=== PATIENT | male | born 1960 | race African-American/Black ===

== ENCOUNTER 2016-08-07 20:56 | Emergency (ER) | payer OTHER ==
[2016-08-07 21:11] VITALS: BMI 32.3
--- NOTE | 2016-08-07 21:13 | PDOC ---
History of Present Illness - General History Source: Patient Exam Limitations: No Limitations - History of Present Illness Initial Comments: 08/07/16 21:22 The patient is a 56 year old male, with a significant past medical history of DM , hypertension, kidney transplant on anti-rejection medication, who presents to the emergency department with complaints of nausea, diarrhea, and constant hiccups for the past few days. The patient also reports that his right hand has been swollen for the past three days. Patient was on dialysis [id number] with the fistula in the left arm He denies chest pain, shortness of breath, headache and dizziness. He denies fever, chills, vomit and constipation. PAST MEDICAL HISTORY: no significant history PAST SURGICAL HISTORY: Kidney transplant in 2009 at 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 Former smoker (quit 10 years ago) MEDICATIONS: reviewed PCP: Dr. Gorge Tomas General: +hiccups No fevers or chills, no weakness, no weight loss HEENT: No change in vision. No sore throat. No ear pain CardioVascular: No chest pain or shortness of breath Respiratory:No cough, or wheezing. Gastrointestinal: +nausea, +diarrhea no vomiting or constipation, No rectal bleeding Genitourinary: No dysuria, hematuria, or frequency Musculoskeletal: +right hand swelling No joint or muscle pain Neurologic: No headache, vertigo, dizziness or loss of consciousness Psychiatric: no depression Skin: No rashes or easy bruising Endocrine: no increased thirst or abnormal weight change Allergic: no skin or latex allergy All other systems reviewed and normal General: Well nourished well developed individual, no acute distress HEENT: Throat: Normal, tonsils normal, no erythema or exudate Neck: Supple, no meningeal signs, no lymphadenopathy Eyes:Pupils equal reactive and round, extraocular motion intact Chest: Nontender to palpation Cardiac: S1S2 normal, regular rate and rhythm, no murmurs rubs or gallops Respiratory: Lungs clear to auscultation bilateral Abdomen: Soft, nondistended, normal bowel sounds, nontender to palpation diffusely Extremities: +Mild edema of the right hand Warm, dry, no cyanosis or clubbing Skin: No rashes Neuro: Alert and oriented x3, nonfocal exam, grossly intact, normal gait Psych: Normal mood and affect <Anglea Nazario Last Filed: 08/07/16 21:22> - General History Source: Patient Exam Limitations: No Limitations - History of Present Illness Initial Comments: 08/08/16 01:04 A portion of this note was documented by scribe services under my direction. I have reviewed the details of the note, within reason, and agree with the documentation. The case summary and management plan written by me. Assessment and plan: This is a 48-year-old male who comes in feeling poorly. Patient has multiple complaints of not feeling well, some nausea, intermittent vomiting, intermittent diarrhea, lack of energy, swelling in his right hand. Patient has history significant for renal failure status post renal transplant 7 years ago, type 2 diabetes, hypertension. Patient had a complete workup including lab work which showed a mildly elevated white count but no left shift patient also is afebrile here in the emergency room and doesn't complain of any fevers just some chills from time to time Patient had some mild hyponatremia, hyperglycemia and renal insufficiency all of which appear to be chronic Patient has a primary care doctor that he can follow-up with on Tuesday Patient's family was given copies of all of his blood work. Patient had a markedly elevated d-dimer and complaining of the swelling in the hand so he cannot Dopplers of his bilateral upper and lower extremities all of which were negative Patient feels better after some IV fluid hydration and was discharged home with his . Patient was also complaining of hiccups he was given Reglan here and his hiccups improved so was discharged home with a prescription for Reglan also <Cole Bob I - Last Filed: 08/08/16 01:11> - General Chief Complaint: Diarrhea Stated Complaint: NAUSEA & DIARRHEA & HICCOUGHS Time Seen by Provider: 08/07/16 21:03 Past History <Angela Nazario - Last Filed: 08/07/16 21:22> - Past Medical History Anemia: No Asthma: No COPD: No Diabetes: Yes Dialysis: No (former dialysis, now post kidney transplant) Disorders: Yes HTN: Yes - Surgical History Orthopedic Surgery: Yes (Lt 4th digit partial amputation) - Immunization History Immunization Up to Date: Yes - Psycho/Social/Smoking Cessation Hx Anxiety: No Suicidal Ideation: No Smoking History: Former smoker Have you smoked in the past 12 months: No Number of Cigarettes Smoked Daily: 0 If you are a former smoker, when did you quit?: 10 YRS Hx Alcohol Use: No Drug/Substance Use Hx: No Substance Use Type: None Hx Substance Use Treatment: No <Cole Bob I - Last Filed: 08/08/16 01:11> - Past Medical History Allergies/Adverse Reactions: Allergies Allergy/AdvReac Type Severity Reaction Status Date / Time No Known Allergies Allergy Verified 05/14/15 16:27 Home Medications: Ambulatory Orders Amlodipine Besylate [Norvasc -] 10 mg PO DAILY 10/03/14 Aspirin [ASA -] 81 mg PO DAILY 10/03/14 Insulin (Levemir) [Levemir Vial] 30 unit SQ AM 10/03/14 Losartan Potassium [Cozaar] 50 mg PO BID 10/03/14 Magnesium Oxide 400 mg PO BID 10/03/14 Metoprolol Tartrate [Lopressor] 100 mg PO BID 10/03/14 Multivitamins [Multivit ([facility] Formulary)] 1 tab PO DAILY 10/03/14 Pyridoxine HCl [Vitamin B-6] 25 mg PO DAILY 10/03/14 Tacrolimus Anhydrous [Prograf (Non-Formulary)] 3.5 mg PO BID 10/03/14 Cinacalcet HCl [Sensipar] 60 mg PO DAILY 11/29/14 Insulin Lispro [Humalog] 100 unit SQ QID PRN 11/29/14 Mycophenolate Sodium [Myfortic] 360 mg PO HS 11/29/14 Mycophenolate Sodium [Myfortic] 720 mg PO DAILY 11/29/14 Sodium Bicarbonate - 1,300 mg PO BID #0 tablet 12/04/14 Metoclopramide HCl [Reglan] 10 mg PO TID #21 tablet 08/08/16 *Physical Exam - Vital Signs Last Vital Signs Temp Pulse Resp BP Pulse Ox 98.8 F 95 H 16 166/75 100 08/07/16 21:02 08/07/16 21:02 08/07/16 21:02 08/07/16 21:02 08/07/16 21:02 <Angela Nazario - Last Filed: 08/07/16 21:22> ED Treatment Course - LABORATORY CBC & Chemistry Diagram: 08/07/16 21:35 08/07/16 21:35 <Cole Bob I - Last Filed: 08/08/16 01:11> *DC/Admit/Observation/Transfer - Attestations Scribe Attestion: 08/07/16 21:23 Documentation prepared by MARIE Taveras, acting as medical equipment technician for Cole Bob MD. <Angela Nazario - Last Filed: 08/07/16 21:22> - Discharge Dispostion Admit: No <Cole Bob I - Last Filed: 08/08/16 01:11> Diagnosis at time of Disposition: Hyponatremia, Renal insufficiency Leukocytosis Qualifiers: Leukocytosis type: other Qualified Code(s): D72.828 - Other elevated white blood cell count Type 2 diabetes mellitus with hyperglycemia Qualifiers: Diabetes mellitus long-term insulin use: with long-term use Qualified Code(s): E11.65 - Type 2 diabetes mellitus with hyperglycemia; Z79.4 - long-term (current ) use of insulin - Discharge Dispostion Disposition: HOME Condition at time of disposition: Fair - Referrals Referrals: Gorge Guadarrama MD [Primary Care Provider] - - Patient Instructions Additional Instructions: Purchase some [id number] Imodium and take as needed and directed on the bottle for the diarrhea. For the hiccups that the prescription filled for Reglan and take as directed until the hiccups are resolved. Call your primary care doctor on Tuesday and get an appointment to follow-up with him on Tuesday or Tuesday. Return to the emergency department immediately with ANY new, persistent or worsening symptoms. Continue any medications as previously prescribed by your physician. You should follow up with your primary doctor as soon as possible regarding today's emergency department visit. . Please make sure your doctor reviews the results of your emergency evaluation. Thank you for coming to the Emergency Department today for your care. It was a pleasure to see you today. Please note that your evaluation is INCOMPLETE until you follow-up with your doctor.
[2016-08-07] MEDS ORDERED: chlorproMAZINE HCL 25 MG TABLET PO STA (21:14)
[2016-08-07] MEDS ORDERED: SODIUM CHLORIDE 1,000 ML IV ONE (21:24)
[2016-08-07] MEDS ORDERED: METOCLOPRAMIDE HCL 10 MG TABLET (FP) PO ONE (21:36)
[2016-08-07 22:03] LABS: PLATELET COUNT 246 K/MM3 (134-434); RDW 17.8 % (11.9-15.9)
[2016-08-07 22:06] LABS: BASOPHIL 2.4 % (0-2.0); MCH 25.8 pg (25.7-33.7); MCHC 32.5 g/dl (32.0-35.9); MEAN CELL VOLUME 79.4 fl (80-96); MEAN PLT VOLUME 11.8 fl (7.5-11.1); NEUTROPHILS 80.2 % (42.8-82.8); WHITE BLOOD COUNT 12.2 K/mm3 (4.0-10.0)
[2016-08-07 22:18] LABS: ALBUMIN 2.9 g/dl (3.5-5.0); BILIRUBIN,TOTAL 0.8 mg/dl (0.2-1.0); CALCIUM 8.6 mg/dl (8.4-10.2); TOT PROT 7.3 g/dl (6.4-8.3)
[2016-08-07 22:52] LABS: TROPONIN I (DFP) 0.03 ng/ml (0.03-0.50)
[2016-08-07 23:01] LABS: PH,URINE 5.5 (4.5-8); URINE APPEARANCE Clear; URINE BILIRUBIN 1+ (NEGATIVE); URINE GLUCOSE (UA) Negative (NEGATIVE); URINE KETONE 1+ (NEGATIVE); URINE LEUK ESTERASE Negative (NEGATIVE); URINE NITRITE Negative (NEGATIVE); URINE UROBILINOGEN 0.2 E.U/dl (0.2-1.0)
[2016-08-07 23:02] LABS: URINE BLOOD 1+ (NEGATIVE); URINE COLOR YELLOW; URINE PROTEIN 2+ (NEGATIVE)
[2016-08-07 23:23] LABS: URINE WBC NONE SEEN (3-5)
[2016-08-08] MEDS ORDERED: ACETAMINOPHEN 500 MG TABLET (FP) PO ONE ×2 (00:52→00:56)
[2016-08-08] MEDS ORDERED: ACETAMINOPHEN 325 MG TABLET (FP) ONE (00:53)
[2016-08-08 00:56] VITALS: BP 140/79; PULSE 98; TEMP 99.3
[2016-08-08] MEDS ORDERED: METOCLOPRAMIDE HCL 10 MG TABLET (FP) PO ONE (01:06)
--- NOTE | 2016-08-09 16:44 | EKG ---
Test Reason : Blood Pressure : / mmHG Vent. Rate : 093 BPM Atrial Rate : 093 BPM P-R Int : 152 ms QRS Dur : 072 ms QT Int : 360 ms P-R-T Axes : 037 060 -07 degrees QTc Int : 447 ms NORMAL SINUS RHYTHM POSSIBLE LEFT ATRIAL ENLARGEMENT ABNORMAL QRS-T ANGLE, CONSIDER PRIMARY T WAVE ABNORMALITY WHEN COMPARED WITH ECG OF 01-MAY-2007 17:30, NO SIGNIFICANT CHANGE WAS FOUND Confirmed by MD CASSIE, STEPHENIE ([id number]) on 08/09/2016 4:44:15 PM Referred By: MINE Confirmed By:STEPHENIE MATTHEWS MD
== END 2016-08-08 01:15 | disposition home or self-care (01) ==
LOC: FER 20:56
DX: E11.65 Type 2 diabetes mellitus with hyperglycemia (principal); D72.828 Other elevated white blood cell count; N28.9 Disorder of kidney and ureter, unspecified; E87.1 Hypo-osmolality and hyponatremia; Z94.0 Kidney transplant status; I10 Essential (primary) hypertension; Z87.891 Personal history of nicotine dependence
CPT/HCPCS: 36415; 80053; 81003; 81015; 82550; 84484; 85025; 85379; 93005; 93971; 93971-TC; 99284-25

== ENCOUNTER 2017-04-02 21:29 | Inpatient (IN) | payer OTHER ==
--- NOTE | 2017-04-02 22:01 | PDOC ---
Attending Attestation - Resident Resident Name: KrishanSang vitale - HPI HPI: 04/07/17 07:49 Pt presents to the ED complaining of R flank pain and generalized malaise. Reports that he slid out of his chair today and was unable to get up. Denies nausea, vomiting, fever. - Physicial Exam PE: 04/07/17 07:50 Agree with resident exam. Patient is tachycardic but HR is regular. No other remarkable findings on exam. - Medical Decision Making 04/07/17 07:51 Pt presents to the ED with sinus tachycardia and generalized malaise. Tachycardia is improving after IV hydration. Labs show elevated WBC count and lactate, which may be secondary to sepsis. Will continue IV hydration, treat with broad spectrum antibiotics, admit to medicine.
[2017-04-02] MEDS ORDERED: SODIUM CHLORIDE 0.9% 1000 ML INFUS.BAG IV ONE (22:41)
[2017-04-02 23:17] LABS: BASOPHIL 0.2 % (0-2.0); MCH 26.2 pg (25.7-33.7); MCHC 31.9 g/dl (32.0-35.9); MEAN CELL VOLUME 82.4 fl (80-96); MEAN PLT VOLUME 10.9 fl (7.5-11.1); NEUTROPHILS 81.5 % (42.8-82.8); PLATELET COUNT 180 K/MM3 (134-434); RDW 17.1 % (11.9-15.9); WHITE BLOOD COUNT 14.4 K/mm3 (4.0-10.0)
--- NOTE | 2017-04-02 23:17 | PDOC ---
History of Present Illness - General Chief Complaint: Irregular Heart Beat Stated Complaint: RAPID AFIB Time Seen by Provider: 04/02/17 21:59 History Source: Patient Exam Limitations: No Limitations - History of Present Illness Initial Comments: 04/02/17 22:47 The patient is a 56M with a PMH of DM, HTN, s/p renal transplant on immunosuppressive medication, who presents to the ED with complaints of kidney pain. The patient is a poor historian. The patient states that he has not been feeling well for 3 days. He states that today he was sitting in his chair and urinated on himself twice because he was too weak to go to the bathroom. He also began to slouch in his chair and fell on the ground (no LOC, CP, lightheadedness, SOB, nausea, vomiting) secondary to weakness. The patient has no other complaints besides weakness. Past History - Past Medical History Allergies/Adverse Reactions: Allergies Allergy/AdvReac Type Severity Reaction Status Date / Time No Known Allergies Allergy Verified 04/02/17 21:59 Home Medications: Ambulatory Orders Aspirin [ASA -] 81 mg PO DAILY 10/03/14 Insulin (Levemir) [Levemir Vial] 30 unit SQ AM 10/03/14 Metoprolol Tartrate [Lopressor] 100 mg PO BID 10/03/14 Multivitamins [Multivit ([facility] Formulary)] 1 tab PO DAILY 10/03/14 Pyridoxine HCl [Vitamin B-6] 25 mg PO DAILY 10/03/14 Tacrolimus Anhydrous [Prograf] 1 mg PO BID 10/03/14 Cinacalcet HCl [Sensipar] 60 mg PO DAILY 11/29/14 Insulin Lispro [Humalog] 100 unit SQ QID PRN 11/29/14 Mycophenolate Sodium [Myfortic] 360 mg PO TID 11/29/14 Furosemide [Lasix] 40 mg PO DAILY 04/03/17 Metformin HCl [Metformin HCl ER] 500 mg PO BID 04/03/17 Potassium Chloride [Klor-Con] 20 meq PO DAILY 04/03/17 Prednisone 5 mg PO DAILY 04/03/17 Sodium Bicarbonate - 650 mg PO BID 04/03/17 Tamsulosin HCl [Flomax] 0.4 mg PO HS 04/03/17 Anemia: No Asthma: No COPD: No Diabetes: Yes Dialysis: No (former dialysis, now post kidney transplant) Disorders: Yes HTN: Yes - Surgical History Orthopedic Surgery: Yes (Lt 4th digit partial amputation) - Immunization History Immunization Up to Date: Yes - Suicide/Smoking/Psychosocial Hx Smoking History: Former smoker Have you smoked in the past 12 months: No Number of Cigarettes Smoked Daily: 0 If you are a former smoker, when did you quit?: 10 YRS Information on smoking cessation initiated: No Hx Alcohol Use: No Drug/Substance Use Hx: No Substance Use Type: None Hx Substance Use Treatment: No Review of Systems - Review of Systems Able to Perform ROS?: Yes Comments:: 04/02/17 23:38 GENERAL/CONSTITUTIONAL: No fever or chills. No weakness. HEAD, EYES, EARS, NOSE AND THROAT: No change in vision. No ear pain or discharge. No sore throat. GASTROINTESTINAL: No nausea, vomiting, diarrhea, constipation, or abdominal pain. GENITOURINARY: No dysuria, frequency, hematuria, or change in urination. CARDIOVASCULAR: No chest pain, palpitations, or lightheadedness. RESPIRATORY: No cough, wheezing, shortness of breath, or hemoptysis. MUSCULOSKELETAL: No joint or muscle swelling or pain. No neck or back pain. SKIN: No rash or lesions. NEUROLOGIC: No headache, numbness, tingling, weakness, loss of consciousness, or change in strength/sensation. ENDOCRINE: No increased thirst. No abnormal weight change. HEMATOLOGIC/LYMPHATIC: No anemia, easy bleeding, or history of blood clots. ALLERGIC/IMMUNOLOGIC: No hives or skin allergy. Is the patient limited Occitan proficient: No *Physical Exam - Vital Signs Last Vital Signs Temp Pulse Resp BP Pulse Ox 98.1 F 147 H 24 171/95 96 04/02/17 21:55 04/02/17 21:55 04/02/17 21:55 04/02/17 21:55 04/02/17 21:55 - Physical Exam Comments: 04/02/17 23:38 GENERAL: Well developed, well nourished. Awake and alert. No acute distress. HEENT: Normocephalic, atraumatic. Hearing grossly normal. NECK: Supple. Full ROM. No JVD. Carotid pulses 2+ and symmetric, without bruits. No thyromegaly. No lymphadenopathy. CARDIOVASCULAR: Regular rate and rhythm. No murmurs, rubs, or gallops. Distal pulses are 2+ and symmetric. PULMONARY: No evidence of respiratory distress. Lungs clear to auscultation bilaterally. No wheezing, rales or rhonchi. ABDOMINAL: Soft. Non-tender. Non-distended. No rebound or guarding. No organomegaly. Normoactive bowel sounds. MUSCULOSKELETAL: Normal range of motion at all joints. No bony deformities or tenderness. EXTREMITIES: No cyanosis. No clubbing. No edema. No calf tenderness. SKIN: Warm and dry. Normal capillary refill. No rashes. No jaundice. NEUROLOGICAL: Alert, awake, appropriate. Normal speech. Gait is normal without ataxia. PSYCHIATRIC: Cooperative. Good eye contact. Appropriate mood and affect. ED Treatment Course - LABORATORY CBC & Chemistry Diagram: 04/02/17 22:45 04/02/17 22:45 Medical Decision Making - Medical Decision Making 04/02/17 23:41 The patient is a 56M with a hx of DM, HTN, and s/p renal transplant who presents to the ED with complaints of weakness. His vitals are significant for a HR in the 140's and tachypnea. EKG shows sinus tachycardia. I have ordered labs and imaging and will reassess when labs return. 04/02/17 23:46 WBC count of 14.4. Lactate of 2.6. PCP paged. 04/03/17 04:16 Patient is admitted to the hospitalist. Remains mildly tachycardic. *DC/Admit/Observation/Transfer - Discharge Dispostion Condition at time of disposition: Guarded
[2017-04-02 23:22] LABS: INR 1.29 (0.82-1.09); PROTHROMBIN TIME (PATIENT) 14.6 SEC (9.98-11.88)
[2017-04-02 23:28] LABS: ALBUMIN 2.9 g/dl (3.4-5.0); ANION GAP 13 (8-16); BILIRUBIN,TOTAL 0.8 mg/dL (0.2-1.0); CALCIUM 10.4 mg/dL (8.5-10.1); CO2 22 mmol/L (21-32); CREATININE 2.4 mg/dL (0.7-1.3); GLUCOSE,RANDOM 267 mg/dL (74-106); SGOT/AST 8 U/L (15-37); SGPT/ALT 9 U/L (12-78)
[2017-04-02 23:31] LABS: ALK PHOS 89 U/L (45-117); CPK 77 IU/L (39-308); TOT PROT 7.3 g/dl (6.4-8.2); TROPONIN I < 0.02 ng/ml (0.00-0.05)
[2017-04-02] MEDS ORDERED: VANCOMYCIN 1,000 MG in DEXTROSE 5%-WATER - 250 ML IVPB ONE (23:39)
[2017-04-02] MEDS ORDERED: PIPERACILLIN/TAZOB 3.375 GM/50 ML PRE-DOCKED IV ONE (23:39)
[2017-04-03] MEDS ORDERED: ACETAMINOPHEN 325 MG TABLET (FP) PO PRN (00:13)
[2017-04-03] MEDS ORDERED: ONDANSETRON 4 MG/2 ML VIAL IVPB PRN (00:14)
[2017-04-03] MEDS ORDERED: VANCOMYCIN 1 GRAM (PRE-DOCKED) 250 ML IVPB ONE (00:36)
[2017-04-03] MEDS ORDERED: PIPERACILLIN/TAZOB 3.375 GM 50 ML IVPB ONE ×2 (00:36→06:23)
[2017-04-03] MEDS ORDERED: SODIUM CHLORIDE 1,000 ML IV STA (00:51)
--- NOTE | 2017-04-03 00:54 | HP ---
Admitting History and Physical - Admission Chief Complaint: feeling ill/weak History of Present Illness: 56 yo male with pmhx IDDM, renal failure (s/p renal transplant at 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 patient reports not feeling like himself for a few days. he reports decreased appetite and self care. he states that he has not been taking his medications over the past 2 days. he reports intermittent 7 /10 right flank pain x 2 days that radiates to his right groin. he describes it as an ache, no aggravating or alleviating factors. he reports having non-bloody diarrhea x 2 days. he also reports having generalized joint aches. he denies sob , cp, heart palps, syncope, dysuria, cough, sore throat, nausea, vomiting. denies recent travel or abx use. rest of ros neg except for above pmh/psh- IDDM, renal failure (s/p renal transplant at 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, s/p amputation social- denies rec drug toxic habits famhx- nc pcp/nephro- gucci brown ([facility]) pex gen- in nad, alert, shaking hent- at/nc, maninder, neck supple trachea midline, no pharyngeal erythema, no lymphadenopathy resp- no cough, lungs ctab, no ronchi, no accessory, muscle use cards- s1s2 heard, no jvd, no leg edema, rrr gi- nt/ng, +bs, no rebound gu- no cvat neuro- alert, cn 2-12 grossly intact, no facial droop, no seizures psych- cooperative, no agitation skin- dry and flaking, no erythema prob list lactic acidosis weakness renal transplant htn hlp iddm ckd leukocytosis tachycardia sirs right flank pain diarrhea anemia imaging reviewed ekg- tachycardic, non- ischemic cxr- appears clear on my view ctap- pending a/p- 56 yo male with pmhx IDDM, renal failure (s/p renal transplant at 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 1. meets sirs ? unclear source of infection cxr appears clear by my eye f/u cultures, urine legionella, flu swab, mrsa screen cont IVF cont vanc, zosyn given on immunosuppressive therapy (steroids, prograf, mycophenolate) id consult 2. R flank pain ? stones, hydro, pyleonephritis f/u ctap 3. iddm ssi hold metformin 4. hyperkalemia (5.5) possibly r/t kcl supplement hold kcl recheck bmp ivf 5. lactic acidosis likely 2/2 sepsis v metformin use trend labs ivf 6. ckd monitor bmp f/u phos 7. s/p renal transplant 8. htn cont home meds 9. diarrhea ?gastroenteritis v colitis check stool studies f/u ctap 10. anemia of ckd h/h appears to be at baseline monitor cbc dvt prophy oob, scd, hep sq fen diabetic/renal diet when able ivf 100cc/hr dispo- requires > 2mn stay for sepsis w/u History Source: Patient Limitations to Obtaining History: No Limitations - Past Medical History Cardiovascular: Yes: CHF, HTN Renal/: Yes: Renal Failure Endocrine: Yes: Diabetes Mellitus - Past Surgical History Past Surgical History: Yes: Kidney Transplant - Smoking History Smoking history: Former smoker Have you smoked in the past 12 months: No Aproximately how many cigarettes per day: 0 If you are a former smoker, when did you quit?: 10 YRS - Alcohol/Substance Use Hx Alcohol Use: No History of Substance Use: reports: None - Social History ADL: Independent Home Medications - Allergies Allergies/Adverse Reactions: Allergies Allergy/AdvReac Type Severity Reaction Status Date / Time No Known Allergies Allergy Verified 04/02/17 21:59 - Home Medications Home Medications: Ambulatory Orders Aspirin [ASA -] 81 mg PO DAILY 10/03/14 Insulin (Levemir) [Levemir Vial] 15 unit SQ AM 10/03/14 Metoprolol Tartrate [Lopressor] 100 mg PO BID 10/03/14 Multivitamins [Multivit ([facility] Formulary)] 1 tab PO DAILY 10/03/14 Pyridoxine HCl [Vitamin B-6] 25 mg PO DAILY 10/03/14 Tacrolimus Anhydrous [Prograf] 1 mg PO BID 10/03/14 Cinacalcet HCl [Sensipar] 60 mg PO DAILY 11/29/14 Insulin Lispro [Humalog] 100 unit SQ QID PRN 11/29/14 Mycophenolate Sodium [Myfortic] 360 mg PO TID 11/29/14 Furosemide [Lasix] 40 mg PO DAILY 04/03/17 Metformin HCl [Metformin HCl ER] 500 mg PO BID 04/03/17 Potassium Chloride [Klor-Con] 20 meq PO DAILY 04/03/17 Prednisone 5 mg PO DAILY 04/03/17 Sodium Bicarbonate - 650 mg PO BID 04/03/17 Tamsulosin HCl [Flomax] 0.4 mg PO HS 04/03/17 Physical Examination Vital Signs: Vital Signs Temperature 98.1 F 04/02/17 21:55 Pulse Rate 147 H 04/02/17 21:55 Respiratory Rate 24 04/02/17 21:55 Blood Pressure 171/95 04/02/17 21:55 O2 Sat by Pulse Oximetry (%) 96 04/02/17 21:55 Labs: CBC, BMP 04/02/17 22:45 04/02/17 22:45 Visit type - Emergency Visit Emergency Visit: Yes ED Registration Date: 04/03/17 Care time: The patient presented to the Emergency Department on the above date and was hospitalized for further evaluation of their emergent condition. - New Patient This patient is new to me today: No - Critical Care Critical Care patient: No
[2017-04-03] MEDS ORDERED: SODIUM CHLORIDE 1,000 ML IV SCH ×2 (01:30→10:57)
[2017-04-03] MEDS ORDERED: PIPERACIL/TAZOB 3.375 GM 3.375 GM/50 ML PREMIX IVPB ONE (06:00)
[2017-04-03 06:59] LABS: BASOPHIL 0.4 % (0-2.0); EOSINOPHIL 0.2 % (0-4.5); MCH 25.7 pg (25.7-33.7); MCHC 31.2 g/dl (32.0-35.9); MEAN CELL VOLUME 82.4 fl (80-96); MEAN PLT VOLUME 10.7 fl (7.5-11.1); NEUTROPHILS 77.1 % (42.8-82.8); PLATELET COUNT 161 K/MM3 (134-434); RDW 17.5 % (11.9-15.9); WHITE BLOOD COUNT 11.3 K/mm3 (4.0-10.0)
[2017-04-03] MEDS ORDERED: INSULIN DETEMIR 100 UNITS/ML MDV SQ SCH (07:00)
[2017-04-03 07:21] LABS: ALBUMIN 2.6 g/dl (3.4-5.0); ALK PHOS 77 U/L (45-117); ANION GAP 12 (8-16); BILIRUBIN,TOTAL 0.9 mg/dL (0.2-1.0); CO2 21 mmol/L (21-32); CREATININE 2.2 mg/dL (0.7-1.3); GLUCOSE,RANDOM 242 mg/dL (74-106); PHOSPHOROUS 3.1 mg/dL (2.5-4.9); SGPT/ALT 10 U/L (12-78); TOT PROT 6.9 g/dl (6.4-8.2)
[2017-04-03 07:22] LABS: MAGNESIUM 1.9 mg/dL (1.8-2.4); SGOT/AST 18 U/L (15-37)
[2017-04-03] MEDS: HEPARIN NA (PORCINE) 5,000 UNITS/ML 1ML VIAL SQ SCH ×3 (08:00→21:58)
[2017-04-03] MEDS: MYCOPHENOLATE SODIUM 360 MG TABLET.DR PO SCH ×2 (08:00→14:25)
[2017-04-03 08:26] LABS: CPK 145 IU/L (39-308)
[2017-04-03 08:27] LABS: TROPONIN I 0.02 ng/ml (0.00-0.05)
--- NOTE | 2017-04-03 08:50 | PN ---
Progress Note, Physician Chief Complaint: ID Full note dicatated This 56 year old male Diabetic renal transplant 7 yrs ago presents 3 day histor of weakness at home and pains in his "joints". Mostly knees and wrists No swelling or history of rash travel or outdoor exposure. Elevated WBC here NO HIV risks. Generally stays at home and does is errand via taxi otherwise felt well until 3 days ago. Note hiccouphs - Current Medication List Current Medications: Active Medications Acetaminophen (Tylenol -) 650 mg PO Q4H PRN PRN Reason: FEVER OR PAIN Aspirin (Asa -) 81 mg PO DAILY [facility] Cinacalcet (Sensipar -) 60 mg PO DAILY [facility] Furosemide (Lasix -) 40 mg PO DAILY [facility] Heparin Sodium (Porcine) (Heparin -) 5,000 unit SQ TID [facility]Y Sodium Chloride (Normal Saline -) 1,000 mls @ 100 mls/hr IV ASDIR THIERRY Insulin Aspart (Novolog Vial Sliding Scale -) 1 vial SQ TIDAC THIERRY PRN Reason: Protocol Insulin Detemir (Levemir Vial) 15 units SQ AM [facility] Metoprolol Tartrate (Lopressor -) 100 mg PO BID [facility] Multivitamins/Minerals/Vitamin C (Tab-A-Vit -) 1 tab PO DAILY [facility] Mycophenolate Sodium (Mycophenolic Acid) 360 mg PO TID [facility] Ondansetron HCl (Zofran Injection) 8 mg IVPB Q6H PRN PRN Reason: NAUSEA Prednisone (Deltasone -) 5 mg PO DAILY [facility] Pyridoxine HCl (Vitamin B6 -) 25 mg PO DAILY [facility] Sodium Bicarbonate (Sodium Bicarbonate -) 650 mg PO BID [facility] Tacrolimus (Prograf) 1 mg PO BID [facility] Tamsulosin HCl (Flomax -) 0.4 mg PO HS [facility] - Objective Vital Signs: Vital Signs Temperature 98.9 F 04/03/17 01:42 EDT Pulse Rate 147 H 04/02/17 21:55 Respiratory Rate 24 04/02/17 21:55 Blood Pressure 171/95 04/02/17 21:55 O2 Sat by Pulse Oximetry (%) 97 04/02/17 23:45 Constitutional: Yes: Well Nourished, Mild Distress HENT: Yes: WNL, Atraumatic Neck: Yes: WNL, Supple Cardiovascular: Yes: Tachycardia, S1, S2. No: Murmur Respiratory: Yes: WNL, Regular, CTA Bilaterally Gastrointestinal: Yes: WNL, Normal Bowel Sounds, Soft. No: Tenderness, Tenderness, Rebound Extremities: Yes: Other (NO joint swelling). No: Cold, Cool, Cyanosis Labs: CBC, BMP 04/03/17 06:50 04/03/17 06:50 INR, PTT INR 1.29 (0.82-1.09) H 04/02/17 22:45 Problem List - Problems (1) Diabetes mellitus, insulin dependent (IDDM), uncontrolled Code(s): E10.65 - TYPE 1 DIABETES MELLITUS WITH HYPERGLYCEMIA (2) Renal transplant recipient Code(s): Z94.0 - KIDNEY TRANSPLANT STATUS (3) Leukocytosis Code(s): D72.829 - ELEVATED WHITE BLOOD CELL COUNT, UNSPECIFIED Qualifiers: Leukocytosis type: other Qualified Code(s): D72.828 - Other elevated white blood cell count; D72.828 - Other elevated white blood cell count Assessment/Plan Microbiology Laboratory Tests 04/02/17 04/02/17 04/03/17 22:45 22:45 06:50 WBC 14.4 H D Hgb 11.0 L Plt Count 180 D Neutrophils % 81.5 D Lymphocytes % 8.0 D Monocytes % 10.3 H BUN 60 H Creatinine 2.2 H Creat Clearance w eGFR 30.90 Total Bilirubin 0.8 D ALT 9 L D Assessment Renal transplant patient generally not feeling well with joint pains leukocytosis No joint swellling Has some tenderness of left 3rd finger midle phalanx but no pus fluctuance really source of all this unclear Has hiccouphs but abd benign Plan Advise Blood and urine c/s Ceftriaxone 1 gram daily and vancomycin PRANEETH Santamaria MD
[2017-04-03] MEDS: INSULIN SLIDING SCALE (NOVOLOG) 1 VIAL SQ SCH ×3 (09:01→17:01)
[2017-04-03 09:05] LABS: URINE APPEARANCE CLEAR; URINE BILIRUBIN NEGATIVE (NEGATIVE); URINE BLOOD 1+ (NEGATIVE); URINE COLOR YELLOW; URINE GLUCOSE (UA) NEGATIVE (NEGATIVE); URINE KETONE NEGATIVE (NEGATIVE); URINE NITRITE NEGATIVE (NEGATIVE); URINE UROBILINOGEN NEGATIVE mg/dL (0.2-1.0)
[2017-04-03 09:07] LABS: URINE PROTEIN 2+ (NEGATIVE)
[2017-04-03 09:09] LABS: URINE RBC 5; URINE WBC 1
[2017-04-03] MEDS ORDERED: INSULIN DETEMIR 100 UNITS/ML MDV SQ ONE (09:16)
[2017-04-03] MEDS: ASPIRIN 81 MG CHEWABLE TABLETS PO SCH (09:47)
[2017-04-03] MEDS: predniSONE 5 MG TABLET (UD) PO SCH (09:48)
[2017-04-03] MEDS: CEFTRIAXONE 1 G/50 ML PREMIX 50 ML IVPB SCH (09:48)
[2017-04-03] MEDS: CINACALCET HCL 30 MG TAB (FP) PO SCH (09:49)
[2017-04-03] MEDS: METOPROLOL TARTRATE 50 MG TABLET (FP) PO SCH ×2 (09:49→21:56)
[2017-04-03] MEDS: PYRIDOXINE HCL (B-6) 50 MG TABLET (FP) PO SCH (09:51)
[2017-04-03] MEDS: SODIUM BICARBONATE 650 MG TABLET PO SCH ×2 (09:51→21:56)
[2017-04-03] MEDS: MULTIVITAMINS (DAILY MVI) TABLET (FP) PO SCH (09:51)
[2017-04-03] MEDS: TACROLIMUS ANHYDROUS 1 MG CAPSULE PO SCH ×2 (09:52→23:07)
--- NOTE | 2017-04-03 09:56 | CONS ---
DATE OF CONSULTATION: 04/03/2017 The patient is a 56-year-old diabetic male, status post renal transplant 7 years ago at [facility] who presents to the hospital complaining of generalized weakness and inability to get up from his chair while watching television. He has been followed at the medical center and takes immunosuppressive medication for his transplant, including tacrolimus and mycophenolate. He was in his usual state of health, meaning that, typically, he lives and stays at home and gets around to do his errands by a taxi. He does not work and has no history of any travel. Three days ago, he noticed simply that he was feeling weak and unable to get up from his chair. He denied any urinary complaints. He came to the hospital, where here, to me, he complains of pain in his joints, primarily his wrists and knees. He has no preceding history of musculoskeletal complaints or arthritis and has no history of a rash, outdoor exposure to wooded areas, headaches, or stiff neck. He also has hiccups, but denies any abdominal pain. He was given a dose of vancomycin and Zosyn and I am asked to see him for further evaluation. PAST MEDICAL HISTORY: Renal transplant, hypertension, diabetes. MEDICATIONS: Aspirin, insulin, metoprolol, pyridoxine, tacrolimus, Sensipar, mycophenolate, Lasix, metformin, tamsulosin. ALLERGIES: None known. SOCIAL HISTORY: He lives at home. Former smoker, former substance abuse. States he has no reason to be HIV-positive. FAMILY HISTORY: Reviewed and noncontributory. REVIEW OF SYSTEMS: Respiratory: No cough, shortness of breath, sputum production. Cardiac: No chest pain, palpitations, syncope, murmur. Gastrointestinal: No abdominal pain, nausea, vomiting, diarrhea. Genitourinary: No dysuria, hematuria, urinary frequency. PHYSICAL EXAMINATION: General: He was an alert male who appeared in mild distress secondary to generalized discomfort. Vital Signs: His temperature was 98.1, pulse 147, blood pressure 170/95, respiratory rate 24, O2 saturation 96%. Neck: Supple without adenopathy. Lungs: Clear to percussion and auscultation. Heart: S1, S2, regular rhythm without audible murmur. Abdomen: Soft, positive bowel sounds, nontender. No guarding or rebound. No organomegaly. Extremities: Amputation of a finger on the left foot, diffuse swelling of the middle phalanx, which was mildly tender, but no drainage, wound, or fluctuance noted. LABORATORIES: White count of 14.4, hemoglobin 11, platelets of 180. BUN 70, creatinine 2.4, glucose 267, lactic acid 2.6. Liver enzymes within normal limits. Chest x-ray with no acute infiltrate. ASSESSMENT: A 56-year-old male, poor historian presents with generalized weakness and joint pains in the absence of any obvious joint swelling. He has no localizing findings on physical examination that I could find to suggest a source of infection, although his left finger was mildly swollen and mildly tender. His abdomen appears benign and, at this time, we do not have a urinalysis back. Agree, given his transplant status, that it would be reasonable to cover him for, right now, occult bacteremia with a dose of vancomycin, which he already received, as well as a dose of ceftriaxone pending blood and urine cultures. An abdominal CT has been performed and the results currently are not yet read. CRP, LUKE, and rheumatoid factor are also ordered. Will follow up in a.ade. HARSHIL RAMÍREZ M.D. [id number]
[2017-04-03] MEDS ORDERED: FUROSEMIDE 40 MG TABLET (FP) PO SCH (10:00)
[2017-04-03 10:46] LABS: C-REACTIVE PROTEIN 32.3 MG/DL (0.00-0.3)
--- NOTE | 2017-04-03 10:51 | PN ---
Progress Note (short form) - Note Progress Note: Subjective: no fever or chills, pain in joint shoulders , hips, hands. diarrhea at home. reports black stool x 1 . no hematochezia . no cough or SOB . dry throat . Objective: Vital Signs: Last Vital Signs Temp Pulse Resp BP Pulse Ox 98.4 F 116 H 16 156/100 96 04/03/17 09:00 04/03/17 09:00 04/03/17 09:00 04/03/17 09:00 04/03/17 09:00 Laboratory Results - last 24 hr 04/02/17 04/02/17 04/02/17 08:55 22:45 22:45 WBC 14.4 H D RBC 4.20 Hgb 11.0 L Hct 34.6 L MCV 82.4 MCH 26.2 MCHC 31.9 L RDW 17.1 H D Plt Count 180 D MPV 10.9 D Neutrophils % 81.5 D Lymphocytes % 8.0 D Monocytes % 10.3 H Eosinophils % 0.0 D Basophils % 0.2 PT with INR 14.60 H INR 1.29 H Sodium Potassium Chloride Carbon Dioxide Anion Gap BUN Creatinine Creat Clearance w eGFR Random Glucose Lactic Acid Calcium Phosphorus Magnesium Total Bilirubin AST ALT Alkaline Phosphatase Creatine Kinase Troponin I C-Reactive Protein Total Protein Albumin Urine Color Yellow Urine Appearance Clear Urine pH 5.0 Ur Specific [place] 1.016 Urine Protein 2+ H Urine Glucose (UA) Negative Urine Ketones Negative Urine Blood 1+ H Urine Nitrite Negative Urine Bilirubin Negative Urine Urobilinogen Negative Urine RBC 5 Urine WBC 1 Rheumatoid Factor Blood Type Antibody Screen 04/02/17 04/02/17 04/02/17 22:45 22:45 22:45 WBC RBC Hgb Hct MCV MCH MCHC RDW Plt Count MPV Neutrophils % Lymphocytes % Monocytes % Eosinophils % Basophils % PT with INR INR Sodium 141 Potassium 5.5 H D Chloride 106 Carbon Dioxide 22 Anion Gap 13 BUN 70 H D Creatinine 2.4 H Creat Clearance w eGFR 27.94 Random Glucose 267 H D Lactic Acid 2.6 H* Calcium 10.4 H Phosphorus Magnesium Total Bilirubin 0.8 D AST 8 L D ALT 9 L D Alkaline Phosphatase 89 Creatine Kinase 77 Troponin I < 0.02 C-Reactive Protein Total Protein 7.3 Albumin 2.9 L Urine Color Urine Appearance Urine pH Ur Specific [place] Urine Protein Urine Glucose (UA) Urine Ketones Urine Blood Urine Nitrite Urine Bilirubin Urine Urobilinogen Urine RBC Urine WBC Rheumatoid Factor Blood Type O POSITIVE Antibody Screen Negative 04/03/17 04/03/17 04/03/17 06:50 06:50 06:50 WBC 11.3 H RBC 4.16 Hgb 10.7 L Hct 34.3 L MCV 82.4 MCH 25.7 MCHC 31.2 L RDW 17.5 H Plt Count 161 MPV 10.7 Neutrophils % 77.1 Lymphocytes % 12.1 D Monocytes % 10.2 Eosinophils % 0.2 D Basophils % 0.4 PT with INR INR Sodium 139 Potassium 5.4 H Chloride 106 Carbon Dioxide 21 Anion Gap 12 BUN 60 H Creatinine 2.2 H Creat Clearance w eGFR 30.90 Random Glucose 242 H Lactic Acid 1.9 Calcium 10.0 Phosphorus 3.1 Magnesium 1.9 Total Bilirubin 0.9 AST 18 D ALT 10 L Alkaline Phosphatase 77 Creatine Kinase 145 Troponin I 0.02 C-Reactive Protein Total Protein 6.9 Albumin 2.6 L Urine Color Urine Appearance Urine pH Ur Specific [place] Urine Protein Urine Glucose (UA) Urine Ketones Urine Blood Urine Nitrite Urine Bilirubin Urine Urobilinogen Urine RBC Urine WBC Rheumatoid Factor Blood Type Antibody Screen 04/03/17 04/03/17 09:45 09:45 WBC RBC Hgb Hct MCV MCH MCHC RDW Plt Count MPV Neutrophils % Lymphocytes % Monocytes % Eosinophils % Basophils % PT with INR INR Sodium Potassium Chloride Carbon Dioxide Anion Gap BUN Creatinine Creat Clearance w eGFR Random Glucose Lactic Acid Calcium Phosphorus Magnesium Total Bilirubin AST ALT Alkaline Phosphatase Creatine Kinase Troponin I C-Reactive Protein Cancelled Total Protein Albumin Urine Color Urine Appearance Urine pH Ur Specific [place] Urine Protein Urine Glucose (UA) Urine Ketones Urine Blood Urine Nitrite Urine Bilirubin Urine Urobilinogen Urine RBC Urine WBC Rheumatoid Factor Cancelled Blood Type Antibody Screen Physical Exam: NAD, AAOx3 HEENT: slightly dry MM. EOMI, no LAP in neck. non congested throat . 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 TTP over hands joints and R shoulder. Limited range of motion over R shoulder. no erythema or swelling over shoulder. Abd: soft, TTP in LUQ and LLQ. no rebound tenderness or guarding. Neuro: AAOx3, No facial droop, nl facial sensation . EOMI, tongue and uvula at midline. strength 5/5 in upper and lower extremities proximally and distally except for inability to assess shoulders due to pain. he declined rectal exam Imaging: CT scan of abd image reviewed. pending final read Cxray clear Assessment/Plan: 56 y/o gentleman with h/o renal failure s/p renal transplant x 7 years ago, DM , HTN, and HLP who presented not feeling well and was found to have sepsis 1- severe sepsis : source is not known yet , but it could be due to urinary source. Unfortunately, Abx were given before blood or urine cx were sent . although joints are tender , but no erythema . R shoulder exam is very restricted though No evidence of PNA - follow CT scan results , - follow UA , Urine cx and blod cx - if UA and CT abd fail to reveal any source, will obtain MRI of the R shoulder - appreciate ID input, cont Abx for now - check stool cx and c diff due to diarrhea - gentle hydration 2- complaints of black stool. unfortunately declined rectal exam - send OB - stool studies - place on PPI po 3- h/o renal trenasplant : - cont his current meds - might want to hold cellcet in the setting of sepsis - will ask Dr. Luna to evaluate - Cr at base line - hold lasix . - repeat BMP this afternoon for hyperkalemia . 4- irregular heart rate. no h/o A fib. will obtain EKG. initial EKG with sinus tachy 5- DVT pX SCDs until GI bleed is r/o . Visit type - Emergency Visit Emergency Visit: Yes ED Registration Date: 04/03/17 Care time: The patient presented to the Emergency Department on the above date and was hospitalized for further evaluation of their emergent condition. - New Patient This patient is new to me today: Yes Date on this admission: 04/03/17 - Critical Care Critical Care patient: No
[2017-04-03] MEDS: PANTOPRAZOLE 40 MG TABLET (FP) PO SCH (13:31)
[2017-04-03 15:09] VITALS: BMI 31.7
[2017-04-03 17:57] LABS: ANION GAP 15 (8-16); CALCIUM 9.4 mg/dL (8.5-10.1); CO2 20 mmol/L (21-32); CREATININE 1.8 mg/dL (0.7-1.3); GLUCOSE,RANDOM 174 mg/dL (74-106)
[2017-04-03 19:59] LABS: URINE LEUK ESTERASE Negative (NEGATIVE)
[2017-04-03] MEDS: TAMSULOSIN HCL 0.4 MG CAP.ER.24H (FP) PO SCH (21:56)
[2017-04-04] MEDS: HEPARIN NA (PORCINE) 5,000 UNITS/ML 1ML VIAL SQ SCH ×3 (06:24→21:26)
[2017-04-04] MEDS: INSULIN SLIDING SCALE (NOVOLOG) 1 VIAL SQ SCH ×3 (06:25→17:16)
[2017-04-04] MEDS: INSULIN DETEMIR 100 UNITS/ML MDV SQ SCH (06:29)
[2017-04-04 07:39] LABS: BASOPHIL 0.3 % (0-2.0); MCHC 31.9 g/dl (32.0-35.9); MEAN CELL VOLUME 81.3 fl (80-96); MEAN PLT VOLUME 10.9 fl (7.5-11.1); NEUTROPHILS 70.2 % (42.8-82.8); PLATELET COUNT 191 K/MM3 (134-434); RDW 16.8 % (11.9-15.9); WHITE BLOOD COUNT 8.5 K/mm3 (4.0-10.0)
[2017-04-04 08:06] LABS: ANION GAP 11 (8-16); CALCIUM 9.3 mg/dL (8.5-10.1); CO2 23 mmol/L (21-32); CREATININE 1.6 mg/dL (0.7-1.3); GLUCOSE,RANDOM 103 mg/dL (74-106)
[2017-04-04] MEDS: CEFTRIAXONE 1 G/50 ML PREMIX 50 ML IVPB SCH (09:54)
[2017-04-04] MEDS: predniSONE 5 MG TABLET (UD) PO SCH (09:55)
[2017-04-04] MEDS: SODIUM BICARBONATE 650 MG TABLET PO SCH ×2 (09:55→21:24)
[2017-04-04] MEDS: CINACALCET HCL 30 MG TAB (FP) PO SCH (09:55)
[2017-04-04] MEDS: ASPIRIN 81 MG CHEWABLE TABLETS PO SCH (09:56)
[2017-04-04] MEDS: TACROLIMUS ANHYDROUS 1 MG CAPSULE PO SCH (09:56)
[2017-04-04] MEDS: PYRIDOXINE HCL (B-6) 50 MG TABLET (FP) PO SCH (09:56)
[2017-04-04] MEDS: PANTOPRAZOLE 40 MG TABLET (FP) PO SCH (09:56)
[2017-04-04] MEDS: METOPROLOL TARTRATE 50 MG TABLET (FP) PO SCH ×2 (09:59→21:24)
[2017-04-04] MEDS: MULTIVITAMINS (DAILY MVI) TABLET (FP) PO SCH (09:59)
--- NOTE | 2017-04-04 12:18 | PN ---
Teaching Attending Note Name of Resident: Xiomara Sanford ATTENDING PHYSICIAN STATEMENT I saw and evaluated the patient. I reviewed the resident's note and discussed the case with the resident. I agree with the resident's findings and plan as documented. SUBJECTIVE: No fever or chills, has no abd pain, cont to have pain in hips, R shoulder and R knee OBJECTIVE: NAD, AAOx3 HEENT: slightly dry MM. EOMI, no LAP in neck. non congested throat . 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 TTP over hands joints and R shoulder. Limited range of motion over R shoulder. no erythema or swelling over shoulder. Abd: soft,No TTP . no rebound tenderness or guarding. Neuro: AAOx3, No facial droop, nl facial sensation . EOMI, tongue and uvula at midline. strength 5/5 in upper and lower extremities proximally and distally except for inability to assess shoulders due to pain. Imaging: CT abd reviewed. Assessment/Plan: 56 y/o gentleman with h/o renal failure s/p renal transplant x 7 years ago, DM , HTN, and HLP who presented not feeling well and was found to have sepsis 1- Severe sepsis : source is not known yet. No infiltrate on Cxray. No colitis or abscesses on CT abd/pelvis. UA does not suggest infection. R shoulder has Limited range of motion , but most of his joints are involved. has no sexual activity in 5 yrs,no H/o STDs, last HD was [address] abd/pelvis with bulged disk in T spine - check MRI of T spine. can't giev angelique due to renal function. r/o discitis although no point tenderness - if MRI of back is Neg , will perform MRI or R shoulder - check HIV. pt consented - check Gonorrhea due to joint pain - stool c diff and cx not collected yet. - cont gentle hydration - cont to hold cellcept pending renal c/s - unfortunately , all cx were sent after abx were given. - cont current Abx 2- ? melena : stool OB pending. declined rectal exam - cont PPI 3- h/o renal trenasplant : - Cont prednisone and tacro. hold cellcept in setting of sepsis. - Renal consult pending - Cont to hold lasix and cont gentle hydration. - Cr is at base line. - will assess fro need of IVF tomorrow 4- Irregular heart rate. EKG and tele show sinus arrhythmias , with pACs monitor 5- HTN: cont BB 6- DM : cont levemir and SSI . but hold metformin 7- DVT pX SCDs until GI bleed is r/o .
--- NOTE | 2017-04-04 13:30 | CONSULT ---
Consultation: REQUESTING PROVIDER: Dr. Spence CONSULT REQUEST: We have been asked to medically evaluate this patient for Nephrology (w/Dr. Luna). 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 He also complained of RLQ abdominal pain before admission (at the site of his transplanted kidney) and c/ o diarrhea for the last 2-3 days. Pt stated he takes his medications as prescribed. He no longer has the abdominal pain. He denies fevers, CP, SOB, dysuria. Is able to make urine. PMH: CKD s/p renal transplant, DM type 2, HTN, personality d/o, gout Past surgical hx: Renal transplant in October 2010. 4th digit partial amputation. FH: n-c Social hx: denies drug use REVIEW OF SYSTEMS: CONSTITUTIONAL: +generalized weakness Absent: fever CARDIOVASCULAR: Absent: chest pain, syncope, palpitations, irregular heart rate, lightheadedness , peripheral edema RESPIRATORY: +hiccups Absent: shortness of breath, orthopnea, wheezing GASTROINTESTINAL: +RLQ abd pain, diarrhea Absent: nausea, vomiting GENITOURINARY: Absent: dysuria, hematuria PHYSICAL EXAMINATION Vital Signs - 24 hr 04/03/17 04/03/17 04/03/17 14:30 21:00 21:44 Temperature 98.8 F Pulse Rate 94 H 104 H Respiratory 18 18 Rate Blood Pressure 149/78 160/84 O2 Sat by Pulse 97 99 Oximetry (%) 04/04/17 04/04/17 04/04/17 02:00 06:00 10:00 Temperature 99.2 F 98.3 F 98 F Pulse Rate 93 H 84 80 Respiratory 18 20 18 Rate Blood Pressure 153/98 161/88 165/84 O2 Sat by Pulse Oximetry (%) GENERAL: Awake, alert, and oriented, in no acute distress. LUNGS: Breath sounds equal, clear to auscultation bilaterally. HEART: Regular rate and rhythm, normal S1 and S2 ABDOMEN: Soft, nontender, not distended UPPER EXTREMITIES: 4th digit on L with phalanx amputation. LOWER EXTREMITIES: warm, No peripheral edema. NEUROLOGICAL:Normal speech. Gait not observed. PSYCHIATRIC: Cooperative. SKIN: Warm, dry Laboratory Results - last 24 hr 04/03/17 04/03/17 04/03/17 12:36 16:47 17:20 WBC RBC Hgb Hct MCV MCH MCHC RDW Plt Count MPV Neutrophils % Lymphocytes % Monocytes % Eosinophils % Basophils % Sodium 140 Potassium 4.7 Chloride 105 Carbon Dioxide 20 L Anion Gap 15 BUN 55 H Creatinine 1.8 H POC Glucometer 130.86418 171 Random Glucose 174 H D Calcium 9.4 04/04/17 04/04/17 04/04/17 05:18 05:18 05:44 WBC 8.5 RBC 3.90 L Hgb 10.1 L Hct 31.7 L MCV 81.3 MCH 26.0 MCHC 31.9 L RDW 16.8 H Plt Count 191 MPV 10.9 Neutrophils % 70.2 Lymphocytes % 19.1 D Monocytes % 9.4 Eosinophils % 1.0 D Basophils % 0.3 Sodium 143 Potassium 4.4 Chloride 109 H Carbon Dioxide 23 Anion Gap 11 BUN 47 H Creatinine 1.6 H POC Glucometer 115 Random Glucose 103 D Calcium 9.3 04/04/17 11:19 WBC RBC Hgb Hct MCV MCH MCHC RDW Plt Count MPV Neutrophils % Lymphocytes % Monocytes % Eosinophils % Basophils % Sodium Potassium Chloride Carbon Dioxide Anion Gap BUN Creatinine POC Glucometer 193 Random Glucose Calcium Imaging CT abd: reviewed CXR: reviewed Active Medications Generic Name Dose Route Start Last Admin Trade Name Freq PRN Reason Stop Dose Admin Acetaminophen 650 mg 04/03/17 00:13 Tylenol - PO Q4H PRN FEVER OR PAIN Aspirin 81 mg 04/03/17 10:00 04/04/17 09:56 Asa - PO 81 mg DAILY THIERRY Administration Cinacalcet 60 mg 04/03/17 10:00 04/04/17 09:55 Sensipar - PO 60 mg DAILY THIERRY Administration Heparin Sodium (Porcine) 5,000 unit 04/03/17 06:00 04/04/17 06:24 Heparin - SQ 5,000 unit TID THIERRY Administration CEFTRIAXONE 1 G/50 ML PREMIX 50 mls @ 100 mls/hr 04/03/17 10:00 04/04/17 09:54 Ceftriaxone 1 Gm-D5w Bag IVPB 100 mls/hr DAILY THIERRY Administration Sodium Chloride 1,000 mls @ 50 mls/hr 04/03/17 10:57 04/03/17 13:25 Normal Saline - IV 50 mls/hr ASDIR THIERRY Administration Insulin Aspart 1 vial 04/03/17 07:00 04/04/17 11:33 Novolog Vial Sliding Scale - SQ Not Given TIDAC [facility] Protocol Insulin Detemir 15 units 04/04/17 07:00 04/04/17 06:29 Levemir Vial SQ 15 units AM THIERRY Administration Metoprolol Tartrate 100 mg 04/03/17 10:00 04/04/17 09:59 Lopressor - PO 100 mg BID THIERRY Administration Multivitamins/Minerals/Vitamin C 1 tab 04/03/17 10:00 04/04/17 09:59 Tab-A-Vit - PO 1 tab DAILY THIERRY Administration Ondansetron HCl 8 mg 04/03/17 00:14 Zofran Injection IVPB Q6H PRN NAUSEA Pantoprazole Sodium 40 mg 04/03/17 11:15 04/04/17 09:56 Protonix - PO 40 mg DAILY THIERRY Administration Prednisone 5 mg 04/03/17 10:00 04/04/17 09:55 Deltasone - PO 5 mg DAILY THIERRY Administration Pyridoxine HCl 25 mg 04/03/17 10:00 04/04/17 09:56 Vitamin B6 - PO 25 mg DAILY THIERRY Administration Sodium Bicarbonate 650 mg 04/03/17 10:00 04/04/17 09:55 Sodium Bicarbonate - PO 650 mg BID THIERRY Administration Tacrolimus 1 mg 04/03/17 10:00 04/04/17 09:56 Prograf PO 1 mg BID THIERRY Administration Tamsulosin HCl 0.4 mg 04/03/17 22:00 04/03/17 21:56 Flomax - PO 0.4 mg HS THIERRY Administration ASSESSMENT/PLAN: 56 y/o M w/sig PMH of ESRD s/p renal transplant at [facility] ( 7 years ago), DM type 2, HTN, HLD, 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 Found to have SIRS+, elevated lactic acid, and admitted for sepsis w/unknown source. -Sepsis secondary to unknown source -improving, f/u cultures, stool cultures, GC probe -Id on board -abx as per ID -CT abd, CXR, UA w/ no source of infection identified. -c/w gentle hydration w/IVF (NS @ 50 ml/hr) -LORI in patient with renal transplant -likely secondary to hypoperfusion from sepsis (BUN:Cr ratio >20:1) -Baseline Cr from 03/08/17 from [facility] is 0.86 -Cr improving here from 1.8 to 1.6 -c/w IVF - NS @ 50ml/hr -Pt is on TACROLIMUS 5 mg PO bid, prednisone 5 mg po qd, Mycophenolate mofetil 720 mg PO in the morning and 360 mg at night. -would continue tacrolimus 5 mg po bid and prednisone 5 mg po qd -would hold mycophenolate mofetil as described above. -Monitor Cr, f/u Urine electrolytes, urine Cr, calculate FENa; monitor electrolytes -Anemia -Pt has hx of esophageal ulcers as seen on EGD on 07/29/16. No bleeding was seen on EGD. -Monitor Hgb -H/H on 03/08/17 from [facility] are 10.7/34.8 (MCV 83.7). -f/u FOBT Dispo: We will continue to follow the patient. Thank you for this consultative opportunity. Visit type - Emergency Visit Emergency Visit: Yes ED Registration Date: 04/03/17 Care time: The patient presented to the Emergency Department on the above date and was hospitalized for further evaluation of their emergent condition. - New Patient This patient is new to me today: Yes Date on this admission: 04/04/17 - Critical Care Critical Care patient: No
[2017-04-04 14:16] LABS: HIV 1 & 2 AB NEGATIVE; HIV 1 AGp24 NEGATIVE
[2017-04-04] MEDS: SODIUM CHLORIDE 0.45% 1,000 ML IV SCH (14:38)
--- NOTE | 2017-04-04 14:41 | PN ---
Teaching Attending Note Name of Resident: Elliott Abebe (Nephrology) ATTENDING PHYSICIAN STATEMENT I saw and evaluated the patient. I reviewed the resident's note and discussed the case with the resident. I agree with the resident's findings and plan as documented. SUBJECTIVE: This is a 56 year old gentleman with PMhx of ESRD s/p renal transplant at [facility] (7 years ago), DM type 2, HTN, HLD, OM of 4th digit s /p amputation presented to the ER w/ complaint of generalized weakness with BUN/ Cr of 70/2.4 on admission PMhx: as above Allergies: NKDA Family Hx: NC ROS: no fever, [place], chest pain, SOB, N/V, no dysuria, LE edema. + pain over kidney site, diarrhea. Home Medications Medication Instructions Recorded Aspirin [ASA -] 81 mg PO DAILY 10/03/14 Insulin (Levemir) [Levemir Vial] 15 unit SQ AM 10/03/14 Metoprolol Tartrate [Lopressor] 100 mg PO BID 10/03/14 Multivitamins [Multivit ([facility] 1 tab PO DAILY 10/03/14 Formulary)] Pyridoxine HCl [Vitamin B-6] 25 mg PO DAILY 10/03/14 Tacrolimus Anhydrous [Prograf] 1 mg PO BID 10/03/14 Cinacalcet HCl [Sensipar] 60 mg PO DAILY 11/29/14 Insulin Lispro [Humalog] 100 unit SQ QID PRN 11/29/14 Mycophenolate Sodium [Myfortic] 360 mg PO TID 11/29/14 Furosemide [Lasix] 40 mg PO DAILY 04/03/17 Metformin HCl [Metformin HCl ER] 500 mg PO BID 04/03/17 Potassium Chloride [Klor-Con] 20 meq PO DAILY 04/03/17 Prednisone 5 mg PO DAILY 04/03/17 Sodium Bicarbonate - 650 mg PO BID 04/03/17 Tamsulosin HCl [Flomax] 0.4 mg PO HS 04/03/17 OBJECTIVE: Vital Signs Temperature 98 F 04/04/17 10:00 Pulse Rate 80 04/04/17 10:00 Respiratory Rate 18 04/04/17 10:00 Blood Pressure 165/84 04/04/17 10:00 O2 Sat by Pulse Oximetry (%) 99 04/03/17 21:00 Intake & Output 04/02/17 04/03/17 04/03/17 04/04/17 00:59 00:59 23:59 23:59 Intake Total 1040 Output Total 700 Balance 340 Weight NAD, awake and alert RRR, No M/R CTA, no rales or wheeze soft NT/ND Abd, no graft tenderness NO LE edema CBC, BMP 04/04/17 05:18 04/04/17 05:18 Current Medications Acetaminophen (Tylenol -) 650 mg PO Q4H PRN PRN Reason: FEVER OR PAIN Aspirin (Asa -) 81 mg PO DAILY [facility] Last Admin: 04/04/17 09:56 Dose: 81 mg Cinacalcet (Sensipar -) 60 mg PO DAILY [facility] Last Admin: 04/04/17 09:55 Dose: 60 mg Heparin Sodium (Porcine) (Heparin -) 5,000 unit SQ TID [facility] Last Admin: 04/04/17 14:01 Dose: 5,000 unit CEFTRIAXONE 1 G/50 ML PREMIX (Ceftriaxone 1 Gm-D5w Bag) 50 mls @ 100 mls/hr IVPB DAILY [facility] Last Admin: 04/04/17 09:54 Dose: 100 mls/hr Sodium Chloride (1/2 Normal Saline) 1,000 mls @ 100 mls/hr IV ASDIR [facility] Last Admin: 04/04/17 14:38 Dose: 100 mls/hr Insulin Aspart (Novolog Vial Sliding Scale -) 1 vial SQ TIDAC [facility] PRN Reason: Protocol Last Admin: 04/04/17 11:33 Dose: Not Given Insulin Detemir (Levemir Vial) 15 units SQ AM [facility] Last Admin: 04/04/17 06:29 Dose: 15 units Metoprolol Tartrate (Lopressor -) 100 mg PO BID [facility] Last Admin: 04/04/17 09:59 Dose: 100 mg Multivitamins/Minerals/Vitamin C (Tab-A-Vit -) 1 tab PO DAILY [facility] Last Admin: 04/04/17 09:59 Dose: 1 tab Ondansetron HCl (Zofran Injection) 8 mg IVPB Q6H PRN PRN Reason: NAUSEA Pantoprazole Sodium (Protonix -) 40 mg PO DAILY [facility] Last Admin: 04/04/17 09:56 Dose: 40 mg Prednisone (Deltasone -) 5 mg PO DAILY [facility] Last Admin: 04/04/17 09:55 Dose: 5 mg Pyridoxine HCl (Vitamin B6 -) 25 mg PO DAILY [facility] Last Admin: 04/04/17 09:56 Dose: 25 mg Sodium Bicarbonate (Sodium Bicarbonate -) 650 mg PO BID [facility] Last Admin: 04/04/17 09:55 Dose: 650 mg Tacrolimus (Prograf) 1 mg PO BID [facility] Last Admin: 04/04/17 09:56 Dose: 1 mg Tamsulosin HCl (Flomax -) 0.4 mg PO HS [facility] Last Admin: 04/03/17 21:56 Dose: 0.4 mg ASSESSMENT AND PLAN: 56 year old gentleman with PMhx of ESRD s/p renal transplant at 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 presented to the ER w/ complaint of generalized weakness with BUN/Cr of 70/2.4 on admission #Acute Kidney Injury in setting of transplanted kidney Baseline Cr reported to 0.8 03-08-17 by [facility] (transplant center), Cr has been 1.4 and ~2 prior Check US of transplanted kidney check Urine studies including FeNa, UPCR Tacrolimus level to be drawn in AM (11-12 hours after PM dose) Continue IVF: Change to 1/2 NS given high BP Trend BUN/Cr continue tacrolimus 5mg BID holding myfortic for suspsion of sepsis continue prednisone daily No acute indication for [employer] Case discussed with [employer] Thank you Khang Luna DO
--- NOTE | 2017-04-04 16:14 | PN ---
Progress Note (short form) - Note Progress Note: awake and alert continues to complain of joint aches also hiccups cannot raise left shoulder no trauma Vital Signs Period Temp Pulse Resp BP Sys/Barcenas Pulse Ox Last 24 Hr 98 F-99.6 F 80-104 18-20 153-168/73-98 99 cor-rrr lungs clear abd soft,nt ext no joint swelling except right middle finger (old) unable to raise right shoulder, no erythema or effusion noted +tender and painful to move right shoulder CBC, BMP 04/04/17 05:18 04/04/17 05:18 Microbiology 04/03/17 00:22 Nares - Right Nares MRSA Screen - Final NO MRSA ISOLATED 04/02/17 22:41 Urine - Urine Clean Catch Urine Culture - Final NO GROWTH OBTAINED 04/03/17 00:00 Blood - Peripheral Venous Blood Culture - Preliminary NO GROWTH OBTAINED AFTER 24 HOURS, INCUBATION TO CONTINUE FOR 4 DAYS. 04/03/17 00:00 Blood - Peripheral Venous Blood Culture - Preliminary NO GROWTH OBTAINED AFTER 24 HOURS, INCUBATION TO CONTINUE FOR 4 DAYS. 04/03/17 08:55 Urine For Antigen Detection Streptococcus pneumoniae Antigen (M - Final 04/03/17 00:16 Nasopharyngeal Swab Influenza Types A,B Antigen (DARBY) - Final 04/03/17 00:16 Nasopharyngeal Swab - Final a/p renal transplant arthrralgias leukocytosis no fevers at home no travel no pets cnsider mri of right shoulder hiccups and right shoulder pain- review ct scan with radiology to evaluate liver /right upper quadrant continue rocephin consider d/w hospitalist
[2017-04-04] MEDS ORDERED: PT OWN MED DRAWER 7, Y5N ONE (20:45)
[2017-04-04] MEDS: TAMSULOSIN HCL 0.4 MG CAP.ER.24H (FP) PO SCH (21:24)
[2017-04-04] MEDS ORDERED: TACROLIMUS ANHYDROUS 1 MG CAPSULE PO SCH (22:00)
--- NOTE | 2017-04-04 22:36 | PN ---
Physical Exam: SUBJECTIVE: Patient seen and examined. Pt c/o pain to yuri hips and Right shoulder. Pt denies fever, chills, abdominal pain. No events overnight. OBJECTIVE: Vital Signs Period Temp Pulse Resp BP Sys/Barcenas Pulse Ox Last 24 Hr 98 F-99.6 F 80-93 18-20 145-168/65-98 GENERAL: The patient is awake, alert, and fully oriented, in no acute distress. HEAD: Normal with no signs of trauma. EYES: Extraocular movements intact, sclera anicteric, conjunctiva clear. No ptosis. NECK: Trachea midline, supple. LUNGS: Breath sounds equal, clear to auscultation bilaterally, no wheezes, no crackles, no accessory muscle use. HEART: irregularly irregular, without murmur, rub or gallop. ABDOMEN: Soft, nontender, nondistended, no guarding, no rebound. EXTREMITIES: Warm, well-perfused, no edema. 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 No erythema, swelling, crepitus or deformity noted to Right shoulder. PSYCH: Normal mood, normal affect. SKIN: Warm, dry, normal turgor, no rashes or lesions noted Laboratory Results - last 24 hr 04/04/17 04/04/17 04/04/17 05:18 05:18 05:44 WBC 8.5 RBC 3.90 L Hgb 10.1 L Hct 31.7 L MCV 81.3 MCH 26.0 MCHC 31.9 L RDW 16.8 H Plt Count 191 MPV 10.9 Neutrophils % 70.2 Lymphocytes % 19.1 D Monocytes % 9.4 Eosinophils % 1.0 D Basophils % 0.3 Sodium 143 Potassium 4.4 Chloride 109 H Carbon Dioxide 23 Anion Gap 11 BUN 47 H Creatinine 1.6 H POC Glucometer 115 Random Glucose 103 D Calcium 9.3 Ur Random Sodium Ur Random Potassium Ur Random Chloride Urine Creatinine HIV 1&2 Antibody Screen HIV P24 Antigen 04/04/17 04/04/17 04/04/17 11:15 11:15 11:19 WBC RBC Hgb Hct MCV MCH MCHC RDW Plt Count MPV Neutrophils % Lymphocytes % Monocytes % Eosinophils % Basophils % Sodium Potassium Chloride Carbon Dioxide Anion Gap BUN Creatinine POC Glucometer 193 Random Glucose Calcium Ur Random Sodium 47 Ur Random Potassium 12.2 Ur Random Chloride 29 Urine Creatinine 105.0 HIV 1&2 Antibody Screen HIV P24 Antigen 04/04/17 04/04/17 12:30 17:14 WBC RBC Hgb Hct MCV MCH MCHC RDW Plt Count MPV Neutrophils % Lymphocytes % Monocytes % Eosinophils % Basophils % Sodium Potassium Chloride Carbon Dioxide Anion Gap BUN Creatinine POC Glucometer 258 Random Glucose Calcium Ur Random Sodium Ur Random Potassium Ur Random Chloride Urine Creatinine HIV 1&2 Antibody Screen Negative HIV P24 Antigen Negative Active Medications Generic Name Dose Route Start Last Admin Trade Name Freq PRN Reason Stop Dose Admin Acetaminophen 650 mg 04/03/17 00:13 Tylenol - PO Q4H PRN FEVER OR PAIN Aspirin 81 mg 04/03/17 10:00 04/04/17 09:56 Asa - PO 81 mg DAILY THIERRY Administration Cinacalcet 60 mg 04/03/17 10:00 04/04/17 09:55 Sensipar - PO 60 mg DAILY THIERRY Administration Heparin Sodium (Porcine) 5,000 unit 04/03/17 06:00 04/04/17 21:26 Heparin - SQ 5,000 unit TID THIERRY Administration CEFTRIAXONE 1 G/50 ML PREMIX 50 mls @ 100 mls/hr 04/03/17 10:00 04/04/17 09:54 Ceftriaxone 1 Gm-D5w Bag IVPB 100 mls/hr DAILY THIERRY Administration Sodium Chloride 1,000 mls @ 100 mls/hr 04/04/17 13:45 04/04/17 14:38 1/2 Normal Saline IV 100 mls/hr ASDIR THIERRY Administration Insulin Aspart 1 vial 04/03/17 07:00 04/04/17 17:16 Novolog Vial Sliding Scale - SQ 3 units TIDAC THIERRY Administration Protocol Insulin Detemir 15 units 04/04/17 07:00 04/04/17 06:29 Levemir Vial SQ 15 units AM THIERRY Administration Metoprolol Tartrate 100 mg 04/03/17 10:00 04/04/17 21:24 Lopressor - PO 100 mg BID THIERRY Administration Multivitamins/Minerals/Vitamin C 1 tab 04/03/17 10:00 04/04/17 09:59 Tab-A-Vit - PO 1 tab DAILY THIERRY Administration Ondansetron HCl 8 mg 04/03/17 00:14 Zofran Injection IVPB Q6H PRN NAUSEA Pantoprazole Sodium 40 mg 04/03/17 11:15 04/04/17 09:56 Protonix - PO 40 mg DAILY THIERRY Administration Prednisone 5 mg 04/03/17 10:00 04/04/17 09:55 Deltasone - PO 5 mg DAILY THIERRY Administration Pyridoxine HCl 25 mg 04/03/17 10:00 04/04/17 09:56 Vitamin B6 - PO 25 mg DAILY THIERRY Administration Sodium Bicarbonate 650 mg 04/03/17 10:00 04/04/17 21:24 Sodium Bicarbonate - PO 650 mg BID THIERRY Administration Tacrolimus 4 mg 04/04/17 22:00 04/04/17 21:25 Prograf PO 4 mg BID THIERRY Administration Tamsulosin HCl 0.4 mg 04/03/17 22:00 04/04/17 21:24 Flomax - PO 0.4 mg HS THIERRY Administration IMAGIN04/03/17 CT Ab/Pel -> s/p renal transplant. Partially calcified central T7-T8 disc herniation with probable associated spinal cord compression. ASSESSMENT/PLAN: 56yo M with PMH ESRD s/p renal transplant (7 yrs ago), DM, htn, hld, presenting not feeling well, and found to have sepsis. 1) severe sepsis - source not yet identified: urine culture (-), blood culture (-) x 24 hrs, influenza A&B (-), nares MRSA (-), legionella (-), CXR -> negative normal, UA (- ) for UTI. - pt reports no sexual activity in 5 yrs and denies hx of STIs. - f/u urine for chlamydia / ghonorrhea (2/2 joint pain), HIV - f/u MRI of thoracic spine to r/o discitis (following up CT Ab/Pel findings above) -> if negative normal, consider MRI of Right shoulder 2/2 joint pain - continue IVF - 1/2NS @ 100 ml/hr (changed from NS @ 50 ml/hr 2/2 htn) - continue Prednisone daily - continue to hold Cellcept (Mycophenolate) - Day 2 of IV Ceftriaxone 2) ESRD s/p renal transplant - baseline Cr 0.8 (03/08/17) per Renal (Dr. Luna), Cr had been 1.4 and ~2 prior to this baseline - continue Tacrolimus 5mg po BID - Renal following 3) black stool - f/u stool for occult blood - GI ppx 4) DM - Levemir 15U SQ am - Novolog SSI - BGMs - hold Metformin 5) htn - continue Lopressor 6) FEN - Fluids: 1/2 NS @ 100 ml/hr - Electrolytes: wnl, continue to monitor - Nutrition: renal diet 7) Prophylaxis - DVT ppx with Heparin 5,000U SQ TID - GI ppx with Protonix 40mg daily Visit type - Emergency Visit Emergency Visit: Yes ED Registration Date: 04/03/17 Care time: The patient presented to the Emergency Department on the above date and was hospitalized for further evaluation of their emergent condition. - New Patient This patient is new to me today: Yes Date on this admission: 04/04/17 - Critical Care Critical Care patient: No
[2017-04-05] MEDS: SODIUM CHLORIDE 0.45% 1,000 ML IV SCH ×3 (02:03→14:37)
[2017-04-05] MEDS: HEPARIN NA (PORCINE) 5,000 UNITS/ML 1ML VIAL SQ SCH ×3 (06:16→22:07)
[2017-04-05] MEDS: INSULIN SLIDING SCALE (NOVOLOG) 1 VIAL SQ SCH ×3 (06:16→16:59)
[2017-04-05] MEDS: INSULIN DETEMIR 100 UNITS/ML MDV SQ SCH (06:17)
[2017-04-05] MEDS ORDERED: PT OWN MED DRAWER 7, Y5N ONE (06:28)
[2017-04-05 07:45] LABS: BASOPHIL 0.3 % (0-2.0); EOSINOPHIL 1.1 % (0-4.5); MCH 26.1 pg (25.7-33.7); MCHC 32.1 g/dl (32.0-35.9); MEAN CELL VOLUME 81.1 fl (80-96); MEAN PLT VOLUME 11.1 fl (7.5-11.1); NEUTROPHILS 70.2 % (42.8-82.8); PLATELET COUNT 178 K/MM3 (134-434); RDW 16.7 % (11.9-15.9); WHITE BLOOD COUNT 7.5 K/mm3 (4.0-10.0)
[2017-04-05 08:12] LABS: ALBUMIN 2.1 g/dl (3.4-5.0); ANION GAP 12 (8-16); CALCIUM 8.3 mg/dL (8.5-10.1); CO2 20 mmol/L (21-32); GLUCOSE,RANDOM 182 mg/dL (74-106); MAGNESIUM 1.6 mg/dL (1.8-2.4)
[2017-04-05 08:16] LABS: ALK PHOS 68 U/L (45-117); BILIRUBIN,TOTAL 0.3 mg/dL (0.2-1.0); CREATININE 1.4 mg/dL (0.7-1.3); PHOSPHOROUS 2.6 mg/dL (2.5-4.9); SGOT/AST 28 U/L (15-37); SGPT/ALT 22 U/L (12-78); TOT PROT 5.6 g/dl (6.4-8.2)
[2017-04-05] MEDS: ASPIRIN 81 MG CHEWABLE TABLETS PO SCH (09:45)
[2017-04-05] MEDS: predniSONE 5 MG TABLET (UD) PO SCH (09:45)
[2017-04-05] MEDS: TACROLIMUS ANHYDROUS 5 MG CAPSULE PO SCH ×2 (09:46→22:14)
[2017-04-05] MEDS: METOPROLOL TARTRATE 50 MG TABLET (FP) PO SCH ×2 (09:46→22:06)
[2017-04-05] MEDS: CINACALCET HCL 30 MG TAB (FP) PO SCH (09:47)
[2017-04-05] MEDS: MULTIVITAMINS (DAILY MVI) TABLET (FP) PO SCH (09:47)
[2017-04-05] MEDS: PANTOPRAZOLE 40 MG TABLET (FP) PO SCH (09:47)
[2017-04-05] MEDS: SODIUM BICARBONATE 650 MG TABLET PO SCH ×2 (09:48→22:06)
[2017-04-05] MEDS: PYRIDOXINE HCL (B-6) 50 MG TABLET (FP) PO SCH (09:48)
[2017-04-05] MEDS ORDERED: MAGNESIUM SULF 50% (8.12 MEQ/2 ML-1 GM VIAL) IVPB ONE (10:55)
[2017-04-05] MEDS: CEFTRIAXONE 1 G/50 ML PREMIX 50 ML IVPB SCH (11:06)
--- NOTE | 2017-04-05 13:45 | PN ---
Physical Exam: SUBJECTIVE: Patient seen and examined. Pt continues to c/o Right shoulder pain. Pt denies fever, chills, chest pain, palpitations, sob. No overnight events. OBJECTIVE: Vital Signs Period Temp Pulse Resp BP Sys/Barcenas Pulse Ox Last 24 Hr 98 F-99.6 F 56-91 18-20 145-178/65-98 97-98 GENERAL: The patient is awake, alert, and fully oriented, in no acute distress. LUNGS: Breath sounds equal, clear to auscultation bilaterally, no wheezes, no crackles, no accessory muscle use. HEART: Regular rate and rhythm, S1, S2 without murmur, rub or gallop. ABDOMEN: Soft, nontender, nondistended, normoactive bowel sounds. EXTREMITIES: Warm, well-perfused, no edema. Right shoulder with limited ROM 2/ 2 pain. Pt declined to test muscle strength of Right shoulder 2/2 pain. No erythema, swelling, crepitus or deformity palpated to Right shoulder. PSYCH: Normal mood, normal affect. SKIN: Warm, dry, normal turgor, no rashes or lesions noted Laboratory Results - last 24 hr 04/04/17 04/04/17 04/04/17 11:15 11:15 12:30 WBC RBC Hgb Hct MCV MCH MCHC RDW Plt Count MPV Neutrophils % Lymphocytes % Monocytes % Eosinophils % Basophils % Sodium Potassium Chloride Carbon Dioxide Anion Gap BUN Creatinine Creat Clearance w eGFR POC Glucometer Random Glucose Calcium Phosphorus Magnesium Total Bilirubin AST ALT Alkaline Phosphatase Total Protein Albumin Ur Random Sodium 47 Ur Random Potassium 12.2 Ur Random Chloride 29 Urine Creatinine 105.0 HIV 1&2 Antibody Screen Negative HIV P24 Antigen Negative 04/04/17 04/05/17 04/05/17 17:14 05:10 05:10 WBC 7.5 RBC 3.53 L Hgb 9.2 L Hct 28.6 L MCV 81.1 MCH 26.1 MCHC 32.1 RDW 16.7 H Plt Count 178 MPV 11.1 Neutrophils % 70.2 Lymphocytes % 19.4 Monocytes % 9.0 Eosinophils % 1.1 Basophils % 0.3 Sodium 141 Potassium 4.0 Chloride 109 H Carbon Dioxide 20 L Anion Gap 12 BUN 36 H D Creatinine 1.4 H Creat Clearance w eGFR 52.05 POC Glucometer 258 Random Glucose 182 H D Calcium 8.3 L Phosphorus 2.6 Magnesium 1.6 L Total Bilirubin 0.3 D AST 28 D ALT 22 D Alkaline Phosphatase 68 Total Protein 5.6 L Albumin 2.1 L Ur Random Sodium Ur Random Potassium Ur Random Chloride Urine Creatinine HIV 1&2 Antibody Screen HIV P24 Antigen 04/05/17 04/05/17 06:15 11:47 WBC RBC Hgb Hct MCV MCH MCHC RDW Plt Count MPV Neutrophils % Lymphocytes % Monocytes % Eosinophils % Basophils % Sodium Potassium Chloride Carbon Dioxide Anion Gap BUN Creatinine Creat Clearance w eGFR POC Glucometer 176 225 Random Glucose Calcium Phosphorus Magnesium Total Bilirubin AST ALT Alkaline Phosphatase Total Protein Albumin Ur Random Sodium Ur Random Potassium Ur Random Chloride Urine Creatinine HIV 1&2 Antibody Screen HIV P24 Antigen Active Medications Generic Name Dose Route Start Last Admin Trade Name Freq PRN Reason Stop Dose Admin Acetaminophen 650 mg 04/03/17 00:13 Tylenol - PO Q4H PRN FEVER OR PAIN Aspirin 81 mg 04/03/17 10:00 04/05/17 09:45 Asa - PO 81 mg DAILY THIERRY Administration Cinacalcet 60 mg 04/03/17 10:00 04/05/17 09:47 Sensipar - PO 60 mg DAILY THIERRY Administration Heparin Sodium (Porcine) 5,000 unit 04/03/17 06:00 04/05/17 06:16 Heparin - SQ 5,000 unit TID THIERRY Administration CEFTRIAXONE 1 G/50 ML PREMIX 50 mls @ 100 mls/hr 04/03/17 10:00 04/05/17 11:06 Ceftriaxone 1 Gm-D5w Bag IVPB 100 mls/hr DAILY THIERRY Administration Sodium Chloride 1,000 mls @ 100 mls/hr 04/04/17 13:45 04/05/17 11:48 1/2 Normal Saline IV 100 mls/hr ASDIR THIERRY Administration Insulin Aspart 1 vial 04/03/17 07:00 04/05/17 11:49 Novolog Vial Sliding Scale - SQ 2 units TIDAC THIERRY Administration Protocol Insulin Detemir 15 units 04/04/17 07:00 04/05/17 06:17 Levemir Vial SQ 15 units AM THIERRY Administration Metoprolol Tartrate 100 mg 04/03/17 10:00 04/05/17 09:46 Lopressor - PO 100 mg BID THIERRY Administration Multivitamins/Minerals/Vitamin C 1 tab 04/03/17 10:00 04/05/17 09:47 Tab-A-Vit - PO 1 tab DAILY THIERRY Administration Ondansetron HCl 8 mg 04/03/17 00:14 Zofran Injection IVPB Q6H PRN NAUSEA Pantoprazole Sodium 40 mg 04/03/17 11:15 04/05/17 09:47 Protonix - PO 40 mg DAILY THIERRY Administration Prednisone 5 mg 04/03/17 10:00 04/05/17 09:45 Deltasone - PO 5 mg DAILY THIERRY Administration Pyridoxine HCl 25 mg 04/03/17 10:00 04/05/17 09:48 Vitamin B6 - PO 25 mg DAILY THIERRY Administration Sodium Bicarbonate 650 mg 04/03/17 10:00 04/05/17 09:48 Sodium Bicarbonate - PO 650 mg BID THIERRY Administration Tacrolimus 5 mg 04/04/17 22:19 04/05/17 09:46 Prograf PO 5 mg BID THIERRY Administration Tamsulosin HCl 0.4 mg 04/03/17 22:00 04/04/17 21:24 Flomax - PO 0.4 mg HS THIERRY Administration IMAGIN04/04/17 Renal US -> morphologically normal transplanted kidney. [place] kidneys are small, consistent with chronic kidney disease. ASSESSMENT/PLAN: 56yo M with PMH ESRD s/p renal transplant (7 yrs ago), DM, htn, hld, presenting not feeling well, and found to have sepsis. 1) severe sepsis - source not yet identified - pt declined MRI of thoracic spine because he did not feel like going for the study at the time. Pt counseled on the importance of finding the source of his infection to treat him appropriately. - f/u MRI of thoracic spine to r/o discitis - f/u MRI of Right shoulder to assess joint pain - HIV (-) - continue IVF - 1/2NS @ 100 ml/hr - continue Prednisone daily - continue to hold Cellcept (Mycophenolate) - Day 3 of IV Ceftriaxone 2) LORI on ESRD s/p renal transplant - baseline Cr 0.8 (03/08/17) per Renal (Dr. Luna), Cr had been 1.4 and ~2 prior to this baseline - BUN/Cr improved from yesterday, though still elevated above baseline - continue Tacrolimus 5mg po BID - continue to hold diuretics - Renal following 3) DM - Levemir 15U SQ am - Novolog SSI - BGMs - hold Metformin 4) htn - continue Lopressor - Norvasc 5mg po daily added 5) hypomagnesemia - Mg Sulfate 1g IVPB given - continue to monitor 6) FEN - Fluids: 1/2 NS @ 100 ml/hr - Electrolytes: hypomagnesemia noted, continue to monitor - Nutrition: renal diet 7) Prophylaxis - DVT ppx with Heparin 5,000U SQ TID - GI ppx with Protonix 40mg daily - deconditioning ppx with PT Consult Visit type - Emergency Visit Emergency Visit: Yes ED Registration Date: 04/03/17 Care time: The patient presented to the Emergency Department on the above date and was hospitalized for further evaluation of their emergent condition. - New Patient This patient is new to me today: No - Critical Care Critical Care patient: No
--- NOTE | 2017-04-05 15:26 | PN ---
Teaching Attending Note Name of Resident: Xiomara Sanford ATTENDING PHYSICIAN STATEMENT I saw and evaluated the patient. I reviewed the resident's note and discussed the case with the resident. I agree with the resident's findings and plan as documented. SUBJECTIVE: Feels better . declined his MRI last night OBJECTIVE: NAD, AAOx3 HEENT: slightly dry MM. EOMI, no LAP in neck. non congested throat . 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 TTP over hands joints and R shoulder. Limited range of motion over R shoulder. no erythema or swelling over shoulder. Abd: soft,No TTP . no rebound tenderness or guarding. Assessment/Plan: 56 y/o gentleman with h/o renal failure s/p renal transplant x 7 years ago, DM , HTN, and HLP who presented not feeling well and was found to have sepsis 1- Severe sepsis : source is not known yet - MRI of T spine pending ( refused last ight ). - check MRI of R shoulder as well - c diff toxin neg , but Ag + . he continues to have diarrhea . will d/w ID starting flagyl - cont to hold cellcept pending - follow blood cx. - cont gentle hydration 2- ? melena : stool OB pending. - cont PPI 3- H/o renal trenasplant : - Cont prednisone and tacro. hold cellcept in setting of sepsis. - Renal consult appreciated . tacrulimus level pending - Cont to hold lasix and cont gentle hydration. 4- Irregular heart rate. EKG and tele show sinus arrhythmias, with pACs monitor 5- HTN: cont BB . Add norvasc 6- DM : cont levemir and SSI . but hold metformin 7- DVT pX SCDs until GI bleed is r/o
--- NOTE | 2017-04-05 15:47 | PN ---
Progress Note (short form) - Note Progress Note: awake and alert joint aches improved also hiccups continue cannot raise left shoulder no trauma +diarrhea Vital Signs Period Temp Pulse Resp BP Sys/Barcenas Pulse Ox Last 24 Hr 98 F-98.9 F 56-91 18-20 145-178/65-98 97-98 cor-rrr lungs clear abd soft,nt ext no joint swelling except right middle finger (old) unable to raise right shoulder, no erythema or effusion noted +tender and painful to move right shoulder CBC, BMP 04/05/17 05:10 04/05/17 05:10 Microbiology 04/04/17 23:00 Stool Clostridium difficile Antigen (DARBY) - Final 04/04/17 23:00 Stool Clostridium difficile Toxin Assay - Final 04/03/17 00:00 Blood - Peripheral Venous Blood Culture - Preliminary NO GROWTH OBTAINED AFTER 48 HOURS, INCUBATION TO CONTINUE FOR 3 DAYS. 04/03/17 00:00 Blood - Peripheral Venous Blood Culture - Preliminary NO GROWTH OBTAINED AFTER 48 HOURS, INCUBATION TO CONTINUE FOR 3 DAYS. 04/03/17 00:22 Nares - Right Nares MRSA Screen - Final NO MRSA ISOLATED 04/02/17 22:41 Urine - Urine Clean Catch Urine Culture - Final NO GROWTH OBTAINED 04/03/17 08:55 Urine For Antigen Detection Streptococcus pneumoniae Antigen (M - Final 04/03/17 00:16 Nasopharyngeal Swab Influenza Types A,B Antigen (DARBY) - Final 04/03/17 00:16 Nasopharyngeal Swab - Final a/p renal transplant arthrralgias leukocytosis no fevers at home no travel no pets cnsider mri of right shoulder hiccups and right shoulder pain- review ct scan with radiology to evaluate liver /right upper quadrant continue rocephin continues with diarrhea- add po flagyl
--- NOTE | 2017-04-05 16:08 | PN ---
Progress Note (short form) - Note Progress Note: Renal Follow up for ESRD with renal transplant Pt seen and examined at the bedside no acute complaints denies any sob, chest pain, abd pain, N/V/D no pain over graft site Vital Signs Temperature 98.7 F 04/05/17 13:56 Pulse Rate 86 04/05/17 13:56 Respiratory Rate 18 04/05/17 09:00 Blood Pressure 155/94 04/05/17 13:56 O2 Sat by Pulse Oximetry (%) 98 04/05/17 09:00 Intake & Output 04/03/17 04/03/17 04/04/17 04/05/17 00:59 23:59 23:59 23:59 Intake Total 1760 600 Output Total 2050 650 Balance -290 -50 Weight NAD RRR, No M/R CTA soft NT/ND no tenderness over kidney No LE edema CBC, BMP 04/05/17 05:10 04/05/17 05:10 Current Medications Acetaminophen (Tylenol -) 650 mg PO Q4H PRN PRN Reason: FEVER OR PAIN Amlodipine Besylate (Norvasc -) 5 mg PO DAILY [facility] Aspirin (Asa -) 81 mg PO DAILY [facility] Last Admin: 04/05/17 09:45 Dose: 81 mg Cinacalcet (Sensipar -) 60 mg PO DAILY [facility] Last Admin: 04/05/17 09:47 Dose: 60 mg Heparin Sodium (Porcine) (Heparin -) 5,000 unit SQ TID [facility] Last Admin: 04/05/17 14:38 Dose: 5,000 unit CEFTRIAXONE 1 G/50 ML PREMIX (Ceftriaxone 1 Gm-D5w Bag) 50 mls @ 100 mls/hr IVPB DAILY [facility] Last Admin: 04/05/17 11:06 Dose: 100 mls/hr Sodium Chloride (1/2 Normal Saline) 1,000 mls @ 100 mls/hr IV ASDIR [facility] Last Admin: 04/05/17 14:37 Dose: Not Given Insulin Aspart (Novolog Vial Sliding Scale -) 1 vial SQ TIDAC [facility] PRN Reason: Protocol Last Admin: 04/05/17 11:49 Dose: 2 units Insulin Detemir (Levemir Vial) 15 units SQ AM [facility] Last Admin: 04/05/17 06:17 Dose: 15 units Metoprolol Tartrate (Lopressor -) 100 mg PO BID [facility] Last Admin: 04/05/17 09:46 Dose: 100 mg Metronidazole (Flagyl -) 500 mg PO TID [facility] Multivitamins/Minerals/Vitamin C (Tab-A-Vit -) 1 tab PO DAILY [facility] Last Admin: 04/05/17 09:47 Dose: 1 tab Ondansetron HCl (Zofran Injection) 8 mg IVPB Q6H PRN PRN Reason: NAUSEA Pantoprazole Sodium (Protonix -) 40 mg PO DAILY [facility] Last Admin: 04/05/17 09:47 Dose: 40 mg Prednisone (Deltasone -) 5 mg PO DAILY [facility] Last Admin: 04/05/17 09:45 Dose: 5 mg Pyridoxine HCl (Vitamin B6 -) 25 mg PO DAILY [facility] Last Admin: 04/05/17 09:48 Dose: 25 mg Sodium Bicarbonate (Sodium Bicarbonate -) 650 mg PO BID [facility] Last Admin: 04/05/17 09:48 Dose: 650 mg Tacrolimus (Prograf) 5 mg PO BID [facility] Last Admin: 04/05/17 09:46 Dose: 5 mg Tamsulosin HCl (Flomax -) 0.4 mg PO HS [facility] Last Admin: 04/04/17 21:24 Dose: 0.4 mg 56 year old gentleman with PMhx of ESRD s/p renal transplant at [facility] (7 years ago), DM type 2, HTN, HLD, 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
[2017-04-05] MEDS: amLODIPine BESYLATE 5 MG TABLET (FP) PO SCH (17:11)
[2017-04-05] MEDS ORDERED: metroNIDAZOLE 500 MG TABLET PO SCH (22:00)
[2017-04-05] MEDS: TAMSULOSIN HCL 0.4 MG CAP.ER.24H (FP) PO SCH (22:07)
[2017-04-05] MEDS: metroNIDAZOLE 250 MG TABLET PO SCH (23:06)
[2017-04-06] MEDS ORDERED: METRONIDAZOLE 500 MG PREMIXED 100 ML IVPB SCH (02:00)
[2017-04-06] MEDS ORDERED: INSULIN (NOVOLOG) ASPART 100 UNITS/ML 10ML VIAL ONE (06:37)
[2017-04-06 08:08] LABS: MCH 26.2 pg (25.7-33.7); MCHC 32.2 g/dl (32.0-35.9); MEAN CELL VOLUME 81.5 fl (80-96); MEAN PLT VOLUME 11.1 fl (7.5-11.1); PLATELET COUNT 202 K/MM3 (134-434); RDW 16.6 % (11.9-15.9); WHITE BLOOD COUNT 8.4 K/mm3 (4.0-10.0)
[2017-04-06 09:05] LABS: ANION GAP 10 (8-16); CO2 22 mmol/L (21-32); PHOSPHOROUS 2.5 mg/dL (2.5-4.9)
[2017-04-06 09:08] LABS: CALCIUM 8.4 mg/dL (8.5-10.1); CREATININE 1.3 mg/dL (0.7-1.3); GLUCOSE,RANDOM 214 mg/dL (74-106); MAGNESIUM 1.7 mg/dL (1.8-2.4)
--- NOTE | 2017-04-06 09:33 | PN ---
Teaching Attending Note Name of Resident: Xiomara Sanford ATTENDING PHYSICIAN STATEMENT I saw and evaluated the patient. I reviewed the resident's note and discussed the case with the resident. I agree with the resident's findings and plan as documented. SUBJECTIVE: Patient denies having any diarrhea today. But refused to go to MRI last night again. OBJECTIVE: Vital Signs Temperature 98.2 F 04/06/17 02:00 Pulse Rate 88 04/06/17 02:00 Respiratory Rate 20 04/06/17 02:00 Blood Pressure 162/90 04/06/17 02:00 O2 Sat by Pulse Oximetry (%) 98 04/05/17 21:00 CBCD WBC 8.4 K/mm3 (4.0-10.0) 04/06/17 05:20 RBC 3.57 M/mm3 (4.00-5.60) L 04/06/17 05:20 Hgb 9.4 GM/dL (11.7-16.9) L 04/06/17 05:20 Hct 29.1 % (35.4-49) L 04/06/17 05:20 MCV 81.5 fl (80-96) 04/06/17 05:20 MCHC 32.2 g/dl (32.0-35.9) 04/06/17 05:20 RDW 16.6 % (11.9-15.9) H 04/06/17 05:20 Plt Count 202 K/MM3 (134-434) 04/06/17 05:20 MPV 11.1 fl (7.5-11.1) 04/06/17 05:20 CMP Sodium 141 mmol/L (136-145) 04/06/17 05:20 Potassium 4.2 mmol/L (3.5-5.1) 04/06/17 05:20 Chloride 109 mmol/L (98-107) H 04/06/17 05:20 Carbon Dioxide 22 mmol/L (21-32) 04/06/17 05:20 Anion Gap 10 (8-16) 04/06/17 05:20 BUN 26 mg/dL (7-18) H D 04/06/17 05:20 Creatinine 1.3 mg/dL (0.7-1.3) 04/06/17 05:20 Creat Clearance w eGFR 52.05 (>60) 04/05/17 05:10 Random Glucose 214 mg/dL (74-106) H 04/06/17 05:20 Calcium 8.4 mg/dL (8.5-10.1) L 04/06/17 05:20 Total Bilirubin 0.3 mg/dL (0.2-1.0) D 04/05/17 05:10 AST 28 U/L (15-37) D 04/05/17 05:10 ALT 22 U/L (12-78) D 04/05/17 05:10 Alkaline Phosphatase 68 U/L (45-117) 04/05/17 05:10 Total Protein 5.6 g/dl (6.4-8.2) L 04/05/17 05:10 Albumin 2.1 g/dl (3.4-5.0) L 04/05/17 05:10 CARDIAC ENZYMES Creatine Kinase 145 IU/L (39-308) 04/03/17 06:50 Troponin I 0.02 ng/ml (0.00-0.05) 04/03/17 06:50 Current Medications Generic Name Dose Route Start Last Admin Trade Name Freq PRN Reason Stop Dose Admin Acetaminophen 650 mg 04/03/17 00:13 04/05/17 16:59 Tylenol - PO 650 mg Q4H PRN Administration FEVER OR PAIN Amlodipine Besylate 5 mg 04/05/17 17:00 04/06/17 11:04 Norvasc - PO 5 mg DAILY THIERRY Administration Aspirin 81 mg 04/03/17 10:00 04/06/17 11:04 Asa - PO 81 mg DAILY THIERRY Administration Cinacalcet 60 mg 04/03/17 10:00 04/06/17 11:06 Sensipar - PO 60 mg DAILY THIERRY Administration Heparin Sodium (Porcine) 5,000 unit 04/03/17 06:00 04/06/17 14:08 Heparin - SQ 5,000 unit TID THIERRY Administration CEFTRIAXONE 1 G/50 ML PREMIX 50 mls @ 100 mls/hr 04/03/17 10:00 04/06/17 11: 05 Ceftriaxone 1 Gm-D5w Bag IVPB 100 mls/hr DAILY THIERRY Administration Insulin Aspart 1 vial 04/03/17 07:00 04/06/17 12:23 Novolog Vial Sliding Scale - SQ 3 units TIDAC THIERRY Administration Protocol Insulin Detemir 15 units 04/04/17 07:00 04/05/17 06:17 Levemir Vial SQ 15 units AM THIERRY Administration Metoprolol Tartrate 100 mg 04/03/17 10:00 04/06/17 11:04 Lopressor - PO 100 mg BID THIERRY Administration Metronidazole 500 mg 04/05/17 22:15 04/06/17 15:09 Flagyl - PO 500 mg TID THIERRY Administration Multivitamins/Minerals/Vitamin C 1 tab 04/03/17 10:00 04/06/17 11:07 Tab-A-Vit - PO 1 tab DAILY THIERRY Administration Ondansetron HCl 8 mg 04/03/17 00:14 Zofran Injection IVPB Q6H PRN NAUSEA Pantoprazole Sodium 40 mg 04/03/17 11:15 04/06/17 11:04 Protonix - PO 40 mg DAILY THIERRY Administration Prednisone 5 mg 04/03/17 10:00 04/06/17 11:04 Deltasone - PO 5 mg DAILY THIERRY Administration Pyridoxine HCl 25 mg 04/03/17 10:00 04/06/17 11:07 Vitamin B6 - PO 25 mg DAILY THIERRY Administration Sodium Bicarbonate 650 mg 04/03/17 10:00 04/06/17 11:04 Sodium Bicarbonate - PO 650 mg BID THIERRY Administration Tacrolimus 5 mg 04/04/17 22:19 04/06/17 11:06 Prograf PO 5 mg BID THIERRY Administration Tamsulosin HCl 0.4 mg 04/03/17 22:00 04/05/17 22:07 Flomax - PO 0.4 mg HS THIERRY Administration Home Medications Medication Instructions Recorded Aspirin [ASA -] 81 mg PO DAILY 10/03/14 Insulin (Levemir) [Levemir Vial] 15 unit SQ AM 10/03/14 Metoprolol Tartrate [Lopressor] 100 mg PO BID 10/03/14 Multivitamins [Multivit ([facility] 1 tab PO DAILY 10/03/14 Formulary)] Pyridoxine HCl [Vitamin B-6] 25 mg PO DAILY 10/03/14 Tacrolimus Anhydrous [Prograf] 1 mg PO BID 10/03/14 Cinacalcet HCl [Sensipar] 60 mg PO DAILY 11/29/14 Insulin Lispro [Humalog] 100 unit SQ QID PRN 11/29/14 Mycophenolate Sodium [Myfortic] 360 mg PO TID 11/29/14 Furosemide [Lasix] 40 mg PO DAILY 04/03/17 Metformin HCl [Metformin HCl ER] 500 mg PO BID 04/03/17 Potassium Chloride [Klor-Con] 20 meq PO DAILY 04/03/17 Prednisone 5 mg PO DAILY 04/03/17 Sodium Bicarbonate - 650 mg PO BID 04/03/17 Tamsulosin HCl [Flomax] 0.4 mg PO HS 04/03/17 PE: per resident's note Microbiology 04/03/17 08:55 Urine For Antigen Detection Legionella Antigen - Final 04/03/17 08:55 Urine For Antigen Detection Streptococcus pneumoniae Antigen (M - Final 04/04/17 23:00 Stool Salmonella/Shigella Culture - Preliminary NO ENTERIC PATHOGENS, 24 HOURS, ON PRIMARY PLATES 04/04/17 23:00 Stool Yersinia Culture - Preliminary NO ENTERIC PATHOGENS, 24 HOURS, ON PRIMARY PLATES 04/04/17 23:00 Stool Vibrio Culture - Final NO GROWTH OF VIBRIO SPECIES OBTAINED 04/04/17 23:00 Stool Escherichia coli 0157 Culture - Final NO GROWTH OF E COLI 0157 OBTAINED 04/03/17 00:00 Blood - Peripheral Venous Blood Culture - Preliminary NO GROWTH OBTAINED AFTER 72 HOURS, INCUBATION TO CONTINUE FOR 2 DAYS. 04/03/17 00:00 Blood - Peripheral Venous Blood Culture - Preliminary NO GROWTH OBTAINED AFTER 72 HOURS, INCUBATION TO CONTINUE FOR 2 DAYS. 04/04/17 23:00 Stool Clostridium difficile Antigen (DARBY) - Final 04/04/17 23:00 Stool Clostridium difficile Toxin Assay - Final 04/03/17 00:22 Nares - Right Nares MRSA Screen - Final NO MRSA ISOLATED 04/02/17 22:41 Urine - Urine Clean Catch Urine Culture - Final NO GROWTH OBTAINED 04/03/17 00:16 Nasopharyngeal Swab Influenza Types A,B Antigen (DARBY) - Final 04/03/17 00:16 Nasopharyngeal Swab - Final Laboratory Tests 04/02/17 04/02/17 04/02/17 22:45 22:45 22:45 WBC 14.4 H D Hgb 11.0 L Hct 34.6 L BUN 70 H D Creatinine 2.4 H Lactic Acid 2.6 H* Calcium 10.4 H C-Reactive Protein 04/03/17 04/03/17 04/03/17 06:50 06:50 06:50 WBC 11.3 H Hgb 10.7 L Hct 34.3 L BUN 60 H Creatinine 2.2 H Lactic Acid 1.9 Calcium 10.0 C-Reactive Protein 32.3 H D 04/03/17 04/04/17 04/04/17 17:20 05:18 05:18 WBC 8.5 Hgb 10.1 L Hct 31.7 L BUN 55 H 47 H Creatinine 1.8 H 1.6 H Lactic Acid Calcium C-Reactive Protein 04/05/17 04/05/17 04/06/17 05:10 05:10 05:20 WBC 7.5 8.4 Hgb 9.2 L 9.4 L Hct 28.6 L 29.1 L BUN 36 H D Creatinine 1.4 H Lactic Acid Calcium C-Reactive Protein 04/06/17 05:20 WBC Hgb HCT BUN 26 H D Creatinine 1.3 Lactic Acid Calcium C-Reactive Protein ASSESSMENT AND PLAN: 56 y/o gentleman with h/o renal failure s/p renal transplant x 7 years ago, DM , HTN, and HLP who presented not feeling well and was found to have sepsis # S/P sepsis : source is not identified yet , MRI of T spine and right shoulder pending ( refused last ight ). C-diff toxin neg , but Ag + , on Po Flagyl tid as per ID, continue to hold cellcept ; level is pending , No growth so far, will follow # ARF with h/o renal transplant with cr: 1.3; Cont. prednisone and tacro. hold cellcept in setting of sepsis for now, Renal consult appreciated . tacrulimus level is pending. Cont to hold lasix and cont gentle IV hydration. # Irregular heart rate. EKG and tele show sinus arrhythmias, with pACs. will continue to monitor in Tele. # HTN: cont BB . Add norvasc # DM : cont levemir and SSI . but hold metformin DVT pX : SCDs until GI bleed is ruled out.
[2017-04-06] MEDS ORDERED: amLODIPine BESYLATE 5 MG TABLET (FP) PO SCH (10:00)
[2017-04-06] MEDS ORDERED: PT OWN MED DRAWER 7, Y5N ONE ×3 (10:35→20:35)
[2017-04-06] MEDS ORDERED: MAGNESIUM SULF 50% (8.12 MEQ/2 ML-1 GM VIAL) IVPB ONE (11:03)
[2017-04-06] MEDS: PANTOPRAZOLE 40 MG TABLET (FP) PO SCH (11:04)
[2017-04-06] MEDS: ASPIRIN 81 MG CHEWABLE TABLETS PO SCH (11:04)
[2017-04-06] MEDS: predniSONE 5 MG TABLET (UD) PO SCH (11:04)
[2017-04-06] MEDS: SODIUM BICARBONATE 650 MG TABLET PO SCH ×2 (11:04→21:04)
[2017-04-06] MEDS: amLODIPine BESYLATE 5 MG TABLET (FP) PO SCH (11:04)
[2017-04-06] MEDS: METOPROLOL TARTRATE 50 MG TABLET (FP) PO SCH ×2 (11:04→21:04)
[2017-04-06] MEDS: CEFTRIAXONE 1 G/50 ML PREMIX 50 ML IVPB SCH (11:05)
[2017-04-06] MEDS: CINACALCET HCL 30 MG TAB (FP) PO SCH (11:06)
[2017-04-06] MEDS: TACROLIMUS ANHYDROUS 5 MG CAPSULE PO SCH ×2 (11:06→21:04)
[2017-04-06] MEDS: PYRIDOXINE HCL (B-6) 50 MG TABLET (FP) PO SCH (11:07)
[2017-04-06] MEDS: MULTIVITAMINS (DAILY MVI) TABLET (FP) PO SCH (11:07)
[2017-04-06] MEDS: INSULIN SLIDING SCALE (NOVOLOG) 1 VIAL SQ SCH ×3 (12:23→20:26)
--- NOTE | 2017-04-06 13:55 | EKG ---
Test Reason : Blood Pressure : / mmHG Vent. Rate : 143 BPM Atrial Rate : 143 BPM P-R Int : 122 ms QRS Dur : 074 ms QT Int : 292 ms P-R-T Axes : 059 082 -76 degrees QTc Int : 450 ms MULTIFOCAL ATRIAL TACHYCARDIA ABNORMAL ECG WHEN COMPARED WITH ECG OF 07-AUG-2016 21:30, MULTIFOCAL ATRIAL TACHYCARDIA HAS REPLACED NORMAL SINUS RHYTHM Confirmed by DACIA DUNLAP MD ([id number]) on 04/06/2017 1:55:21 PM Referred By: Confirmed By:DACIA DUNLAP MD
[2017-04-06] MEDS: HEPARIN NA (PORCINE) 5,000 UNITS/ML 1ML VIAL SQ SCH ×3 (14:08→21:03)
[2017-04-06] MEDS: metroNIDAZOLE 250 MG TABLET PO SCH ×3 (15:09→21:05)
--- NOTE | 2017-04-06 16:52 | PN ---
Progress Note (short form) - Note Progress Note: awake and alert joint aches improved also hiccups continue cannot raise left shoulder no trauma +diarrhea refusing mri notes right arm is "tight " and swollen- duplex no dvt Vital Signs Period Temp Pulse Resp BP Sys/Barcenas Pulse Ox Last 24 Hr 97.8 F-98.7 F 76-94 18-20 109-164/72-90 98-98 cor-rrr lungs clear abd soft,nt ext +swelling right arm CBC, BMP 04/06/17 05:20 04/06/17 05:20 Microbiology 04/03/17 08:55 Urine For Antigen Detection Legionella Antigen - Final 04/03/17 08:55 Urine For Antigen Detection Streptococcus pneumoniae Antigen (M - Final 04/04/17 23:00 Stool Salmonella/Shigella Culture - Preliminary NO ENTERIC PATHOGENS, 24 HOURS, ON PRIMARY PLATES 04/04/17 23:00 Stool Yersinia Culture - Preliminary NO ENTERIC PATHOGENS, 24 HOURS, ON PRIMARY PLATES 04/04/17 23:00 Stool Vibrio Culture - Final NO GROWTH OF VIBRIO SPECIES OBTAINED 04/04/17 23:00 Stool Escherichia coli 0157 Culture - Final NO GROWTH OF E COLI 0157 OBTAINED 04/03/17 00:00 Blood - Peripheral Venous Blood Culture - Preliminary NO GROWTH OBTAINED AFTER 72 HOURS, INCUBATION TO CONTINUE FOR 2 DAYS. 04/03/17 00:00 Blood - Peripheral Venous Blood Culture - Preliminary NO GROWTH OBTAINED AFTER 72 HOURS, INCUBATION TO CONTINUE FOR 2 DAYS. 04/04/17 23:00 Stool Clostridium difficile Antigen (DARYB) - Final 04/04/17 23:00 Stool Clostridium difficile Toxin Assay - Final 04/03/17 00:22 Nares - Right Nares MRSA Screen - Final NO MRSA ISOLATED 04/02/17 22:41 Urine - Urine Clean Catch Urine Culture - Final NO GROWTH OBTAINED 04/03/17 00:16 Nasopharyngeal Swab Influenza Types A,B Antigen (DARBY) - Final 04/03/17 00:16 Nasopharyngeal Swab - Final a/p renal transplant arthrralgias leukocytosis no fevers at home no travel no pets cnsider mri of right shoulder-patient refusing would get xray of right shoulder hiccups and right shoulder pain- review ct scan with radiology to evaluate liver /right upper quadrant continue rocephin continues with diarrhea- add po flagyl
--- NOTE | 2017-04-06 17:39 | PN ---
Progress Note (short form) - Note Progress Note: Renal Follow up for ESRD with renal transplant Pt seen and examined at the bedside reports right arm swelling no sob, chest pain, fever also has right shoulder pain making urine on IVF Vital Signs Temperature 98.7 F 04/06/17 14:00 Pulse Rate 93 H 04/06/17 14:00 Respiratory Rate 20 04/06/17 10:00 Blood Pressure 164/83 04/06/17 14:00 O2 Sat by Pulse Oximetry (%) 98 04/06/17 09:00 Intake & Output 04/03/17 04/04/17 04/05/17 04/06/17 23:59 23:59 23:59 23:59 Intake Total 1760 1080 1270 Output Total 2050 650 1450 Balance -290 430 -180 Weight NAD RRR, No M/R CTA soft NT/ND no tenderness over kidney No LE edema, right arm 2+ edema CBC, BMP 04/06/17 05:20 04/06/17 05:20 Current Medications Acetaminophen (Tylenol -) 650 mg PO Q4H PRN PRN Reason: FEVER OR PAIN Last Admin: 04/05/17 16:59 Dose: 650 mg Amlodipine Besylate (Norvasc -) 5 mg PO DAILY [facility] Last Admin: 04/06/17 11:04 Dose: 5 mg Aspirin (Asa -) 81 mg PO DAILY [facility] Last Admin: 04/06/17 11:04 Dose: 81 mg Cinacalcet (Sensipar -) 60 mg PO DAILY [facility] Last Admin: 04/06/17 11:06 Dose: 60 mg Heparin Sodium (Porcine) (Heparin -) 5,000 unit SQ TID [facility] Last Admin: 04/06/17 14:08 Dose: 5,000 unit CEFTRIAXONE 1 G/50 ML PREMIX (Ceftriaxone 1 Gm-D5w Bag) 50 mls @ 100 mls/hr IVPB DAILY [facility] Last Admin: 04/06/17 11:05 Dose: 100 mls/hr Insulin Aspart (Novolog Vial Sliding Scale -) 1 vial SQ TIDAC [facility] PRN Reason: Protocol Last Admin: 04/06/17 12:23 Dose: 3 units Insulin Detemir (Levemir Vial) 15 units SQ AM [facility] Last Admin: 04/05/17 06:17 Dose: 15 units Metoprolol Tartrate (Lopressor -) 100 mg PO BID [facility] Last Admin: 04/06/17 11:04 Dose: 100 mg Metronidazole (Flagyl -) 500 mg PO TID [facility] Last Admin: 04/06/17 15:09 Dose: 500 mg Multivitamins/Minerals/Vitamin C (Tab-A-Vit -) 1 tab PO DAILY [facility] Last Admin: 04/06/17 11:07 Dose: 1 tab Ondansetron HCl (Zofran Injection) 8 mg IVPB Q6H PRN PRN Reason: NAUSEA Pantoprazole Sodium (Protonix -) 40 mg PO DAILY [facility] Last Admin: 04/06/17 11:04 Dose: 40 mg Prednisone (Deltasone -) 5 mg PO DAILY [facility] Last Admin: 04/06/17 11:04 Dose: 5 mg Pyridoxine HCl (Vitamin B6 -) 25 mg PO DAILY [facility] Last Admin: 04/06/17 11:07 Dose: 25 mg Sodium Bicarbonate (Sodium Bicarbonate -) 650 mg PO BID [facility] Last Admin: 04/06/17 11:04 Dose: 650 mg Tacrolimus (Prograf) 5 mg PO BID [facility] Last Admin: 04/06/17 11:06 Dose: 5 mg Tamsulosin HCl (Flomax -) 0.4 mg PO HS [facility] Last Admin: 04/05/17 22:07 Dose: 0.4 mg 56 year old gentleman with PMhx of ESRD s/p renal transplant at 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 Thank you Khang Luna DO
--- NOTE | 2017-04-06 20:00 | PN ---
Physical Exam: SUBJECTIVE: Patient seen and examined. Pt denies diarrhea, fever, chills, chest pain, abdominal pain. Pt again refused his MRI scans last night despite being instructed on the importance of these tests several times yesterday. OBJECTIVE: Vital Signs Period Temp Pulse Resp BP Sys/Barcenas Pulse Ox Last 24 Hr 97.8 F-98.8 F 81-101 18-20 109-164/72-90 98-98 GENERAL: The patient is awake, alert, and fully oriented, in no acute distress. LUNGS: Breath sounds equal, clear to auscultation bilaterally, no wheezes, no crackles, no accessory muscle use. HEART: Regular rate and rhythm, S1, S2 without murmur, rub or gallop. EXTREMITIES: Warm, well-perfused, no edema. Right UE swollen along the entire length of the arm, firm to palpation, painful to deep palpation, same temperature as Left UE, no erythema. Yuri radial pulses +2. PSYCH: Normal mood, normal affect. SKIN: Warm, dry, normal turgor, no rashes or lesions noted Laboratory Results - last 24 hr 04/05/17 04/06/17 04/06/17 05:10 05:20 05:20 WBC 8.4 RBC 3.57 L Hgb 9.4 L Hct 29.1 L MCV 81.5 MCH 26.2 MCHC 32.2 RDW 16.6 H Plt Count 202 MPV 11.1 Sodium 141 Potassium 4.2 Chloride 109 H Carbon Dioxide 22 Anion Gap 10 BUN 26 H D Creatinine 1.3 POC Glucometer Random Glucose 214 H Calcium 8.4 L Phosphorus 2.5 Magnesium 1.7 L HIV 1&2 Ag/Ab, 4th Gen Non reactive 04/06/17 04/06/17 04/06/17 05:57 11:53 17:23 WBC RBC Hgb Hct MCV MCH MCHC RDW Plt Count MPV Sodium Potassium Chloride Carbon Dioxide Anion Gap BUN Creatinine POC Glucometer 221 273 200 Random Glucose Calcium Phosphorus Magnesium HIV 1&2 Ag/Ab, 4th Gen Active Medications Generic Name Dose Route Start Last Admin Trade Name Freq PRN Reason Stop Dose Admin Acetaminophen 650 mg 04/03/17 00:13 04/05/17 16:59 Tylenol - PO 650 mg Q4H PRN Administration FEVER OR PAIN Amlodipine Besylate 5 mg 04/05/17 17:00 04/06/17 11:04 Norvasc - PO 5 mg DAILY THIERRY Administration Aspirin 81 mg 04/03/17 10:00 04/06/17 11:04 Asa - PO 81 mg DAILY THIERRY Administration Cinacalcet 60 mg 04/03/17 10:00 04/06/17 11:06 Sensipar - PO 60 mg DAILY THIERRY Administration Heparin Sodium (Porcine) 5,000 unit 04/03/17 06:00 04/06/17 14:08 Heparin - SQ 5,000 unit TID THIERRY Administration CEFTRIAXONE 1 G/50 ML PREMIX 50 mls @ 100 mls/hr 04/03/17 10:00 04/06/17 11: 05 Ceftriaxone 1 Gm-D5w Bag IVPB 100 mls/hr DAILY THIERRY Administration Insulin Aspart 1 vial 04/03/17 07:00 04/06/17 17:48 Novolog Vial Sliding Scale - SQ Not Given TIDAC [facility] Protocol Insulin Detemir 15 units 04/04/17 07:00 04/05/17 06:17 Levemir Vial SQ 15 units AM THIERRY Administration Metoprolol Tartrate 100 mg 04/03/17 10:00 04/06/17 11:04 Lopressor - PO 100 mg BID THIERRY Administration Metronidazole 500 mg 04/05/17 22:15 04/06/17 15:09 Flagyl - PO 500 mg TID THIERRY Administration Multivitamins/Minerals/Vitamin C 1 tab 04/03/17 10:00 04/06/17 11:07 Tab-A-Vit - PO 1 tab DAILY THIERRY Administration Ondansetron HCl 8 mg 04/03/17 00:14 Zofran Injection IVPB Q6H PRN NAUSEA Pantoprazole Sodium 40 mg 04/03/17 11:15 04/06/17 11:04 Protonix - PO 40 mg DAILY THIERRY Administration Prednisone 5 mg 04/03/17 10:00 04/06/17 11:04 Deltasone - PO 5 mg DAILY THIERRY Administration Pyridoxine HCl 25 mg 04/03/17 10:00 04/06/17 11:07 Vitamin B6 - PO 25 mg DAILY THIERRY Administration Sodium Bicarbonate 650 mg 04/03/17 10:00 04/06/17 11:04 Sodium Bicarbonate - PO 650 mg BID THIERRY Administration Tacrolimus 5 mg 04/04/17 22:19 04/06/17 11:06 Prograf PO 5 mg BID THIERRY Administration Tamsulosin HCl 0.4 mg 04/03/17 22:00 04/05/17 22:07 Flomax - PO 0.4 mg HS THIERRY Administration IMAGIN04/06/17 Duplex Right UE -> no DVT 04/06/17 Duplex yuri LE -> no DVT ASSESSMENT/PLAN: 56yo M with PMH ESRD s/p renal transplant (7 yrs ago), DM, htn, hld, presenting not feeling well, and found to have sepsis. 1) severe sepsis - source not yet identified - pt declined MRI of thoracic spine and MRI of Right shoulder again last night because he did not feel like going for the study at the time. Pt counseled on the importance of finding the source of his infection to treat him appropriately. - f/u MRI of thoracic spine to r/o discitis - f/u MRI of Right shoulder to assess joint pain - continue to hold Cellcept (Mycophenolate) -> can resume once sepsis syndrome is resolved per Renal - Day 4 of IV Ceftriaxone - C-diff antigen (+) -> continue Flagyl (Day 2) per ID # melena : stool OB pending. on PPI continue # Irregular heart rate. EKG and tele show sinus arrhythmias, with pACs. will continue to monitor in Tele. 2) LORI on ESRD s/p renal transplant - baseline Cr 0.8 (03/08/17) per Renal (Dr. Luna), Cr had been 1.4 and ~2 prior to this baseline - BUN/Cr improved from yesterday, though still elevated above baseline - continue Tacrolimus and Prednisone - continue to hold diuretics - IVFs D/Ayaan 2/2 apparent dependent edema in the Right UE - continue sodium bicarb 650mg BID - Renal following 3) DM - Levemir 15U SQ am - Novolog SSI - BGMs - hold Metformin 4) htn - continue Lopressor and Norvasc 5) hypomagnesemia - Mg Sulfate 2g IVPB given - continue to monitor 6) FEN - Fluids: 1/2 NS @ 100 ml/hr - Electrolytes: hypomagnesemia noted, continue to monitor - Nutrition: renal diet 7) Prophylaxis - DVT ppx with Heparin 5,000U SQ TID - GI ppx with Protonix 40mg daily - deconditioning ppx with PT Consult Visit type - Emergency Visit Emergency Visit: Yes ED Registration Date: 04/03/17 Care time: The patient presented to the Emergency Department on the above date and was hospitalized for further evaluation of their emergent condition. - New Patient This patient is new to me today: No - Critical Care Critical Care patient: No
[2017-04-06] MEDS: INSULIN DETEMIR 100 UNITS/ML MDV SQ SCH (20:26)
[2017-04-06] MEDS: TAMSULOSIN HCL 0.4 MG CAP.ER.24H (FP) PO SCH (21:04)
[2017-04-07] MEDS: metroNIDAZOLE 250 MG TABLET PO SCH ×3 (07:09→21:19)
[2017-04-07] MEDS: HEPARIN NA (PORCINE) 5,000 UNITS/ML 1ML VIAL SQ SCH ×3 (07:09→21:19)
[2017-04-07] MEDS: INSULIN DETEMIR 100 UNITS/ML MDV SQ SCH (07:10)
[2017-04-07] MEDS: INSULIN SLIDING SCALE (NOVOLOG) 1 VIAL SQ SCH ×3 (07:10→16:38)
[2017-04-07 08:06] LABS: MCH 26.2 pg (25.7-33.7); MCHC 31.9 g/dl (32.0-35.9); MEAN PLT VOLUME 10.8 fl (7.5-11.1); RDW 16.9 % (11.9-15.9)
--- NOTE | 2017-04-07 08:40 | PN ---
Physical Exam: SUBJECTIVE: Patient seen and examined. Pt declined MRI scans again last night because he did not feel like going at the time. Pt reports he will go for scans tonight. Pt denies fever, chills, chest pain, abdominal pain. No events overnight. OBJECTIVE: Vital Signs Period Temp Pulse Resp BP Sys/Barcenas Pulse Ox Last 24 Hr 98.1 F-99.4 F 75-101 18-20 102-164/54-83 97-98 GENERAL: The patient is awake, alert, and fully oriented, in no acute distress. LUNGS: Breath sounds equal, clear to auscultation bilaterally, no wheezes, no crackles, no accessory muscle use. HEART: Regular rate and rhythm, S1, S2 without murmur, rub or gallop. ABDOMEN: Soft, nontender, nondistended, + BS x 4, no guarding, no rebound. EXTREMITIES: Warm, well-perfused, no edema. Right UE swollen along the entire length of the arm, firm to palpation, painful to deep palpation, same temperature as Left UE, no erythema. [place] radial pulses +2. PSYCH: Normal mood, normal affect. SKIN: Warm, dry, normal turgor, no rashes or lesions noted Laboratory Results - last 24 hr 04/04/17 04/06/17 04/06/17 05:18 05:20 05:57 RBC Hgb Hct MCV MCH MCHC RDW MPV Sodium 141 Potassium 4.2 Chloride 109 H Carbon Dioxide 22 Anion Gap 10 BUN 26 H D Creatinine 1.3 POC Glucometer 221 Random Glucose 214 H Calcium 8.4 L Phosphorus 2.5 Magnesium 1.7 L LUKE Screen Negative 04/06/17 04/06/17 04/07/17 11:53 17:23 05:54 RBC Hgb Hct MCV MCH MCHC RDW MPV Sodium Potassium Chloride Carbon Dioxide Anion Gap BUN Creatinine POC Glucometer 273 200 167 Random Glucose Calcium Phosphorus Magnesium LUKE Screen 04/07/17 06:00 RBC 3.53 L Hgb 9.2 L Hct 28.9 L MCV 82.0 MCH 26.2 MCHC 31.9 L RDW 16.9 H MPV 10.8 Sodium Potassium Chloride Carbon Dioxide Anion Gap BUN Creatinine POC Glucometer Random Glucose Calcium Phosphorus Magnesium LUKE Screen Active Medications Generic Name Dose Route Start Last Admin Trade Name Freq PRN Reason Stop Dose Admin Acetaminophen 650 mg 04/03/17 00:13 11/07/17 16:59 Tylenol - PO 650 mg Q4H PRN Administration FEVER OR PAIN Amlodipine Besylate 5 mg 04/05/17 17:00 04/06/17 11:04 Norvasc - PO 5 mg DAILY [facility] Administration Aspirin 81 mg 04/03/17 10:00 04/06/17 11:04 Asa - PO 81 mg DAILY [facility] Administration Cinacalcet 60 mg 04/03/17 10:00 04/06/17 11:06 Sensipar - PO 60 mg DAILY [facility] Administration Heparin Sodium (Porcine) 5,000 unit 04/03/17 06:00 04/07/17 07:09 Heparin - SQ 5,000 unit TID [facility] Administration CEFTRIAXONE 1 G/50 ML PREMIX 50 mls @ 100 mls/hr 04/03/17 10:00 04/06/17 11: 05 Ceftriaxone 1 Gm-D5w Bag IVPB 100 mls/hr DAILY [facility] Administration Insulin Aspart 1 vial 04/03/17 07:00 04/07/17 07:10 Novolog Vial Sliding Scale - SQ Not Given TIDAC [facility] Protocol Insulin Detemir 15 units 04/04/17 07:00 04/07/17 07:10 Levemir Vial SQ 15 units AM [facility] Administration Metoprolol Tartrate 100 mg 04/03/17 10:00 04/06/17 21:04 Lopressor - PO 100 mg BID [facility] Administration Metronidazole 500 mg 04/05/17 22:15 04/07/17 07:09 Flagyl - PO 500 mg TID [facility] Administration Multivitamins/Minerals/Vitamin C 1 tab 04/03/17 10:00 04/06/17 11:07 Tab-A-Vit - PO 1 tab DAILY [facility] Administration Ondansetron HCl 8 mg 04/03/17 00:14 Zofran Injection IVPB Q6H PRN NAUSEA Pantoprazole Sodium 40 mg 04/03/17 11:15 04/06/17 11:04 Protonix - PO 40 mg DAILY [facility] Administration Prednisone 5 mg 04/03/17 10:00 04/06/17 11:04 Deltasone - PO 5 mg DAILY [facility] Administration Pyridoxine HCl 25 mg 04/03/17 10:00 04/06/17 11:07 Vitamin B6 - PO 25 mg DAILY [facility] Administration Sodium Bicarbonate 650 mg 04/03/17 10:00 04/06/17 21:04 Sodium Bicarbonate - PO 650 mg BID [facility] Administration Tacrolimus 5 mg 04/04/17 22:19 04/06/17 21:04 Prograf PO 5 mg BID [facility] Administration Tamsulosin HCl 0.4 mg 04/03/17 22:00 04/06/17 21:04 Flomax - PO 0.4 mg HS [facility] Administration ASSESSMENT/PLAN: 56yo M with PMH ESRD s/p renal transplant (7 yrs ago), DM, htn, hld, presenting not feeling well, and found to have sepsis. 1) severe sepsis - source not yet identified - pt declined MRI of thoracic spine and MRI of Right shoulder again last night because he did not feel like going for the study at the time. Pt counseled on the importance of finding the source of his infection to treat him appropriately. Pt reports he will go for MRI scans tonight. - f/u MRI of thoracic spine to r/o discitis - f/u MRI of Right shoulder to assess joint pain - Cellcept (Mycophenolate) -> can resume once sepsis syndrome is resolved per Renal - Ceftriaxone D/Ayaan today - C-diff antigen (+) -> continue Flagyl (Day 3) per ID 2) LORI on ESRD s/p renal transplant - baseline Cr 0.8 (03/08/17) per Renal (Dr. Luna), Cr had been 1.4 and ~2 prior to this baseline - BUN/Cr improved from yesterday, though still elevated above baseline - continue Tacrolimus and Prednisone - continue to hold diuretics - IVFs D/Ayaan 2/2 apparent dependent edema in the Right UE - continue sodium bicarb 650mg BID - Renal following 3) DM - Levemir 15U SQ am - Novolog SSI - BGMs - hold Metformin 4) htn - continue Lopressor and Norvasc 5) hypomagnesemia - Mg Sulfate 2g IVPB given - continue to monitor 6) FEN - Fluids: po - Electrolytes: hypomagnesemia noted, continue to monitor - Nutrition: renal diet 7) Prophylaxis - DVT ppx with Heparin 5,000U SQ TID - GI ppx with Protonix 40mg daily - deconditioning ppx with PT Consult Visit type - Emergency Visit Emergency Visit: Yes ED Registration Date: 04/03/17 Care time: The patient presented to the Emergency Department on the above date and was hospitalized for further evaluation of their emergent condition. - New Patient This patient is new to me today: No - Critical Care Critical Care patient: No
[2017-04-07 09:16] LABS: ANION GAP 14 (8-16); CALCIUM 8.4 mg/dL (8.5-10.1); CO2 19 mmol/L (21-32); CREATININE 1.3 mg/dL (0.7-1.3); GLUCOSE,RANDOM 169 mg/dL (74-106); MAGNESIUM 1.8 mg/dL (1.8-2.4); PHOSPHOROUS 3.2 mg/dL (2.5-4.9)
[2017-04-07] MEDS: ASPIRIN 81 MG CHEWABLE TABLETS PO SCH (10:25)
[2017-04-07] MEDS: amLODIPine BESYLATE 5 MG TABLET (FP) PO SCH (10:25)
[2017-04-07] MEDS: CEFTRIAXONE 1 G/50 ML PREMIX 50 ML IVPB SCH (10:25)
[2017-04-07] MEDS: PANTOPRAZOLE 40 MG TABLET (FP) PO SCH (10:25)
[2017-04-07] MEDS: predniSONE 5 MG TABLET (UD) PO SCH (10:25)
[2017-04-07] MEDS: METOPROLOL TARTRATE 50 MG TABLET (FP) PO SCH ×2 (10:25→21:19)
[2017-04-07] MEDS: MULTIVITAMINS (DAILY MVI) TABLET (FP) PO SCH (10:25)
[2017-04-07] MEDS: SODIUM BICARBONATE 650 MG TABLET PO SCH ×2 (10:25→21:19)
[2017-04-07] MEDS: TACROLIMUS ANHYDROUS 5 MG CAPSULE PO SCH ×2 (10:26→21:30)
[2017-04-07] MEDS: CINACALCET HCL 30 MG TAB (FP) PO SCH (10:27)
[2017-04-07] MEDS: PYRIDOXINE HCL (B-6) 50 MG TABLET (FP) PO SCH (10:31)
--- NOTE | 2017-04-07 11:47 | PN ---
Progress Note (short form) - Note Progress Note: Renal Follow up for ESRD with renal transplant Pt seen and examined at the bedside awake and alert walking with PT reports continued swelling and pain in right arm IV removed from that arm making urine no abd pain/kidney pain Vital Signs Temperature 98.5 F 04/07/17 01:00 Pulse Rate 83 04/07/17 05:00 Respiratory Rate 20 04/07/17 05:00 Blood Pressure 102/59 04/07/17 05:00 O2 Sat by Pulse Oximetry (%) 97 04/06/17 21:00 Intake & Output 04/04/17 04/05/17 04/06/17 04/07/17 23:59 23:59 23:59 23:59 Intake Total 1760 1080 1630 0 Output Total 2050 650 2100 Balance -290 430 -470 0 NAD RRR, No M/R CTA soft NT/ND no tenderness over kidney No LE edema, right arm 2+ edema CBC, BMP 04/07/17 06:00 04/07/17 06:00 Laboratory Tests 04/06/17 04/07/17 05:20 06:00 Calcium 8.4 L 8.4 L Phosphorus 2.5 3.2 D Magnesium 1.7 L 1.8 Current Medications Acetaminophen (Tylenol -) 650 mg PO Q4H PRN PRN Reason: FEVER OR PAIN Last Admin: 04/05/17 16:59 Dose: 650 mg Amlodipine Besylate (Norvasc -) 5 mg PO DAILY [facility] Last Admin: 04/07/17 10:25 Dose: 5 mg Aspirin (Asa -) 81 mg PO DAILY [facility] Last Admin: 04/07/17 10:25 Dose: 81 mg Cinacalcet (Sensipar -) 60 mg PO DAILY [facility] Last Admin: 04/07/17 10:27 Dose: 60 mg Heparin Sodium (Porcine) (Heparin -) 5,000 unit SQ TID [facility] Last Admin: 04/07/17 07:09 Dose: 5,000 unit CEFTRIAXONE 1 G/50 ML PREMIX (Ceftriaxone 1 Gm-D5w Bag) 50 mls @ 100 mls/hr IVPB DAILY [facility] Last Admin: 04/07/17 10:25 Dose: 100 mls/hr Insulin Aspart (Novolog Vial Sliding Scale -) 1 vial SQ TIDAC [facility] PRN Reason: Protocol Last Admin: 04/07/17 07:10 Dose: Not Given Insulin Detemir (Levemir Vial) 15 units SQ AM [facility] Last Admin: 04/07/17 07:10 Dose: 15 units Metoprolol Tartrate (Lopressor -) 100 mg PO BID [facility] Last Admin: 04/07/17 10:25 Dose: 100 mg Metronidazole (Flagyl -) 500 mg PO TID [facility] Last Admin: 04/07/17 07:09 Dose: 500 mg Multivitamins/Minerals/Vitamin C (Tab-A-Vit -) 1 tab PO DAILY [facility] Last Admin: 04/07/17 10:25 Dose: 1 tab Ondansetron HCl (Zofran Injection) 8 mg IVPB Q6H PRN PRN Reason: NAUSEA Pantoprazole Sodium (Protonix -) 40 mg PO DAILY [facility] Last Admin: 04/07/17 10:25 Dose: 40 mg Prednisone (Deltasone -) 5 mg PO DAILY [facility] Last Admin: 04/07/17 10:25 Dose: 5 mg Pyridoxine HCl (Vitamin B6 -) 25 mg PO DAILY [facility] Last Admin: 04/07/17 10:31 Dose: 25 mg Sodium Bicarbonate (Sodium Bicarbonate -) 650 mg PO BID [facility] Last Admin: 04/07/17 10:25 Dose: 650 mg Tacrolimus (Prograf) 5 mg PO BID [facility] Last Admin: 04/07/17 10:26 Dose: 5 mg Tamsulosin HCl (Flomax -) 0.4 mg PO HS [facility] Last Admin: 04/06/17 21:04 Dose: 0.4 mg 56 year old gentleman with PMhx of ESRD s/p renal transplant at [facility] (7 years ago), DM type 2, HTN, HLD, 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 Doppler negative for DVT . Thank you Khang Luna DO
[2017-04-07 13:29] LABS: PLATELET COUNT 215 K/MM3 (134-434); PLATELET ESTIMATE ADEQUATE (NORMAL)
--- NOTE | 2017-04-07 15:14 | PN ---
Progress Note (short form) - Note Progress Note: awake and alert joint aches improved can raise his shoulder now diarrhea has resolved Vital Signs Period Temp Pulse Resp BP Sys/Barcenas Pulse Ox Last 24 Hr 98.4 F-99.4 F 75-101 18-20 102-146/54-76 97-100 cor-rrr lungs clear abd soft,nt +swellling right arm, can now raise arm easily! CBC, BMP 04/07/17 06:00 04/07/17 06:00 Microbiology 04/04/17 23:00 Stool Salmonella/Shigella Culture - Final NO GROWTH OF SALMONELLA OR SHIGELLA SPECIES OBTAINED 04/04/17 23:00 Stool Campylobacter Culture - Final NO GROWTH OF CAMPYLOBACTER SPECIES OBTAINED 04/04/17 23:00 Stool Yersinia Culture - Final NO GROWTH OF YERSINIA SPECIES OBTAINED 04/04/17 23:00 Stool Vibrio Culture - Final NO GROWTH OF VIBRIO SPECIES OBTAINED 04/04/17 23:00 Stool Escherichia coli 0157 Culture - Final NO GROWTH OF E COLI 0157 OBTAINED 04/03/17 00:00 Blood - Peripheral Venous Blood Culture - Preliminary NO GROWTH OBTAINED AFTER 96 HOURS, INCUBATION TO CONTINUE FOR 1 DAYS. 04/03/17 00:00 Blood - Peripheral Venous Blood Culture - Preliminary NO GROWTH OBTAINED AFTER 96 HOURS, INCUBATION TO CONTINUE FOR 1 DAYS. 04/03/17 08:55 Urine For Antigen Detection Legionella Antigen - Final 04/03/17 08:55 Urine For Antigen Detection Streptococcus pneumoniae Antigen (M - Final 04/04/17 23:00 Stool Clostridium difficile Antigen (DARBY) - Final 04/04/17 23:00 Stool Clostridium difficile Toxin Assay - Final 04/03/17 00:22 Nares - Right Nares MRSA Screen - Final NO MRSA ISOLATED 04/02/17 22:41 Urine - Urine Clean Catch Urine Culture - Final NO GROWTH OBTAINED 04/03/17 00:16 Nasopharyngeal Swab Influenza Types A,B Antigen (DARBY) - Final 04/03/17 00:16 Nasopharyngeal Swab - Final a/p renal transplant arthralgias leukocytosis no fevers at home no travel no pets willl d/c rocephin he never had any imaging of his shoulder done despite xrays and MRIs being ordered! would finish 7 day course of po flagyl for diarrhea cdiff antigen positive that is resolving
[2017-04-07] MEDS ORDERED: PT OWN MED DRAWER 7, Y5N ONE ×2 (15:45→20:34)
--- NOTE | 2017-04-07 17:06 | PN ---
Teaching Attending Note Name of Resident: Xiomara Sanford ATTENDING PHYSICIAN STATEMENT I saw and evaluated the patient. I reviewed the resident's note and discussed the case with the resident. I agree with the resident's findings and plan as documented. SUBJECTIVE: Patient is feeling better, able to raise his right arm above his head, while was not able to elevate his arm before. OBJECTIVE: Vital Signs Temperature 98.4 F 04/07/17 09:00 Pulse Rate 92 H 04/07/17 09:00 Respiratory Rate 18 04/07/17 09:00 Blood Pressure 146/70 04/07/17 09:00 O2 Sat by Pulse Oximetry (%) 100 04/07/17 09:00 CBCD WBC 12.0 K/mm3 (4.0-10.0) H D 04/07/17 06:00 RBC 3.53 M/mm3 (4.00-5.60) L 04/07/17 06:00 Hgb 9.2 GM/dL (11.7-16.9) L 04/07/17 06:00 Hct 28.9 % (35.4-49) L 04/07/17 06:00 MCV 82.0 fl (80-96) 04/07/17 06:00 MCHC 31.9 g/dl (32.0-35.9) L 04/07/17 06:00 RDW 16.9 % (11.9-15.9) H 04/07/17 06:00 Plt Count 215 K/MM3 (134-434) 04/07/17 06:00 MPV 10.8 fl (7.5-11.1) 04/07/17 06:00 CMP Sodium 142 mmol/L (136-145) 04/07/17 06:00 Potassium 4.2 mmol/L (3.5-5.1) 04/07/17 06:00 Chloride 109 mmol/L (98-107) H 04/07/17 06:00 Carbon Dioxide 19 mmol/L (21-32) L 04/07/17 06:00 Anion Gap 14 (8-16) 04/07/17 06:00 BUN 25 mg/dL (7-18) H 04/07/17 06:00 Creatinine 1.3 mg/dL (0.7-1.3) 04/07/17 06:00 Creat Clearance w eGFR 52.05 (>60) 04/05/17 05:10 Random Glucose 169 mg/dL (74-106) H D 04/07/17 06:00 Calcium 8.4 mg/dL (8.5-10.1) L 04/07/17 06:00 Total Bilirubin 0.3 mg/dL (0.2-1.0) D 04/05/17 05:10 AST 28 U/L (15-37) D 04/05/17 05:10 ALT 22 U/L (12-78) D 04/05/17 05:10 Alkaline Phosphatase 68 U/L (45-117) 04/05/17 05:10 Total Protein 5.6 g/dl (6.4-8.2) L 04/05/17 05:10 Albumin 2.1 g/dl (3.4-5.0) L 04/05/17 05:10 CARDIAC ENZYMES Creatine Kinase 145 IU/L (39-308) 04/03/17 06:50 Troponin I 0.02 ng/ml (0.00-0.05) 04/03/17 06:50 Current Medications Generic Name Dose Route Start Last Admin Trade Name Freq PRN Reason Stop Dose Admin Acetaminophen 650 mg 04/03/17 00:13 04/05/17 16:59 Tylenol - PO 650 mg Q4H PRN Administration FEVER OR PAIN Amlodipine Besylate 5 mg 04/05/17 17:00 04/07/17 10:25 Norvasc - PO 5 mg DAILY [facility] Administration Aspirin 81 mg 04/03/17 10:00 04/07/17 10:25 Asa - PO 81 mg DAILY [facility] Administration Cinacalcet 60 mg 04/03/17 10:00 04/07/17 10:27 Sensipar - PO 60 mg DAILY [facility] Administration Heparin Sodium (Porcine) 5,000 unit 04/03/17 06:00 04/07/17 12:59 Heparin - SQ 5,000 unit TID [facility] Administration Insulin Aspart 1 vial 04/03/17 07:00 04/07/17 16:38 Novolog Vial Sliding Scale - SQ Not Given TIDAC [facility] Protocol Insulin Detemir 15 units 04/04/17 07:00 04/07/17 07:10 Levemir Vial SQ 15 units AM [facility] Administration Metoprolol Tartrate 100 mg 04/03/17 10:00 04/07/17 10:25 Lopressor - PO 100 mg BID [facility] Administration Metronidazole 500 mg 04/05/17 22:15 04/07/17 12:59 Flagyl - PO 500 mg TID [facility] Administration Multivitamins/Minerals/Vitamin C 1 tab 04/03/17 10:00 04/07/17 10:25 Tab-A-Vit - PO 1 tab DAILY [facility] Administration Ondansetron HCl 8 mg 04/03/17 00:14 Zofran Injection IVPB Q6H PRN NAUSEA Pantoprazole Sodium 40 mg 04/03/17 11:15 04/07/17 10:25 Protonix - PO 40 mg DAILY [facility] Administration Prednisone 5 mg 04/03/17 10:00 04/07/17 10:25 Deltasone - PO 5 mg DAILY [facility] Administration Pyridoxine HCl 25 mg 04/03/17 10:00 04/07/17 10:31 Vitamin B6 - PO 25 mg DAILY [facility] Administration Sodium Bicarbonate 650 mg 04/03/17 10:00 04/07/17 10:25 Sodium Bicarbonate - PO 650 mg BID [facility] Administration Tacrolimus 5 mg 04/04/17 22:19 04/07/17 10:26 Prograf PO 5 mg BID [facility] Administration Tamsulosin HCl 0.4 mg 04/03/17 22:00 04/06/17 21:04 Flomax - PO 0.4 mg HS [facility] Administration Home Medications Medication Instructions Recorded Aspirin [ASA -] 81 mg PO DAILY 10/03/14 Insulin (Levemir) [Levemir Vial] 15 unit SQ AM 10/03/14 Metoprolol Tartrate [Lopressor] 100 mg PO BID 10/03/14 Multivitamins [Multivit ([facility] 1 tab PO DAILY 10/03/14 Formulary)] Pyridoxine HCl [Vitamin B-6] 25 mg PO DAILY 10/03/14 Tacrolimus Anhydrous [Prograf] 1 mg PO BID 10/03/14 Cinacalcet HCl [Sensipar] 60 mg PO DAILY 11/29/14 Insulin Lispro [Humalog] 100 unit SQ QID PRN 11/29/14 Mycophenolate Sodium [Myfortic] 360 mg PO TID 11/29/14 Furosemide [Lasix] 40 mg PO DAILY 04/03/17 Metformin HCl [Metformin HCl ER] 500 mg PO BID 04/03/17 Potassium Chloride [Klor-Con] 20 meq PO DAILY 04/03/17 Prednisone 5 mg PO DAILY 04/03/17 Sodium Bicarbonate - 650 mg PO BID 04/03/17 Tamsulosin HCl [Flomax] 0.4 mg PO HS 04/03/17 PE: per resident's note ASSESSMENT AND PLAN: 56 y/o gentleman with h/o renal failure s/p renal transplant x 7 years ago, DM , HTN, and HLP who presented not feeling well and was found to have sepsis # S/P sepsis : source is not identified yet , MRI of T spine and right shoulder was refused by the patient last night as well. will get Xray of the shoulder, if negative will discharge the patient. Also Physical therapy was ordered, patient uses his walker at home. # C-diff with positive antigen on Po Flagyl tid as per ID, as per ID is ok to continue cellcept ; level is pending , No growth so far, will follow # ARF with h/o renal transplant with cr: 1.3; Cont. prednisone and tacro. hold cellcept in setting of sepsis for now, Renal consult appreciated . tacrulimus level is pending. Cont to hold lasix and cont gentle IV hydration. # Irregular heart rate. EKG and tele show sinus arrhythmias, with pACs. since patient is stable will Tx the patient out of Tele. # HTN: cont BB . Add norvasc # DM : cont levemir and SSI . but hold metformin DVT pX : SCDs until GI bleed is ruled out
[2017-04-07 17:42] LABS: TOTAL CELLS COUNTED 100
[2017-04-07 17:43] LABS: ANISOCYTOSIS 1+; HYPOCHROMIA 1+; PLATELET COMMENTS NO CLUMPING; PLATELET ESTIMATE ADEQUATE; POIKILOCYTOSIS 1+
--- NOTE | 2017-04-07 17:57 | DS ---
Physical Exam: SUBJECTIVE: Patient seen and examined. Pt declined MRI scans again last night because he did not feel like going at the time. Pt reports he will go for scans tonight. Pt denies fever, chills, chest pain, abdominal pain. No events overnight. OBJECTIVE: Vital Signs Period Temp Pulse Resp BP Sys/Barcenas Pulse Ox Last 24 Hr 98.4 F-99.4 F 75-92 18-20 102-146/54-70 97-100 PHYSICAL EXAM GENERAL: The patient is awake, alert, and fully oriented, in no acute distress. LUNGS: Breath sounds equal, clear to auscultation bilaterally, no wheezes, no crackles, no accessory muscle use. HEART: Regular rate and rhythm, S1, S2 without murmur, rub or gallop. ABDOMEN: Soft, nontender, nondistended, + BS x 4, no guarding, no rebound. EXTREMITIES: Warm, well-perfused, no edema. Right UE swollen along the entire length of the arm, firm to palpation, painful to deep palpation, same temperature as Left UE, no erythema. [place] radial pulses +2. PSYCH: Normal mood, normal affect. SKIN: Warm, dry, normal turgor, no rashes or lesions noted LABS Laboratory Results - last 24 hr 04/04/17 04/06/17 04/07/17 05:18 17:23 05:54 WBC RBC Hgb Hct MCV MCH MCHC RDW Plt Count MPV Platelet Estimate Platelet Comment Sodium Potassium Chloride Carbon Dioxide Anion Gap BUN Creatinine POC Glucometer 200 167 Random Glucose Calcium Phosphorus Magnesium LUKE Screen Negative 04/07/17 04/07/17 04/07/17 06:00 06:00 12:06 WBC 12.0 H D RBC 3.53 L Hgb 9.2 L Hct 28.9 L MCV 82.0 MCH 26.2 MCHC 31.9 L RDW 16.9 H Plt Count 215 MPV 10.8 Platelet Estimate Adequate Platelet Comment No clumping noted Sodium 142 Potassium 4.2 Chloride 109 H Carbon Dioxide 19 L Anion Gap 14 BUN 25 H Creatinine 1.3 POC Glucometer 357 Random Glucose 169 H D Calcium 8.4 L Phosphorus 3.2 D Magnesium 1.8 LUKE Screen 04/07/17 16:37 WBC RBC Hgb Hct MCV MCH MCHC RDW Plt Count MPV Platelet Estimate Platelet Comment Sodium Potassium Chloride Carbon Dioxide Anion Gap BUN Creatinine POC Glucometer 152 Random Glucose Calcium Phosphorus Magnesium LUKE Screen HOSPITAL COURSE: Date of Admission:04/03/17 Date of Discharge: 04/07/17 56yo M with PMH ESRD s/p renal transplant (7 yrs ago), DM, htn, hld, presenting not feeling well, and found to have sepsis. Leukocytosis, tachycardia, and tachypnea resolved within 1 day. Pt received 5 days of IV Ceftriaxone. Flagyl po initiated 04/05. Pt sent home with Flagyl 500mg po TID x 6 more days. Urine culture (-), Blood culture (-) x 96 hrs, Influenza A&B (-), MRSA to nares (-), Legionella (-), Stool culture (-) 04/04/17 C-diff antigen (+), C-diff toxin (-) 04/02/17 CXR -> no acute pathology 04/03/17 CT ab/pel -> partially calcified T7-T8 disc herniation with probably associated spinal cord compression 04/03/17 Xray of Left 3rd and 5th digit -> intact 04/04/17 Renal US -> morphologically normal transplanted kidney 04/06/17 Duplex yuri LE and Right UE -> all (-) for DVT 04/04/17 MRI Thoracic Spine ordered -> pt declined to go for scan on 04/04, 04/05, and 04/06/17. 04/05/17 MRI Right Shoulder ordered -> pt declined to go for scan on 04/05 and 04/06/17. Pt followed by Dr. Luna (Nephrology). Pt developed Right UE dependent edema, so IVFs were D/Ayaan. Pt medically stable for discharge home. 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 Pt consistently refused MRI scans which may have identified source of sepsis. Please continue your medications as prescribed. Please take your antibiotic, Flagyl, 3 times per day for 6 more days. Please schedule a follow-up appointment with your Primary Care Physician (Dr. Guadarrama) within 1 week of leaving the hospital. Please schedule a follow-up appointment with your Mgmt Specialist (Dr. Luna) within 1 week of leaving the hospital. Please eat a renal, diabetic diet. Resume physical activity as tolerated. Please return to the hospital immediately if you experience any medical emergency such as chest pain, difficulty breathing, persistent uncontrolled pain. Referrals: Gorge Guadarrama MD [Primary Care Provider] - 1 Week Khang Luna MD [Staff Physician] - 1 Week Disposition: HOME - Home Medications Comprehensive Discharge Medication List: Ambulatory Orders Aspirin [ASA -] 81 mg PO DAILY 10/03/14 Insulin (Levemir) [Levemir Vial] 15 unit SQ AM 10/03/14 Metoprolol Tartrate [Lopressor] 100 mg PO BID 10/03/14 Multivitamins [Multivit ([facility] Formulary)] 1 tab PO DAILY 10/03/14 Pyridoxine HCl [Vitamin B-6] 25 mg PO DAILY 10/03/14 Tacrolimus Anhydrous [Prograf] 1 mg PO BID 10/03/14 Cinacalcet HCl [Sensipar] 60 mg PO DAILY 11/29/14 Insulin Lispro [Humalog] 100 unit SQ QID PRN 11/29/14 Mycophenolate Sodium [Myfortic] 360 mg PO TID 11/29/14 Furosemide [Lasix] 40 mg PO DAILY 04/03/17 Metformin HCl [Metformin HCl ER] 500 mg PO BID 04/03/17 Potassium Chloride [Klor-Con] 20 meq PO DAILY 04/03/17 Prednisone 5 mg PO DAILY 04/03/17 Sodium Bicarbonate - 650 mg PO BID 04/03/17 Tamsulosin HCl [Flomax] 0.4 mg PO HS 04/03/17 Acetaminophen [Tylenol .Regular Strength -] 650 mg PO Q4H PRN tablet 04/07/17 Amlodipine Besylate [Norvasc -] 5 mg PO DAILY #30 tablet 04/07/17 Metronidazole [Flagyl -] 500 mg PO TID #18 tablet 04/07/17 This patient is new to me today: No Emergency Visit: Yes ED Registration Date: 04/03/17 Care time: The patient presented to the Emergency Department on the above date and was hospitalized for further evaluation of their emergent condition. Critical Care patient: No - Discharge Referral Referred to [facility] No
[2017-04-07] MEDS: TAMSULOSIN HCL 0.4 MG CAP.ER.24H (FP) PO SCH (21:19)
[2017-04-07 22:45] VITALS: BP 116/72; PULSE 85; TEMP 98.6
[2017-04-08] MEDS: HEPARIN NA (PORCINE) 5,000 UNITS/ML 1ML VIAL SQ SCH (06:01)
[2017-04-08] MEDS: metroNIDAZOLE 250 MG TABLET PO SCH (06:01)
[2017-04-08] MEDS: INSULIN SLIDING SCALE (NOVOLOG) 1 VIAL SQ SCH ×2 (06:06→12:12)
[2017-04-08] MEDS: INSULIN DETEMIR 100 UNITS/ML MDV SQ SCH (06:06)
[2017-04-08 08:25] LABS: ANION GAP 12 (8-16); CALCIUM 8.7 mg/dL (8.5-10.1); CO2 17 mmol/L (21-32); CREATININE 1.5 mg/dL (0.7-1.3); GLUCOSE,RANDOM 195 mg/dL (74-106)
[2017-04-08] MEDS: MULTIVITAMINS (DAILY MVI) TABLET (FP) PO SCH (11:11)
[2017-04-08] MEDS: PANTOPRAZOLE 40 MG TABLET (FP) PO SCH (11:11)
[2017-04-08] MEDS: ASPIRIN 81 MG CHEWABLE TABLETS PO SCH (11:11)
[2017-04-08] MEDS: SODIUM BICARBONATE 650 MG TABLET PO SCH (11:11)
[2017-04-08] MEDS: amLODIPine BESYLATE 5 MG TABLET (FP) PO SCH (11:11)
[2017-04-08] MEDS: predniSONE 5 MG TABLET (UD) PO SCH (11:12)
[2017-04-08] MEDS: METOPROLOL TARTRATE 50 MG TABLET (FP) PO SCH (11:12)
[2017-04-08] MEDS: CINACALCET HCL 30 MG TAB (FP) PO SCH (11:12)
[2017-04-08] MEDS: TACROLIMUS ANHYDROUS 5 MG CAPSULE PO SCH (11:13)
[2017-04-08] MEDS: PYRIDOXINE HCL (B-6) 50 MG TABLET (FP) PO SCH (11:18)
--- NOTE | 2017-04-08 17:59 | PN ---
Progress Note (short form) - Note Progress Note: Renal Follow up for ESRD with renal transplant Pt seen and examined at the bedside prior to discharge no acute complaints Vital Signs Temperature 98.6 F 04/07/17 22:00 Pulse Rate 85 04/07/17 22:00 Respiratory Rate 18 04/08/17 09:00 Blood Pressure 116/72 04/07/17 22:00 O2 Sat by Pulse Oximetry (%) 95 04/08/17 09:00 Intake & Output 04/05/17 04/06/17 04/07/17 04/08/17 23:59 23:59 23:59 23:59 Intake Total 1080 1630 320 400 Output Total 650 2100 300 1 Balance 430 -470 20 399 NAD RRR, No M/R CTA soft NT/ND no tenderness over kidney No LE edema CBC, BMP 04/07/17 06:00 04/08/17 06:00 56 year old gentleman with PMhx of ESRD s/p renal transplant at [facility] (7 years ago), DM type 2, HTN, HLD, 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
== END 2017-04-08 11:55 | disposition home or self-care (01) | DRG 720 ==
LOC: JER 21:29 → SUPCPDRO 21:29 → JERBED 04-03 01:38 → J4W 04-03 16:19 → J8W 04-07 14:30
PROVIDERS: ADMIT Internal Medicine; ATTEND Internal Medicine
DX: A41.9 Sepsis, unspecified organism (principal); R65.20 Severe sepsis without septic shock; T86.19 Other complication of kidney transplant; N17.9 Acute kidney failure, unspecified; E87.5 Hyperkalemia; E87.2 Acidosis; E83.42 Hypomagnesemia; Z79.4 Long term (current) use of insulin; F60.9 Personality disorder, unspecified; E11.9 Type 2 diabetes mellitus without complications; Z87.891 Personal history of nicotine dependence; M10.9 Gout, unspecified; R19.7 Diarrhea, unspecified; K92.1 Melena; R06.6 Hiccough; M25.511 Pain in right shoulder; D64.9 Anemia, unspecified; Y83.8 Other surgical procedures as the cause of abnormal reaction of the patient, or of later complication, without mention of misadventure at the time of the procedure
CPT/HCPCS: 36415; 71010-TC; 73030-TC-RT; 73140-TC-LT; 73140-TC-RT; 74176-TC; 76775-TC; 80048; 80053; 80197; 81003; 81015; 82436; 82438; 82550; 82570; 83605; 83735; 84100; 84133; 84300; 84302; 84484; 84999; 85025; 85027; 85610; 86038; 86140; 86431; 86850; 86900; 86901; 87040; 87045; 87046; 87081; 87086; 87324; 87389; 87449; 87804; 87899; 93005; 93010; 93970-TC; 93971; 97116-GP; 97161-GP; 99285-25; J1644

== ENCOUNTER 2017-10-31 00:20 | Inpatient (IN) | payer OTHER ==
[2017-10-31] MEDS ORDERED: FUROSEMIDE 40 MG/4 ML INJECTABLE VIAL ONE (00:23)
[2017-10-31] MEDS ORDERED: NITROGLYCERIN 2% OINTMENT - 1GM PACKET TD ONE ×2 (00:30→00:33)
[2017-10-31] MEDS ORDERED: NITROGLYCERIN SUBLINGUAL 1/150 0.4 MG TAB SL ONE ×3 (00:30→01:03)
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
[2017-10-31] MEDS ORDERED: NITROGLYCERIN 25MG/D5W 250ML 25 MG/250 ML ML IVPB SCH (00:45)
[2017-10-31] MEDS ORDERED: methylPREDNISolone NA SUCC 125 MG/2 ML VIAL IVPUSH ONE (00:55)
[2017-10-31] MEDS ORDERED: FUROSEMIDE 40 MG/4 ML INJECTABLE VIAL IVPUSH ONE ×2 (01:08→01:20)
[2017-10-31 01:57] LABS: HEMATOCRIT 34.4 % (35.4-49); HEMOGLOBIN 10.7 GM/dL (11.7-16.9); MCH 25.4 pg (25.7-33.7); MEAN CELL VOLUME 82.1 fl (80-96); MEAN PLT VOLUME 10.4 fl (7.5-11.1); PLATELET COUNT 312 K/MM3 (134-434); RBC 4.19 M/mm3 (4.00-5.60); RDW 22.9 % (11.9-15.9); WHITE BLOOD COUNT 12.4 K/mm3 (4.0-10.0)
[2017-10-31 01:58] LABS: BASO % 0.4 % (0-2.0); EOS % 0.3 % (0-4.5); LYMPH % 35.6 % (8-40); MONO % 6.4 % (3.8-10.2); NEUT % 57.3 % (42.8-82.8)
[2017-10-31 02:31] LABS: INR 1.1 (0.82-1.09); PROTHROMBIN TIME (PATIENT) 12.4 SEC (9.7-13.0)
[2017-10-31 02:33] LABS: ALBUMIN 3.7 g/dl (3.4-5.0); ANION GAP 7 (8-16); BILIRUBIN,TOTAL 1.1 mg/dL (0.2-1.0); BLOOD UREA NITROGEN 24 mg/dL (7-18); CALCIUM 8.8 mg/dL (8.5-10.1); CHLORIDE 116 mmol/L (98-107); CO2 22 mmol/L (21-32); CREATININE 1.4 mg/dL (0.7-1.3); GLUCOSE,RANDOM 190 mg/dL (74-106); LIPASE 177 U/L (73-393); POTASSIUM 4.1 mmol/L (3.5-5.1); SGOT/AST 32 U/L (15-37); SGPT/ALT 41 U/L (12-78); SODIUM 145 mmol/L (136-145); TOT PROT 7.4 g/dl (6.4-8.2)
[2017-10-31 02:34] LABS: ACTIVATED PTT 33.5 SECONDS (26.9-34.4); ALK PHOS 156 U/L (45-117)
[2017-10-31 07:05] LABS: URINE APPEARANCE CLEAR; URINE BILIRUBIN NEGATIVE (<2.0 mg/dL); URINE BLOOD 1+ (NEGATIVE); URINE COLOR STRAW; URINE GLUCOSE (UA) NEGATIVE (NEGATIVE); URINE KETONE NEGATIVE (NEGATIVE); URINE LEUK ESTERASE NEGATIVE (NEGATIVE); URINE NITRITE NEGATIVE (NEGATIVE); URINE UROBILINOGEN NEGATIVE mg/dL (0.2-1.0)
[2017-10-31 07:12] LABS: URINE PROTEIN 2+ (NEGATIVE)
[2017-10-31 07:31] LABS: URINE BACTERIA RARE /hpf (NONE SEEN); URINE MUCUS RARE
--- NOTE | 2017-10-31 08:52 | CON.CARD ---
Cardiology Consult (text) - Consultation Consultation Note: Cardiology Consult Dictated IMP: Acute on chronic CHF (?systolic vs diastolic) in setting of uncontrolled HTN Chronic HTN, hypertensive heart disease DM H/o renal transplant Leukocytosis REC: 1. Telemetry 2. Echo for EF assessment 3. Agree with IV Lasix with daily monitoring of renal function 4. Cultures, ID consult, Pulmonary evaluation. 5. DVT prophylaxis. Will follow.
[2017-10-31 09:17] LABS: BASO % 0.3 % (0-2.0); EOS % 0.5 % (0-4.5); HEMATOCRIT 29.5 % (35.4-49); HEMOGLOBIN 9.4 GM/dL (11.7-16.9); LYMPH % 26.5 % (8-40); MCH 25.4 pg (25.7-33.7); MCHC 31.8 g/dl (32.0-35.9); MEAN CELL VOLUME 79.9 fl (80-96); MEAN PLT VOLUME 9.9 fl (7.5-11.1); MONO % 8.8 % (3.8-10.2); NEUT % 63.9 % (42.8-82.8); PLATELET COUNT 253 K/MM3 (134-434); RBC 3.69 M/mm3 (4.00-5.60); RDW 22.2 % (11.9-15.9)
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
[2017-10-31 09:41] LABS: ALBUMIN 3.1 g/dl (3.4-5.0); ANION GAP 7 (8-16); BILIRUBIN,TOTAL 0.8 mg/dL (0.2-1.0); BLOOD UREA NITROGEN 24 mg/dL (7-18); CALCIUM 8.4 mg/dL (8.5-10.1); CHLORIDE 117 mmol/L (98-107); CO2 22 mmol/L (21-32); CREATININE 1.2 mg/dL (0.7-1.3); GLUCOSE,RANDOM 94 mg/dL (74-106); POTASSIUM 3.9 mmol/L (3.5-5.1); SGOT/AST 19 U/L (15-37); SGPT/ALT 31 U/L (12-78); SODIUM 146 mmol/L (136-145); TOT PROT 6.1 g/dl (6.4-8.2)
[2017-10-31 09:46] LABS: ALK PHOS 121 U/L (45-117)
[2017-10-31] MEDS ORDERED: ASPIRIN 81 MG CHEWABLE TABLETS PO SCH (10:00)
[2017-10-31] MEDS: METOPROLOL TARTRATE 50 MG TABLET (FP) PO SCH ×2 (11:06→22:29)
[2017-10-31] MEDS: HEPARIN NA (PORCINE) 5,000 UNITS/ML 1ML VIAL SQ SCH ×2 (11:06→22:29)
[2017-10-31] MEDS: amLODIPine BESYLATE 5 MG TABLET (FP) PO SCH (11:07)
[2017-10-31] MEDS: CINACALCET HCL 30 MG TAB (FP) PO SCH (11:07)
[2017-10-31] MEDS: SODIUM BICARBONATE 650 MG TABLET PO SCH ×2 (11:11→22:29)
[2017-10-31] MEDS: predniSONE 5 MG TABLET (UD) PO SCH (11:11)
[2017-10-31] MEDS ORDERED: TACROLIMUS ANHYDROUS 1 MG CAPSULE PO SCH (11:15)
--- NOTE | 2017-10-31 11:22 | EKG ---
Test Reason : Blood Pressure : / mmHG Vent. Rate : 083 BPM Atrial Rate : 083 BPM P-R Int : 164 ms QRS Dur : 088 ms QT Int : 388 ms P-R-T Axes : 040 057 -04 degrees QTc Int : 455 ms SINUS RHYTHM WITH OCCASIONAL PREMATURE ATRIAL COMPLEXES NONSPECIFIC ST AND T WAVE ABNORMALITY ABNORMAL ECG WHEN COMPARED WITH ECG OF 03-APR-2017 10:16, VENT. RATE HAS DECREASED Confirmed by ROX DUMONT, SHANTANU ([id number]) on 10/31/2017 11:21:26 AM Referred By: Confirmed By:SHANTANU GRAMAJO MD
[2017-10-31] MEDS ORDERED: PT OWN MED DRAWER 7, Y5N ONE ×3 (11:50→22:31)
[2017-10-31] MEDS: POTASSIUM CHLORIDE TABS 20 MEQ TABLET.ER (FP) PO SCH (11:51)
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
[2017-10-31] MEDS: INSULIN SLIDING SCALE (NOVOLOG) 1 VIAL SQ SCH ×3 (12:08→22:27)
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
[2017-10-31] MEDS ORDERED: MYCOPHENOLATE SODIUM 360 MG TABLET.DR PO SCH (14:00)
[2017-10-31] MEDS: PYRIDOXINE HCL (B-6) 50 MG TABLET (FP) PO SCH (15:03)
[2017-10-31] MEDS: FUROSEMIDE 40 MG/4 ML INJECTABLE VIAL IVPUSH SCH (15:07)
[2017-10-31] MEDS: MYCOPHENOLATE SODIUM 360 MG TABLET.DR PO SCH ×2 (15:20→22:30)
[2017-10-31] MEDS: TACROLIMUS ANHYDROUS 1 MG CAPSULE PO SCH ×2 (15:27→22:32)
[2017-10-31] MEDS: metFORMIN HCL 500 MG TABLET (FP) PO SCH (18:34)
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
[2017-10-31] MEDS: TAMSULOSIN HCL 0.4 MG CAP.ER.24H (FP) PO SCH (22:29)
[2017-11-01] MEDS: INSULIN (LEVEMIR) 100 UNITS/ML UNITS SQ SCH (06:53)
[2017-11-01] MEDS: INSULIN SLIDING SCALE (NOVOLOG) 1 VIAL SQ SCH ×4 (06:53→21:56)
[2017-11-01] MEDS: metFORMIN HCL 500 MG TABLET (FP) PO SCH ×2 (06:54→17:22)
[2017-11-01] MEDS: FUROSEMIDE 40 MG/4 ML INJECTABLE VIAL IVPUSH SCH ×2 (06:54→14:02)
[2017-11-01 07:19] LABS: CHLORIDE 113 mmol/L (98-107); POTASSIUM 3.6 mmol/L (3.5-5.1); SODIUM 144 mmol/L (136-145)
[2017-11-01 07:32] LABS: ALBUMIN 2.8 g/dl (3.4-5.0); ALK PHOS 101 U/L (45-117); ANION GAP 10 (8-16); BILIRUBIN,TOTAL 0.6 mg/dL (0.2-1.0); BLOOD UREA NITROGEN 24 mg/dL (7-18); CALCIUM 8.3 mg/dL (8.5-10.1); CO2 21 mmol/L (21-32); CREATININE 1.2 mg/dL (0.7-1.3); GLUCOSE,RANDOM 97 mg/dL (74-106); MAGNESIUM 1.2 mg/dL (1.8-2.4); SGOT/AST 19 U/L (15-37); SGPT/ALT 25 U/L (12-78); TOT PROT 5.7 g/dl (6.4-8.2)
--- NOTE | 2017-11-01 08:37 | PN ---
Progress Note, Physician Chief Complaint: TELE: NSR, frequent APCs. Runs of PSVT and also some PAF noted. Echo: normal LV fxn, trivial pericardial effusion CXR with improvement. - Current Medication List Current Medications: Active Medications Amlodipine Besylate (Norvasc -) 5 mg PO DAILY [facility] Last Admin: 10/31/17 11:07 Dose: 5 mg Aspirin (Asa -) 81 mg PO DAILY [facility] Last Admin: 10/31/17 11:06 Dose: 81 mg Cinacalcet (Sensipar -) 60 mg PO DAILY [facility] Last Admin: 10/31/17 11:07 Dose: 60 mg Furosemide (Lasix Injection -) 40 mg IVPUSH BID@0600,1400 [facility] Last Admin: 11/01/17 06:54 Dose: 40 mg Heparin Sodium (Porcine) (Heparin -) 5,000 unit SQ BID [facility] Last Admin: 10/31/17 22:29 Dose: 5,000 unit Insulin Aspart (Novolog Vial Sliding Scale -) 1 vial SQ ACHS [facility]; Protocol Last Admin: 11/01/17 06:53 Dose: Not Given Insulin Detemir (Levemir Vial) 15 units SQ AM [facility] Last Admin: 11/01/17 06:53 Dose: Not Given Metformin HCl (Glucophage -) 500 mg PO BIDI [facility] Last Admin: 11/01/17 06:54 Dose: 500 mg Metoprolol Tartrate (Lopressor -) 100 mg PO BID [facility] Last Admin: 10/31/17 22:29 Dose: 100 mg Mycophenolate Sodium (Mycophenolic Acid) 360 mg PO BID [facility] Last Admin: 10/31/17 22:30 Dose: 360 mg Potassium Chloride (K-Dur -) 20 meq PO DAILY [facility] Last Admin: 10/31/17 11:51 Dose: 20 meq Prednisone (Deltasone -) 5 mg PO DAILY [facility] Last Admin: 10/31/17 11:11 Dose: 5 mg Pyridoxine HCl (Vitamin B6 -) 25 mg PO DAILY [facility] Last Admin: 10/31/17 15:03 Dose: 25 mg Sodium Bicarbonate (Sodium Bicarbonate -) 650 mg PO BID [facility] Last Admin: 10/31/17 22:29 Dose: 650 mg Tacrolimus (Prograf) 4 mg PO BID [facility] Last Admin: 10/31/17 22:32 Dose: 4 mg Tamsulosin HCl (Flomax -) 0.4 mg PO HS [facility] Last Admin: 10/31/17 22:29 Dose: 0.4 mg - Objective Vital Signs: Vital Signs Temperature 98.3 F 11/01/17 05:58 Pulse Rate 74 11/01/17 05:58 Respiratory Rate 20 11/01/17 05:58 Blood Pressure 155/75 11/01/17 05:58 O2 Sat by Pulse Oximetry (%) 95 11/01/17 07:44 Constitutional: Yes: Calm Cardiovascular: Yes: Regular Rate and Rhythm Respiratory: Yes: Other (bibasilar rales, improved) Gastrointestinal: Yes: Soft Edema: Yes Edema: LLE: 1+, RLE: 1+ Neurological: Yes: Alert, Oriented ...Motor Strength: WNL Labs: CBC, BMP 10/31/17 08:50 11/01/17 05:50 INR, PTT INR 1.10 (0.82-1.09) 10/31/17 01:27 Laboratory Tests 10/31/17 10/31/17 10/31/17 01:27 01:27 08:50 WBC 8.0 D Hgb 9.4 L D Plt Count 253 Potassium Chloride 116 H BUN Creatinine Troponin I < 0.02 10/31/17 11/01/17 08:50 05:50 WBC Hgb Plt Count Potassium 3.6 Chloride BUN 24 H Creatinine 1.2 Troponin I < 0.02 Microbiology 10/31/17 03:49 Blood - Peripheral Venous Blood Culture - Preliminary NO GROWTH OBTAINED AFTER 24 HOURS, INCUBATION TO CONTINUE FOR 4 DAYS. 10/31/17 03:19 Blood - Peripheral Venous Blood Culture - Preliminary NO GROWTH OBTAINED AFTER 24 HOURS, INCUBATION TO CONTINUE FOR 4 DAYS. - ....Imaging EKG: Image Reviewed Assessment/Plan IMP: Acute on chronic diastolic CHF in setting of uncontrolled HTN Chronic HTN, hypertensive heart disease DM PAF H/o renal transplant Leukocytosis REC: 1. Continue IV Lasix, daily BMP to follow renal fxn; CXR improved, clinically improved 2. PAF with elevated [id number] score- merits AC, will start Eliquis Recommend repeat echo in 1 week to assure pericardial effusion does not enlarge on AC.
[2017-11-01] MEDS: predniSONE 5 MG TABLET (UD) PO SCH (09:26)
[2017-11-01] MEDS: APIXABAN 5 MG TABLET PO SCH ×2 (09:29→21:56)
[2017-11-01] MEDS: POTASSIUM CHLORIDE TABS 20 MEQ TABLET.ER (FP) PO SCH (09:30)
[2017-11-01] MEDS: MYCOPHENOLATE SODIUM 360 MG TABLET.DR PO SCH ×2 (09:31→22:03)
[2017-11-01] MEDS: METOPROLOL TARTRATE 50 MG TABLET (FP) PO SCH ×2 (09:31→21:56)
[2017-11-01] MEDS: TACROLIMUS ANHYDROUS 1 MG CAPSULE PO SCH ×2 (09:32→21:57)
[2017-11-01] MEDS: PYRIDOXINE HCL (B-6) 50 MG TABLET (FP) PO SCH (09:33)
[2017-11-01] MEDS: CINACALCET HCL 30 MG TAB (FP) PO SCH (09:33)
[2017-11-01] MEDS: SODIUM BICARBONATE 650 MG TABLET PO SCH ×2 (09:33→21:57)
[2017-11-01] MEDS: amLODIPine BESYLATE 5 MG TABLET (FP) PO SCH (09:34)
[2017-11-01] MEDS ORDERED: PT OWN MED DRAWER 7, Y5N ONE ×2 (11:10→21:46)
--- NOTE | 2017-11-01 13:05 | PN ---
Progress Note (short form) - Note Progress Note: PULMONARY Feels better. States breathing close to baseline. No chest pain. Last Vital Signs Temp Pulse Resp BP Pulse Ox 98.3 F 74 20 155/75 96 11/01/17 05:58 11/01/17 05:58 11/01/17 05:58 11/01/17 05:58 11/01/17 09:00 Intake & Output 10/29/17 10/30/17 10/31/17 11/01/17 23:59 23:59 23:59 23:59 Intake Total 130 Output Total 6100 2200 Balance -5970 -2200 Weight 89.721 kg 88.564 kg Gen: NAD at rest Heart: RRR Lung: decreased breath sounds at the bases Abd: soft, nontender Ext: trace edema CBC, BMP 10/31/17 08:50 11/01/17 05:50 Active Medications Amlodipine Besylate (Norvasc -) 5 mg PO DAILY [facility] Last Admin: 11/01/17 09:34 Dose: 5 mg Apixaban (Eliquis -) 5 mg PO BID [facility] Last Admin: 11/01/17 09:29 Dose: 5 mg Cinacalcet (Sensipar -) 60 mg PO DAILY [facility] Last Admin: 11/01/17 09:33 Dose: 60 mg Furosemide (Lasix Injection -) 40 mg IVPUSH BID@0600,1400 [facility] Last Admin: 11/01/17 06:54 Dose: 40 mg Insulin Aspart (Novolog Vial Sliding Scale -) 1 vial SQ ACHS [facility]; Protocol Last Admin: 11/01/17 11:35 Dose: Not Given Insulin Detemir (Levemir Vial) 15 units SQ AM [facility] Last Admin: 11/01/17 06:53 Dose: Not Given Metformin HCl (Glucophage -) 500 mg PO BIDI [facility] Last Admin: 11/01/17 06:54 Dose: 500 mg Metoprolol Tartrate (Lopressor -) 100 mg PO BID [facility] Last Admin: 11/01/17 09:31 Dose: 100 mg Mycophenolate Sodium (Mycophenolic Acid) 360 mg PO BID [facility] Last Admin: 11/01/17 09:31 Dose: 360 mg Potassium Chloride (K-Dur -) 20 meq PO DAILY [facility] Last Admin: 11/01/17 09:30 Dose: 20 meq Prednisone (Deltasone -) 5 mg PO DAILY [facility] Last Admin: 11/01/17 09:26 Dose: 5 mg Pyridoxine HCl (Vitamin B6 -) 25 mg PO DAILY [facility] Last Admin: 11/01/17 09:33 Dose: 25 mg Sodium Bicarbonate (Sodium Bicarbonate -) 650 mg PO BID [facility] Last Admin: 11/01/17 09:33 Dose: 650 mg Tacrolimus (Prograf) 4 mg PO BID [facility] Last Admin: 11/01/17 09:32 Dose: 4 mg Tamsulosin HCl (Flomax -) 0.4 mg PO [facility] Last Admin: 10/31/17 22:29 Dose: 0.4 mg A/P Acute on Chronic Diastolic Heart Failure Paroxysmal Atrial Fibrillation Pleural Effusion h/o Renal Transplant HTN DM - continue lasix - monitor urine output, creatinine - daily weights - rate controlled - continue anticoagulation - O2 as needed - continue immunosuppressives - DVT prophylaxis
[2017-11-01] MEDS ORDERED: FUROSEMIDE 40 MG/4 ML INJECTABLE VIAL IVPUSH ONE (14:00)
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
[2017-11-01] MEDS: TAMSULOSIN HCL 0.4 MG CAP.ER.24H (FP) PO SCH (21:56)
[2017-11-01] MEDS ORDERED: MAGNESIUM OXIDE 400 MG TABLET (FP) PO SCH (22:00)
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
[2017-11-02 06:02] LABS: ARTERIAL BLOOD GAS BASE EXCESS -7.5 meq/l (-2-2); ARTERIAL BLOOD GAS PCO2 35.7 mmHg (35-45); ARTERIAL BLOOD GAS pH 7.31 (7.35-7.45)
[2017-11-02] MEDS ORDERED: levETIRAcetam 500 MG/5 ML INJECTION VIAL IVPB ONE (06:02)
[2017-11-02 06:05] LABS: ALLENS TEST POSITIVE
[2017-11-02] MEDS ORDERED: FUROSEMIDE 40 MG/4 ML INJECTABLE VIAL IVPUSH ONE (06:15)
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
[2017-11-02 07:00] LABS: BASO % 0.4 % (0-2.0); EOS % 0.9 % (0-4.5); HEMATOCRIT 29.4 % (35.4-49); HEMOGLOBIN 9.5 GM/dL (11.7-16.9); LYMPH % 37.1 % (8-40); MCH 26.2 pg (25.7-33.7); MCHC 32.5 g/dl (32.0-35.9); MEAN CELL VOLUME 80.7 fl (80-96); MEAN PLT VOLUME 9.8 fl (7.5-11.1); MONO % 10.1 % (3.8-10.2); NEUT % 51.5 % (42.8-82.8); PLATELET COUNT 232 K/MM3 (134-434); RBC 3.64 M/mm3 (4.00-5.60); RDW 21.9 % (11.9-15.9); WHITE BLOOD COUNT 6.4 K/mm3 (4.0-10.0)
[2017-11-02] MEDS: FUROSEMIDE 40 MG/4 ML INJECTABLE VIAL IVPUSH SCH ×2 (07:01→13:39)
[2017-11-02] MEDS: metFORMIN HCL 500 MG TABLET (FP) PO SCH (07:10)
[2017-11-02] MEDS: INSULIN SLIDING SCALE (NOVOLOG) 1 VIAL SQ SCH ×4 (07:10→21:40)
[2017-11-02] MEDS: INSULIN (LEVEMIR) 100 UNITS/ML UNITS SQ SCH (07:10)
[2017-11-02 07:20] LABS: ANION GAP 12 (8-16); CALCIUM 8.3 mg/dL (8.5-10.1); CHLORIDE 109 mmol/L (98-107); CO2 22 mmol/L (21-32); GLUCOSE,RANDOM 111 mg/dL (74-106); POTASSIUM 3.6 mmol/L (3.5-5.1); SODIUM 143 mmol/L (136-145)
[2017-11-02] MEDS ORDERED: LORazepam 2 MG/ML SDV VIAL ONE (07:23)
[2017-11-02 07:24] LABS: ALK PHOS 110 U/L (45-117); BILIRUBIN,TOTAL 0.6 mg/dL (0.2-1.0); BLOOD UREA NITROGEN 27 mg/dL (7-18); CREATININE 1.3 mg/dL (0.7-1.3); SGOT/AST 23 U/L (15-37); SGPT/ALT 29 U/L (12-78); TOT PROT 6.3 g/dl (6.4-8.2)
[2017-11-02] MEDS ORDERED: ALBUTEROL SO4 2.5/IPRATROPIUM 0.5 INH SOL 3 ML VIAL.NEB. NEB ONE ×2 (07:30→10:46)
[2017-11-02] MEDS ORDERED: PIPERACILLIN/TAZOB 3.375 GM 3.375 GM in DEXTROSE 5%-WATER - 50 ML IVPB ONE (07:32)
[2017-11-02] MEDS ORDERED: MAGNESIUM 2GM/50ML STERILE WATER IVPB IVPB ONE (07:35)
--- NOTE | 2017-11-02 07:49 | RAPID ---
Physical Examination Vital Signs: Vital Signs Temperature 97.8 F 11/02/17 01:00 Pulse Rate 76 11/02/17 01:00 Respiratory Rate 20 11/02/17 01:00 Blood Pressure 159/66 11/02/17 01:00 O2 Sat by Pulse Oximetry (%) 96 11/02/17 00:05 Findings/Remarks: Nurse called rapid response as pt was actively seizing. Pt seen and examined. Was lying in bed in supine position upon team arrival, actively seizing. Pt turned towards his left side, his 02 sat improved from 90 to 94 on NC 02. 2mg IVP x 1 Ativan given Pt already on loading dose of keppra VS: 136/107 pulse 90's PE -Resp: b/l air entry present, coarse breath sounds b/l - difficult to differentiate whether from open airway from snoring -CV: S1, S2 normal -Neuro: Pt's seizure stopped after ativan given, pt moving limbs with painful stimuli. Pt waking up currently. Pupils bilateral 1.5-2mm reacting to light Orders -stat Mg 2gm IVPB ordered -CT chest w/o contrast- r/o consolidation -Tacrolimus level -Cinalcet has been stopped, can induce seizures -Stat phosphorus level ordered -CXR -Drug u tox ordered -Dulindabx1 -Dr. Chambers informed -ICU transfer initiated in orders, ICU team informed -keep HOB elevated, avoid aspiration -venti mask as needed -transfer pt to ICU - Labs: CBC, BMP 11/02/17 06:50 11/02/17 06:50
--- NOTE | 2017-11-02 08:23 | PN ---
Progress Note, Physician Chief Complaint: Events noted Discussed with night RN Patient had 2 witnessed seizures After first seizure, patient returned to baseline mental status. Then had second seizure, was given Ativan He is currently post -ictal History of Present Illness: TELE: reviewed. NSR, no further SVT or PAF seen - Current Medication List Current Medications: Active Medications Amlodipine Besylate (Norvasc -) 5 mg PO DAILY [facility] Last Admin: 11/01/17 09:34 Dose: 5 mg Chlorhexidine Gluconate (Hibiclens For Decolonization -) 1 applic TP HS [facility] Furosemide (Lasix Injection -) 40 mg IVPUSH BID@0600,1400 [facility] Last Admin: 11/02/17 07:01 Dose: Not Given Insulin Aspart (Novolog Vial Sliding Scale -) 1 vial SQ ACHS [facility]; Protocol Last Admin: 11/02/17 07:10 Dose: Not Given Insulin Detemir (Levemir Vial) 15 units SQ AM [facility] Last Admin: 11/02/17 07:10 Dose: Not Given Magnesium Oxide (Mag-Ox -) 400 mg PO BID [facility] Stop: 11/03/17 10:01 Last Admin: 11/01/17 21:57 Dose: 400 mg Metoprolol Tartrate (Lopressor -) 100 mg PO BID [facility] Last Admin: 11/01/17 21:56 Dose: 100 mg Mupirocin (Bactroban Ointment (For Decolonization) -) 1 applic NS BID [facility] Stop: 11/07/17 09:59 Mycophenolate Sodium (Mycophenolic Acid) 360 mg PO BID [facility] Last Admin: 11/01/17 22:03 Dose: 360 mg Potassium Chloride (K-Dur -) 20 meq PO DAILY [facility] Last Admin: 11/01/17 09:30 Dose: 20 meq Prednisone (Deltasone -) 5 mg PO DAILY [facility] Last Admin: 11/01/17 09:26 Dose: 5 mg Pyridoxine HCl (Vitamin B6 -) 25 mg PO DAILY [facility] Last Admin: 11/01/17 09:33 Dose: 25 mg Sodium Bicarbonate (Sodium Bicarbonate -) 650 mg PO BID [facility] Last Admin: 11/01/17 21:57 Dose: 650 mg Tacrolimus (Prograf) 4 mg PO BID [facility] Last Admin: 11/01/17 21:57 Dose: 4 mg Tamsulosin HCl (Flomax -) 0.4 mg PO [facility] Last Admin: 11/01/17 21:56 Dose: 0.4 mg - Objective Vital Signs: Vital Signs Temperature 97.8 F 11/02/17 08:05 Pulse Rate 85 11/02/17 08:05 Respiratory Rate 20 11/02/17 08:05 Blood Pressure 136/70 11/02/17 08:05 O2 Sat by Pulse Oximetry (%) 96 11/02/17 00:05 Cardiovascular: Yes: Regular Rate and Rhythm Respiratory: Yes: CTA Bilaterally Gastrointestinal: Yes: Soft Edema: Yes Edema: LLE: 1+, RLE: 1+ Neurological: Yes: Other (Post ictal) Labs: CBC, BMP 11/02/17 06:50 11/02/17 06:50 INR, PTT INR 1.10 (0.82-1.09) 10/31/17 01:27 - ....Imaging EKG: Image Reviewed Assessment/Plan IMP: Acute on chronic diastolic CHF in setting of uncontrolled HTN- improved Chronic HTN, hypertensive heart disease DM PAF H/o renal transplant Leukocytosis New onset seizures REC: 1. Transfer to ICU 2. Head CT 3. Hold Eliquis 4. Neuro evaluation
[2017-11-02 08:48] LABS: ACANTHOCYTES 3+; ANISOCYTOSIS 1+; MACROCYTOSIS 1+; PLATELET ESTIMATE NORMAL
[2017-11-02 09:49] LABS: PHOSPHOROUS 4.1 mg/dL (2.5-4.9)
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
--- NOTE | 2017-11-02 11:06 | PN ---
Teaching Attending Note Name of Resident: Miguel Nicholas ATTENDING PHYSICIAN STATEMENT I saw and evaluated the patient. I reviewed the resident's note and discussed the case with the resident. I agree with the resident's findings and plan as documented. SUBJECTIVE: events noted admitted with sob c/w CHF had 2 seizures this am now awake and alert no headache, no visual changes no fevers reports prior seizure about 2 months ago at [facility]-cannot verify OBJECTIVE: Vital Signs Period Temp Pulse Resp BP Sys/Barcenas Pulse Ox Last 24 Hr 97.8 F-98.4 F 75-88 18-22 136-181/59-106 94-100 cor-rrr lungs clear abd soft,nt ext no edema chest ct c/w CHF, +bilateral effusions/atelectasis CBC, BMP 11/02/17 06:50 11/02/17 06:50 ASSESSMENT AND PLAN: seizures renal transplant HTN DM no evidence of aspiration pneumonia awaiting neurology consult serum crypt antigen Problem List - Problems (1) Seizures Code(s): R56.9 - UNSPECIFIED CONVULSIONS (2) Renal transplant recipient Code(s): Z94.0 - KIDNEY TRANSPLANT STATUS (3) HTN (hypertension) Code(s): I10 - ESSENTIAL (PRIMARY) HYPERTENSION (4) Diabetes Code(s): E11.9 - TYPE 2 DIABETES MELLITUS WITHOUT COMPLICATIONS
--- NOTE | 2017-11-02 11:42 | EKG ---
Test Reason : Blood Pressure : / mmHG Vent. Rate : 080 BPM Atrial Rate : 080 BPM P-R Int : 160 ms QRS Dur : 090 ms QT Int : 416 ms P-R-T Axes : 046 067 -06 degrees QTc Int : 479 ms POOR DATA QUALITY, INTERPRETATION MAY BE ADVERSELY AFFECTED SINUS RHYTHM WITH PREMATURE ATRIAL COMPLEXES WITH ABERRANT CONDUCTION ABNORMAL QRS-T ANGLE, CONSIDER PRIMARY T WAVE ABNORMALITY ABNORMAL ECG WHEN COMPARED WITH ECG OF 02-NOV-2017 05:55, PREVIOUS ECG HAS UNDETERMINED RHYTHM, NEEDS REVIEW Confirmed by SHAHBAZ DUMONT, RENETTA ([id number]) on 11/02/2017 11:42:25 AM Referred By: Confirmed By:RENETTA HARTMANN MD
[2017-11-02 11:44] LABS: MAGNESIUM 0.9 mg/dL (1.8-2.4); PHOSPHOROUS 3.9 mg/dL (2.5-4.9)
[2017-11-02] MEDS ORDERED: METOPROLOL TARTRATE 50 MG TABLET (FP) PO ONE (12:48)
[2017-11-02] MEDS ORDERED: amLODIPine BESYLATE 5 MG TABLET (FP) PO ONE (12:48)
--- NOTE | 2017-11-02 13:17 | PN ---
Teaching Attending Note Name of Resident: Patrick Hernández ATTENDING PHYSICIAN STATEMENT I saw and evaluated the patient. I reviewed the resident's note and discussed the case with the resident. I agree with the resident's findings and plan as documented. SUBJECTIVE: Pt seen and examined in the ICU. Transferred down to the ICU for seizure activity. Currently post-ictal, arousable but falls asleep easily. OBJECTIVE: Vital Signs Period Temp Pulse Resp BP Sys/Barcenas Pulse Ox Last 24 Hr 97.8 F-98.4 F 75-88 18-22 136-181/59-106 94-100 Intake & Output 10/30/17 10/31/17 11/01/17 11/02/17 23:59 23:59 23:59 23:59 Intake Total 130 250 220 Output Total 6100 1355 600 Balance -1794 -3875 -380 Weight 89.721 kg 88.564 kg Gen: somnolent but arousable Heart: RRR Lung: decreased breath sounds at the bases Abd: soft, nontender Ext: trace edema CBC, BMP 11/02/17 06:50 11/02/17 06:50 Active Medications Amlodipine Besylate (Norvasc -) 5 mg PO DAILY [facility] Chlorhexidine Gluconate (Hibiclens For Decolonization -) 1 applic TP HS [facility] Furosemide (Lasix Injection -) 40 mg IVPUSH BID@0600,1400 [facility] Insulin Aspart (Novolog Vial Sliding Scale -) 1 vial SQ ACHS [facility]; Protocol Insulin Detemir (Levemir Vial) 15 units SQ AM [facility] Magnesium Oxide (Mag-Ox -) 400 mg PO BID [facility] Stop: 11/03/17 10:01 Metoprolol Tartrate (Lopressor -) 100 mg PO BID [facility] Mupirocin (Bactroban Ointment (For Decolonization) -) 1 applic NS BID [facility] Stop: 11/07/17 09:59 Mycophenolate Sodium (Mycophenolic Acid) 360 mg PO BID [facility] Potassium Chloride (K-Dur -) 20 meq PO DAILY [facility] Prednisone (Deltasone -) 5 mg PO DAILY [facility] Pyridoxine HCl (Vitamin B6 -) 25 mg PO DAILY [facility] Sodium Bicarbonate (Sodium Bicarbonate -) 650 mg PO BID [facility] Tacrolimus (Prograf) 4 mg PO BID [facility] Tamsulosin HCl (Flomax -) 0.4 mg PO HS [facility] ASSESSMENT AND PLAN: Seizure Episode Acute on Chronic Diastolic Heart Failure Paroxysmal Atrial Fibrillation Pleural Effusion h/o Renal Transplant HTN DM - antiepileptics - neuro eval - continue lasix - monitor urine output, creatinine - daily weights - rate controlled - continue anticoagulation - O2 as needed - aspiration precautions - continue immunosuppressives - DVT prophylaxis
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
[2017-11-02] MEDS: MUPIROCIN 2% TOPICAL OINTMENT FOR DECOLONIZATION NS SCH ×2 (15:46→21:39)
--- NOTE | 2017-11-02 16:53 | CON.NEURO ---
Consult - Past Medical History Cardio/Vascular: Yes: CHF, HTN Renal/: Yes: Renal Failure, Other (kidney transplant) Endocrine: Yes: Diabetes Mellitus - Past Surgical History Past Surgical History: Yes: AV Fistula/Graft, Kidney Transplant - Alcohol/Substance Use Hx Alcohol Use: No History of Substance Use: reports: None - Smoking History Smoking history: Former smoker Have you smoked in the past 12 months: No Aproximately how many cigarettes per day: 0 If you are a former smoker, when did you quit?: 10 YRS - Social History ADL: Independent Home Medications - Allergies Allergies/Adverse Reactions: Allergies Allergy/AdvReac Type Severity Reaction Status Date / Time No Known Allergies Allergy Verified 10/31/17 01:00 - Home Medications Home Medications: Ambulatory Orders Aspirin [ASA -] 81 mg PO DAILY 10/03/14 Insulin (Levemir) [Levemir Vial] 15 unit SQ AM 10/03/14 Metoprolol Tartrate [Lopressor] 100 mg PO BID 10/03/14 Multivitamins [Multivit ([facility] Formulary)] 1 tab PO DAILY 10/03/14 Pyridoxine HCl [Vitamin B-6] 25 mg PO DAILY 10/03/14 Tacrolimus Anhydrous [Prograf] 1 mg PO BID 10/03/14 Cinacalcet HCl [Sensipar] 60 mg PO DAILY 11/29/14 Insulin Lispro [Humalog] 100 unit SQ QID PRN 11/29/14 Mycophenolate Sodium [Myfortic] 360 mg PO TID 11/29/14 Furosemide [Lasix] 40 mg PO DAILY 04/03/17 Metformin HCl [Metformin HCl ER] 500 mg PO BID 04/03/17 Potassium Chloride [Klor-Con] 20 meq PO DAILY 04/03/17 Prednisone 5 mg PO DAILY 04/03/17 Sodium Bicarbonate - 650 mg PO BID 04/03/17 Tamsulosin HCl [Flomax] 0.4 mg PO HS 04/03/17 Acetaminophen [Tylenol .Regular Strength -] 650 mg PO Q4H PRN tablet 04/07/17 Amlodipine Besylate [Norvasc -] 5 mg PO DAILY #30 tablet 04/07/17 metroNIDAZOLE [Flagyl -] 500 mg PO TID #18 tablet 04/07/17 Physical Exam-Neuro Vital Signs: Vital Signs Temperature 98 F 11/02/17 12:00 Pulse Rate 76 11/02/17 14:00 Respiratory Rate 18 11/02/17 14:00 Blood Pressure 177/66 11/02/17 14:00 O2 Sat by Pulse Oximetry (%) 98 11/02/17 16:11 Labs: CBC, BMP 11/02/17 06:50 11/02/17 06:50 INR, PTT INR 1.10 (0.82-1.09) 10/31/17 01:27 Assessment/Plan CC breakthrough seizure HPI 57 year old male with multiple comorbidity includes DM,HTN, CHF, S/P Renal transplant in 2009 and on anti rejection medicaiton. He recently admitted due to respiratory distress and was being managed for pulmonary edema. Recently he did have seizure and was started on keppra, dose not known. As per sister he takes medication at home, and He was not on keppra while at hospital. His electrolyte and ct head was normal. He was given one gm of keppra and was given one mg of ativan yesterday. PM\ Past Surgical History: Yes: AV Fistula/Graft, Kidney Transplant -Social History Former smoker, no alcohol abuse , lives alone and independent NKDA Home Medication Aspirin [ASA -] 81 mg PO DAILY 10/03/14 Insulin (Levemir) [Levemir Vial] 15 unit SQ AM 10/03/14 Metoprolol Tartrate [Lopressor] 100 mg PO BID 10/03/14 Multivitamins [Multivit ([facility] Formul[facility])] 1 tab PO DAILY 10/03/14 Pyridoxine HCl [Vitamin B-6] 25 mg PO DAILY 10/03/14 Tacrolimus Anhydrous [Prograf] 1 mg PO BID 10/03/14 Cinacalcet HCl [Sensipar] 60 mg PO DAILY 11/29/14 Insulin Lispro [Humalog] 100 unit SQ QID PRN 11/29/14 Mycophenolate Sodium [Myfortic] 360 mg PO TID 11/29/14 Furosemide [Lasix] 40 mg PO DAILY 04/03/17 Metformin HCl [Metformin HCl ER] 500 mg PO BID 04/03/17 Potassium Chloride [Klor-Con] 20 meq PO DAILY 04/03/17 Prednisone 5 mg PO DAILY 04/03/17 Sodium Bicarbonate - 650 mg PO BID 04/03/17 Tamsulosin HCl [Flomax] 0.4 mg PO HS 04/03/17 Acetaminophen [Tylenol .Regular Strength -] 650 mg PO Q4H PRN tablet 04/07/17 Amlodipine Besylate [Norvasc -] 5 mg PO DAILY #30 tablet 04/07/17 metroNIDAZOLE [Flagyl -] 500 mg PO TID #18 tablet 04/07/17 Neurological Examination Sleepy and able to open his eye and follow command, he did tell me his name and his sister name He knows what date it is and could not tell what year he knows where he is EOMI, PUPILS reactive, no face asymmetry moving all ext sensation is grossly normal reflex are diminished ct head is unremarkable Assessment- Breakthrough seizure, recently was admitted at [facility] and was started on keppra , dose unknown. Plan- No need for repeat mri as ct head normal and recently had mri of brain and This seizure seems to be due to breakthrough seizure , as he was not on medication - No need for eeg - start keppra 750 mg iv bid, can be converted to po, once he is more awake Thanking you so much Manuel Medel MD
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
--- NOTE | 2017-11-02 21:04 | CONSULT ---
Consultation: REQUESTING PROVIDER: CONSULT REQUEST: We have been asked to medically evaluate this patient for ( specify). HISTORY OF PRESENT ILLNESS: REVIEW OF SYSTEMS: CONSTITUTIONAL: Absent: fever, chills, diaphoresis, generalized weakness, malaise, loss of appetite, weight change HEENT: Absent: rhinorrhea, nasal congestion, throat pain, throat swelling, difficulty swallowing, mouth swelling, ear pain, eye pain, visual changes CARDIOVASCULAR: Absent: chest pain, syncope, palpitations, irregular heart rate, lightheadedness , peripheral edema RESPIRATORY: Absent: cough, shortness of breath, dyspnea with exertion, orthopnea, wheezing, stridor, hemoptysis GASTROINTESTINAL: Absent: abdominal pain, abdominal distension, nausea, vomiting, diarrhea, constipation, melena, hematochezia GENITOURINARY: Absent: dysuria, frequency, urgency, hesitancy, hematuria, flank pain, genital pain MUSCULOSKELETAL: Absent: myalgia, arthralgia, joint swelling, back pain, neck pain SKIN: Absent: rash, itching, pallor HEMATOLOGIC/IMMUNOLOGIC: Absent: easy bleeding, easy bruising, lymphadenopathy, frequent infections ENDOCRINE: Absent: unexplained weight gain, unexplained weight loss, heat intolerance, cold intolerance NEUROLOGIC: Absent: headache, focal weakness or paresthesias, dizziness, unsteady gait, seizure, mental status changes, bladder or bowel incontinence PSYCHIATRIC: Absent: anxiety, depression, suicidal or homicidal ideation, hallucinations. PHYSICAL EXAMINATION Vital Signs - 24 hr 11/02/17 11/02/17 11/02/17 00:05 01:00 05:30 Temperature 97.8 F 97.8 F Pulse Rate 76 77 Respiratory 20 20 Rate Blood Pressure 159/66 172/78 O2 Sat by Pulse 96 Oximetry (%) 11/02/17 11/02/17 11/02/17 05:50 06:15 07:10 Temperature Pulse Rate 78 80 80 Respiratory 22 20 22 Rate Blood Pressure 146/70 144/59 136/106 O2 Sat by Pulse Oximetry (%) 11/02/17 11/02/17 11/02/17 08:05 09:15 09:50 Temperature 97.8 F Pulse Rate 85 82 88 Respiratory 20 18 Rate Blood Pressure 136/70 153/70 O2 Sat by Pulse 100 Oximetry (%) 11/02/17 11/02/17 11/02/17 12:00 12:27 14:00 Temperature 98 F Pulse Rate 82 76 Respiratory 18 18 Rate Blood Pressure 166/60 177/66 O2 Sat by Pulse 97 Oximetry (%) 11/02/17 11/02/17 11/02/17 15:01 16:00 16:11 Temperature 98 F Pulse Rate 72 Respiratory 18 Rate Blood Pressure 170/72 O2 Sat by Pulse 99 98 Oximetry (%) 11/02/17 18:00 Temperature 98 F Pulse Rate 78 Respiratory 18 Rate Blood Pressure 178/70 O2 Sat by Pulse Oximetry (%) GENERAL: Awake, alert, and fully oriented, in no acute distress. HEAD: Normal with no signs of trauma. EYES: Pupils equal, round and reactive to light, extraocular movements intact, sclera anicteric, conjunctiva clear. No lid lag. EARS, NOSE, THROAT: Ears normal, nares patent, oropharynx clear without exudates. Moist mucous membranes. NECK: Normal range of motion, supple without lymphadenopathy, JVD, or masses. LUNGS: Breath sounds equal, clear to auscultation bilaterally. No wheezes, and no crackles. No accessory muscle use. HEART: Regular rate and rhythm, normal S1 and S2 without murmur, rub or gallop. ABDOMEN: Soft, nontender, not distended, normoactive bowel sounds, no guarding, no rebound, no masses. No hepatomegaly or splenomegaly. MUSCULOSKELETAL: Normal range of motion at all joints. No bony deformities or tenderness. No CVA tenderness. UPPER EXTREMITIES: 2+ pulses, warm, well-perfused. No cyanosis. No clubbing. Cap refill <2 seconds. No peripheral edema. LOWER EXTREMITIES: 2+ pulses, warm, well-perfused. No calf tenderness. No peripheral edema. NEUROLOGICAL: Cranial nerves II-XII intact. Normal speech. Normal gait. PSYCHIATRIC: Cooperative. Good eye contact. Appropriate mood and affect. SKIN: Warm, dry, normal turgor, no rashes or lesions noted. Laboratory Results - last 24 hr 11/01/17 11/02/17 11/02/17 21:55 05:40 05:44 WBC RBC Hgb Hct MCV MCH MCHC RDW Plt Count MPV Absolute Neuts (auto) Neutrophils % Lymphocytes % Monocytes % Eosinophils % Basophils % Nucleated RBC % Platelet Estimate Platelet Comment Anisocytosis Macrocytosis Acanthocytes (Spur) Schistocytes D-Dimer Anticoagulation Therapy No Result Required. Puncture Site Left radial ABG pH 7.31 L ABG pCO2 at Pt Temp 35.7 ABG pO2 at Pt Temp 282.0 H* ABG HCO3 17.5 L ABG O2 Sat (Measured) 100.0 H* ABG O2 Content 14.2 L ABG Base Excess -7.5 L Samuel Test Positive O2 Delivery Device No Result Required. Oxygen Flow Rate Yes Vent Mode No Result Required. Vent Rate No Result Required. Mechanical Rate No Result Required. Pressure Support Vent No Result Required. Sodium Potassium Chloride Carbon Dioxide Anion Gap BUN Creatinine Creat Clearance w eGFR POC Glucometer 136 118 Random Glucose Lactic Acid Calcium Phosphorus Magnesium Total Bilirubin AST ALT Alkaline Phosphatase Creatine Kinase Troponin I Total Protein Albumin [facility] 11/02/17 11/02/17 11/02/17 06:00 06:50 06:50 WBC 6.4 RBC 3.64 L Hgb 9.5 L Hct 29.4 L MCV 80.7 MCH 26.2 MCHC 32.5 RDW 21.9 H Plt Count 232 MPV 9.8 Absolute Neuts (auto) 3.3 Neutrophils % 51.5 Lymphocytes % 37.1 D Monocytes % 10.1 Eosinophils % 0.9 Basophils % 0.4 Nucleated RBC % 0 Platelet Estimate Normal Platelet Comment Present Anisocytosis 1+ Macrocytosis 1+ Acanthocytes (Spur) 3+ Schistocytes 3+ D-Dimer Anticoagulation Therapy Puncture Site ABG pH ABG pCO2 at Pt Temp ABG pO2 at Pt Temp ABG HCO3 ABG O2 Sat (Measured) ABG O2 Content ABG Base Excess Samuel Test O2 Delivery Device Oxygen Flow Rate Vent Mode Vent Rate Mechanical Rate Pressure Support Vent Sodium Cancelled Potassium Cancelled Chloride Cancelled Carbon Dioxide Cancelled Anion Gap Cancelled BUN Cancelled Creatinine Cancelled Creat Clearance w eGFR POC Glucometer Random Glucose Cancelled Lactic Acid Calcium Cancelled Phosphorus Magnesium Total Bilirubin AST ALT Alkaline Phosphatase Creatine Kinase 62 Troponin I < 0.02 Total Protein Albumin [facility] 11/02/17 11/02/17 11/02/17 06:50 06:50 06:50 WBC RBC Hgb Hct MCV MCH MCHC RDW Plt Count MPV Absolute Neuts (auto) Neutrophils % Lymphocytes % Monocytes % Eosinophils % Basophils % Nucleated RBC % Platelet Estimate Platelet Comment Anisocytosis Macrocytosis Acanthocytes (Spur) Schistocytes D-Dimer 1436 H Anticoagulation Therapy Puncture Site ABG pH ABG pCO2 at Pt Temp ABG pO2 at Pt Temp ABG HCO3 ABG O2 Sat (Measured) ABG O2 Content ABG Base Excess Samuel Test O2 Delivery Device Oxygen Flow Rate Vent Mode Vent Rate Mechanical Rate Pressure Support Vent Sodium 143 Potassium 3.6 Chloride 109 H Carbon Dioxide 22 Anion Gap 12 BUN 27 H Creatinine 1.3 Creat Clearance w eGFR 56.50 POC Glucometer Random Glucose 111 H Lactic Acid 3.7 H* Calcium 8.3 L Phosphorus 3.9 D Magnesium 0.9 L D Total Bilirubin 0.6 AST 23 D ALT 29 Alkaline Phosphatase 110 Creatine Kinase Troponin I Total Protein 6.3 L Albumin 3.0 L TSH 2.07 11/02/17 11/02/17 11/02/17 07:28 08:00 12:30 WBC RBC Hgb Hct MCV MCH MCHC RDW Plt Count MPV Absolute Neuts (auto) Neutrophils % Lymphocytes % Monocytes % Eosinophils % Basophils % Nucleated RBC % Platelet Estimate Platelet Comment Anisocytosis Macrocytosis Acanthocytes (Spur) Schistocytes D-Dimer Anticoagulation Therapy Puncture Site ABG pH ABG pCO2 at Pt Temp ABG pO2 at Pt Temp ABG HCO3 ABG O2 Sat (Measured) ABG O2 Content ABG Base Excess Samuel Test O2 Delivery Device Oxygen Flow Rate Vent Mode Vent Rate Mechanical Rate Pressure Support Vent Sodium Potassium Chloride Carbon Dioxide Anion Gap BUN Creatinine Creat Clearance w eGFR POC Glucometer 128 124.39348 Random Glucose Lactic Acid Calcium Phosphorus 4.1 Magnesium Total Bilirubin AST ALT Alkaline Phosphatase Creatine Kinase Troponin I Total Protein Albumin TSH 2.21 D 11/02/17 14:20 WBC RBC Hgb Hct MCV MCH MCHC RDW Plt Count MPV Absolute Neuts (auto) Neutrophils % Lymphocytes % Monocytes % Eosinophils % Basophils % Nucleated RBC % Platelet Estimate Platelet Comment Anisocytosis Macrocytosis Acanthocytes (Spur) Schistocytes D-Dimer Anticoagulation Therapy Puncture Site ABG pH ABG pCO2 at Pt Temp ABG pO2 at Pt Temp ABG HCO3 ABG O2 Sat (Measured) ABG O2 Content ABG Base Excess Samuel Test O2 Delivery Device Oxygen Flow Rate Vent Mode Vent Rate Mechanical Rate Pressure Support Vent Sodium Potassium Chloride Carbon Dioxide Anion Gap BUN Creatinine Creat Clearance w eGFR POC Glucometer Random Glucose Lactic Acid 1.0 Calcium Phosphorus Magnesium Total Bilirubin AST ALT Alkaline Phosphatase Creatine Kinase Troponin I Total Protein Albumin TSH Active Medications Generic Name Dose Route Start Last Admin Trade Name Freq PRN Reason Stop Dose Admin Amlodipine Besylate 5 mg 11/03/17 10:00 Norvasc - PO DAILY [facility] Chlorhexidine Gluconate 1 applic 11/02/17 22:00 Hibiclens For Decolonization - TP HS THIERRY Furosemide 40 mg 11/02/17 14:00 11/02/17 13:39 Lasix Injection - IVPUSH 40 mg BID@0600,1400 THI[facility]Y Administration Insulin Aspart 1 vial 11/02/17 11:00 11/02/17 16:56 Novolog Vial Sliding Scale - SQ Not Given ACHS [facility] Protocol Insulin Detemir 15 units 11/03/17 07:00 Levemir Vial SQ AM [facility] Levetiracetam 750 mg 11/02/17 22:00 Keppra Injection - IVPB BID [facility] Magnesium Oxide 400 mg 11/02/17 22:00 Mag-Ox - PO 11/03/17 10:01 BID [facility] Metoprolol Tartrate 100 mg 11/02/17 22:00 Lopressor - PO BID [facility] Mupirocin 1 applic 11/02/17 10:00 11/02/17 15:46 Bactroban Ointment (For Decolonization) - NS 11/07/17 09:59 1 applic BID [facility] Administration Mycophenolate Sodium 360 mg 11/02/17 22:00 Mycophenolic Acid PO BID [facility] Potassium Chloride 20 meq 11/03/17 10:00 K-Dur - PO DAILY [facility] Prednisone 5 mg 11/03/17 10:00 Deltasone - PO DAILY [facility] Pyridoxine HCl 25 mg 11/03/17 10:00 Vitamin B6 - PO DAILY [facility] Sodium Bicarbonate 650 mg 11/02/17 22:00 Sodium Bicarbonate - PO BID [facility] Tacrolimus 4 mg 11/02/17 22:00 Prograf PO BID [facility] Tamsulosin HCl 0.4 mg 11/02/17 22:00 Flomax - PO [facility] ASSESSMENT/PLAN: Dispo: We will continue to follow the patient. Thank you for this consultative opportunity.
[2017-11-02] MEDS ORDERED: PT OWN MED DRAWER 7, Y5N ONE (21:33)
[2017-11-02] MEDS: METOPROLOL TARTRATE 50 MG TABLET (FP) PO SCH (21:37)
[2017-11-02] MEDS: SODIUM BICARBONATE 650 MG TABLET PO SCH (21:38)
[2017-11-02] MEDS: levETIRAcetam 500 MG/5 ML INJECTION VIAL IVPB SCH (21:38)
[2017-11-02] MEDS: MAGNESIUM OXIDE 400 MG TABLET (FP) PO SCH (21:39)
[2017-11-02] MEDS ORDERED: TAMSULOSIN HCL 0.4 MG CAP.ER.24H (FP) PO SCH (22:00)
[2017-11-02] MEDS ORDERED: CHLORHEXIDINE GLUCONATE 4% CLEANSER FOR DECOLONIZATION TP SCH (22:00)
[2017-11-02] MEDS: MYCOPHENOLATE SODIUM 360 MG TABLET.DR PO SCH (22:12)
[2017-11-02] MEDS: TACROLIMUS ANHYDROUS 1 MG CAPSULE PO SCH (22:13)
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
[2017-11-03] MEDS: FUROSEMIDE 40 MG/4 ML INJECTABLE VIAL IVPUSH SCH ×2 (06:13→14:47)
[2017-11-03] MEDS: INSULIN SLIDING SCALE (NOVOLOG) 1 VIAL SQ SCH ×4 (06:13→22:50)
[2017-11-03] MEDS ORDERED: INSULIN (LEVEMIR) 100 UNITS/ML UNITS SQ SCH (07:00)
--- NOTE | 2017-11-03 07:46 | PN ---
Progress Note, Physician Chief Complaint: ID Patient seen and examined at bedside no events overnight Afebrile - Current Medication List Current Medications: Active Medications Amlodipine Besylate (Norvasc -) 5 mg PO DAILY [facility] Chlorhexidine Gluconate (Hibiclens For Decolonization -) 1 applic TP HS [facility] Last Admin: 11/02/17 21:39 Dose: 1 applic Furosemide (Lasix Injection -) 40 mg IVPUSH BID@0600,1400 [facility] Last Admin: 11/03/17 06:13 Dose: 40 mg Insulin Aspart (Novolog Vial Sliding Scale -) 1 vial SQ ACHS [facility]; Protocol Last Admin: 11/03/17 06:13 Dose: Not Given Insulin Detemir (Levemir Vial) 15 units SQ AM [facility] Last Admin: 11/03/17 06:14 Dose: 15 units Levetiracetam (Keppra Injection -) 750 mg IVPB BID [facility] Last Admin: 11/02/17 21:38 Dose: 750 mg Magnesium Oxide (Mag-Ox -) 400 mg PO BID [facility] Stop: 11/03/17 10:01 Last Admin: 11/02/17 21:39 Dose: 400 mg Metoprolol Tartrate (Lopressor -) 100 mg PO BID [facility] Last Admin: 11/02/17 21:37 Dose: 100 mg Mupirocin (Bactroban Ointment (For Decolonization) -) 1 applic NS BID [facility] Stop: 11/07/17 09:59 Last Admin: 11/02/17 21:39 Dose: 1 applic Mycophenolate Sodium (Mycophenolic Acid) 360 mg PO BID [facility] Last Admin: 11/02/17 22:12 Dose: 360 mg Potassium Chloride (K-Dur -) 20 meq PO DAILY [facility] Prednisone (Deltasone -) 5 mg PO DAILY [facility] Pyridoxine HCl (Vitamin B6 -) 25 mg PO DAILY [facility] Sodium Bicarbonate (Sodium Bicarbonate -) 650 mg PO BID [facility] Last Admin: 11/02/17 21:38 Dose: 650 mg Tacrolimus (Prograf) 4 mg PO BID [facility] Last Admin: 11/02/17 22:13 Dose: 4 mg Tamsulosin HCl (Flomax -) 0.4 mg PO HS [facility] Last Admin: 11/02/17 21:38 Dose: 0.4 mg - Objective Vital Signs: Vital Signs Temperature 99 F 11/03/17 04:00 Pulse Rate 79 11/03/17 06:00 Respiratory Rate 15 11/03/17 06:00 Blood Pressure 166/66 11/03/17 06:00 O2 Sat by Pulse Oximetry (%) 100 11/03/17 07:04 Constitutional: Yes: Well Nourished HENT: Yes: Atraumatic Neck: Yes: Supple Cardiovascular: Yes: Regular Rate and Rhythm, S1, S2 Respiratory: Yes: CTA Bilaterally Gastrointestinal: Yes: Soft. No: Distention, Tenderness Edema: No Labs: CBC, BMP 11/02/17 06:50 11/02/17 06:50 INR, PTT INR 1.10 (0.82-1.09) 10/31/17 01:27 - ....Imaging Chest X-ray: Report Reviewed, Image Reviewed Cat Scan: Report Reviewed, Image Reviewed (Volume overloaded/pleural effusions) Assessment/Plan 57M with multiple medical problems s/p seizure infectious disease consulted for concern of aspiration. Currently stable off antibiotics and afebrile Problem List: New onset seizure documentation right now unclear CKD/ s/p renal transplant HTN DM CHF Plan: Will hold off on ABx. Patient is afebrile with no cough or shortness of breath. CXR and chest CT consistent with heart failure. neurology consult continue medical management per ICU and primary medical team Will sign off Rosalio DUMONT
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
[2017-11-03] MEDS ORDERED: PT OWN MED DRAWER 7, Y5N ONE ×2 (09:25→20:20)
--- NOTE | 2017-11-03 09:25 | PN ---
Progress Note, Physician Chief Complaint: Appreciate neuro input CT head negative Now back to baseline mental status TELE: No further SVT or PAF. NSR with PACs - Current Medication List Current Medications: Active Medications Amlodipine Besylate (Norvasc -) 5 mg PO DAILY [facility] Chlorhexidine Gluconate (Hibiclens For Decolonization -) 1 applic TP HS [facility] Last Admin: 11/02/17 21:39 Dose: 1 applic Furosemide (Lasix Injection -) 40 mg IVPUSH BID@0600,1400 [facility] Last Admin: 11/03/17 06:13 Dose: 40 mg Insulin Aspart (Novolog Vial Sliding Scale -) 1 vial SQ ACHS [facility]; Protocol Last Admin: 11/03/17 06:13 Dose: Not Given Insulin Detemir (Levemir Vial) 15 units SQ AM [facility] Last Admin: 11/03/17 06:14 Dose: 15 units Levetiracetam (Keppra Injection -) 750 mg IVPB BID [facility] Last Admin: 11/02/17 21:38 Dose: 750 mg Magnesium Oxide (Mag-Ox -) 400 mg PO BID [facility] Stop: 11/03/17 10:01 Last Admin: 11/02/17 21:39 Dose: 400 mg Metoprolol Tartrate (Lopressor -) 100 mg PO BID [facility] Last Admin: 11/02/17 21:37 Dose: 100 mg Mupirocin (Bactroban Ointment (For Decolonization) -) 1 applic NS BID [facility] Stop: 11/07/17 09:59 Last Admin: 11/02/17 21:39 Dose: 1 applic Mycophenolate Sodium (Mycophenolic Acid) 360 mg PO BID [facility] Last Admin: 11/02/17 22:12 Dose: 360 mg Potassium Chloride (K-Dur -) 20 meq PO DAILY [facility] Prednisone (Deltasone -) 5 mg PO DAILY [facility] Pyridoxine HCl (Vitamin B6 -) 25 mg PO DAILY [facility] Sodium Bicarbonate (Sodium Bicarbonate -) 650 mg PO BID [facility] Last Admin: 11/02/17 21:38 Dose: 650 mg Tacrolimus (Prograf) 4 mg PO BID [facility] Last Admin: 11/02/17 22:13 Dose: 4 mg Tamsulosin HCl (Flomax -) 0.4 mg PO HS [facility] Last Admin: 11/02/17 21:38 Dose: 0.4 mg - Objective Vital Signs: Vital Signs Temperature 99 F 11/03/17 04:00 Pulse Rate 80 11/03/17 08:00 Respiratory Rate 15 11/03/17 08:00 Blood Pressure 151/68 11/03/17 08:00 O2 Sat by Pulse Oximetry (%) 100 11/03/17 07:04 Constitutional: Yes: No Distress Cardiovascular: Yes: Regular Rate and Rhythm Respiratory: Yes: Other (bibasilar rales) Gastrointestinal: Yes: Soft Edema: Yes Edema: LLE: 1+, RLE: 1+ Neurological: Yes: Alert, Oriented Labs: CBC, BMP 11/02/17 06:50 11/02/17 06:50 INR, PTT INR 1.10 (0.82-1.09) 10/31/17 01:27 Microbiology 10/31/17 03:49 Blood - Peripheral Venous Blood Culture - Preliminary NO GROWTH OBTAINED AFTER 72 HOURS, INCUBATION TO CONTINUE FOR 2 DAYS. 10/31/17 03:19 Blood - Peripheral Venous Blood Culture - Preliminary NO GROWTH OBTAINED AFTER 72 HOURS, INCUBATION TO CONTINUE FOR 2 DAYS. Laboratory Tests 11/02/17 11/02/17 11/02/17 05:44 06:50 06:50 WBC 6.4 Hgb 9.5 L Plt Count 232 ABG pH 7.31 L ABG pCO2 at Pt Temp 35.7 ABG pO2 at Pt Temp 282.0 H* Sodium Potassium BUN Creatinine Random Glucose Lactic Acid Troponin I < 0.02 Tacrolimus 11/02/17 11/02/17 11/03/17 06:50 06:50 05:30 WBC Hgb Plt Count ABG pH ABG pCO2 at Pt Temp ABG pO2 at Pt Temp Sodium 143 Potassium 3.6 BUN 27 H Creatinine 1.3 Random Glucose 111 H Lactic Acid 3.7 H* Troponin I Tacrolimus Pending - ....Imaging Chest X-ray: Image Reviewed Cat Scan: Report Reviewed EKG: Image Reviewed Assessment/Plan IMP: Breakthrough seizures Acute on chronic diastolic CHF in setting of uncontrolled HTN- improved Chronic HTN, hypertensive heart disease DM PAF, PSVT H/o renal transplant Leukocytosis REC: Continue IV Lasix Daily BMP Continue Metoprolol for HTN, SVT. Resume ASA therapy. Patient probably high risk for full AC due to seizure history/ breakthrough seizures ---> fall risk. If seizures prove to be well controlled moving forward, can reconsider use of full AC.
[2017-11-03] MEDS: SODIUM BICARBONATE 650 MG TABLET PO SCH ×2 (09:36→22:48)
[2017-11-03] MEDS: METOPROLOL TARTRATE 50 MG TABLET (FP) PO SCH ×2 (09:39→22:48)
[2017-11-03] MEDS: TACROLIMUS ANHYDROUS 1 MG CAPSULE PO SCH ×2 (09:40→22:49)
[2017-11-03] MEDS: MYCOPHENOLATE SODIUM 360 MG TABLET.DR PO SCH ×2 (09:40→22:49)
[2017-11-03] MEDS: MAGNESIUM OXIDE 400 MG TABLET (FP) PO SCH ×2 (09:41→22:49)
[2017-11-03] MEDS ORDERED: amLODIPine BESYLATE 5 MG TABLET (FP) PO SCH (10:00)
[2017-11-03] MEDS ORDERED: PYRIDOXINE HCL (B-6) 50 MG TABLET (FP) PO SCH (10:00)
[2017-11-03] MEDS ORDERED: POTASSIUM CHLORIDE TABS 20 MEQ TABLET.ER (FP) PO SCH (10:00)
[2017-11-03] MEDS ORDERED: predniSONE 5 MG TABLET (UD) PO SCH (10:00)
[2017-11-03] MEDS: levETIRAcetam 500 MG/5 ML INJECTION VIAL IVPB SCH ×2 (10:16→22:48)
[2017-11-03] MEDS: MUPIROCIN 2% TOPICAL OINTMENT FOR DECOLONIZATION NS SCH (10:16)
--- NOTE | 2017-11-03 12:18 | PN ---
Teaching Attending Note Name of Resident: Patrick Hernández ATTENDING PHYSICIAN STATEMENT I saw and evaluated the patient. I reviewed the resident's note and discussed the case with the resident. I agree with the resident's findings and plan as documented. SUBJECTIVE: Patient seen and examined in the ICU. Transferred to the ICU for seizure activity. No further seizures noted overnight. Denies CP or SOB. OBJECTIVE: Intake & Output 10/31/17 11/01/17 11/02/17 11/03/17 23:59 23:59 23:59 23:59 Intake Total 130 250 320 200 Output Total 6100 4125 4000 1000 Balance -5970 -3875 -3680 -800 Weight 197 lb 12.8 oz 195 lb 4 oz 170 lb Last Vital Signs Temp Pulse Resp BP Pulse Ox 98.8 F 80 15 145/60 97 11/03/17 10:00 11/03/17 12:00 11/03/17 12:00 11/03/17 12:00 11/03/17 09:00 Active Medications Amlodipine Besylate (Norvasc -) 5 mg PO DAILY [facility] Last Admin: 11/03/17 09:36 Dose: 5 mg Chlorhexidine Gluconate (Hibiclens For Decolonization -) 1 applic TP HS [facility] Last Admin: 11/02/17 21:39 Dose: 1 applic Furosemide (Lasix Injection -) 40 mg IVPUSH BID@0600,1400 [facility] Last Admin: 11/03/17 06:13 Dose: 40 mg Insulin Aspart (Novolog Vial Sliding Scale -) 1 vial SQ [facility]; Protocol Last Admin: 11/03/17 06:13 Dose: Not Given Insulin Detemir (Levemir Vial) 15 units SQ AM [facility] Last Admin: 11/03/17 06:14 Dose: 15 units Levetiracetam (Keppra Injection -) 750 mg IVPB BID [facility] Last Admin: 11/03/17 10:16 Dose: 750 mg Metoprolol Tartrate (Lopressor -) 100 mg PO BID [facility] Last Admin: 11/03/17 09:39 Dose: 100 mg Mupirocin (Bactroban Ointment (For Decolonization) -) 1 applic NS BID [facility] Stop: 11/07/17 09:59 Last Admin: 11/03/17 10:16 Dose: 1 applic Mycophenolate Sodium (Mycophenolic Acid) 360 mg PO BID [facility] Last Admin: 11/03/17 09:40 Dose: 360 mg Potassium Chloride (K-Dur -) 20 meq PO DAILY [facility] Last Admin: 11/03/17 09:42 Dose: 20 meq Prednisone (Deltasone -) 5 mg PO DAILY [facility] Last Admin: 11/03/17 09:42 Dose: 5 mg Pyridoxine HCl (Vitamin B6 -) 25 mg PO DAILY [facility] Last Admin: 11/03/17 09:34 Dose: 25 mg Sodium Bicarbonate (Sodium Bicarbonate -) 650 mg PO BID [facility] Last Admin: 11/03/17 09:36 Dose: 650 mg Tacrolimus (Prograf) 4 mg PO BID [facility] Last Admin: 11/03/17 09:40 Dose: 4 mg Tamsulosin HCl (Flomax -) 0.4 mg PO HS [facility] Last Admin: 11/02/17 21:38 Dose: 0.4 mg Gen: Awake and alert, NAD Heart: RRR Lung: decreased breath sounds at the bases Abd: soft, nontender Ext: trace edema Neuro: Awake and alert, non-focal Laboratory Results - last 24 hr 11/02/17 11/02/17 11/02/17 12:30 14:20 16:54 POC Glucometer 124.84661 123.00226 Lactic Acid 1.0 11/02/17 11/03/17 21:32 06:12 POC Glucometer 113.71301 [phone] Lactic Acid ASSESSMENT AND PLAN: Seizure Episode Acute on Chronic Diastolic Heart Failure Paroxysmal Atrial Fibrillation Pleural Effusion h/o Renal Transplant HTN DM - AEDs per Neuro - Lasix - monitor urine output, creatinine - daily weights - rate controlled - continue anticoagulation - O2 as needed - aspiration precautions - continue immunosuppressives - DVT prophylaxis - Floor: no indication to transfer to ICU after uncomplicated seizure activity Dr Lopez Critical care time spent in reviewing chart, evaluating patient and formulating plan - 36 minutes.
[2017-11-03 12:42] LABS: ANION GAP 9 (8-16); BLOOD UREA NITROGEN 26 mg/dL (7-18); CALCIUM 8.2 mg/dL (8.5-10.1); CHLORIDE 106 mmol/L (98-107); CO2 27 mmol/L (21-32); CREATININE 1.2 mg/dL (0.7-1.3); GLUCOSE,RANDOM 120 mg/dL (74-106); POTASSIUM 3.3 mmol/L (3.5-5.1); SODIUM 142 mmol/L (136-145)
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
[2017-11-03] MEDS ORDERED: POTASSIUM CHLORIDE TABS 20 MEQ TABLET.ER (FP) PO ONE (16:18)
[2017-11-03] MEDS ORDERED: MAGNESIUM SULF 50% (8.12 MEQ/2 ML-1 GM VIAL) IVPB ONE (17:15)
[2017-11-03] MEDS ORDERED: MAGNESIUM SULF 50% (8.12 MEQ/2 ML-1 GM VIAL) ONE (17:16)
[2017-11-03] MEDS ORDERED: ACETAMINOPHEN 325 MG TABLET (FP) ONE (18:50)
[2017-11-03] MEDS ORDERED: ACETAMINOPHEN 325 MG TABLET (FP) PO PRN (18:58)
[2017-11-03] MEDS ORDERED: ACETAMINOPHEN 1000 MG/100 ML VIAL (NON FORMULARY) IVPB ONE (19:00)
[2017-11-03 19:07] LABS: ANION GAP 9 (8-16); BLOOD UREA NITROGEN 29 mg/dL (7-18); CALCIUM 7.9 mg/dL (8.5-10.1); CHLORIDE 105 mmol/L (98-107); CO2 26 mmol/L (21-32); CREATININE 1.4 mg/dL (0.7-1.3); GLUCOSE,RANDOM 182 mg/dL (74-106); POTASSIUM 4.4 mmol/L (3.5-5.1); SODIUM 140 mmol/L (136-145)
[2017-11-03] MEDS: TAMSULOSIN HCL 0.4 MG CAP.ER.24H (FP) PO SCH (22:48)
[2017-11-03] MEDS: ACETAMINOPHEN 325 MG TABLET (FP) PO PRN (23:00)
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
[2017-11-04 01:41] LABS: URINE APPEARANCE CLEAR; URINE BILIRUBIN NEGATIVE (<2.0 mg/dL); URINE BLOOD 1+ (NEGATIVE); URINE COLOR YELLOW; URINE GLUCOSE (UA) 1+ (NEGATIVE); URINE KETONE NEGATIVE (NEGATIVE); URINE LEUK ESTERASE NEGATIVE (NEGATIVE); URINE NITRITE NEGATIVE (NEGATIVE); URINE UROBILINOGEN NEGATIVE mg/dL (0.2-1.0)
[2017-11-04 01:57] LABS: URINE PROTEIN 3+ (NEGATIVE)
[2017-11-04 01:58] LABS: URINE BACTERIA RARE /hpf (NONE SEEN); URINE HYALINE CAST 1 /lpf; URINE MUCUS RARE
[2017-11-04] MEDS: FUROSEMIDE 40 MG/4 ML INJECTABLE VIAL IVPUSH SCH ×2 (06:19→14:10)
[2017-11-04] MEDS: INSULIN SLIDING SCALE (NOVOLOG) 1 VIAL SQ SCH ×4 (06:19→21:45)
--- NOTE | 2017-11-04 09:15 | PN ---
Progress Note, Physician Chief Complaint: alert and oriented Mental status back to baseline History of Present Illness: Now febrile - Current Medication List Current Medications: Active Medications Acetaminophen (Tylenol -) 650 mg PO Q4H PRN PRN Reason: FEVER Last Admin: 11/03/17 23:00 Dose: 650 mg Amlodipine Besylate (Norvasc -) 5 mg PO DAILY [facility] Furosemide (Lasix Injection -) 40 mg IVPUSH BID@0600,1400 [facility] Last Admin: 11/04/17 06:19 Dose: 40 mg Insulin Aspart (Novolog Vial Sliding Scale -) 1 vial SQ ACHS [facility]; Protocol Last Admin: 11/04/17 06:19 Dose: Not Given Insulin Detemir (Levemir Vial) 15 units SQ AM [facility] Levetiracetam (Keppra Injection -) 750 mg IVPB BID [facility] Last Admin: 11/03/17 22:48 Dose: 750 mg Magnesium Oxide (Mag-Ox -) 400 mg PO BID [facility] Last Admin: 11/03/17 22:49 Dose: 400 mg Metoprolol Tartrate (Lopressor -) 100 mg PO BID [facility] Last Admin: 11/03/17 22:48 Dose: 100 mg Mycophenolate Sodium (Mycophenolic Acid) 360 mg PO BID [facility] Last Admin: 11/03/17 22:49 Dose: 360 mg Potassium Chloride (K-Dur -) 20 meq PO DAILY [facility] Prednisone (Deltasone -) 5 mg PO DAILY [facility] Pyridoxine HCl (Vitamin B6 -) 25 mg PO DAILY [facility] Sodium Bicarbonate (Sodium Bicarbonate -) 650 mg PO BID [facility] Last Admin: 11/03/17 22:48 Dose: 650 mg Tacrolimus (Prograf) 4 mg PO BID [facility] Last Admin: 11/03/17 22:49 Dose: 4 mg Tamsulosin HCl (Flomax -) 0.4 mg PO HS [facility] Last Admin: 11/03/17 22:48 Dose: 0.4 mg - Objective Vital Signs: Vital Signs Temperature 102.7 F H 11/04/17 06:00 Pulse Rate 90 11/04/17 06:00 Respiratory Rate 20 11/04/17 06:00 Blood Pressure 155/72 11/04/17 06:00 O2 Sat by Pulse Oximetry (%) 96 11/03/17 21:00 Constitutional: Yes: No Distress, Calm Cardiovascular: Yes: Regular Rate and Rhythm Respiratory: Yes: Other (decreased breath sounds at bases.) Gastrointestinal: Yes: Soft Edema: No Neurological: Yes: Alert ...Motor Strength: WNL Labs: CBC, BMP 11/02/17 06:50 11/03/17 17:50 INR, PTT INR 1.10 (0.82-1.09) 10/31/17 01:27 - ....Imaging EKG: Image Reviewed Assessment/Plan IMP: Breakthrough seizures Acute on chronic diastolic CHF in setting of uncontrolled HTN- improved Chronic HTN, hypertensive heart disease DM PAF, PSVT H/o renal transplant Leukocytosis REC: Continue IV Lasix, CXR and clinically improved. Daily BMP Continue Metoprolol for HTN, SVT. Resume ASA therapy. Patient probably high risk for full AC due to seizure history/ breakthrough seizures ---> fall risk. If seizures prove to be well controlled moving forward, can reconsider use of full AC. DVT prophylaxis.
[2017-11-04] MEDS: METOPROLOL TARTRATE 50 MG TABLET (FP) PO SCH ×2 (09:30→21:45)
[2017-11-04] MEDS: SODIUM BICARBONATE 650 MG TABLET PO SCH ×2 (09:30→21:44)
[2017-11-04] MEDS: predniSONE 5 MG TABLET (UD) PO SCH (09:31)
[2017-11-04] MEDS: amLODIPine BESYLATE 5 MG TABLET (FP) PO SCH (09:31)
[2017-11-04] MEDS: POTASSIUM CHLORIDE TABS 20 MEQ TABLET.ER (FP) PO SCH (09:31)
[2017-11-04] MEDS: MAGNESIUM OXIDE 400 MG TABLET (FP) PO SCH ×2 (09:31→21:44)
[2017-11-04] MEDS: MYCOPHENOLATE SODIUM 360 MG TABLET.DR PO SCH ×2 (09:32→21:45)
[2017-11-04] MEDS: levETIRAcetam 500 MG/5 ML INJECTION VIAL IVPB SCH ×2 (09:32→21:45)
[2017-11-04] MEDS: PYRIDOXINE HCL (B-6) 50 MG TABLET (FP) PO SCH (09:33)
[2017-11-04] MEDS: TACROLIMUS ANHYDROUS 1 MG CAPSULE PO SCH ×2 (09:35→21:44)
[2017-11-04] MEDS: ASPIRIN 81 MG CHEWABLE TABLETS PO SCH (09:35)
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
[2017-11-04] MEDS: ACETAMINOPHEN 325 MG TABLET (FP) PO PRN ×2 (09:50→23:33)
[2017-11-04] MEDS: HEPARIN NA (PORCINE) 5,000 UNITS/ML 1ML VIAL SQ SCH ×2 (14:10→21:45)
[2017-11-04] MEDS ORDERED: MAGNESIUM SULF 50% (8.12 MEQ/2 ML-1 GM VIAL) IVPB ONE (15:08)
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
--- NOTE | 2017-11-04 17:35 | PN ---
Progress Note (short form) - Note Progress Note: 57 year old male with multiple comorbidity includes DM,HTN, CHF, S/P Renal transplant in 2010 and on anti rejection medicaiton. He recently admitted due to respiratory distress and was being managed for pulmonary edema. Recently he did have seizure and was started on keppra. As per sister he takes medication at home, and He was not on keppra while at hospital. He was restarted on keppra 750 mg po bid and has not had any seizure Neurological Examination Awake follow command EOMI, PUPILS reactive, no face asymmetry moving all ext sensation is grossly normal reflex are diminished ct head is unremarkable Assessment- Breakthrough seizure, recently was recently [facility] and was started on keppra , and had mri of brain done at [facility], ct head is normal h Plan- No need for repeat mri as ct head normal and recently had mri of brain and This seizure seems to be due to breakthrough seizure , as he was not on medication -continue 750 mg bid Thanking you so much Manuel Medel MD
[2017-11-04] MEDS: TAMSULOSIN HCL 0.4 MG CAP.ER.24H (FP) PO SCH (21:45)
[2017-11-05] MEDS: ACETAMINOPHEN 325 MG TABLET (FP) PO PRN (05:42)
[2017-11-05] MEDS: HEPARIN NA (PORCINE) 5,000 UNITS/ML 1ML VIAL SQ SCH ×3 (06:29→22:08)
[2017-11-05] MEDS: INSULIN (LEVEMIR) 100 UNITS/ML UNITS SQ SCH (06:29)
[2017-11-05] MEDS: INSULIN SLIDING SCALE (NOVOLOG) 1 VIAL SQ SCH ×4 (06:30→21:57)
[2017-11-05 08:30] LABS: CHLORIDE 104 mmol/L (98-107); POTASSIUM 4.2 mmol/L (3.5-5.1); SODIUM 138 mmol/L (136-145)
--- NOTE | 2017-11-05 09:01 | PN ---
Progress Note, Physician Chief Complaint: fevers persist LE duplex negative for DVT: done for elevated D dimer with low clinical suspicion PE after d/w Pulmonary He denies CP/SOB TELE: NSR with frequent APCs History of Present Illness: CXR shows improving CHF - Current Medication List Current Medications: Active Medications Acetaminophen (Tylenol -) 650 mg PO Q4H PRN PRN Reason: FEVER Last Admin: 11/05/17 05:42 Dose: 650 mg Amlodipine Besylate (Norvasc -) 5 mg PO DAILY [facility] Last Admin: 11/04/17 09:31 Dose: 5 mg Aspirin (Asa -) 81 mg PO DAILY [facility] Last Admin: 11/04/17 09:35 Dose: 81 mg Furosemide (Lasix Injection -) 40 mg IVPUSH DAILY [facility] Heparin Sodium (Porcine) (Heparin -) 5,000 unit SQ TID [facility] Last Admin: 11/05/17 06:29 Dose: 5,000 unit Insulin Aspart (Novolog Vial Sliding Scale -) 1 vial SQ ACHS [facility]; Protocol Last Admin: 11/05/17 06:30 Dose: 2 units Insulin Detemir (Levemir Vial) 15 units SQ AM [facility] Last Admin: 11/05/17 06:29 Dose: 15 units Levetiracetam (Keppra Injection -) 750 mg IVPB BID [facility] Last Admin: 11/04/17 21:45 Dose: 750 mg Magnesium Oxide (Mag-Ox -) 400 mg PO BID [facility] Last Admin: 11/04/17 21:44 Dose: 400 mg Metoprolol Tartrate (Lopressor -) 100 mg PO BID [facility] Last Admin: 11/04/17 21:45 Dose: 100 mg Mycophenolate Sodium (Mycophenolic Acid) 360 mg PO BID [facility] Last Admin: 11/04/17 21:45 Dose: 360 mg Potassium Chloride (K-Dur -) 20 meq PO DAILY [facility] Last Admin: 11/04/17 09:31 Dose: 20 meq Prednisone (Deltasone -) 5 mg PO DAILY [facility] Last Admin: 11/04/17 09:31 Dose: 5 mg Pyridoxine HCl (Vitamin B6 -) 25 mg PO DAILY [facility] Last Admin: 11/04/17 09:33 Dose: 25 mg Sodium Bicarbonate (Sodium Bicarbonate -) 650 mg PO BID [facility] Last Admin: 11/04/17 21:44 Dose: 650 mg Tacrolimus (Prograf) 4 mg PO BID [facility] Last Admin: 11/04/17 21:44 Dose: 4 mg Tamsulosin HCl (Flomax -) 0.4 mg PO HS [facility] Last Admin: 11/04/17 21:45 Dose: 0.4 mg - Objective Vital Signs: Vital Signs Temperature 99.1 F 11/05/17 08:38 Pulse Rate 74 11/05/17 08:38 Respiratory Rate 16 11/05/17 08:38 Blood Pressure 138/69 11/05/17 08:38 O2 Sat by Pulse Oximetry (%) 97 11/04/17 21:00 Constitutional: Yes: Calm Cardiovascular: Yes: Regular Rate and Rhythm Respiratory: Yes: CTA Bilaterally Gastrointestinal: Yes: Soft Edema: No Neurological: Yes: Alert Labs: CBC, BMP 11/02/17 06:50 11/05/17 06:30 INR, PTT INR 1.10 (0.82-1.09) 10/31/17 01:27 Microbiology 11/03/17 20:15 Blood - Peripheral Venous Blood Culture - Preliminary NO GROWTH OBTAINED AFTER 24 HOURS, INCUBATION TO CONTINUE FOR 4 DAYS. 11/03/17 20:00 Blood - Peripheral Venous Blood Culture - Preliminary NO GROWTH OBTAINED AFTER 24 HOURS, INCUBATION TO CONTINUE FOR 4 DAYS. - ....Imaging Chest X-ray: Report Reviewed, Image Reviewed EKG: Image Reviewed Assessment/Plan IMP: Breakthrough seizures Fevers Acute on chronic diastolic CHF in setting of uncontrolled HTN- improved Chronic HTN, hypertensive heart disease DM PAF, PSVT H/o renal transplant REC: Continue IV Lasix, CXR and clinically improved. Plan to switch to PO tomorrow Daily BMP Continue Metoprolol for HTN, SVT. Resume ASA therapy. Patient probably high risk for full AC due to seizure history/ breakthrough seizures ---> fall risk. If seizures prove to be well controlled moving forward, can reconsider use of full AC. DVT prophylaxis. Elevated D-dimer, non-specific. Low clinical suspicion pulmonary embolism. LE duplex negative. ID follow up requested for fevers. Blood cx NGTD
[2017-11-05 09:02] LABS: ALBUMIN 2.7 g/dl (3.4-5.0); ALK PHOS 82 U/L (45-117); ANION GAP 9 (8-16); BILIRUBIN,TOTAL 0.8 mg/dL (0.2-1.0); BLOOD UREA NITROGEN 35 mg/dL (7-18); CALCIUM 8.3 mg/dL (8.5-10.1); CO2 25 mmol/L (21-32); CREATININE 1.5 mg/dL (0.7-1.3); GLUCOSE,RANDOM 144 mg/dL (74-106); MAGNESIUM 2.1 mg/dL (1.8-2.4); SGOT/AST 20 U/L (15-37); SGPT/ALT 16 U/L (12-78)
[2017-11-05] MEDS: levETIRAcetam 500 MG/5 ML INJECTION VIAL IVPB SCH ×2 (09:26→22:08)
[2017-11-05] MEDS: MAGNESIUM OXIDE 400 MG TABLET (FP) PO SCH ×2 (09:27→22:08)
[2017-11-05] MEDS: ASPIRIN 81 MG CHEWABLE TABLETS PO SCH (09:27)
[2017-11-05] MEDS: amLODIPine BESYLATE 5 MG TABLET (FP) PO SCH (09:27)
[2017-11-05] MEDS: predniSONE 5 MG TABLET (UD) PO SCH (09:27)
[2017-11-05] MEDS: POTASSIUM CHLORIDE TABS 20 MEQ TABLET.ER (FP) PO SCH (09:27)
[2017-11-05] MEDS: METOPROLOL TARTRATE 50 MG TABLET (FP) PO SCH ×2 (09:27→22:08)
[2017-11-05] MEDS: SODIUM BICARBONATE 650 MG TABLET PO SCH ×2 (09:27→22:08)
[2017-11-05] MEDS: PYRIDOXINE HCL (B-6) 50 MG TABLET (FP) PO SCH (09:30)
[2017-11-05] MEDS: MYCOPHENOLATE SODIUM 360 MG TABLET.DR PO SCH ×2 (09:30→22:14)
[2017-11-05] MEDS ORDERED: PT OWN MED DRAWER 7, Y5N ONE ×3 (09:30→22:00)
[2017-11-05] MEDS: TACROLIMUS ANHYDROUS 1 MG CAPSULE PO SCH ×2 (09:30→22:09)
[2017-11-05] MEDS ORDERED: FUROSEMIDE 40 MG/4 ML INJECTABLE VIAL IVPUSH SCH (10:00)
--- NOTE | 2017-11-05 12:32 | PN ---
Progress Note (short form) - Note Progress Note: Low grade fever. Breathing feels OK. No further seizures noted. Denies CP or SOB. OBJECTIVE: Intake & Output 11/02/17 11/03/1718 11/05/17 23:59 23:59 23:59 23:59 Intake Total 320 1450 580 300 Output Total 4000 2600 2125 1100 Balance -3680 -1150 -1545 -800 Weight 170 lb 152 lb 12.8 oz Last Vital Signs Temp Pulse Resp BP Pulse Ox 99.1 F 74 16 138/69 97 11/05/17 08:38 11/05/17 08:38 11/05/17 08:38 11/05/17 08:38 11/05/17 08:00 Active Medications Acetaminophen (Tylenol -) 650 mg PO Q4H PRN PRN Reason: FEVER Last Admin: 11/05/17 05:42 Dose: 650 mg Amlodipine Besylate (Norvasc -) 5 mg PO DAILY [facility] Last Admin: 11/05/17 09:27 Dose: 5 mg Aspirin (Asa -) 81 mg PO DAILY [facility] Last Admin: 11/05/17 09:27 Dose: 81 mg Furosemide (Lasix Injection -) 40 mg IVPUSH DAILY [facility] Last Admin: 11/05/17 09:27 Dose: 40 mg Heparin Sodium (Porcine) (Heparin -) 5,000 unit SQ TID [facility] Last Admin: 11/05/17 06:29 Dose: 5,000 unit Insulin Aspart (Novolog Vial Sliding Scale -) 1 vial SQ ACHS [facility]; Protocol Last Admin: 11/05/17 11:53 Dose: 4 units Insulin Detemir (Levemir Vial) 15 units SQ AM [facility] Last Admin: 11/05/17 06:29 Dose: 15 units Levetiracetam (Keppra Injection -) 750 mg IVPB BID [facility] Last Admin: 11/05/17 09:26 Dose: 750 mg Magnesium Oxide (Mag-Ox -) 400 mg PO BID [facility] Last Admin: 11/05/17 09:27 Dose: 400 mg Metoprolol Tartrate (Lopressor -) 100 mg PO BID [facility] Last Admin: 11/05/17 09:27 Dose: 100 mg Mycophenolate Sodium (Mycophenolic Acid) 360 mg PO BID [facility] Last Admin: 11/05/17 09:30 Dose: 360 mg Potassium Chloride (K-Dur -) 20 meq PO DAILY [facility] Last Admin: 11/05/17 09:27 Dose: 20 meq Prednisone (Deltasone -) 5 mg PO DAILY [facility] Last Admin: 11/05/17 09:27 Dose: 5 mg Pyridoxine HCl (Vitamin B6 -) 25 mg PO DAILY [facility] Last Admin: 11/05/17 09:30 Dose: 25 mg Sodium Bicarbonate (Sodium Bicarbonate -) 650 mg PO BID [facility] Last Admin: 11/05/17 09:27 Dose: 650 mg Tacrolimus (Prograf) 4 mg PO BID [facility] Last Admin: 11/05/17 09:30 Dose: 4 mg Tamsulosin HCl (Flomax -) 0.4 mg PO HS [facility] Last Admin: 11/04/17 21:45 Dose: 0.4 mg Gen: Awake and alert, NAD Heart: RRR Lung: decreased breath sounds at the bases Abd: soft, nontender Ext: trace edema Neuro: Awake and alert, non-focal Laboratory Results - last 24 hr 11/02/17 11/03/17 11/04/17 08:00 12:16 12:30 Sodium Potassium Chloride Carbon Dioxide Anion Gap BUN Creatinine Creat Clearance w eGFR POC Glucometer [id number] Random Glucose Calcium Magnesium 1.7 L D Total Bilirubin AST ALT Alkaline Phosphatase Total Protein Albumin Tacrolimus 4.3 11/04/17 11/04/17 11/05/17 17:14 21:43 06:24 Sodium Potassium Chloride Carbon Dioxide Anion Gap BUN Creatinine Creat Clearance w eGFR POC Glucometer 261 170 160 Random Glucose Calcium Magnesium Total Bilirubin AST ALT Alkaline Phosphatase Total Protein Albumin Tacrolimus 11/05/17 11/05/17 06:30 11:52 Sodium 138 Potassium 4.2 Chloride 104 Carbon Dioxide 25 Anion Gap 9 BUN 35 H D Creatinine 1.5 H Creat Clearance w eGFR 47.90 POC Glucometer 218 Random Glucose 144 H D Calcium 8.3 L Magnesium 2.1 D Total Bilirubin 0.8 D AST 20 ALT 16 D Alkaline Phosphatase 82 D Total Protein 6.0 L Albumin 2.7 L Tacrolimus ASSESSMENT AND PLAN: Seizure Episode Acute on Chronic Diastolic Heart Failure Paroxysmal Atrial Fibrillation Pleural Effusion h/o Renal Transplant HTN DM - AEDs per Neuro - Lasix - monitor urine output, creatinine - daily weights - rate controlled - continue anticoagulation - O2 as needed - aspiration precautions - continue immunosuppressives - DVT prophylaxis - Monitor fever Dr Lopez
[2017-11-05 13:04] LABS: BASO % 0.4 % (0-2.0); EOS % 0.1 % (0-4.5); HEMATOCRIT 31.5 % (35.4-49); MCH 25.2 pg (25.7-33.7); MCHC 31.9 g/dl (32.0-35.9); MEAN PLT VOLUME 10.6 fl (7.5-11.1); MONO % 10.5 % (3.8-10.2); PLATELET COUNT 237 K/MM3 (134-434); RBC 3.99 M/mm3 (4.00-5.60); RDW 20.7 % (11.9-15.9)
[2017-11-05 13:22] LABS: CHLORIDE 103 mmol/L (98-107); POTASSIUM 3.8 mmol/L (3.5-5.1); SODIUM 136 mmol/L (136-145)
[2017-11-05 13:28] LABS: ALBUMIN 2.8 g/dl (3.4-5.0); ANION GAP 4 (8-16); BLOOD UREA NITROGEN 36 mg/dL (7-18); CO2 29 mmol/L (21-32); CREATININE 1.5 mg/dL (0.7-1.3); GLUCOSE,RANDOM 161 mg/dL (74-106); SGOT/AST 22 U/L (15-37); SGPT/ALT 22 U/L (12-78)
[2017-11-05 13:30] LABS: ALK PHOS 90 U/L (45-117); BILIRUBIN,TOTAL 0.6 mg/dL (0.2-1.0); TOT PROT 6.5 g/dl (6.4-8.2)
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
[2017-11-05] MEDS: TAMSULOSIN HCL 0.4 MG CAP.ER.24H (FP) PO SCH (22:08)
[2017-11-06] MEDS: INSULIN SLIDING SCALE (NOVOLOG) 1 VIAL SQ SCH ×3 (06:23→18:31)
[2017-11-06] MEDS: HEPARIN NA (PORCINE) 5,000 UNITS/ML 1ML VIAL SQ SCH ×3 (06:28→22:28)
[2017-11-06] MEDS: INSULIN (LEVEMIR) 100 UNITS/ML UNITS SQ SCH (06:29)
[2017-11-06 07:59] LABS: BASO % 0.2 % (0-2.0); EOS % 0.2 % (0-4.5); HEMATOCRIT 27.8 % (35.4-49); HEMOGLOBIN 9.1 GM/dL (11.7-16.9); LYMPH % 24.5 % (8-40); MCH 25.6 pg (25.7-33.7); MCHC 32.7 g/dl (32.0-35.9); MEAN CELL VOLUME 78.3 fl (80-96); MEAN PLT VOLUME 10.5 fl (7.5-11.1); MONO % 9.8 % (3.8-10.2); NEUT % 65.3 % (42.8-82.8); PLATELET COUNT 246 K/MM3 (134-434); RBC 3.55 M/mm3 (4.00-5.60); RDW 20.4 % (11.9-15.9); WHITE BLOOD COUNT 9.4 K/mm3 (4.0-10.0)
[2017-11-06 08:26] LABS: ALBUMIN 2.5 g/dl (3.4-5.0); ANION GAP 8 (8-16); BLOOD UREA NITROGEN 40 mg/dL (7-18); CALCIUM 9.3 mg/dL (8.5-10.1); CHLORIDE 106 mmol/L (98-107); CO2 26 mmol/L (21-32); GLUCOSE,RANDOM 113 mg/dL (74-106); MAGNESIUM 2.1 mg/dL (1.8-2.4); POTASSIUM 4.7 mmol/L (3.5-5.1); SODIUM 140 mmol/L (136-145)
[2017-11-06 08:31] LABS: ALK PHOS 76 U/L (45-117); BILIRUBIN,TOTAL 0.5 mg/dL (0.2-1.0); CREATININE 1.3 mg/dL (0.7-1.3); SGOT/AST 25 U/L (15-37); SGPT/ALT 22 U/L (12-78); TOT PROT 6.1 g/dl (6.4-8.2)
--- NOTE | 2017-11-06 09:20 | PN ---
Progress Note, Physician Chief Complaint: no acute distress History of Present Illness: Lasix d/c'd; d/w renal. - Current Medication List Current Medications: Active Medications Acetaminophen (Tylenol -) 650 mg PO Q4H PRN PRN Reason: FEVER Last Admin: 11/05/17 05:42 Dose: 650 mg Amlodipine Besylate (Norvasc -) 5 mg PO DAILY [facility] Last Admin: 11/05/17 09:27 Dose: 5 mg Aspirin (Asa -) 81 mg PO DAILY [facility] Last Admin: 11/05/17 09:27 Dose: 81 mg Heparin Sodium (Porcine) (Heparin -) 5,000 unit SQ TID [facility] Last Admin: 11/06/17 06:28 Dose: 5,000 unit Insulin Aspart (Novolog Vial Sliding Scale -) 1 vial SQ ACHS [facility]; Protocol Last Admin: 11/06/17 06:23 Dose: Not Given Insulin Detemir (Levemir Vial) 15 units SQ AM [facility] Last Admin: 11/06/17 06:29 Dose: 15 units Levetiracetam (Keppra Injection -) 750 mg IVPB BID [facility] Last Admin: 11/05/17 22:08 Dose: 750 mg Magnesium Oxide (Mag-Ox -) 400 mg PO BID [facility] Last Admin: 11/05/17 22:08 Dose: 400 mg Metoprolol Tartrate (Lopressor -) 100 mg PO BID [facility] Last Admin: 11/05/17 22:08 Dose: 100 mg Mycophenolate Sodium (Mycophenolic Acid) 360 mg PO BID [facility] Last Admin: 11/05/17 22:14 Dose: 360 mg Potassium Chloride (K-Dur -) 20 meq PO DAILY [facility] Last Admin: 11/05/17 09:27 Dose: 20 meq Prednisone (Deltasone -) 5 mg PO DAILY [facility] Last Admin: 11/05/17 09:27 Dose: 5 mg Pyridoxine HCl (Vitamin B6 -) 25 mg PO DAILY [facility] Last Admin: 11/05/17 09:30 Dose: 25 mg Sodium Bicarbonate (Sodium Bicarbonate -) 650 mg PO BID [facility] Last Admin: 11/05/17 22:08 Dose: 650 mg Tacrolimus (Prograf) 4 mg PO BID [facility] Last Admin: 11/05/17 22:09 Dose: 4 mg Tamsulosin HCl (Flomax -) 0.4 mg PO HS [facility] Last Admin: 11/05/17 22:08 Dose: 0.4 mg - Objective Vital Signs: Vital Signs Temperature 99.8 F H 11/06/17 05:00 Pulse Rate 86 11/06/17 05:00 Respiratory Rate 20 11/06/17 05:00 Blood Pressure 127/72 11/06/17 05:00 O2 Sat by Pulse Oximetry (%) 98 11/05/17 21:00 Constitutional: Yes: No Distress Cardiovascular: Yes: Regular Rate and Rhythm Respiratory: Yes: CTA Bilaterally Gastrointestinal: Yes: Soft Edema: No Neurological: Yes: Alert Labs: CBC, BMP 11/06/17 07:00 11/06/17 07:00 INR, PTT INR 1.10 (0.82-1.09) 10/31/17 01:27 Laboratory Tests 11/06/17 11/06/17 07:00 07:00 WBC 9.4 Hgb 9.1 L Hct 27.8 L Plt Count 246 Sodium 140 Potassium 4.7 D BUN 40 H Creatinine 1.3 Magnesium 2.1 Total Bilirubin 0.5 AST 25 ALT 22 Alkaline Phosphatase 76 Microbiology 11/03/17 20:20 Urine - Urine Yepez Urine Culture - Final NO GROWTH OBTAINED 11/03/17 20:15 Blood - Peripheral Venous Blood Culture - Preliminary NO GROWTH OBTAINED AFTER 48 HOURS, INCUBATION TO CONTINUE FOR 3 DAYS. 11/03/17 20:00 Blood - Peripheral Venous Blood Culture - Preliminary NO GROWTH OBTAINED AFTER 48 HOURS, INCUBATION TO CONTINUE FOR 3 DAYS. - ....Imaging EKG: Image Reviewed (NSR, APCs) Assessment/Plan IMP: Breakthrough seizures Fevers Acute on chronic diastolic CHF in setting of uncontrolled HTN- improved Chronic HTN, hypertensive heart disease DM PAF, PSVT H/o renal transplant REC: CXR and clinically improved. Lasix being held, creatinine trended up 1.5, now back down 1.3 Daily BMP Continue Metoprolol for HTN, SVT. Resume ASA therapy. Patient probably high risk for full AC due to seizure history/ breakthrough seizures ---> fall risk. If seizures prove to be well controlled moving forward, can reconsider use of full AC. DVT prophylaxis. Elevated D-dimer, non-specific. Low clinical suspicion pulmonary embolism. LE duplex negative. ID follow up requested for fevers. Blood cx NGTD
[2017-11-06] MEDS: ASPIRIN 81 MG CHEWABLE TABLETS PO SCH (11:59)
[2017-11-06] MEDS: predniSONE 5 MG TABLET (UD) PO SCH (12:00)
[2017-11-06] MEDS: POTASSIUM CHLORIDE TABS 20 MEQ TABLET.ER (FP) PO SCH (12:01)
[2017-11-06] MEDS: levETIRAcetam 500 MG/5 ML INJECTION VIAL IVPB SCH ×2 (12:01→22:28)
--- NOTE | 2017-11-06 12:01 | PN ---
Progress Note, Physician Chief Complaint: ID Asked to reassess due to intermittent fevers 101 over last few days - Current Medication List Current Medications: Active Medications Acetaminophen (Tylenol -) 650 mg PO Q4H PRN PRN Reason: FEVER Last Admin: 11/05/17 05:42 Dose: 650 mg Amlodipine Besylate (Norvasc -) 5 mg PO DAILY [facility] Last Admin: 11/05/17 09:27 Dose: 5 mg Aspirin (Asa -) 81 mg PO DAILY [facility] Last Admin: 11/05/17 09:27 Dose: 81 mg Heparin Sodium (Porcine) (Heparin -) 5,000 unit SQ TID [facility] Last Admin: 11/06/17 06:28 Dose: 5,000 unit Insulin Aspart (Novolog Vial Sliding Scale -) 1 vial SQ ACHS [facility]; Protocol Last Admin: 11/06/17 06:23 Dose: Not Given Insulin Detemir (Levemir Vial) 15 units SQ AM [facility] Last Admin: 11/06/17 06:29 Dose: 15 units Levetiracetam (Keppra Injection -) 750 mg IVPB BID [facility] Last Admin: 11/05/17 22:08 Dose: 750 mg Magnesium Oxide (Mag-Ox -) 400 mg PO BID [facility] Last Admin: 11/05/17 22:08 Dose: 400 mg Metoprolol Tartrate (Lopressor -) 100 mg PO BID [facility] Last Admin: 11/05/17 22:08 Dose: 100 mg Mycophenolate Sodium (Mycophenolic Acid) 360 mg PO BID [facility] Last Admin: 11/05/17 22:14 Dose: 360 mg Potassium Chloride (K-Dur -) 20 meq PO DAILY [facility] Last Admin: 11/05/17 09:27 Dose: 20 meq Prednisone (Deltasone -) 5 mg PO DAILY [facility] Last Admin: 11/05/17 09:27 Dose: 5 mg Pyridoxine HCl (Vitamin B6 -) 25 mg PO DAILY [facility] Last Admin: 11/05/17 09:30 Dose: 25 mg Sodium Bicarbonate (Sodium Bicarbonate -) 650 mg PO BID [facility] Last Admin: 11/05/17 22:08 Dose: 650 mg Tacrolimus (Prograf) 4 mg PO BID [facility] Last Admin: 11/05/17 22:09 Dose: 4 mg Tamsulosin HCl (Flomax -) 0.4 mg PO [facility] Last Admin: 11/05/17 22:08 Dose: 0.4 mg - Objective Vital Signs: Vital Signs Temperature 99.8 F H 11/06/17 05:00 Pulse Rate 86 11/06/17 05:00 Respiratory Rate 20 11/06/17 05:00 Blood Pressure 127/72 11/06/17 05:00 O2 Sat by Pulse Oximetry (%) 98 11/05/17 21:00 Constitutional: Yes: No Distress HENT: Yes: WNL, Atraumatic Neck: Yes: Supple Cardiovascular: Yes: Regular Rate and Rhythm, S1, S2 Respiratory: Yes: WNL, Regular, CTA Bilaterally Gastrointestinal: Yes: WNL, Normal Bowel Sounds, Soft. No: Tenderness, Tenderness, Epigastrium Edema: No Labs: CBC, BMP 11/06/17 07:00 11/06/17 07:00 INR, PTT INR 1.10 (0.82-1.09) 10/31/17 01:27 Assessment/Plan Microbiology 11/03/17 20:20 Urine - Urine Yepez Urine Culture - Final NO GROWTH OBTAINED 10/31/17 19:45 Nares - Mrsa Screen - Right MRSA Screen - Final NO MRSA ISOLATED 10/31/17 19:45 Nares - Mrsa Screen - Left MRSA Screen - Final NO MRSA ISOLATED 10/31/17 16:00 Urine - Urine Yepez Urine Culture - Final NO GROWTH OBTAINED 11/03/17 20:15 Blood - Peripheral Venous Blood Culture - Preliminary NO GROWTH OBTAINED AFTER 48 HOURS, INCUBATION TO CONTINUE FOR 3 DAYS. 11/03/17 20:00 Blood - Peripheral Venous Blood Culture - Preliminary NO GROWTH OBTAINED AFTER 48 HOURS, INCUBATION TO CONTINUE FOR 3 DAYS. Laboratory Tests 11/06/17 11/06/17 07:00 07:00 WBC 9.4 Hgb 9.1 L Hct 27.8 L Plt Count 246 Creat Clearance w eGFR 56.50 Total Bilirubin 0.5 AST 25 ALT 22 Alkaline Phosphatase 76 Assessment Renal transplant patient with FUO neg cultures CT chest though initially to be CHF rather then infiltrate Plan ESR CRP HIV testing Trial of empiric antibiotics Vancomycin and Zosyn CT imaging pelvis and abd Quant tessie Santamaria MD
[2017-11-06] MEDS: SODIUM BICARBONATE 650 MG TABLET PO SCH (12:02)
[2017-11-06] MEDS: MYCOPHENOLATE SODIUM 360 MG TABLET.DR PO SCH (12:02)
[2017-11-06] MEDS: MAGNESIUM OXIDE 400 MG TABLET (FP) PO SCH (12:02)
[2017-11-06] MEDS: METOPROLOL TARTRATE 50 MG TABLET (FP) PO SCH (12:02)
[2017-11-06] MEDS: amLODIPine BESYLATE 5 MG TABLET (FP) PO SCH (12:02)
[2017-11-06] MEDS: TACROLIMUS ANHYDROUS 1 MG CAPSULE PO SCH (12:02)
[2017-11-06] MEDS: PYRIDOXINE HCL (B-6) 50 MG TABLET (FP) PO SCH (12:03)
[2017-11-06] MEDS ORDERED: VANCOMYCIN 1,250 MG in DEXTROSE 5%-WATER - 250 ML IVPB ONE (12:04)
--- NOTE | 2017-11-06 12:49 | PN ---
Progress Note (short form) - Note Progress Note: Low grade fever. Seen by ID, ABX started. Breathing feels OK. No further seizures noted. Denies CP or SOB. OBJECTIVE: Intake & Output 11/03/17 11/04/17 11/05/17 11/06/17 23:59 23:59 23:59 23:59 Intake Total 1450 580 890 240 Output Total 2600 2125 1700 Balance -1150 -1545 -810 240 Weight 170 lb 152 lb 12.8 oz Last Vital Signs Temp Pulse Resp BP Pulse Ox 99.8 F H 86 20 127/72 98 11/06/17 05:00 11/06/17 05:00 11/06/17 05:00 11/06/17 05:00 11/05/17 21:00 Active Medications Acetaminophen (Tylenol -) 650 mg PO Q4H PRN PRN Reason: FEVER Last Admin: 11/05/17 05:42 Dose: 650 mg Amlodipine Besylate (Norvasc -) 5 mg PO DAILY [facility] Last Admin: 11/06/17 12:02 Dose: Not Given Aspirin (Asa -) 81 mg PO DAILY [facility] Last Admin: 11/06/17 11:59 Dose: Not Given Heparin Sodium (Porcine) (Heparin -) 5,000 unit SQ TID [facility] Last Admin: 11/06/17 06:28 Dose: 5,000 unit Vancomycin HCl 1,250 mg/ (Dextrose) 250 mls @ 250 mls/2 hr IVPB ONCE ONE; Protocol Stop: 11/06/17 14:03 Piperacillin Sod/Tazobactam (Sod 4.5 gm/ Dextrose) 100 mls @ 200 mls/hr IVPB Q8H-IV [facility]; Protocol Insulin Aspart (Novolog Vial Sliding Scale -) 1 vial SQ ACHS [facility]; Protocol Last Admin: 11/06/17 11:55 Dose: Not Given Insulin Detemir (Levemir Vial) 15 units SQ AM [facility] Last Admin: 11/06/17 06:29 Dose: 15 units Levetiracetam (Keppra Injection -) 750 mg IVPB BID [facility] Last Admin: 11/06/17 12:01 Dose: 750 mg Magnesium Oxide (Mag-Ox -) 400 mg PO BID [facility] Last Admin: 11/06/17 12:02 Dose: Not Given Metoprolol Tartrate (Lopressor -) 100 mg PO BID [facility] Last Admin: 11/06/17 12:02 Dose: Not Given Mycophenolate Sodium (Mycophenolic Acid) 360 mg PO BID [facility] Last Admin: 11/06/17 12:02 Dose: Not Given Potassium Chloride (K-Dur -) 20 meq PO DAILY [facility] Last Admin: 11/06/17 12:01 Dose: Not Given Prednisone (Deltasone -) 5 mg PO DAILY [facility] Last Admin: 11/06/17 12:00 Dose: Not Given Pyridoxine HCl (Vitamin B6 -) 25 mg PO DAILY [facility] Last Admin: 11/06/17 12:03 Dose: Not Given Sodium Bicarbonate (Sodium Bicarbonate -) 650 mg PO BID [facility] Last Admin: 11/06/17 12:02 Dose: Not Given Tacrolimus (Prograf) 4 mg PO BID [facility] Last Admin: 11/06/17 12:02 Dose: Not Given Tamsulosin HCl (Flomax -) 0.4 mg PO HS [facility] Last Admin: 11/05/17 22:08 Dose: 0.4 mg Gen: Awake and alert, NAD Heart: RRR Lung: decreased breath sounds at the bases Abd: soft, nontender Ext: trace edema Neuro: Awake and alert, non-focal Laboratory Results - last 24 hr 11/03/17 11/05/17 11/05/17 05:30 12:50 12:50 WBC 10.0 D RBC 3.99 L Hgb 10.0 L Hct 31.5 L MCV 79.0 L MCH 25.2 L MCHC 31.9 L RDW 20.7 H Plt Count 237 MPV 10.6 Absolute Neuts (auto) 7.7 Neutrophils % 77.0 D Lymphocytes % 12.0 D Monocytes % 10.5 H Eosinophils % 0.1 D Basophils % 0.4 Nucleated RBC % 0 Sodium 136 Potassium 3.8 Chloride 103 Carbon Dioxide 29 Anion Gap 4 L BUN 36 H Creatinine 1.5 H Creat Clearance w eGFR 47.90 POC Glucometer Random Glucose 161 H Lactic Acid Calcium 9.0 Magnesium Total Bilirubin 0.6 D AST 22 ALT 22 D Alkaline Phosphatase 90 Total Protein 6.5 Albumin 2.8 L Tacrolimus 4.7 11/05/17 11/05/17 11/05/17 12:50 17:10 21:56 WBC RBC Hgb Hct MCV MCH MCHC RDW Plt Count MPV Absolute Neuts (auto) Neutrophils % Lymphocytes % Monocytes % Eosinophils % Basophils % Nucleated RBC % Sodium Potassium Chloride Carbon Dioxide Anion Gap BUN Creatinine Creat Clearance w eGFR POC Glucometer 191 134 Random Glucose Lactic Acid 1.5 Calcium Magnesium Total Bilirubin AST ALT Alkaline Phosphatase Total Protein Albumin Tacrolimus 11/06/17 11/06/17 11/06/17 06:13 07:00 07:00 WBC 9.4 RBC 3.55 L Hgb 9.1 L Hct 27.8 L MCV 78.3 L MCH 25.6 L MCHC 32.7 RDW 20.4 H Plt Count 246 MPV 10.5 Absolute Neuts (auto) 6.1 Neutrophils % 65.3 Lymphocytes % 24.5 D Monocytes % 9.8 Eosinophils % 0.2 D Basophils % 0.2 Nucleated RBC % 0 Sodium 140 Potassium 4.7 D Chloride 106 Carbon Dioxide 26 Anion Gap 8 BUN 40 H Creatinine 1.3 Creat Clearance w eGFR 56.50 POC Glucometer 123 Random Glucose 113 H D Lactic Acid Calcium 9.3 Magnesium 2.1 Total Bilirubin 0.5 AST 25 ALT 22 Alkaline Phosphatase 76 Total Protein 6.1 L Albumin 2.5 L Tacrolimus 11/06/17 11:42 WBC RBC Hgb Hct MCV MCH MCHC RDW Plt Count MPV Absolute Neuts (auto) Neutrophils % Lymphocytes % Monocytes % Eosinophils % Basophils % Nucleated RBC % Sodium Potassium Chloride Carbon Dioxide Anion Gap BUN Creatinine Creat Clearance w eGFR POC Glucometer 137 Random Glucose Lactic Acid Calcium Magnesium Total Bilirubin AST ALT Alkaline Phosphatase Total Protein Albumin Tacrolimus ASSESSMENT AND PLAN: Seizure Episode Acute on Chronic Diastolic Heart Failure Paroxysmal Atrial Fibrillation Pleural Effusion h/o Renal Transplant HTN DM - AEDs per Neuro - Lasix - monitor urine output, creatinine - daily weights - rate controlled - continue anticoagulation - O2 as needed - aspiration precautions - continue immunosuppressives - DVT prophylaxis - ABX per ID Dr Lopez
[2017-11-06] MEDS ORDERED: ONDANSETRON 4 MG/2 ML VIAL ONE (14:22)
[2017-11-06] MEDS ORDERED: ONDANSETRON 4 MG/2 ML VIAL IVPUSH STA (14:44)
[2017-11-06 14:47] VITALS: BMI 22.4
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
[2017-11-06] MEDS ORDERED: PIPERACILLIN/TAZOBACTAM 4.5 GM VIAL IVPB ONE (18:32)
[2017-11-06] MEDS ORDERED: DEXTROSE 5%-WATER 100 ML IVPB ONE (18:33)
[2017-11-06] MEDS: PIPERACILLIN/TAZOB 4.5 GM 4.5 GM in DEXTROSE 5%-WATER 100 ML IVPB SCH (18:33)
[2017-11-06] MEDS: ACETAMINOPHEN 325 MG TABLET (FP) PO PRN (20:20)
[2017-11-06] MEDS ORDERED: ACETAMINOPHEN 1000 MG/100 ML VIAL (NON FORMULARY) IVPB PRN ×2 (21:21→22:06)
--- NOTE | 2017-11-06 22:25 | CONSULT ---
Consult Consult Specialty:: pulm critical care Referred by:: Dr. 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 His floor course was further c/b a seizure on 11/02 for which he was started on keppra. Head CT was unremarkable. Followed by Neurology; seizure thought to be breakthrough. Transferred to ICU briefly for further management of uncomplicated seizure activity and then transferred back to floor on 11/03. He was continued on Keppra. On 11/06, pt was noted to be experiencing nausea and vomiting, found to febrile to 101.3. Given his renal transplant was followed at [facility], arrangements were made to transfer pt to [facility] tomorrow for further management. Upon arrival to ICU, pt is alert and oriented x3, slow to answer and not very talkative, but answering questions appropriately. VS: HR 120-130s, SBP 160s, RR 18-22, O2 sat 98-100%. Labs ordered and continued on abx. Given Zofran x1, metoprolol 5mg x2. No episodes of emesis. Pt refusing to take PO meds. - History Source History Provided By: Medical Record, Transfer Record Limitations to Obtaining History: Clinical Condition - Past Medical History Cardio/Vascular: Yes: CHF, HTN Renal/: Yes: Renal Failure, Other (kidney transplant) Endocrine: Yes: Diabetes Mellitus - Past Surgical History Past Surgical History: Yes: AV Fistula/Graft, Kidney Transplant - Alcohol/Substance Use Hx Alcohol Use: No History of Substance Use: reports: None - Smoking History Smoking history: Former smoker Have you smoked in the past 12 months: No Aproximately how many cigarettes per day: 0 If you are a former smoker, when did you quit?: 10 YRS - Social History ADL: Independent Home Medications - Allergies Allergies/Adverse Reactions: Allergies Allergy/AdvReac Type Severity Reaction Status Date / Time No Known Allergies Allergy Verified 10/31/17 01:00 - Home Medications Home Medications: Ambulatory Orders Aspirin [ASA -] 81 mg PO DAILY 10/03/14 Insulin (Levemir) [Levemir Vial] 15 unit SQ AM 10/03/14 Metoprolol Tartrate [Lopressor] 100 mg PO BID 10/03/14 Multivitamins [Multivit ([facility] Formulary)] 1 tab PO DAILY 10/03/14 Pyridoxine HCl [Vitamin B-6] 25 mg PO DAILY 10/03/14 Tacrolimus Anhydrous [Prograf] 1 mg PO BID 10/03/14 Cinacalcet HCl [Sensipar] 60 mg PO DAILY 11/29/14 Insulin Lispro [Humalog] 100 unit SQ QID PRN 11/29/14 Mycophenolate Sodium [Myfortic] 360 mg PO TID 11/29/14 Furosemide [Lasix] 40 mg PO DAILY 04/03/17 Metformin HCl [Metformin HCl ER] 500 mg PO BID 04/03/17 Potassium Chloride [Klor-Con] 20 meq PO DAILY 04/03/17 Prednisone 5 mg PO DAILY 04/03/17 Sodium Bicarbonate - 650 mg PO BID 04/03/17 Tamsulosin HCl [Flomax] 0.4 mg PO HS 04/03/17 Acetaminophen [Tylenol .Regular Strength -] 650 mg PO Q4H PRN tablet 04/07/17 Amlodipine Besylate [Norvasc -] 5 mg PO DAILY #30 tablet 04/07/17 metroNIDAZOLE [Flagyl -] 500 mg PO TID #18 tablet 04/07/17 Family Disease History - Family Disease History Family History: Unable to Obtain Review of Systems - Review of Systems Constitutional: reports: Fever Eyes: reports: No Symptoms HENT: reports: No Symptoms Neck: reports: No Symptoms Cardiovascular: reports: No Symptoms Respiratory: reports: Cough Gastrointestinal: reports: Nausea, Vomiting Genitourinary: reports: No Symptoms Breasts: reports: No Symptoms Reported Musculoskeletal: reports: No Symptoms Integumentary: reports: No Symptoms Neurological: reports: No Symptoms Endocrine: reports: No Symptoms Hematology/Lymphatic: reports: No Symptoms Psychiatric: reports: No Symptoms Physical Exam Vital Signs: Vital Signs Temperature 101 F H 11/06/17 20:00 Pulse Rate 97 H 11/06/17 20:00 Respiratory Rate 20 11/06/17 20:00 Blood Pressure 165/60 11/06/17 20:00 O2 Sat by Pulse Oximetry (%) 97 11/06/17 21:00 Constitutional: Yes: Well Nourished, No Distress, Calm Eyes: Yes: WNL, Conjunctiva Clear, EOM Intact, PERRL HENT: Yes: WNL, Atraumatic, Normocephalic Neck: Yes: WNL, Supple, Trachea Midline Cardiovascular: Yes: WNL, Tachycardia, Pulse Irregular. No: Murmur, Rub, S3, S4 Respiratory: Yes: WNL, Regular, CTA Bilaterally. No: Cough, Rales, Rhonchi, SOB , Stridor, Tachypnea, Wheezes Gastrointestinal: Yes: WNL, Normal Bowel Sounds, Soft ...Rectal Exam: Yes: WNL Renal/: Yes: WNL Breast(s): Yes: WNL Musculoskeletal: Yes: WNL Extremities: Yes: WNL Edema: No Peripheral Pulses WNL: Yes Integumentary: Yes: WNL Neurological: Yes: WNL, Alert, Oriented ...Motor Strength: WNL Psychiatric: Yes: WNL, Alert, Oriented (answers slowly and quietly. appropriate , but not very verbal, oriented x3) Labs: CBC, BMP 11/06/17 07:00 11/06/17 07:00 Imaging - Results Chest X-ray: Image Reviewed (normal) EKG: Image Reviewed (AFib Rate 120) Problem List - Problems (1) Atrial fibrillation Code(s): I48.91 - UNSPECIFIED ATRIAL FIBRILLATION (3) Congestive heart disease Code(s): I50.9 - HEART FAILURE, UNSPECIFIED (4) HTN (hypertension) Code(s): I10 - ESSENTIAL (PRIMARY) HYPERTENSION (5) Seizures Code(s): R56.9 - UNSPECIFIED CONVULSIONS (6) Diabetes Code(s): E11.9 - TYPE 2 DIABETES MELLITUS WITHOUT COMPLICATIONS (7) Chronic renal insufficiency Code(s): N18.9 - CHRONIC KIDNEY DISEASE, UNSPECIFIED (8) DVT prophylaxis Code(s): LLT5654 - (9) Leukocytosis Code(s): D72.829 - ELEVATED WHITE BLOOD CELL COUNT, UNSPECIFIED Qualifiers: Leukocytosis type: other Qualified Code(s): D72.828 - Other elevated white blood cell count (10) Renal transplant recipient Code(s): Z94.0 - KIDNEY TRANSPLANT STATUS Assessment/Plan This is a 57 yo male w/ pmhx of s/p Renal transplant in 2009 @ [facility] (on anti rejection medications) admitted to floor for management of pulm edema c/b sz episode, tachycardia, and n/v now transferred back to ICu for further management prior to transfer to [facility]. #Sepsis #Seizure Episode #Acute on Chronic Diastolic Heart Failure #Paroxysmal Atrial Fibrillation #h/o Renal Transplant #HTN #DM - Tylenol PRN for fever - ABX per ID - trend lact - Cont keppra - Lasix as needed - continue immunosuppressives; although they are PO, IV not available here. - check tacro level - monitor urine output, creatinine - metoprolol for rate control - ZOfran for nausea - DVT prophylaxis dispo: transfer to [facility] arranged DALI Stevens CC time: 30mins
[2017-11-06] MEDS ORDERED: METOPROLOL TARTRATE 5 MG/5 ML VIAL IVPUSH ONE ×2 (22:32→23:00)
[2017-11-06] MEDS ORDERED: ONDANSETRON 4 MG/2 ML VIAL IVPUSH ONE (22:33)
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
[2017-11-07] MEDS ORDERED: SODIUM CHLORIDE 0.9% 250 ML INFUS.BAG IV ONE (00:36)
[2017-11-07 01:42] LABS: BASO % 0.3 % (0-2.0); EOS % 0.4 % (0-4.5); HEMATOCRIT 29.4 % (35.4-49); HEMOGLOBIN 9.3 GM/dL (11.7-16.9); LYMPH % 19.2 % (8-40); MCH 25.1 pg (25.7-33.7); MCHC 31.8 g/dl (32.0-35.9); MEAN CELL VOLUME 79.1 fl (80-96); MEAN PLT VOLUME 10.6 fl (7.5-11.1); MONO % 10.2 % (3.8-10.2); NEUT % 69.9 % (42.8-82.8); PLATELET COUNT 283 K/MM3 (134-434); RBC 3.72 M/mm3 (4.00-5.60); RDW 21.1 % (11.9-15.9); WHITE BLOOD COUNT 7.9 K/mm3 (4.0-10.0)
[2017-11-07] MEDS: TAMSULOSIN HCL 0.4 MG CAP.ER.24H (FP) PO SCH ×2 (02:03→21:55)
[2017-11-07] MEDS: METOPROLOL TARTRATE 50 MG TABLET (FP) PO SCH ×3 (02:03→21:53)
[2017-11-07] MEDS: MYCOPHENOLATE SODIUM 360 MG TABLET.DR PO SCH ×3 (02:03→22:41)
[2017-11-07] MEDS: MAGNESIUM OXIDE 400 MG TABLET (FP) PO SCH ×3 (02:04→21:54)
[2017-11-07] MEDS: INSULIN SLIDING SCALE (NOVOLOG) 1 VIAL SQ SCH ×5 (02:04→21:54)
[2017-11-07] MEDS: TACROLIMUS ANHYDROUS 1 MG CAPSULE PO SCH ×3 (02:04→22:40)
[2017-11-07] MEDS: SODIUM BICARBONATE 650 MG TABLET PO SCH ×3 (02:05→21:54)
[2017-11-07] MEDS ORDERED: PIPERACILLIN/TAZOBACTAM 4.5 GM VIAL IVPB ONE ×3 (02:08→17:49)
[2017-11-07] MEDS ORDERED: DEXTROSE 5%-WATER 100 ML IVPB ONE ×2 (02:08→09:33)
[2017-11-07 02:09] LABS: ALBUMIN 2.3 g/dl (3.4-5.0); ALK PHOS 76 U/L (45-117); ANION GAP 5 (8-16); BILIRUBIN,TOTAL 0.5 mg/dL (0.2-1.0); BLOOD UREA NITROGEN 32 mg/dL (7-18); CALCIUM 8.9 mg/dL (8.5-10.1); CHLORIDE 109 mmol/L (98-107); CO2 27 mmol/L (21-32); CREATININE 1.2 mg/dL (0.7-1.3); GLUCOSE,RANDOM 136 mg/dL (74-106); POTASSIUM 4.4 mmol/L (3.5-5.1); SGOT/AST 58 U/L (15-37); SGPT/ALT 35 U/L (12-78); SODIUM 141 mmol/L (136-145); TOT PROT 5.8 g/dl (6.4-8.2)
[2017-11-07] MEDS: PIPERACILLIN/TAZOB 4.5 GM 4.5 GM in DEXTROSE 5%-WATER 100 ML IVPB SCH ×3 (02:10→17:59)
[2017-11-07] MEDS: HEPARIN NA (PORCINE) 5,000 UNITS/ML 1ML VIAL SQ SCH ×3 (05:44→21:53)
[2017-11-07] MEDS: INSULIN (LEVEMIR) 100 UNITS/ML UNITS SQ SCH ×2 (06:44→06:45)
[2017-11-07 07:15] LABS: CHLORIDE 106 mmol/L (98-107); SODIUM 140 mmol/L (136-145)
[2017-11-07 07:40] LABS: ALBUMIN 2.4 g/dl (3.4-5.0); ALK PHOS 82 U/L (45-117); ANION GAP 8 (8-16); BILIRUBIN,TOTAL 0.7 mg/dL (0.2-1.0); BLOOD UREA NITROGEN 30 mg/dL (7-18); CALCIUM 9.7 mg/dL (8.5-10.1); CO2 26 mmol/L (21-32); CREATININE 1.2 mg/dL (0.7-1.3); GLUCOSE,RANDOM 159 mg/dL (74-106); MAGNESIUM 1.8 mg/dL (1.8-2.4); SGOT/AST 57 U/L (15-37); SGPT/ALT 38 U/L (12-78); TOT PROT 6.3 g/dl (6.4-8.2)
[2017-11-07 07:48] LABS: BASO % 0.2 % (0-2.0); EOS % 0.6 % (0-4.5); HEMATOCRIT 30.1 % (35.4-49); HEMOGLOBIN 9.8 GM/dL (11.7-16.9); MCH 26.4 pg (25.7-33.7); MCHC 32.7 g/dl (32.0-35.9); MEAN CELL VOLUME 80.5 fl (80-96); MEAN PLT VOLUME 10.7 fl (7.5-11.1); MONO % 9.2 % (3.8-10.2); PLATELET COUNT 284 K/MM3 (134-434); RBC 3.74 M/mm3 (4.00-5.60); RDW 20.9 % (11.9-15.9); WHITE BLOOD COUNT 8.3 K/mm3 (4.0-10.0)
--- NOTE | 2017-11-07 08:11 | PN ---
Progress Note, Physician Chief Complaint: Events noted Transferred to ICU due to episodes of JUAN and change in mental status Remains febrile ID f/u noted History of Present Illness: TELE: Reviewed. NSR with periods APCs and episodes AF w/ RVR overnight He denies CP, SOB or abdominal pain Denies headache He is alert this AM and moving all four extremities, following commands. Oriented to person and place - Current Medication List Current Medications: Active Medications Acetaminophen (Tylenol -) 650 mg PO Q4H PRN PRN Reason: FEVER Last Admin: 11/06/17 20:20 Dose: 650 mg Acetaminophen (Ofirmev Injection -) 1,000 mg IVPB Q6H PRN PRN Reason: FEVER Amlodipine Besylate (Norvasc -) 5 mg PO DAILY [facility] Last Admin: 11/06/17 12:02 Dose: Not Given Aspirin (Asa -) 81 mg PO DAILY [facility] Last Admin: 11/06/17 11:59 Dose: Not Given Heparin Sodium (Porcine) (Heparin -) 5,000 unit SQ TID [facility] Last Admin: 11/07/17 05:44 Dose: 5,000 unit Piperacillin Sod/Tazobactam (Sod 4.5 gm/ Dextrose) 100 mls @ 200 mls/hr IVPB Q8H-IV [facility]; Protocol Last Admin: 11/07/17 02:10 Dose: 200 mls/hr Insulin Aspart (Novolog Vial Sliding Scale -) 1 vial SQ ACHS [facility]; Protocol Last Admin: 11/07/17 06:42 Dose: 2 units Insulin Detemir (Levemir Vial) 15 units SQ AM [facility] Last Admin: 11/07/17 06:45 Dose: 15 units Levetiracetam (Keppra Injection -) 750 mg IVPB BID [facility] Last Admin: 11/06/17 22:28 Dose: 750 mg Magnesium Oxide (Mag-Ox -) 400 mg PO BID [facility] Last Admin: 11/07/17 02:04 Dose: Not Given Metoprolol Tartrate (Lopressor -) 100 mg PO BID [facility] Last Admin: 11/07/17 02:03 Dose: Not Given Mycophenolate Sodium (Mycophenolic Acid) 360 mg PO BID [facility] Last Admin: 11/07/17 02:03 Dose: Not Given Potassium Chloride (K-Dur -) 20 meq PO DAILY [facility] Last Admin: 11/06/17 12:01 Dose: Not Given Prednisone (Deltasone -) 5 mg PO DAILY [facility] Last Admin: 11/06/17 12:00 Dose: Not Given Pyridoxine HCl (Vitamin B6 -) 25 mg PO DAILY [facility] Last Admin: 11/06/17 12:03 Dose: Not Given Sodium Bicarbonate (Sodium Bicarbonate -) 650 mg PO BID [facility] Last Admin: 11/07/17 02:05 Dose: Not Given Tacrolimus (Prograf) 4 mg PO BID [facility] Last Admin: 11/07/17 02:04 Dose: Not Given Tamsulosin HCl (Flomax -) 0.4 mg PO HS [facility] Last Admin: 11/07/17 02:03 Dose: Not Given - Objective Vital Signs: Vital Signs Temperature 101 F H 11/06/17 20:00 Pulse Rate 95 H 11/07/17 03:10 Respiratory Rate 24 11/07/17 05:18 Blood Pressure 167/89 11/07/17 03:10 O2 Sat by Pulse Oximetry (%) 97 11/07/17 05:18 Constitutional: Yes: No Distress Eyes: Yes: Conjunctiva Clear Cardiovascular: Yes: Regular Rate and Rhythm Respiratory: Yes: CTA Bilaterally Gastrointestinal: Yes: Soft (no rebound or guarding) Edema: No Neurological: Yes: Alert Labs: CBC, BMP 11/07/17 05:30 11/07/17 05:30 INR, PTT INR 1.10 (0.82-1.09) 10/31/17 01:27 - ....Imaging Chest X-ray: Image Reviewed EKG: Image Reviewed Assessment/Plan IMP: Breakthrough seizures Fevers Acute on chronic diastolic CHF in setting of uncontrolled HTN- improved Chronic HTN, hypertensive heart disease DM PAF, PSVT H/o renal transplant REC: 1. CXR and clinically improved. Lasix being held due to fevers, improved volume status and bump in creatinine- which has stabilized and improved. Daily BMP 2. Continue Metoprolol for HTN, SVT and PAF. Periods JUAN likely probably being driven by fever. Continue tele in ICU. 3. Continue ASA therapy. Patient probably high risk for full AC due to seizure history/ breakthrough seizures ---> fall risk. If seizures prove to be well controlled moving forward, can reconsider use of full AC. 4.Repeat head CT. 5. DVT prophylaxis. 6. Elevated D-dimer, non-specific. Low clinical suspicion pulmonary embolism. LE duplex negative. 7. ID follow up requested for fevers noted. CT A/P recommended when patient stable for transport.
[2017-11-07] MEDS ORDERED: PT OWN MED DRAWER 7, Y5N ONE ×2 (09:34→23:00)
[2017-11-07] MEDS: amLODIPine BESYLATE 5 MG TABLET (FP) PO SCH (09:36)
[2017-11-07] MEDS: ASPIRIN 81 MG CHEWABLE TABLETS PO SCH (09:36)
[2017-11-07] MEDS: levETIRAcetam 500 MG/5 ML INJECTION VIAL IVPB SCH ×2 (09:37→21:53)
[2017-11-07] MEDS: POTASSIUM CHLORIDE TABS 20 MEQ TABLET.ER (FP) PO SCH (09:37)
[2017-11-07] MEDS: PYRIDOXINE HCL (B-6) 50 MG TABLET (FP) PO SCH (09:39)
[2017-11-07] MEDS: predniSONE 5 MG TABLET (UD) PO SCH (09:42)
--- NOTE | 2017-11-07 12:22 | PN ---
Teaching Attending Note Name of Resident: Brant Goodrich ATTENDING PHYSICIAN STATEMENT I saw and evaluated the patient. I reviewed the resident's note and discussed the case with the resident. I agree with the resident's findings and plan as documented. SUBJECTIVE: Pt seen and examined in the ICU. Somnolent but arousable. Febrile overnight. OBJECTIVE: Vital Signs Period Temp Pulse Resp BP Sys/Barcenas Pulse Ox Last 24 Hr 98.1 F-101 F 86-126 20-26 145-167/60-89 97-98 Intake & Output 11/04/17 11/05/17 11/06/17 11/07/17 23:59 23:59 23:59 23:59 Intake Total 406 611 7476 Output Total 2125 1700 1000 400 Balance -1545 -810 180 -400 Weight 69.309 kg 68.946 kg 72.03 kg Gen: somnolent but arousable Heart: RRR Lung: decreased breath sounds at the bases Abd: soft, nontender Ext: no edema CBC, BMP 11/07/17 05:30 11/07/17 05:30 Active Medications Acetaminophen (Tylenol -) 650 mg PO Q4H PRN PRN Reason: FEVER Last Admin: 11/06/17 20:20 Dose: 650 mg Acetaminophen (Ofirmev Injection -) 1,000 mg IVPB Q6H PRN PRN Reason: FEVER Last Admin: 11/07/17 11:06 Dose: 1,000 mg Amlodipine Besylate (Norvasc -) 5 mg PO DAILY [facility] Last Admin: 11/07/17 09:36 Dose: 5 mg Aspirin (Asa -) 81 mg PO DAILY [facility] Last Admin: 11/07/17 09:36 Dose: 81 mg Heparin Sodium (Porcine) (Heparin -) 5,000 unit SQ TID [facility] Last Admin: 11/07/17 05:44 Dose: 5,000 unit Piperacillin Sod/Tazobactam (Sod 4.5 gm/ Dextrose) 100 mls @ 200 mls/hr IVPB Q8H-IV [facility]; Protocol Last Admin: 11/07/17 09:47 Dose: 200 mls/hr Insulin Aspart (Novolog Vial Sliding Scale -) 1 vial SQ ACHS [facility]; Protocol Last Admin: 11/07/17 06:42 Dose: 2 units Insulin Detemir (Levemir Vial) 15 units SQ AM [facility] Last Admin: 11/07/17 06:45 Dose: 15 units Levetiracetam (Keppra Injection -) 750 mg IVPB BID [facility] Last Admin: 11/07/17 09:37 Dose: 750 mg Magnesium Oxide (Mag-Ox -) 400 mg PO BID [facility] Last Admin: 11/07/17 09:37 Dose: 400 mg Metoprolol Tartrate (Lopressor -) 100 mg PO BID [facility] Last Admin: 11/07/17 09:37 Dose: 100 mg Mycophenolate Sodium (Mycophenolic Acid) 360 mg PO BID [facility] Last Admin: 11/07/17 09:41 Dose: 360 mg Potassium Chloride (K-Dur -) 20 meq PO DAILY [facility] Last Admin: 11/07/17 09:37 Dose: 20 meq Prednisone (Deltasone -) 5 mg PO DAILY [facility] Last Admin: 11/07/17 09:42 Dose: 5 mg Pyridoxine HCl (Vitamin B6 -) 25 mg PO DAILY [facility] Last Admin: 11/07/17 09:39 Dose: 25 mg Sodium Bicarbonate (Sodium Bicarbonate -) 650 mg PO BID [facility] Last Admin: 11/07/17 09:37 Dose: 650 mg Tacrolimus (Prograf) 4 mg PO BID [facility] Last Admin: 11/07/17 09:40 Dose: 4 mg Tamsulosin HCl (Flomax -) 0.4 mg PO HS [facility] Last Admin: 11/07/17 02:03 Dose: Not Given ASSESSMENT AND PLAN: Fevers Seizure Episode Acute on Chronic Diastolic Heart Failure Paroxysmal Atrial Fibrillation Pleural Effusion h/o Renal Transplant HTN DM - continue antibiotics per ID - f/u cultures - may need LP - antiepileptics - monitor urine output, creatinine - daily weights - rate controlled - continue anticoagulation - O2 as needed - aspiration precautions - continue immunosuppressives - DVT prophylaxis - for transfer to [facility]
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
--- NOTE | 2017-11-07 12:46 | PN ---
Progress Note (short form) - Note Progress Note: transferred to ICU had nausea and vomiting on telemetry, now resolved, eating lunch no headache, no chest pain, no abdominal pain, no visual changes has a [place] he is alert and oriented, awaiting transfer to [facility] seen by Dr Santamaria yesterday and started on vancomycin/zosyn cultures sent HIV negative prior crypt antigen (serum)- negative repeat head ct unchanged Vital Signs Period Temp Pulse Resp BP Sys/Barcenas Pulse Ox Last 24 Hr 98.1 F-101 F 86-126 20-26 145-167/60-89 97-98 no thrush neck supple cor-rrr lungs-clear abd-soft, nt ext- no edema [place] CBC, BMP 11/07/17 05:30 11/07/17 05:30 Microbiology 11/03/17 20:15 Blood - Peripheral Venous Blood Culture - Preliminary NO GROWTH OBTAINED AFTER 72 HOURS, INCUBATION TO CONTINUE FOR 2 DAYS. 11/03/17 20:00 Blood - Peripheral Venous Blood Culture - Preliminary NO GROWTH OBTAINED AFTER 72 HOURS, INCUBATION TO CONTINUE FOR 2 DAYS. 11/02/17 11:55 Serum Cryptococcal Antigen - Preliminary 11/03/17 20:20 Urine - Urine [place] Urine Culture - Final NO GROWTH OBTAINED 10/31/17 03:19 Blood - Peripheral Venous Blood Culture - Final NO GROWTH AFTER 5 DAYS INCUBATION 10/31/17 03:49 Blood - Peripheral Venous Blood Culture - Final NO GROWTH AFTER 5 DAYS INCUBATION 10/31/17 19:45 Nares - Mrsa Screen - Right MRSA Screen - Final NO MRSA ISOLATED 10/31/17 19:45 Nares - Mrsa Screen - Left MRSA Screen - Final NO MRSA ISOLATED 10/31/17 16:00 Urine - Urine [place] Urine Culture - Final NO GROWTH OBTAINED HIV negative quant gold pending cxray improved a/p FUO-clinically 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 of 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 -awake and alert would consider ct abd/pelvis and LP for completeness given no source of fevers and recent seizure (he states he had prior seizure at [facility]?) currently on zosyn pending blood cultures s/p renal transplant awaiting transfer to [facility] Problem List - Problems (1) Seizures Code(s): R56.9 - UNSPECIFIED CONVULSIONS (2) Renal transplant recipient Code(s): Z94.0 - KIDNEY TRANSPLANT STATUS (3) HTN (hypertension) Code(s): I10 - ESSENTIAL (PRIMARY) HYPERTENSION (4) Diabetes Code(s): E11.9 - TYPE 2 DIABETES MELLITUS WITHOUT COMPLICATIONS
--- NOTE | 2017-11-07 12:51 | PN ---
Physical Exam: SUBJECTIVE: Patient seen and examined at bedside. Low grade fevers overnight. No new complaints. More lethargic than usual today. Denies CP,[place], SOB, palpitations, N/V. OBJECTIVE: Vital Signs Period Temp Pulse Resp BP Sys/Barcenas Pulse Ox Last 24 Hr 98.1 F-101 F 77-126 20-26 141-167/60-89 97-98 GENERAL: awake but lethargic. HEAD: NC/AT EYES: PERRL, EOMI, ENT: moist mucous membranes. NECK:supple. LUNGS: decreased bibasilar breath sounds. HEART: RRR, NL S1, S2 no murmur, rub or gallop. ABDOMEN: Soft, NT/ND, NABS EXTREMITIES: 2+ pulses, warm, well-perfused, no edema. Laboratory Results - last 24 hr 11/06/17 11/06/17 11/06/17 12:50 12:50 18:20 WBC RBC Hgb Hct MCV MCH MCHC RDW Plt Count MPV Absolute Neuts (auto) Neutrophils % Lymphocytes % Monocytes % Eosinophils % Basophils % Nucleated RBC % Sodium Potassium Chloride Carbon Dioxide Anion Gap BUN Creatinine Creat Clearance w eGFR POC Glucometer 155 Random Glucose Lactic Acid Calcium Magnesium Total Bilirubin AST ALT Alkaline Phosphatase C-Reactive Protein 20.1 H Total Protein Albumin HIV 1&2 Antibody Screen Negative HIV P24 Antigen Negative 11/07/17 11/07/17 11/07/17 01:10 01:10 01:10 WBC 7.9 RBC 3.72 L Hgb 9.3 L Hct 29.4 L MCV 79.1 L MCH 25.1 L MCHC 31.8 L RDW 21.1 H Plt Count 283 MPV 10.6 Absolute Neuts (auto) 5.6 Neutrophils % 69.9 Lymphocytes % 19.2 D Monocytes % 10.2 Eosinophils % 0.4 D Basophils % 0.3 Nucleated RBC % 0 Sodium 141 Potassium 4.4 Chloride 109 H Carbon Dioxide 27 Anion Gap 5 L BUN 32 H Creatinine 1.2 Creat Clearance w eGFR > 60 POC Glucometer Random Glucose 136 H D Lactic Acid 0.9 Calcium 8.9 Magnesium Total Bilirubin 0.5 AST 58 H D ALT 35 D Alkaline Phosphatase 76 C-Reactive Protein Total Protein 5.8 L Albumin 2.3 L HIV 1&2 Antibody Screen HIV P24 Antigen 11/07/17 11/07/17 11/07/17 05:30 05:30 05:30 WBC 8.3 RBC 3.74 L Hgb 9.8 L Hct 30.1 L MCV 80.5 MCH 26.4 MCHC 32.7 RDW 20.9 H Plt Count 284 MPV 10.7 Absolute Neuts (auto) 6.0 Neutrophils % 72.0 Lymphocytes % 18.0 Monocytes % 9.2 Eosinophils % 0.6 Basophils % 0.2 Nucleated RBC % 0 Sodium 140 Potassium 5.0 Chloride 106 Carbon Dioxide 26 Anion Gap 8 BUN 30 H Creatinine 1.2 Creat Clearance w eGFR > 60 POC Glucometer Random Glucose 159 H Lactic Acid 1.1 Calcium 9.7 Magnesium 1.8 Total Bilirubin 0.7 D AST 57 H ALT 38 Alkaline Phosphatase 82 C-Reactive Protein Total Protein 6.3 L Albumin 2.4 L HIV 1&2 Antibody Screen HIV P24 Antigen Active Medications Generic Name Dose Route Start Last Admin Trade Name Freq PRN Reason Stop Dose Admin Acetaminophen 650 mg 11/03/17 23:18 11/06/17 20:20 Tylenol - PO 650 mg Q4H PRN Administration FEVER Acetaminophen 1,000 mg 11/06/17 22:06 11/07/17 11:06 Ofirmev Injection - IVPB 1,000 mg Q6H PRN Administration FEVER Amlodipine Besylate 5 mg 11/04/17 10:00 11/07/17 09:36 Norvasc - PO 5 mg DAILY [facility] Administration Aspirin 81 mg 11/04/17 10:00 11/07/17 09:36 Asa - PO 81 mg DAILY [facility] Administration Heparin Sodium (Porcine) 5,000 unit 11/04/17 14:00 11/07/17 05:44 Heparin - SQ 5,000 unit TID [facility] Administration Piperacillin Sod/Tazobactam 100 mls @ 200 mls/hr 11/06/17 18:00 11/07/17 09: 47 Sod 4.5 gm/ Dextrose IVPB 200 mls/hr Q8H-IV [facility] Administration Protocol Insulin Aspart 1 vial 11/03/17 22:00 11/07/17 06:42 Novolog Vial Sliding Scale - SQ 2 units ACHS [facility] Administration Protocol Insulin Detemir 15 units 11/04/17 07:00 11/07/17 06:45 Levemir Vial SQ 15 units AM [facility] Administration Levetiracetam 750 mg 11/03/17 22:00 11/07/17 09:37 Keppra Injection - IVPB 750 mg BID [facility] Administration Magnesium Oxide 400 mg 11/03/17 22:00 11/07/17 09:37 Mag-Ox - PO 400 mg BID [facility] Administration Metoprolol Tartrate 100 mg 11/03/17 22:00 11/07/17 09:37 Lopressor - PO 100 mg BID [facility] Administration Mycophenolate Sodium 360 mg 11/03/17 22:00 11/07/17 09:41 Mycophenolic Acid PO 360 mg BID [facility] Administration Potassium Chloride 20 meq 11/04/17 10:00 11/07/17 09:37 K-Dur - PO 20 meq DAILY [facility] Administration Prednisone 5 mg 11/04/17 10:00 11/07/17 09:42 Deltasone - PO 5 mg DAILY [facility] Administration Pyridoxine HCl 25 mg 11/04/17 10:00 11/07/17 09:39 Vitamin B6 - PO 25 mg DAILY [facility] Administration Sodium Bicarbonate 650 mg 11/03/17 22:00 11/07/17 09:37 Sodium Bicarbonate - PO 650 mg BID [facility] Administration Tacrolimus 4 mg 11/03/17 22:00 11/07/17 09:40 Prograf PO 4 mg BID [facility] Administration Tamsulosin HCl 0.4 mg 11/03/17 22:00 11/07/17 02:03 Flomax - PO Not Given HS [facility] ASSESSMENT/PLAN: 57 yo M with pmhx of kidney transplant admitted to ICU 2/2 pulmonary edema and hypertensive emergency. Neuro: * neuro checks, head CT pending * continue Keppra * consult: appreciated. CV: (Hypertension, Paroxysmal atrial fibrillation) * eliquis restarted * Metoprolol and Amlodipine for BP control. Pulmonary: * maintaining airway GI: * No active GI problems at this time * tolerating ADA diet. Renal: * on tacrolimus will level and monitor Mg. * Dr. Maradiaga consult appreciated. * renal function at baseline. Infectious Disease: * consult Dr. Desouza appreciated. 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 - New Patient This patient is new to me today: Yes Date on this admission: 11/07/17 - Critical Care Critical Care patient: Yes Total Critical Care Time (in minutes): 47 Critical Care Statement: The care of this patient involved high complexity decision making to prevent further life threatening deterioration of the patient 's condition and/or to evaluate & treat vital organ system(s) failure or risk of failure.
[2017-11-07] MEDS ORDERED: METOCLOPRAMIDE HCL INJECTION 10 MG/2 ML VIAL IVPUSH ONE (16:30)
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
[2017-11-08] MEDS ORDERED: DEXTROSE 5%-WATER 100 ML IVPB ONE ×2 (01:21→10:12)
[2017-11-08] MEDS ORDERED: PIPERACILLIN/TAZOBACTAM 4.5 GM VIAL IVPB ONE ×2 (01:21→10:12)
[2017-11-08] MEDS: PIPERACILLIN/TAZOB 4.5 GM 4.5 GM in DEXTROSE 5%-WATER 100 ML IVPB SCH ×2 (01:44→10:38)
[2017-11-08] MEDS: HEPARIN NA (PORCINE) 5,000 UNITS/ML 1ML VIAL SQ SCH (06:42)
[2017-11-08] MEDS: INSULIN SLIDING SCALE (NOVOLOG) 1 VIAL SQ SCH ×2 (06:43→12:03)
[2017-11-08] MEDS: INSULIN (LEVEMIR) 100 UNITS/ML UNITS SQ SCH (06:44)
[2017-11-08 07:18] LABS: BASO % 0.2 % (0-2.0); EOS % 1.3 % (0-4.5); HEMATOCRIT 28.9 % (35.4-49); HEMOGLOBIN 9.3 GM/dL (11.7-16.9); MCH 25.7 pg (25.7-33.7); MCHC 32.2 g/dl (32.0-35.9); MEAN CELL VOLUME 79.9 fl (80-96); MEAN PLT VOLUME 10.1 fl (7.5-11.1); NEUT % 64.5 % (42.8-82.8); PLATELET COUNT 298 K/MM3 (134-434); RBC 3.61 M/mm3 (4.00-5.60); RDW 20.8 % (11.9-15.9); WHITE BLOOD COUNT 8.1 K/mm3 (4.0-10.0)
[2017-11-08 07:52] LABS: CHLORIDE 108 mmol/L (98-107); POTASSIUM 5.4 mmol/L (3.5-5.1); SODIUM 141 mmol/L (136-145)
[2017-11-08 08:26] LABS: ALBUMIN 2.3 g/dl (3.4-5.0); ALK PHOS 80 U/L (45-117); ANION GAP 8 (8-16); BILIRUBIN,TOTAL 0.7 mg/dL (0.2-1.0); BLOOD UREA NITROGEN 28 mg/dL (7-18); CALCIUM 9.7 mg/dL (8.5-10.1); CO2 25 mmol/L (21-32); CREATININE 1.2 mg/dL (0.7-1.3); GLUCOSE,RANDOM 89 mg/dL (74-106); SGOT/AST 49 U/L (15-37); SGPT/ALT 38 U/L (12-78); TOT PROT 6.2 g/dl (6.4-8.2)
--- NOTE | 2017-11-08 08:34 | PN ---
Progress Note, Physician Chief Complaint: Repeat head CT no acute findings This AM seems more alert, no distress Denies photophobia no CP, SOB Denies abdominal pain - Current Medication List Current Medications: Active Medications Acetaminophen (Tylenol -) 650 mg PO Q4H PRN PRN Reason: FEVER Last Admin: 11/06/17 20:20 Dose: 650 mg Acetaminophen (Ofirmev Injection -) 1,000 mg IVPB Q6H PRN PRN Reason: FEVER Last Admin: 11/07/17 11:06 Dose: 1,000 mg Amlodipine Besylate (Norvasc -) 5 mg PO DAILY [facility] Last Admin: 11/07/17 09:36 Dose: 5 mg Aspirin (Asa -) 81 mg PO DAILY [facility] Last Admin: 11/07/17 09:36 Dose: 81 mg Heparin Sodium (Porcine) (Heparin -) 5,000 unit SQ TID [facility] Last Admin: 11/08/17 06:42 Dose: 5,000 unit Piperacillin Sod/Tazobactam (Sod 4.5 gm/ Dextrose) 100 mls @ 200 mls/hr IVPB Q8H-IV [facility]; Protocol Last Admin: 11/08/17 01:44 Dose: 200 mls/hr Insulin Aspart (Novolog Vial Sliding Scale -) 1 vial SQ ACHS [facility]; Protocol Last Admin: 11/08/17 06:43 Dose: Not Given Insulin Detemir (Levemir Vial) 15 units SQ AM [facility] Last Admin: 11/08/17 06:44 Dose: Not Given Levetiracetam (Keppra Injection -) 750 mg IVPB BID [facility] Last Admin: 11/07/17 21:53 Dose: 750 mg Magnesium Oxide (Mag-Ox -) 400 mg PO BID [facility] Last Admin: 11/07/17 21:54 Dose: 400 mg Metoprolol Tartrate (Lopressor -) 100 mg PO BID [facility] Last Admin: 11/07/17 21:53 Dose: 100 mg Mycophenolate Sodium (Mycophenolic Acid) 360 mg PO BID [facility] Last Admin: 11/07/17 22:41 Dose: 360 mg Potassium Chloride (K-Dur -) 20 meq PO DAILY [facility] Last Admin: 11/07/17 09:37 Dose: 20 meq Prednisone (Deltasone -) 5 mg PO DAILY [facility] Last Admin: 11/07/17 09:42 Dose: 5 mg Pyridoxine HCl (Vitamin B6 -) 25 mg PO DAILY [facility] Last Admin: 11/07/17 09:39 Dose: 25 mg Sodium Bicarbonate (Sodium Bicarbonate -) 650 mg PO BID [facility] Last Admin: 11/07/17 21:54 Dose: 650 mg Tacrolimus (Prograf) 4 mg PO BID [facility] Last Admin: 11/07/17 22:40 Dose: 4 mg Tamsulosin HCl (Flomax -) 0.4 mg PO HS [facility] Last Admin: 11/07/17 21:55 Dose: 0.4 mg - Objective Vital Signs: Vital Signs Temperature 98.5 F 11/08/17 06:00 Pulse Rate 75 11/08/17 06:00 Respiratory Rate 16 11/08/17 06:00 Blood Pressure 157/74 11/08/17 06:00 O2 Sat by Pulse Oximetry (%) 99 11/07/17 21:00 Constitutional: Yes: Calm Cardiovascular: Yes: Regular Rate and Rhythm Respiratory: Yes: CTA Bilaterally Gastrointestinal: Yes: Soft (NT, no rebound or guarding) Edema: No Neurological: Yes: Alert, Oriented ...Motor Strength: WNL Labs: CBC, BMP 11/08/17 06:17 11/08/17 06:17 INR, PTT INR 1.10 (0.82-1.09) 10/31/17 01:27 - ....Imaging EKG: Image Reviewed Assessment/Plan IMP: Breakthrough seizures Fevers Acute on chronic diastolic CHF in setting of uncontrolled HTN- improved Chronic HTN, hypertensive heart disease DM PAF, PSVT H/o renal transplant REC: 1. CXR and clinically improved. Lasix being held due to fevers, improved volume status and bump in creatinine- which has stabilized and improved. Daily BMP 2. Continue Metoprolol for HTN, SVT and PAF. Periods JUAN likely probably being driven by intermittent fevers. Continue tele. 3. Continue ASA therapy. Patient probably high risk for full AC due to seizure history/ breakthrough seizures ---> fall risk. If seizures prove to be well controlled moving forward, can reconsider use of full AC. 4.Repeat head CT yesterday without acute changes; mental status back to baseline for this admission. 5. DVT prophylaxis. 6. Elevated D-dimer, non-specific. Low clinical suspicion pulmonary embolism. LE duplex negative. 7. ID following for FUO
[2017-11-08] MEDS ORDERED: PT OWN MED DRAWER 7, Y5N ONE (10:11)
[2017-11-08] MEDS: predniSONE 5 MG TABLET (UD) PO SCH (10:28)
[2017-11-08] MEDS: ASPIRIN 81 MG CHEWABLE TABLETS PO SCH (10:28)
[2017-11-08] MEDS: levETIRAcetam 500 MG/5 ML INJECTION VIAL IVPB SCH (10:28)
[2017-11-08] MEDS: METOPROLOL TARTRATE 50 MG TABLET (FP) PO SCH (10:32)
[2017-11-08] MEDS: MAGNESIUM OXIDE 400 MG TABLET (FP) PO SCH (10:32)
[2017-11-08] MEDS: TACROLIMUS ANHYDROUS 1 MG CAPSULE PO SCH (10:33)
[2017-11-08] MEDS: amLODIPine BESYLATE 5 MG TABLET (FP) PO SCH (10:33)
[2017-11-08] MEDS: MYCOPHENOLATE SODIUM 360 MG TABLET.DR PO SCH (10:33)
[2017-11-08] MEDS: SODIUM BICARBONATE 650 MG TABLET PO SCH (10:35)
[2017-11-08] MEDS: PYRIDOXINE HCL (B-6) 50 MG TABLET (FP) PO SCH (10:35)
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
[2017-11-08 12:23] VITALS: BP 163/70; PULSE 78; TEMP 98.1
--- NOTE | 2017-11-08 15:00 | EKG ---
Test Reason : Blood Pressure : / mmHG Vent. Rate : 081 BPM Atrial Rate : 081 BPM P-R Int : 156 ms QRS Dur : 078 ms QT Int : 358 ms P-R-T Axes : 050 085 -03 degrees QTc Int : 415 ms SINUS RHYTHM WITH PREMATURE ATRIAL COMPLEXES ABNORMAL QRS-T ANGLE, CONSIDER PRIMARY T WAVE ABNORMALITY ABNORMAL ECG WHEN COMPARED WITH ECG OF 02-NOV-2017 05:56, QT HAS SHORTENED Confirmed by MD NICOLE, SUZY ([id number]) on 11/08/2017 2:59:56 PM Referred By: Confirmed By:SUZY RIVERA MD
== END 2017-11-08 12:13 | disposition short-term general hospital (02) | DRG 194 ==
LOC: SUPCPDRO 00:20 → JER 00:20 → JERBED 02:54 → J4W 04:18 → JICU 11-02 08:25 → J4W 11-03 20:55 → JICU 11-06 22:02 → J4S 11-07 19:28
PROVIDERS: ADMIT Internal Medicine; ATTEND Internal Medicine
DX: I13.0 Hypertensive heart and chronic kidney disease with heart failure and stage 1 through stage 4 chronic kidney disease, or unspecified chronic kidney disease (principal); Z94.0 Kidney transplant status; I48.0 Paroxysmal atrial fibrillation; R56.9 Unspecified convulsions; I47.1 Supraventricular tachycardia; I16.1 Hypertensive emergency; Z87.891 Personal history of nicotine dependence; N18.9 Chronic kidney disease, unspecified; E11.65 Type 2 diabetes mellitus with hyperglycemia; D72.829 Elevated white blood cell count, unspecified; R50.9 Fever, unspecified; I50.33 Acute on chronic diastolic (congestive) heart failure
CPT/HCPCS: 36415; 36600; 70450-TC; 71045-TC-FY; 71250-TC; 76776-TC; 80048; 80053; 80197; 81003; 81015; 82550; 82803; 82962; 83605; 83690; 83735; 83880; 84100; 84443; 84484; 85025; 85379; 85610; 85651; 85730; 86140; 86480; 87040; 87081; 87086; 87389; 87899; 93005; 93010; 93306-TC; 93970-TC; 94660; 99282-25; J0131; J1644

== ENCOUNTER 2019-12-02 13:49 | Inpatient (IN) | payer OTHER ==
--- NOTE | 2019-12-02 14:02 | PDOC ---
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 He reports noticing symptoms when he awoke at 0630 this AM. He denies any change from baseline weakness, only limitation to movement being pain with movement. He is unable to ambulate at this time and lives alone at home. He denies fevers, chills, fatigue, nausea, vomiting. 6/10 pain to R knee, worsens with movement. He does not recall any of his prescribed medications, and is unsure if he is on a blood thinner. tPA Exclusion checklist 3-4.5h - Time Elapsed Date last known well: 12/01/19 Time last known well: 22:30 Elaspsed time: 1 Day(s) and 12 Hour(s) and 28 Minutes - Thrombolytic Therapy Candidate Is patient eligible for thrombolytic therapy: No - Ineligibility reason(s) Reasons No tPA given: Outside of window - delayed arrival NIH Stroke Scale - Last Known Well Date/Time & Onset Date Last Known Well: 12/01/19 Time Last Known Well: 22:30 - Initial Evaluation Level of consciousness: Alert Ask patient the month and their age: Answers both correctly Ask patient to open & close eyes; make fist and let go: Obeys both correctly Best gaze (horizontal eye movement): Normal Visual field testing: No visual field loss Facial paresis (Show teeth/raise eyebrows/close eyes tight): Normal symmetrical movement Motor Function: Left Arm: Normal Motor Function: Right Arm: Normal (extends arm 90 (or 45) degrees for 10 seconds without drift Motor Function: Left Leg: Normal (extends leg 30 degrees for 5 seconds without drift) Motor Function: Right Leg: Some effort against gravity Limb Ataxia: No ataxia Sensory(Use pinprick test arms,legs,trunk,face/side to side): Normal Best language (Describe picture, name items, read sentences): No Aphasia Dysarthria (read several words): Normal articulation Extinction and Inattention: No abnormality - Total Score NIH Stroke Scale Score: 2 Past History - Medical History Allergies/Adverse Reactions: Allergies Allergy/AdvReac Type Severity Reaction Status Date / Time No Known Allergies Allergy Verified 10/26/19 11:37 Home Medications: Ambulatory Orders Aspirin [ASA -] 81 mg PO DAILY 10/03/14 Metoprolol Tartrate [Lopressor] 25 mg PO BID 10/03/14 Multivitamins [Multivit ([facility] Formul[facility])] 1 tab PO DAILY 10/03/14 Tacrolimus Anhydrous [Prograf] 1 mg PO BID 10/03/14 Cinacalcet HCl [Sensipar] 30 mg PO DAILY 11/29/14 Prednisone 5 mg PO DAILY 04/03/17 Sodium Bicarbonate - 650 mg PO BID 04/03/17 Tamsulosin HCl [Flomax] 0.4 mg PO HS 04/03/17 Acetaminophen [Tylenol .Regular Strength -] 650 mg PO Q4H PRN tablet 04/07/17 Allopurinol [Zyloprim -] 100 mg PO DAILY 10/26/19 Atorvastatin Calcium 40 mg PO HS 10/26/19 Ergocalciferol [Vitamin D2] 50,000 unit PO Q7D@1000 10/26/19 Ferrous Sulfate [Feosol] 325 mg PO DAILY 10/26/19 Folic Acid - 1 mg PO DAILY 10/26/19 Furosemide [Lasix -] 40 mg PO DAILY 10/26/19 Sertraline HCl [Zoloft -] 25 mg PO DAILY 10/26/19 hydrALAZINE HCL [Apresoline -] 50 mg PO ASDIR 10/26/19 levETIRAcetam [Keppra -] 500 mg PO BID 10/26/19 Anemia: No Asthma: No COPD: No Diabetes: Yes Dialysis: No (former dialysis, now post kidney transplant) Disorders: Yes HTN: Yes - Surgical History Orthopedic Surgery: Yes (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 No weakness. HEAD, EYES, EARS, NOSE AND THROAT: No change in vision. No ear pain or discharge. No sore throat. CARDIOVASCULAR: No chest pain or shortness of breath RESPIRATORY: No cough, wheezing, or hemoptysis. GASTROINTESTINAL: No nausea, vomiting, diarrhea or constipation. GENITOURINARY: No dysuria, frequency, or change in urination. MUSCULOSKELETAL: R knee pain. No other joint or muscle swelling or pain. No neck or back pain. SKIN: No rash NEUROLOGIC: No headache, vertigo, loss of consciousness, or change in strength/sensation. ENDOCRINE: No increased thirst. No abnormal weight change HEMATOLOGIC/LYMPHATIC: No anemia, easy bleeding, or history of blood clots. ALLERGIC/IMMUNOLOGIC: No hives or skin allergy. *Physical Exam - Physical Exam GENERAL: Awake, alert, and fully oriented, in no acute distress HEAD: No signs of trauma, normocephalic, atraumatic EYES: PERRLA, EOMI, sclera anicteric, conjunctiva clear ENT: Auricles normal inspection, hearing grossly normal, nares patent, oropharynx clear without exudates. Moist mucosa NECK: Normal ROM, supple, no lymphadenopathy, JVD, or masses LUNGS: No distress, speaks full sentences, clear to auscultation bilaterally HEART: Regular rate and rhythm, normal S1 and S2, no murmurs, rubs or gallops, peripheral pulses normal and equal bilaterally. ABDOMEN: Soft, nontender, normoactive bowel sounds. No guarding, no rebound. No masses EXTREMITIES : R knee effusion noted, tenderness, warmth of joint. Otherwise Normal inspection, Normal range of motion, no edema. No clubbing or cyanosis NEUROLOGICAL: Cranial nerves II through XII grossly intact. Normal speech, normal gait, no focal sensorimotor deficits SKIN: Warm, Dry, normal turgor, no rashes or lesions noted ED Treatment Course - LABORATORY CBC & Chemistry Diagram: 12/02/19 14:29 12/02/19 14:29 Medical Decision Making - Medical Decision Making 12/02/19 14:11 59M w/hx HTN, prior CVA, afib, p/w R knee pain with effusion, tenderness on exam. Ddx gout, pseudogout, septic joint. Initially complained of worsening weakness which prompted immediate CT head, before clarifying his weakness was baseline since prior CVA. Plan: CT Head PT/INR, APTT CBC CMP EKG CXR Troponin I BGM ESR CRP Dispo: Admit --- ESR - 100 CRP - 24 Concern for septic joint, but unable to assess if patient is taking blood thinner. His pharmacy ([facility]) is closed. His sister reports that she is able to check his medications from his apartment and will try to call back. Additionally, he is taking anti-rejection medications and is immunocompromised. Plan to defer joint aspiration at this time. --- Discussed case with hospitalist team. At this facility we are unable to easily monitor anti-rejection medication levels (approx 1 week turnaround time) making it difficult to manage transplant patients. Further, his transplant and regular care team are at [facility]. Plan for transfer. Transfer paperwork initiated, patient consents for transfer to [facility]. --- Dr. Cherie Vega (ED) accepting physician for ED to ED transfer. [facility] unit en route. --- Patient transferred to [facility]. Discharge - Discharge Information Problems reviewed: Yes Clinical Impression/Diagnosis: Knee pain, Transplant Condition: Stable Disposition: TRANSFER ACUTE CARE/OTHER HOSP - Follow up/Referral - Patient Discharge Instructions - Post Discharge Activity
--- NOTE | 2019-12-02 14:30 | PDOC ---
Documentation entered by Julisa Michelle SCRIBE, acting as scribe for Snow Hyman MD. Snow Hyman MD: This documentation has been prepared by the Miguel Angel miles Ana, SCRIBE, under my direction and personally reviewed by me in its entirety. I confirm that the documentation accurately reflects all work, treatment, procedures, and medical decision making performed by me. Attending Attestation - Resident Resident Name: DonovanalexiFelipe - ED Attending Attestation I have performed the following: I have examined & evaluated the patient, The case was reviewed & discussed with the resident, I agree w/resident's findings & plan, Exceptions are as noted - HPI HPI: 12/02/19 14:05 Patient is a 59 year old male with a significant past medical history of ESRD, s/p renal transplant, HTN , afib, prior CVA here today c/o right leg pain and weakness. states he awoke at 6 am with this pain, knee, thigh pain. states he is unable to move his leg due to pain. denies f/c . no injury or falls. called EMS because the pain was severe. pt states he had a CVA 3 weeks ago, residual right sided weakness, was seen at [facility] and transferred to [facility]. was offered rehab but refused because he didn't thin he needed it. does have h/o gout. today awake with swollen painful knee. can't walk due to pain. had to call ambulance to get here. lives alone in an apartment. no f/c no cough no sob. unsure if he is on anticoagulants or not. 12/02/19 14:26 12/02/19 14:26 12/02/19 16:04 - Physicial Exam PE: 12/02/19 14:29 awake alert lungs clear bilat heart rrr no mrg abd soft nt nd ext wwp. right knee ttp. decreased rom secondary to pain. speech - Medical Decision Making 12/02/19 16:05 59 yo male h/o afib cva htn gouty arthritis here with painful swollen right knee. cant walk differential gout, traumatic injury. septic joint considered however no fever. will send labs esr, crp cmp pt ptt/ inr. ct head due to recent stroke, initially apparent weakness. xray right knee, cxr. 12/02/19 18:07 pt esr elevated 102, CRP 24.4, ua negative for uti, cxr unchanged. head ct negative or acute transfer. pt to be admitted. reports history of gout. unclear historian. sister confirmed. d/w [facility] transplant team for possible transfer. confirmed per chart review pt with h/o psuedogout around time of his transplant. considered tap of knee, however unclear if pt recently started on anticoagulant since he states stroke on last admission to [facility]. awaiting call back from transfer center. Heart Score/ECG Review #1 General ECG Interpretation: Sinus Rhythm, Normal Rate (sinus tachycardia, occas pvc, rate 101. no st elevation or depression.), Normal Intervals, No acute ischemic changes Discharge - Discharge Information Problems reviewed: Yes Clinical Impression/Diagnosis: Knee pain, Transplant - Follow up/Referral - Patient Discharge Instructions - Post Discharge Activity
[2019-12-02 14:50] LABS: BASO % 0.4 % (0-2.0); HEMATOCRIT 30.5 % (35.4-49); HEMOGLOBIN 9.7 GM/dL (11.7-16.9); LYMPH % 13.1 % (8-40); MCH 26.8 pg (25.7-33.7); MCHC 31.9 g/dl (32.0-35.9); MEAN CELL VOLUME 83.9 fl (80-96); MEAN PLT VOLUME 9.9 fl (7.5-11.1); MONO % 8.9 % (3.8-10.2); NEUT % 77.6 % (42.8-82.8); PLATELET COUNT 192 K/MM3 (134-434); RBC 3.63 M/mm3 (4.00-5.60); RDW 19.6 % (11.9-15.9); WHITE BLOOD COUNT 10.1 K/mm3 (4.0-10.0)
[2019-12-02 15:01] LABS: EPI CELLS 5 /uL (0-25.1); HYALINE CASTS 1 /uL (0-3.1); INR 1.27 (0.83-1.09); PH,URINE 5.5 (5.0-8.0); URINE APPEARANCE CLEAR; URINE BACTERIA 28 /uL (0-1359); URINE BILIRUBIN NEGATIVE (NEGATIVE); URINE COLOR YELLOW; URINE GLUCOSE (UA) NEGATIVE (NEGATIVE); URINE KETONE NEGATIVE (NEGATIVE); URINE LEUK ESTERASE NEGATIVE (NEGATIVE); URINE NITRITE NEGATIVE (NEGATIVE); URINE PROTEIN 3+ (NEGATIVE); URINE RBC 7 /uL (0-23.9); URINE UROBILINOGEN 0.2 mg/dL (0.2-1.0); URINE WBC 4 /uL (0-25.8)
[2019-12-02 15:04] LABS: ACTIVATED PTT 42.3 SECONDS (25.2-36.5)
[2019-12-02 15:11] LABS: ALBUMIN 3.3 g/dl (3.4-5.0); ALK PHOS 87 U/L (45-117); ANION GAP 14 MMOL/L (8-16); BILIRUBIN,TOTAL 0.9 mg/dL (0.2-1); BLOOD UREA NITROGEN 70.8 mg/dL (7-18); CHLORIDE 99 mmol/L (98-107); CO2 21 mmol/L (21-32); CREATININE 3.6 mg/dL (0.55-1.3); GLUCOSE,RANDOM 218 mg/dL (74-106); POTASSIUM 4.2 mmol/L (3.5-5.1); SGOT/AST 23 U/L (15-37); SGPT/ALT 17 U/L (13-61); SODIUM 133 mmol/L (136-145); TOT PROT 7.8 g/dl (6.4-8.2)
[2019-12-02 15:12] VITALS: BMI 30.2
[2019-12-02] MEDS ORDERED: morphine CARPU-JECT 4 MG/1 ML DISP.SYRIN IVPUSH ONE (15:23)
[2019-12-02] MEDS ORDERED: morphine SULFATE 4 MG/ML VIAL ONE (16:15)
[2019-12-02] MEDS ORDERED: predniSONE 20 MG TABLET (UD) PO ONE (16:23)
[2019-12-02] MEDS ORDERED: predniSONE 10 MG TABLET (UD) ONE (16:44)
[2019-12-02] MEDS ORDERED: predniSONE 20 MG TABLET (UD) ONE (16:44)
[2019-12-02 17:23] LABS: ERYTHROCYTE SEDIMENTATION RATE 102 mm/hr (0-20)
[2019-12-02 19:37] VITALS: PULSE 96; TEMP 99.1
[2019-12-02 19:40] VITALS: BP 126/65
--- NOTE | 2019-12-03 10:18 | EKG ---
Test Reason : Blood Pressure : / mmHG Vent. Rate : 101 BPM Atrial Rate : 101 BPM P-R Int : 168 ms QRS Dur : 090 ms QT Int : 350 ms P-R-T Axes : 045 043 003 degrees QTc Int : 453 ms SINUS TACHYCARDIA WITH OCCASIONAL PREMATURE VENTRICULAR COMPLEXES POSSIBLE LEFT ATRIAL ENLARGEMENT NONSPECIFIC ST ABNORMALITY ABNORMAL ECG WHEN COMPARED WITH ECG OF 26-OCT-2019 12:58, PREMATURE VENTRICULAR COMPLEXES ARE NOW PRESENT PREMATURE ATRIAL COMPLEXES ARE NO LONGER PRESENT T WAVE INVERSION LESS EVIDENT IN INFERIOR LEADS T WAVE INVERSION NO LONGER EVIDENT IN LATERAL LEADS Confirmed by Michael Mittal ([id number]) on 12/03/2019 10:17:53 AM Referred By: Confirmed By:Michael Mittal
[2019-12-03] MEDS ORDERED: predniSONE 20 MG TABLET (UD) PO ONE (16:23)
== END 2019-12-02 19:41 | disposition short-term general hospital (02) | DRG 344 ==
LOC: JER 13:49 → JERBED 16:32
PROVIDERS: ADMIT Internal Medicine; ATTEND Internal Medicine
DX: M00.9 Pyogenic arthritis, unspecified (principal); Z94.0 Kidney transplant status; I12.9 Hypertensive chronic kidney disease with stage 1 through stage 4 chronic kidney disease, or unspecified chronic kidney disease; N18.9 Chronic kidney disease, unspecified; I69.351 Hemiplegia and hemiparesis following cerebral infarction affecting right dominant side; I48.91 Unspecified atrial fibrillation; M25.561 Pain in right knee
CPT/HCPCS: 36415; 70450-TC; 71045-TC-FY; 73562-TC-RT-FY; 80053; 81003; 82962; 84484; 85025; 85610; 85651; 85730; 86140; 87086; 87186; 93005; 93010; 99285-25

== ENCOUNTER 2020-01-07 19:10 | Inpatient (IN) | payer OTHER ==
--- NOTE | 2020-01-07 19:25 | PDOC ---
Rapid Medical Evaluation Time Seen by Provider: 01/07/20 19:20 Medical Evaluation: Allergies Allergy/AdvReac Type Severity Reaction Status Date / Time No Known Allergies Allergy Verified 10/26/19 11:37 01/07/20 19:20 Pt with ESRD, M/W/F (last dialyzed today) presents for a dislodged Shiley catheter to the R clavicle. States it got caught on his sweater when a farm or ranch animal caretaker was helping him to get undressed. Exam: Blood noticed on pt shirt. Bandage in place to R clavicle Orders: labs Pt to proceed to the ER for further evaluation Discharge Disposition - Diagnosis Hemorrhage from dialysis catheter - Referrals - Patient Instructions - Post Discharge Activity
--- NOTE | 2020-01-07 19:47 | PDOC ---
Attending Attestation - Resident Resident Name: Edmundo Lee - ED Attending Attestation I have performed the following: I have examined & evaluated the patient, The case was reviewed & discussed with the resident, I agree w/resident's findings & plan - HPI HPI: 01/07/20 20:23 see resident hpi - Physicial Exam PE: 01/07/20 20:23 see resident exam - Medical Decision Making 01/07/20 20:25 59-year-old male currently hemodialysis dependent with a dislodged right chest wall catheter after receiving full dialysis earlier today Patient does have a left AV fistula which is still maturing with sutures due for removal next week We will admit for observation and temporary catheter placement Calls placed to patient's apartment hotel manager and vascular surgeon Discharge - Discharge Information Problems reviewed: Yes Clinical Impression/Diagnosis: Complications, dialysis, catheter, mechanical - Follow up/Referral Referrals: Cristóbal Alvarado MD [Primary Care Provider] - - Patient Discharge Instructions - Post Discharge Activity
--- NOTE | 2020-01-07 20:20 | PDOC ---
History of Present Illness - General Chief Complaint: Dialysis Shunt Problem Stated Complaint: DIALYSIS Time Seen by Provider: 01/07/20 19:20 History Source: Patient Exam Limitations: No Limitations - History of Present Illness Initial Comments: 01/07/20 21:01 59 yo male with pmh HTN, afib, cva, ESRD, HTn s/p renal transplant presents to ED for right chest dialysis catheter displacement occurring today. Pt reported his catheter was accidentally pulled out today after completing dialysis. Pt catheter was placed in three weeks ago. Pt reported no other complaints. Pt has AV fistula placed in left arm but believes it to be infected so is not being used. Pt denies fever, chills, SOB, palpitations, chest pain, abdominal pain. PMH: afib, htn, ESRD, HTN, s/p renal transplant (from chart) PSH: AV fistula graft, kidney transplant Allergies: NKDA Social: former smoker PCP: Dr. Cristóbal Pandey Past History - Medical History Allergies/Adverse Reactions: Allergies Allergy/AdvReac Type Severity Reaction Status Date / Time No Known Allergies Allergy Verified 01/07/20 20:22 Home Medications: Ambulatory Orders Aspirin [ASA -] 81 mg PO DAILY 10/03/14 Metoprolol Tartrate [Lopressor] 25 mg PO BID 10/03/14 Multivitamins [Multivit ([facility] Formulary)] 1 tab PO DAILY 10/03/14 Tacrolimus Anhydrous [Prograf] 1 mg PO BID 10/03/14 Cinacalcet HCl [Sensipar] 30 mg PO DAILY 11/29/14 Prednisone 5 mg PO DAILY 04/03/17 Sodium Bicarbonate - 650 mg PO BID 04/03/17 Tamsulosin HCl [Flomax] 0.4 mg PO HS 04/03/17 Acetaminophen [Tylenol .Regular Strength -] 650 mg PO Q4H PRN tablet 04/07/17 Allopurinol [Zyloprim -] 100 mg PO DAILY 10/26/19 Atorvastatin Calcium 40 mg PO HS 10/26/19 Ergocalciferol [Vitamin D2] 50,000 unit PO Q7D@1000 10/26/19 Ferrous Sulfate [Feosol] 325 mg PO DAILY 10/26/19 Folic Acid - 1 mg PO DAILY 10/26/19 Furosemide [Lasix -] 40 mg PO DAILY 10/26/19 Sertraline HCl [Zoloft -] 25 mg PO DAILY 10/26/19 hydrALAZINE HCL [Apresoline -] 50 mg PO ASDIR 10/26/19 levETIRAcetam [Keppra -] 500 mg PO BID 10/26/19 Anemia: No Asthma: No COPD: No Diabetes: Yes Dialysis: No (former dialysis, now post kidney transplant) Disorders: Yes HTN: Yes - Surgical History Orthopedic Surgery: Yes (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 Audit-10AR): Negative Review of Systems - Review of Systems Comments:: 01/07/20 22:40 GENERAL/CONSTITUTIONAL: No fever or chills. No weakness. HEAD, EYES, EARS, NOSE AND THROAT: No change in vision. No ear pain or discharge. No sore throat. CARDIOVASCULAR: No chest pain or shortness of breath RESPIRATORY: No cough, wheezing, or hemoptysis. GASTROINTESTINAL: No nausea, vomiting, diarrhea or constipation. GENITOURINARY: No dysuria, frequency, or change in urination. MUSCULOSKELETAL: No joint or muscle swelling or pain. No neck or back pain. SKIN: Catheter is out. NEUROLOGIC: No headache, vertigo, loss of consciousness, or change in strength/sensation. ENDOCRINE: No increased thirst. No abnormal weight change ALLERGIC/IMMUNOLOGIC: No hives or skin allergy. *Physical Exam - Vital Signs Last Vital Signs Temp Pulse Resp BP Pulse Ox 98.5 F 85 19 148/53 L 100 01/07/20 19:20 01/07/20 19:20 01/07/20 19:20 01/07/20 19:20 01/07/20 20:10 - Physical Exam 01/07/20 22:38 GENERAL: Awake, alert, and fully oriented, in no acute distress HEAD: No signs of trauma, normocephalic, atraumatic EYES: PERRLA, EOMI, sclera anicteric, conjunctiva clear ENT: Auricles normal inspection, hearing grossly normal, nares patent, oropharynx clear without exudates. Moist mucosa NECK: Normal ROM, supple, no lymphadenopathy, JVD, or masses LUNGS: No distress, speaks full sentences, clear to auscultation bilaterally HEART: Regular rate and rhythm, normal S1 and S2, no murmurs, rubs or gallops, peripheral pulses normal and equal bilaterally. ABDOMEN: Soft, nontender, normoactive bowel sounds. No guarding, no rebound. No masses EXTREMITIES :Left arm nonpitting edema up entire arm. NEUROLOGICAL: Cranial nerves II through XII grossly intact. Normal speech, no focal sensorimotor deficits SKIN: 1 cm circular wound on right chest where catheter was taken out. NO bruit or thrill in area. ED Treatment Course - LABORATORY CBC & Chemistry Diagram: 01/08/20 05:00 01/08/20 05:00 Medical Decision Making - Medical Decision Making 01/07/20 20:44 59 yo male with catheter that was removed after dialysis today. Pt has shunt on right side but possibly infected. Called Dr. Tejada pt monkey keeper who said admit to [place] and vascular surgery will follow up on pt. Dr. Aguilar said put Dr. Abebe as vascular surgery here but will get a hold of [facility] because vascular surgeon is from there. for vascular if pt is not transferred Vascular surgeon Dr. Baker from [facility] was called surgeon polymerization oven operator took message and said cath can be put back in by [facility] vascular surgery. Dr. Chambers was called and told about pt HPI and plan of care. Pt is admitted to Dr. Chambers. Dr. Abebe was put as vascular surgery consult. 01/07/20 21:18 CBC WBC 8.1 K/mm3 (4.0-10.0) 01/07/20 20:00 RBC 3.47 M/mm3 (4.00-5.60) L 01/07/20 20:00 Hgb 8.9 GM/dL (11.7-16.9) L 01/07/20 20:00 Hct 28.3 % (35.4-49) L 01/07/20 20:00 MCV 81.6 fl (80-96) 01/07/20 20:00 MCH 25.6 pg (25.7-33.7) L 01/07/20 20:00 MCHC 31.4 g/dl (32.0-35.9) L 01/07/20 20:00 RDW 20.0 % (11.9-15.9) H 01/07/20 20:00 Plt Count 160 K/MM3 (134-434) 01/07/20 20:00 MPV 9.5 fl (7.5-11.1) 01/07/20 20:00 Absolute Neuts (auto) 5.0 K/mm3 (1.5-8.0) 01/07/20 20:00 Neutrophils % 61.6 % (42.8-82.8) D 01/07/20 20:00 Lymphocytes % 26.3 % (8-40) D 01/07/20 20:00 Monocytes % 11.5 % (3.8-10.2) H 01/07/20 20:00 Eosinophils % 0.3 % (0-4.5) D 01/07/20 20:00 Basophils % 0.3 % (0-2.0) 01/07/20 20:00 Nucleated RBC % 0 % (0-0) 01/07/20 20:00 CMP Sodium 136 mmol/L (136-145) 01/07/20 20:00 Potassium 3.4 mmol/L (3.5-5.1) L 01/07/20 20:00 Chloride 98 mmol/L (98-107) 01/07/20 20:00 Carbon Dioxide 29 mmol/L (21-32) 01/07/20 20:00 Anion Gap 9 MMOL/L (8-16) 01/07/20 20:00 BUN 23.8 mg/dL (7-18) H 01/07/20 20:00 Creatinine 2.9 mg/dL (0.55-1.3) H 01/07/20 20:00 Est GFR (CKD-EPI)AfAm 25.87 01/07/20 20:00 Est GFR (CKD-EPI)NonAf 22.32 01/07/20 20:00 Random Glucose 114 mg/dL (74-106) H 01/07/20 20:00 Calcium 9.2 mg/dL (8.5-10.1) 01/07/20 20:00 Total Bilirubin 0.4 mg/dL (0.2-1) 01/07/20 20:00 AST 79 U/L (15-37) H 01/07/20 20:00 ALT 44 U/L (13-61) 01/07/20 20:00 Alkaline Phosphatase 93 U/L (45-117) 01/07/20 20:00 Total Protein 8.1 g/dl (6.4-8.2) 01/07/20 20:00 Albumin 3.4 g/dl (3.4-5.0) 01/07/20 20:00 Nephro consulted. Pt to be admitted for replacement of catheter. 01/07/20 21:33 01/07/20 21:58 Discharge - Discharge Information Problems reviewed: Yes Clinical Impression/Diagnosis: Complications, dialysis, catheter, mechanical - Follow up/Referral - Patient Discharge Instructions - Post Discharge Activity
[2020-01-07 20:27] LABS: BASO % 0.3 % (0-2.0); EOS % 0.3 % (0-4.5); HEMATOCRIT 28.3 % (35.4-49); HEMOGLOBIN 8.9 GM/dL (11.7-16.9); LYMPH % 26.3 % (8-40); MCH 25.6 pg (25.7-33.7); MCHC 31.4 g/dl (32.0-35.9); MEAN CELL VOLUME 81.6 fl (80-96); MEAN PLT VOLUME 9.5 fl (7.5-11.1); MONO % 11.5 % (3.8-10.2); NEUT % 61.6 % (42.8-82.8); PLATELET COUNT 160 K/MM3 (134-434); RBC 3.47 M/mm3 (4.00-5.60); WHITE BLOOD COUNT 8.1 K/mm3 (4.0-10.0)
[2020-01-07 20:32] LABS: INR 1.15 (0.83-1.09); PROTHROMBIN TIME (PATIENT) 13.6 SEC (9.7-13.0)
[2020-01-07 21:07] LABS: ALBUMIN 3.4 g/dl (3.4-5.0); BILIRUBIN,TOTAL 0.4 mg/dL (0.2-1); BLOOD UREA NITROGEN 23.8 mg/dL (7-18); CALCIUM 9.2 mg/dL (8.5-10.1); CREATININE 2.9 mg/dL (0.55-1.3); POTASSIUM 3.4 mmol/L (3.5-5.1); TOT PROT 8.1 g/dl (6.4-8.2)
[2020-01-07] MEDS ORDERED: hydrALAZINE HCL 50 MG TABLET (FP) PO SCH (23:45)
[2020-01-08] MEDS ORDERED: hydrALAZINE HCL 25 MG TABLET (FP) ONE (00:01)
[2020-01-08 07:25] LABS: BASO % 0.2 % (0-2.0); EOS % 0.6 % (0-4.5); HEMOGLOBIN 8.6 GM/dL (11.7-16.9); LYMPH % 30.4 % (8-40); MCH 25.7 pg (25.7-33.7); MCHC 31.7 g/dl (32.0-35.9); MEAN CELL VOLUME 81.1 fl (80-96); MEAN PLT VOLUME 9.6 fl (7.5-11.1); MONO % 13.6 % (3.8-10.2); NEUT % 55.2 % (42.8-82.8); PLATELET COUNT 154 K/MM3 (134-434); RBC 3.33 M/mm3 (4.00-5.60); RDW 20.4 % (11.9-15.9); WHITE BLOOD COUNT 6.9 K/mm3 (4.0-10.0)
[2020-01-08 07:45] LABS: POTASSIUM 3.2 mmol/L (3.5-5.1)
[2020-01-08 07:53] LABS: ALBUMIN 2.9 g/dl (3.4-5.0); BILIRUBIN,TOTAL 0.4 mg/dL (0.2-1); BLOOD UREA NITROGEN 33.6 mg/dL (7-18); CALCIUM 8.8 mg/dL (8.5-10.1); CREATININE 3.7 mg/dL (0.55-1.3)
[2020-01-08] MEDS ORDERED: PATIENT'S OWN MEDICATION (NON-FORMULARY) (Ferrous Sulfate [Feosol] 325 MG) PO SCH (10:00)
[2020-01-08] MEDS ORDERED: SODIUM BICARBONATE 650 MG TABLET PO SCH (10:00)
[2020-01-08] MEDS ORDERED: CINACALCET HCL 30 MG PO SCH (10:00)
--- NOTE | 2020-01-08 10:32 | EKG ---
Test Reason : Blood Pressure : / mmHG Vent. Rate : 082 BPM Atrial Rate : 082 BPM P-R Int : 170 ms QRS Dur : 090 ms QT Int : 410 ms P-R-T Axes : 060 065 061 degrees QTc Int : 479 ms POOR DATA QUALITY, INTERPRETATION MAY BE ADVERSELY AFFECTED NORMAL SINUS RHYTHM NORMAL ECG WHEN COMPARED WITH ECG OF 02-DEC-2019 17:11, PREMATURE VENTRICULAR COMPLEXES ARE NO LONGER PRESENT Confirmed by MD German, Sai ([id number]) on 01/08/2020 10:31:50 AM Referred By: Confirmed By:Sai Porter MD
[2020-01-08] MEDS ORDERED: MULTIVITAMINS (DAILY MVI) TABLET (FP) ONE (11:15)
[2020-01-08] MEDS ORDERED: ASPIRIN COATED 81 MG TABLET.EC ONE (11:15)
[2020-01-08] MEDS ORDERED: TAMSULOSIN HCL 0.4 MG CAP ONE (11:16)
[2020-01-08] MEDS ORDERED: ATORVASTATIN CA 40 MG TABLET (FP) ONE (11:16)
[2020-01-08] MEDS ORDERED: levETIRAcetam 500 MG TABLET (FP) PO ONE (11:16)
[2020-01-08] MEDS ORDERED: METOPROLOL TARTRATE 25 MG TABLET (FP) ONE (11:16)
[2020-01-08] MEDS ORDERED: FUROSEMIDE 40 MG TABLET (FP) ONE (11:16)
[2020-01-08] MEDS ORDERED: HEPARIN NA (PORCINE) 5,000 UNITS/ML 1ML VIAL ONE (11:17)
[2020-01-08] MEDS ORDERED: FOLIC ACID 1 MG TABLET (FP) ONE (11:17)
[2020-01-08] MEDS ORDERED: FERROUS SO4 325 MG TABLET (FP) ONE (11:17)
[2020-01-08] MEDS: TAMSULOSIN HCL 0.4 MG CAP PO SCH (11:24)
[2020-01-08] MEDS: ASPIRIN 81 MG CHEWABLE TABLETS PO SCH (11:24)
[2020-01-08] MEDS: predniSONE 5 MG TABLET (UD) PO SCH (11:24)
[2020-01-08] MEDS: FERROUS SO4 325 MG TABLET (FP) PO SCH (11:24)
[2020-01-08] MEDS: TACROLIMUS ANHYDROUS 1 MG CAPSULE PO SCH ×2 (11:25→22:42)
[2020-01-08] MEDS: METOPROLOL TARTRATE 50 MG TABLET (FP) PO SCH ×2 (11:25→21:57)
[2020-01-08] MEDS: MULTIVITAMINS (DAILY MVI) TABLET (FP) PO SCH (11:25)
[2020-01-08] MEDS: CINACALCET HCL 30 MG TAB (FP) PO SCH (11:25)
[2020-01-08] MEDS: HEPARIN NA (PORCINE) 5,000 UNITS/ML 1ML VIAL SQ SCH ×2 (11:25→21:56)
[2020-01-08] MEDS: SERTRALINE HCL 25 MG TABLET (FP) PO SCH (11:25)
[2020-01-08] MEDS: ALLOPURINOL 100 MG TABLET (FP) PO SCH (11:25)
[2020-01-08] MEDS: FUROSEMIDE 40 MG TABLET (FP) PO SCH (11:25)
[2020-01-08] MEDS: levETIRAcetam 500 MG TABLET (FP) PO SCH ×2 (11:25→21:57)
[2020-01-08] MEDS: FOLIC ACID 1 MG TABLET (FP) PO SCH (11:25)
[2020-01-08] MEDS ORDERED: POTASSIUM CHLORIDE TABS 20 MEQ TABLET.ER (FP) PO ONE (13:30)
[2020-01-08 14:31] VITALS: BMI 26.2
--- NOTE | 2020-01-08 14:58 | CONSULT ---
- Consultation REQUESTING PROVIDER: CONSULT REQUEST: We have been asked to surgically evaluate this patient for permacatheter fell out. PCP:Suma Chambers HISTORY OF PRESENT ILLNESS: The patient is a 59 yo male who presented to the ER after his permacath fell out during dialysis. He states that he had the catheter placed about 3 weeks ago at the same time he had a fistula placed in his left arm. These surgeries were completed at [facility]. He has not had a follow up ap pointment with him. The patient has noted swelling to his hand/arm for approximately 1.5 weeks. It feels tight no increase in pain with movement. At HD yesterday he said they gave him IV abx and changed the dressing. He denies any fevers/SOB. The permacath appears to be intact upon inspection, the catheter is at the bedside. CXR: no evidence of catheter. PMHx: Kindey transplant, ESRD on HD, Diabetes, sanchez bite with portion of Left 4 th amputation PSHx: Left UE fistula at wrist, Kindey tranplant sx, most recently fistula to LUE 3 weeks ago. Home Medications Medication Instructions Recorded Aspirin [ASA -] 81 mg PO DAILY 10/03/14 Metoprolol Tartrate [Lopressor] 25 mg PO BID 10/03/14 Multivitamins [Multivit ([facility] 1 tab PO DAILY 10/03/14 Formulary)] Tacrolimus Anhydrous [Prograf] 1 mg PO BID 10/03/14 Cinacalcet HCl [Sensipar] 30 mg PO DAILY 11/29/14 Prednisone 5 mg PO DAILY 04/03/17 Sodium Bicarbonate - 650 mg PO BID 04/03/17 Tamsulosin HCl [Flomax] 0.4 mg PO HS 04/03/17 Acetaminophen [Tylenol .Regular 650 mg PO Q4H PRN tablet 04/07/17 Strength -] Allopurinol [Zyloprim -] 100 mg PO DAILY 10/26/19 Atorvastatin Calcium 40 mg PO HS 10/26/19 Ergocalciferol [Vitamin D2] 50,000 unit PO Q7D@1000 10/26/19 Ferrous Sulfate [Feosol] 325 mg PO DAILY 10/26/19 Folic Acid - 1 mg PO DAILY 10/26/19 Furosemide [Lasix -] 40 mg PO DAILY 10/26/19 Sertraline HCl [Zoloft -] 25 mg PO DAILY 10/26/19 hydrALAZINE HCL [Apresoline -] 50 mg PO ASDIR 10/26/19 levETIRAcetam [Keppra -] 500 mg PO BID 10/26/19 Allergies Allergy/AdvReac Type Severity Reaction Status Date / Time No Known Allergies Allergy Verified 01/07/20 20:22 REVIEW OF SYSTEMS: CONSTITUTIONAL: Absent: fever, chills CARDIOVASCULAR: Absent: chest pain RESPIRATORY: Absent: shortness of breath PHYSICAL EXAM: GENERAL: Awake, alert, and fully oriented, in no acute distress. NECK: Dressing c/d/i no evidence of masses/bleeding. UPPER EXTREMITIES: hand warm, incision closed with suture from AC to axillary region. good bruit with auscultation. No erythema or drainage noted to the arm. Hand swollen from fingers to axillary region. able to make fist, no increase of pain with movement. RUE no swelling NEUROLOGICAL: Normal speech, gait not observed. PSYCH: Cooperative. Good eye contact. Appropriate mood and affect. SKIN: Warm, dry, normal turgor, no rashes or lesions noted. Vital Signs Temperature 98.4 F 01/08/20 14:18 Pulse Rate 89 01/08/20 14:18 Respiratory Rate 18 01/08/20 14:18 Blood Pressure 165/74 01/08/20 14:18 O2 Sat by Pulse Oximetry (%) 96 01/08/20 14:18 Lab Results WBC 6.9 K/mm3 (4.0-10.0) 01/08/20 05:00 RBC 3.33 M/mm3 (4.00-5.60) L 01/08/20 05:00 Hgb 8.6 GM/dL (11.7-16.9) L 01/08/20 05:00 Hct 27.0 % (35.4-49) L 01/08/20 05:00 MCV 81.1 fl (80-96) 01/08/20 05:00 MCHC 31.7 g/dl (32.0-35.9) L 01/08/20 05:00 RDW 20.4 % (11.9-15.9) H 01/08/20 05:00 Plt Count 154 K/MM3 (134-434) 01/08/20 05:00 INR 1.15 (0.83-1.09) H 01/07/20 20:00 Sodium 140 mmol/L (136-145) 01/08/20 05:00 Potassium 3.2 mmol/L (3.5-5.1) L 01/08/20 05:00 Chloride 101 mmol/L (98-107) 01/08/20 05:00 Carbon Dioxide 29 mmol/L (21-32) 01/08/20 05:00 Anion Gap 9 MMOL/L (8-16) 01/08/20 05:00 BUN 33.6 mg/dL (7-18) H 01/08/20 05:00 Creatinine 3.7 mg/dL (0.55-1.3) H 01/08/20 05:00 Random Glucose 95 mg/dL (74-106) 01/08/20 05:00 Calcium 8.8 mg/dL (8.5-10.1) 01/08/20 05:00 Blood Type O POSITIVE 01/07/20 20:00 Antibody Screen Negative 01/07/20 20:00 Problem List - Problems (1) Complications, dialysis, catheter, mechanical Assessment/Plan: Pt with PC that fell out, will require further vascular access with a PC. I spoke with Dr. Chambers and plan is for transfer to [facility] for further care where he had his surgical procedures. Recommend to elevate LUE on pillows, if pt unable to transfer would recommend study of LUE to r/o DVT. Case D/w Dr. Abebe and agrees with the plan, if unable to transfer pt and has an emergent need for HD will need PC. Problems reviewed: Yes Code(s): T82.49XA - OTH COMPLICATION OF VASCULAR DIALYSIS CATHETER, INIT ENCNTR
--- NOTE | 2020-01-08 16:07 | CONSULT ---
Consult Consult Specialty:: Nephrology Reason for Consultation:: ESRD - History of Present Illness Chief Complaint: pulled hd catheter History of Present Illness: Pt is a 59 year old male with pmhx of htn, a-fib, esrd, failed kidney transplant who presents to the ER after hd catheter dislodged. He last had HD yesterday. he denies fevers or chills. He does not know how it was dislodged. He denies shortness of breath. He is awake and alert. - History Source History Provided By: Patient - Past Medical History Cardio/Vascular: Yes: CHF, HTN Renal/: Yes: Renal Failure, Hemodialysis, Other (kidney transplant) Endocrine: Yes: Diabetes Mellitus - Past Surgical History Past Surgical History: Yes: AV Fistula/Graft, Kidney Transplant - Alcohol/Substance Use Hx Alcohol Use: No History of Substance Use: reports: None - Smoking History Smoking history: Former smoker Have you smoked in the past 12 months: No Aproximately how many cigarettes per day: 0 If you are a former smoker, when did you quit?: 25 YRS - Social History ADL: Independent Home Medications - Allergies Allergies/Adverse Reactions: Allergies Allergy/AdvReac Type Severity Reaction Status Date / Time No Known Allergies Allergy Verified 01/07/20 20:22 - Home Medications Home Medications: Ambulatory Orders Aspirin [ASA -] 81 mg PO DAILY 10/03/14 Metoprolol Tartrate [Lopressor] 25 mg PO BID 10/03/14 Multivitamins [Multivit ([facility] Formulary)] 1 tab PO DAILY 10/03/14 Tacrolimus Anhydrous [Prograf] 1 mg PO BID 10/03/14 Cinacalcet HCl [Sensipar] 30 mg PO DAILY 11/29/14 Prednisone 5 mg PO DAILY 04/03/17 Sodium Bicarbonate - 650 mg PO BID 04/03/17 Tamsulosin HCl [Flomax] 0.4 mg PO HS 04/03/17 Acetaminophen [Tylenol .Regular Strength -] 650 mg PO Q4H PRN tablet 04/07/17 Allopurinol [Zyloprim -] 100 mg PO DAILY 10/26/19 Atorvastatin Calcium 40 mg PO HS 10/26/19 Ergocalciferol [Vitamin D2] 50,000 unit PO Q7D@1000 10/26/19 Ferrous Sulfate [Feosol] 325 mg PO DAILY 10/26/19 Folic Acid - 1 mg PO DAILY 10/26/19 Furosemide [Lasix -] 40 mg PO DAILY 10/26/19 Sertraline HCl [Zoloft -] 25 mg PO DAILY 10/26/19 hydrALAZINE HCL [Apresoline -] 50 mg PO ASDIR 10/26/19 levETIRAcetam [Keppra -] 500 mg PO BID 10/26/19 Family Medical History Family History: Denies Review of Systems - Review of Systems Constitutional: reports: No Symptoms Eyes: reports: No Symptoms HENT: reports: No Symptoms Neck: reports: No Symptoms Cardiovascular: reports: No Symptoms Respiratory: reports: No Symptoms Gastrointestinal: reports: No Symptoms Genitourinary: reports: No Symptoms Musculoskeletal: reports: No Symptoms Integumentary: reports: No Symptoms Neurological: reports: No Symptoms Endocrine: reports: No Symptoms Hematology/Lymphatic: reports: No Symptoms Psychiatric: reports: No Symptoms Physical Exam Vital Signs: Vital Signs Temperature 98.4 F 01/08/20 14:18 Pulse Rate 89 01/08/20 14:18 Respiratory Rate 18 01/08/20 14:18 Blood Pressure 165/74 01/08/20 14:18 O2 Sat by Pulse Oximetry (%) 96 01/08/20 14:18 Constitutional: Yes: Calm Eyes: Yes: Conjunctiva Clear HENT: Yes: Atraumatic Cardiovascular: Yes: S1, S2 Respiratory: Yes: CTA Bilaterally Gastrointestinal: Yes: Soft Renal/: Yes: WNL Musculoskeletal: Yes: WNL Edema: LLE: 1+ Neurological: Yes: Oriented Psychiatric: Yes: Oriented Labs: CBC, BMP 01/08/20 05:00 01/08/20 05:00 Imaging - Results Chest X-ray: Report Reviewed Problem List - Problems (1) Complications, dialysis, catheter, mechanical Code(s): T82.49XA - OTH COMPLICATION OF VASCULAR DIALYSIS CATHETER, INIT ENCNTR Assessment/Plan Current Medications Generic Name Dose Route Start Last Admin Trade Name Freq PRN Reason Stop Dose Admin Allopurinol 100 mg 01/08/20 10:00 01/08/20 11:25 Zyloprim - PO 100 mg DAILY THIERRY Administration Aspirin 81 mg 01/08/20 10:00 01/08/20 11:24 Asa - PO 81 mg DAILY THIERRY Administration Atorvastatin Calcium 40 mg 01/08/20 22:00 Lipitor - PO HS THIERRY Cinacalcet 30 mg 01/08/20 10:00 01/08/20 11:25 Sensipar - PO 30 mg DAILY [facility] Administration Ergocalciferol 50,000 unit 01/14/20 10:00 Drisdol - PO Q7D@1000 [facility] Ferrous Sulfate 325 mg 01/08/20 10:00 01/08/20 11:24 Feosol - PO 325 mg DAILY THIERRY Administration Folic Acid 1 mg 01/08/20 10:00 01/08/20 11:25 Folic Acid - PO 1 mg DAILY THIERRY Administration Furosemide 40 mg 01/08/20 10:00 01/08/20 11:25 Lasix - PO 40 mg DAILY [facility] Administration Heparin Sodium (Porcine) 5,000 unit 01/08/20 10:00 01/08/20 11:25 Heparin - SQ 5,000 unit BID [facility] Administration Hydralazine HCl 50 mg 01/07/20 23:45 01/08/20 00:03 Apresoline - PO 50 mg ASDIR [facility] Administration Levetiracetam 500 mg 01/08/20 10:00 01/08/20 11:25 Keppra - PO 500 mg BID [facility] Administration Metoprolol Tartrate 25 mg 01/08/20 10:00 01/08/20 11:25 Lopressor - PO 25 mg BID [facility] Administration Multivitamins/Minerals/Vitamin C 1 tab 01/08/20 10:00 01/08/20 11:25 Tab-A-Vit - PO 1 tab DAILY [facility] Administration Prednisone 5 mg 01/08/20 10:00 01/08/20 11:24 Deltasone - PO 5 mg DAILY [facility] Administration Sertraline HCl 25 mg 01/08/20 10:00 01/08/20 11:25 Zoloft - PO 25 mg DAILY [facility] Administration Sodium Bicarbonate 650 mg 01/08/20 10:00 01/08/20 11:25 Sodium Bicarbonate - PO 650 mg BID [facility] Administration Tacrolimus 1 mg 01/08/20 10:00 01/08/20 11:25 Prograf PO 1 mg BID [facility] Administration Tamsulosin HCl 0.4 mg 01/08/20 08:30 01/08/20 11:24 Flomax - PO 0.4 mg DAILY@0830 [facility] Administration Impression 1. kidney transplant, failed 2. CKD 3. CHF 4. HTN 5. DM 6. hx of osteomyelitis 7. ESRD 8. seizure 9. dislodged permacath Plan - vascular evaluation for permacath - pt wants to transfer to [facility] as all of hid doctors are there, transfer in process - renal diet - d/c sodium bicarb - discussed with medical team
[2020-01-08] MEDS ORDERED: PT OWN MED DRAWER 7, Y5N ONE (21:36)
--- NOTE | 2020-01-08 21:50 | HP ---
Admitting History and Physical - Admission History of Present Illness: Pt is a 59 yo male w/ PMH significant for HTN, HLD, AFIB,, Seizure Dz, anemia and ESRD (S/P renal transplant). Pt recently had the perma catheter placed about 3 weeks ago at the same time he had a fistula placed in his left arm. These surgeries were completed at [facility]. He has not had a follow up appointment with vascular surgeon. The patient has noted swelling to his LUE since the surgery. It feels tight no increase in pain with movement. At HD yesterday he said they gave him IV abx and changed the dressing. However during dialysis yesterday the perma cath was pulled out. Pt is awaiting transfer to [facility] for further management by his medical team - Past Medical History Cardiovascular: Yes: AFIB, CHF, HTN, Hyperlipdemia Renal/: Yes: Renal Failure, Hemodialysis, Other (kidney transplant) Heme/Onc: Yes: Anemia Endocrine: Yes: Diabetes Mellitus - Past Surgical History Past Surgical History: Yes: AV Fistula/Graft, Kidney Transplant - Smoking History Smoking history: Former smoker Have you smoked in the past 12 months: No Aproximately how many cigarettes per day: 0 If you are a former smoker, when did you quit?: 25 YRS - Alcohol/Substance Use Hx Alcohol Use: No History of Substance Use: reports: None - Social History ADL: Independent Home Medications - Allergies Allergies/Adverse Reactions: Allergies Allergy/AdvReac Type Severity Reaction Status Date / Time No Known Allergies Allergy Verified 01/07/20 20:22 - Home Medications Home Medications: Ambulatory Orders Aspirin [ASA -] 81 mg PO DAILY 10/03/14 Metoprolol Tartrate [Lopressor] 25 mg PO BID 10/03/14 Multivitamins [Multivit ([facility] Formulary)] 1 tab PO DAILY 10/03/14 Tacrolimus Anhydrous [Prograf] 1 mg PO BID 10/03/14 Cinacalcet HCl [Sensipar] 30 mg PO DAILY 11/29/14 Prednisone 5 mg PO DAILY 04/03/17 Sodium Bicarbonate - 650 mg PO BID 04/03/17 Tamsulosin HCl [Flomax] 0.4 mg PO HS 04/03/17 Acetaminophen [Tylenol .Regular Strength -] 650 mg PO Q4H PRN tablet 04/07/17 Allopurinol [Zyloprim -] 100 mg PO DAILY 10/26/19 Atorvastatin Calcium 40 mg PO HS 10/26/19 Ergocalciferol [Vitamin D2] 50,000 unit PO Q7D@1000 10/26/19 Ferrous Sulfate [Feosol] 325 mg PO DAILY 10/26/19 Folic Acid - 1 mg PO DAILY 10/26/19 Furosemide [Lasix -] 40 mg PO DAILY 10/26/19 Sertraline HCl [Zoloft -] 25 mg PO DAILY 10/26/19 hydrALAZINE HCL [Apresoline -] 50 mg PO ASDIR 10/26/19 levETIRAcetam [Keppra -] 500 mg PO BID 10/26/19 Family Medical History Family History: Unremarkable Review of Systems - Review of Systems Constitutional: reports: No Symptoms Eyes: reports: No Symptoms HENT: reports: No Symptoms Neck: reports: No Symptoms Cardiovascular: reports: No Symptoms Respiratory: reports: No Symptoms Gastrointestinal: reports: No Symptoms Genitourinary: reports: No Symptoms Physical Examination Vital Signs: Vital Signs Temperature 98.4 F 01/08/20 14:18 Pulse Rate 89 01/08/20 14:18 Respiratory Rate 18 01/08/20 14:18 Blood Pressure 165/74 01/08/20 14:18 O2 Sat by Pulse Oximetry (%) 96 01/08/20 14:35 Constitutional: Yes: Well Nourished Eyes: Yes: WNL HENT: Yes: WNL Neck: Yes: WNL, Supple Cardiovascular: Yes: WNL, Regular Rate and Rhythm Respiratory: Yes: WNL, Regular, CTA Bilaterally Gastrointestinal: Yes: WNL, Normal Bowel Sounds, Soft Extremities: Yes: Other (LUE AV fistula LUE swelling) Neurological: Yes: WNL, Alert, Oriented ...Motor Strength: WNL Labs: CBC, BMP 01/08/20 05:00 01/08/20 05:00 Problem List - Problems (1) Complications, dialysis, catheter, mechanical Assessment/Plan: Vasacular surgery consult noted Pt awaiting tranfer to [facility] Chronic swelling LUE Will check doppler of LUE Code(s): T82.49XA - OTH COMPLICATION OF VASCULAR DIALYSIS CATHETER, INIT ENCNTR (2) ESRD (end stage renal disease) Assessment/Plan: As per renal Code(s): N18.6 - END STAGE RENAL DISEASE (3) HTN (hypertension) Code(s): I10 - ESSENTIAL (PRIMARY) HYPERTENSION (4) Congestive heart disease Code(s): I50.9 - HEART FAILURE, UNSPECIFIED (5) Seizures Assessment/Plan: Cont keppra Code(s): R56.9 - UNSPECIFIED CONVULSIONS (6) Renal transplant recipient Assessment/Plan: Cont prgraf/prednisone Code(s): Z94.0 - KIDNEY TRANSPLANT STATUS (7) Atrial fibrillation Assessment/Plan: Paroysmal Heart rate controlled Code(s): I48.91 - UNSPECIFIED ATRIAL FIBRILLATION (8) HLD (hyperlipidemia) Assessment/Plan: Cont lipitor Code(s): E78.5 - HYPERLIPIDEMIA, UNSPECIFIED (9) BPH (benign prostatic hyperplasia) Assessment/Plan: Cont flomax Code(s): N40.0 - BENIGN PROSTATIC HYPERPLASIA WITHOUT LOWER URINRY TRACT SYMP
[2020-01-08] MEDS: ATORVASTATIN CA 40 MG TABLET (FP) PO SCH (21:57)
[2020-01-08] MEDS: hydrALAZINE HCL 50 MG TABLET (FP) PO SCH (21:57)
[2020-01-09] MEDS: hydrALAZINE HCL 50 MG TABLET (FP) PO SCH ×3 (05:44→22:08)
[2020-01-09 07:58] LABS: ALBUMIN 2.9 g/dl (3.4-5.0); BILIRUBIN,TOTAL 0.4 mg/dL (0.2-1); BLOOD UREA NITROGEN 48.2 mg/dL (7-18); CALCIUM 8.6 mg/dL (8.5-10.1); CREATININE 4.6 mg/dL (0.55-1.3); POTASSIUM 3.8 mmol/L (3.5-5.1); TOT PROT 6.9 g/dl (6.4-8.2)
[2020-01-09 08:55] LABS: HEMATOCRIT 27.2 % (35.4-49); HEMOGLOBIN 8.5 GM/dL (11.7-16.9); MCH 25.7 pg (25.7-33.7); MCHC 31.1 g/dl (32.0-35.9); MEAN CELL VOLUME 82.5 fl (80-96); RDW 19.8 % (11.9-15.9)
[2020-01-09] MEDS: METOPROLOL TARTRATE 50 MG TABLET (FP) PO SCH ×2 (10:15→22:07)
[2020-01-09] MEDS: FERROUS SO4 325 MG TABLET (FP) PO SCH (10:16)
[2020-01-09] MEDS: MULTIVITAMINS (DAILY MVI) TABLET (FP) PO SCH (10:16)
[2020-01-09] MEDS: ALLOPURINOL 100 MG TABLET (FP) PO SCH (10:16)
[2020-01-09] MEDS: levETIRAcetam 500 MG TABLET (FP) PO SCH ×2 (10:16→22:07)
[2020-01-09] MEDS: predniSONE 5 MG TABLET (UD) PO SCH (10:16)
[2020-01-09] MEDS: FUROSEMIDE 40 MG TABLET (FP) PO SCH (10:16)
[2020-01-09] MEDS: FOLIC ACID 1 MG TABLET (FP) PO SCH (10:16)
[2020-01-09] MEDS: TAMSULOSIN HCL 0.4 MG CAP PO SCH (10:16)
[2020-01-09] MEDS: SERTRALINE HCL 25 MG TABLET (FP) PO SCH (10:16)
[2020-01-09] MEDS: TACROLIMUS ANHYDROUS 1 MG CAPSULE PO SCH ×2 (10:17→22:08)
[2020-01-09] MEDS: CINACALCET HCL 30 MG TAB (FP) PO SCH (10:18)
[2020-01-09 12:30] LABS: ANISOCYTOSIS 1+; MACROCYTOSIS 0; OVALOCYTE 1+; PLATELET ESTIMATE NORMAL
--- NOTE | 2020-01-09 12:36 | PN ---
Progress Note (short form) - Note Progress Note: Transfer denied Pt added to schedule tomorrow, 01/09 for permacath insertion. Keep npo after midnight AM labs (cbc, chem) d/w attending Dr Abebe
[2020-01-09] MEDS: HEPARIN NA (PORCINE) 5,000 UNITS/ML 1ML VIAL SQ SCH ×2 (14:50→22:08)
[2020-01-09] MEDS: ASPIRIN 81 MG CHEWABLE TABLETS PO SCH (14:50)
[2020-01-09] MEDS ORDERED: SODIUM CHLORIDE 250 ML IV PRN (15:47)
[2020-01-09] MEDS ORDERED: EPOETIN ALFA-EPBX 4,000 UNIT/ML VIAL SQ ONE (15:47)
--- NOTE | 2020-01-09 15:47 | PN ---
Progress Note (short form) - Note Progress Note: RENAL Pt is awake and alert denies complaints doing well Last Vital Signs Temp Pulse Resp BP Pulse Ox 98.4 F 74 18 156/71 95 01/09/20 14:20 01/09/20 14:20 01/09/20 14:20 01/09/20 14:20 01/09/20 10:00 lungs clear cvs s1s2 rr abd soft ext no edema, left upper ext has edema, +thrill, bruit neuro a+ox3 CBC, BMP 01/09/20 06:27 01/09/20 06:27 Current Medications Generic Name Dose Route Start Last Admin Trade Name Freq PRN Reason Stop Dose Admin Allopurinol 100 mg 01/08/20 10:00 01/09/20 10:16 Zyloprim - PO 100 mg DAILY THIERRY Administration Aspirin 81 mg 01/08/20 10:00 01/09/20 14:50 Asa - PO 81 mg DAILY THIERRY Administration Atorvastatin Calcium 40 mg 01/08/20 22:00 01/08/20 21:57 Lipitor - PO 40 mg HS THIERRY Administration Cinacalcet 30 mg 01/08/20 10:00 01/09/20 10:18 Sensipar - PO 30 mg DAILY THIERRY Administration Ergocalciferol 50,000 unit 01/14/20 10:00 Drisdol - PO Q7D@1000 THIERRY Ferrous Sulfate 325 mg 01/08/20 10:00 01/09/20 10:16 Feosol - PO 325 mg DAILY THIERRY Administration Folic Acid 1 mg 01/08/20 10:00 01/09/20 10:16 Folic Acid - PO 1 mg DAILY THIERRY Administration Furosemide 40 mg 01/08/20 10:00 01/09/20 10:16 Lasix - PO 40 mg DAILY THIERRY Administration Heparin Sodium (Porcine) 5,000 unit 01/08/20 10:00 01/09/20 14:50 Heparin - SQ 5,000 unit BID THIERRY Administration Hydralazine HCl 50 mg 01/08/20 19:13 01/09/20 14:49 Apresoline - PO 50 mg TID THIERRY Administration Levetiracetam 500 mg 01/08/20 10:00 01/09/20 10:16 Keppra - PO 500 mg BID THIERRY Administration Metoprolol Tartrate 25 mg 01/08/20 10:00 01/09/20 10:15 Lopressor - PO 25 mg BID THIERRY Administration Multivitamins/Minerals/Vitamin C 1 tab 01/08/20 10:00 01/09/20 10:16 Tab-A-Vit - PO 1 tab DAILY THIERRY Administration Prednisone 5 mg 01/08/20 10:00 01/09/20 10:16 Deltasone - PO 5 mg DAILY THIERRY Administration Sertraline HCl 25 mg 01/08/20 10:00 01/09/20 10:16 Zoloft - PO 25 mg DAILY THIERRY Administration Tacrolimus 1 mg 01/08/20 10:00 01/09/20 10:17 Prograf PO 1 mg BID THIERRY Administration Tamsulosin HCl 0.4 mg 01/08/20 08:30 01/09/20 10:16 Flomax - PO 0.4 mg DAILY@0830 THIERRY Administration IMPRESSION esrd avf is relatively new. So not ready for use anemia PLAN would dialyze tomorrow after permcath insertion without heparin will give epogen would have vascular evaluate his avf MV
--- NOTE | 2020-01-09 21:11 | PN ---
Progress Note, Physician History of Present Illness: Insurance company denied transfer to [facility] - Current Medication List Current Medications: Active Medications Allopurinol (Zyloprim -) 100 mg PO DAILY [facility] Last Admin: 01/09/20 10:16 Dose: 100 mg Documented by: Aspirin (Asa -) 81 mg PO DAILY [facility] Last Admin: 01/09/20 14:50 Dose: 81 mg Documented by: Atorvastatin Calcium (Lipitor -) 40 mg PO HS [facility] Last Admin: 01/08/20 21:57 Dose: 40 mg Documented by: Cinacalcet (Sensipar -) 30 mg PO DAILY [facility] Last Admin: 01/09/20 10:18 Dose: 30 mg Documented by: Epoetin Adeel-epbx (Retacrit) 4,000 unit SQ ONCE ONE Stop: 01/09/20 15:48 Ergocalciferol (Drisdol -) 50,000 unit PO Q7D@1000 THIERRY Ferrous Sulfate (Feosol -) 325 mg PO DAILY [facility] Last Admin: 01/09/20 10:16 Dose: 325 mg Documented by: Folic Acid (Folic Acid -) 1 mg PO DAILY [facility] Last Admin: 01/09/20 10:16 Dose: 1 mg Documented by: Furosemide (Lasix -) 40 mg PO DAILY [facility] Last Admin: 01/09/20 10:16 Dose: 40 mg Documented by: Heparin Sodium (Porcine) (Heparin -) 5,000 unit SQ BID [facility] Last Admin: 01/09/20 14:50 Dose: 5,000 unit Documented by: Hydralazine HCl (Apresoline -) 50 mg PO TID [facility] Last Admin: 01/09/20 14:49 Dose: 50 mg Documented by: Sodium Chloride (Normal Saline -) 250 mls @ 3,000 mls/hr IV PRN PRN PRN Reason: Hypotension during Dialysis Stop: 01/10/20 15:47 Levetiracetam (Keppra -) 500 mg PO BID [facility] Last Admin: 01/09/20 10:16 Dose: 500 mg Documented by: Metoprolol Tartrate (Lopressor -) 25 mg PO BID [facility] Last Admin: 01/09/20 10:15 Dose: 25 mg Documented by: Multivitamins/Minerals/Vitamin C (Tab-A-Vit -) 1 tab PO DAILY [facility] Last Admin: 01/09/20 10:16 Dose: 1 tab Documented by: Prednisone (Deltasone -) 5 mg PO DAILY [facility] Last Admin: 01/09/20 10:16 Dose: 5 mg Documented by: Sertraline HCl (Zoloft -) 25 mg PO DAILY [facility] Last Admin: 01/09/20 10:16 Dose: 25 mg Documented by: Tacrolimus (Prograf) 1 mg PO BID [facility] Last Admin: 01/09/20 10:17 Dose: 1 mg Documented by: Tamsulosin HCl (Flomax -) 0.4 mg PO DAILY@0830 [facility] Last Admin: 01/09/20 10:16 Dose: 0.4 mg Documented by: - Objective Vital Signs: Vital Signs Temperature 98.3 F 01/09/20 18:37 Pulse Rate 88 01/09/20 18:37 Respiratory Rate 18 01/09/20 18:37 Blood Pressure 130/63 01/09/20 18:37 O2 Sat by Pulse Oximetry (%) 97 01/09/20 18:37 Neck: Yes: WNL, Supple Cardiovascular: Yes: WNL, Regular Rate and Rhythm Respiratory: Yes: WNL, Regular, CTA Bilaterally Gastrointestinal: Yes: WNL, Normal Bowel Sounds, Soft Extremities: Yes: Other (LUE swelling LUE avf w/ thrill) Labs: CBC, BMP 01/09/20 06:27 01/09/20 06:27 INR, PTT INR 1.15 (0.83-1.09) H 01/07/20 20:00 Problem List - Problems (1) Complications, dialysis, catheter, mechanical Assessment/Plan: Vascular surgery consult noted Perma cath placement for am NPO Code(s): T82.49XA - OTH COMPLICATION OF VASCULAR DIALYSIS CATHETER, INIT ENCNTR (2) ESRD (end stage renal disease) Assessment/Plan: As per renal. S/P LUE AVF placement few weeks ago Check doppler LUE to r/o DVT Code(s): N18.6 - END STAGE RENAL DISEASE (3) HTN (hypertension) Assessment/Plan: BP stable Code(s): I10 - ESSENTIAL (PRIMARY) HYPERTENSION (4) Congestive heart disease Code(s): I50.9 - HEART FAILURE, UNSPECIFIED (5) Seizures Assessment/Plan: Cont keppra Code(s): R56.9 - UNSPECIFIED CONVULSIONS (6) Renal transplant recipient Assessment/Plan: Cont prgraf/prednisone Code(s): Z94.0 - KIDNEY TRANSPLANT STATUS (7) Atrial fibrillation Assessment/Plan: Paroysmal Heart rate controlled Code(s): I48.91 - UNSPECIFIED ATRIAL FIBRILLATION (8) HLD (hyperlipidemia) Assessment/Plan: Cont lipitor Code(s): E78.5 - HYPERLIPIDEMIA, UNSPECIFIED (9) BPH (benign prostatic hyperplasia) Assessment/Plan: Cont flomax Code(s): N40.0 - BENIGN PROSTATIC HYPERPLASIA WITHOUT LOWER URINRY TRACT SYMP (10) Anemia Assessment/Plan: Due to CKD Pt given epogen Code(s): D64.9 - ANEMIA, UNSPECIFIED
[2020-01-09] MEDS: ATORVASTATIN CA 40 MG TABLET (FP) PO SCH (22:07)
[2020-01-10] MEDS: hydrALAZINE HCL 50 MG TABLET (FP) PO SCH ×3 (05:18→21:59)
[2020-01-10 08:11] LABS: BASO % 0.1 % (0-2.0); EOS % 0.7 % (0-4.5); HEMATOCRIT 26.2 % (35.4-49); HEMOGLOBIN 8.1 GM/dL (11.7-16.9); LYMPH % 38.1 % (8-40); MCH 25.2 pg (25.7-33.7); MEAN CELL VOLUME 81.5 fl (80-96); MONO % 12.1 % (3.8-10.2); PLATELET COUNT 181 K/MM3 (134-434); RBC 3.22 M/mm3 (4.00-5.60); RDW 20.1 % (11.9-15.9); WHITE BLOOD COUNT 7.2 K/mm3 (4.0-10.0)
[2020-01-10 08:30] LABS: ALBUMIN 2.6 g/dl (3.4-5.0); BLOOD UREA NITROGEN 66.8 mg/dL (7-18); CALCIUM 8.7 mg/dL (8.5-10.1); POTASSIUM 3.7 mmol/L (3.5-5.1)
[2020-01-10 08:35] LABS: BILIRUBIN,TOTAL 0.8 mg/dL (0.2-1); CREATININE 4.6 mg/dL (0.55-1.3); TOT PROT 6.4 g/dl (6.4-8.2)
[2020-01-10] MEDS: levETIRAcetam 500 MG TABLET (FP) PO SCH ×2 (10:31→21:59)
[2020-01-10] MEDS: METOPROLOL TARTRATE 50 MG TABLET (FP) PO SCH ×2 (10:31→21:59)
[2020-01-10] MEDS: TAMSULOSIN HCL 0.4 MG CAP PO SCH (10:31)
[2020-01-10] MEDS: ALLOPURINOL 100 MG TABLET (FP) PO SCH (10:31)
[2020-01-10] MEDS: predniSONE 5 MG TABLET (UD) PO SCH (10:33)
[2020-01-10] MEDS: FUROSEMIDE 40 MG TABLET (FP) PO SCH (10:33)
[2020-01-10] MEDS: SERTRALINE HCL 25 MG TABLET (FP) PO SCH (10:33)
[2020-01-10] MEDS: ASPIRIN 81 MG CHEWABLE TABLETS PO SCH (10:34)
[2020-01-10] MEDS: CINACALCET HCL 30 MG TAB (FP) PO SCH (10:34)
[2020-01-10] MEDS: FERROUS SO4 325 MG TABLET (FP) PO SCH (10:34)
[2020-01-10] MEDS: FOLIC ACID 1 MG TABLET (FP) PO SCH (10:34)
[2020-01-10] MEDS: MULTIVITAMINS (DAILY MVI) TABLET (FP) PO SCH (10:34)
[2020-01-10] MEDS: TACROLIMUS ANHYDROUS 1 MG CAPSULE PO SCH ×2 (10:35→21:59)
[2020-01-10] MEDS: HEPARIN NA (PORCINE) 5,000 UNITS/ML 1ML VIAL SQ SCH ×2 (10:36→21:59)
[2020-01-10] MEDS ORDERED: LIDOCAINE HCL 1%, 10 MG/ML (20ML VIAL) ONE (10:51)
--- NOTE | 2020-01-10 11:18 | PN ---
Progress Note (short form) - Note Progress Note: RENAL Pt is awake and alert denies complaints doing well awaiting PC Last Vital Signs Temp Pulse Resp BP Pulse Ox 98.4 F 79 18 155/70 100 01/10/20 10:00 01/10/20 10:00 01/10/20 10:00 01/10/20 10:00 01/10/20 10:00 lungs clear cvs s1s2 rr abd soft ext no edema, left upper ext has edema, +thrill, bruit neuro a+ox3 CBC, BMP 01/10/20 07:05 01/10/20 07:05 Current Medications Generic Name Dose Route Start Last Admin Trade Name Roly PRN Reason Stop Dose Admin Allopurinol 100 mg 01/08/20 10:00 01/10/20 10:31 Zyloprim - PO 100 mg DAILY THIERRY Administration Aspirin 81 mg 01/08/20 10:00 01/10/20 10:34 Asa - PO Not Given DAILY THIERRY Atorvastatin Calcium 40 mg 01/08/20 22:00 01/09/20 22:07 Lipitor - PO 40 mg HS THIERRY Administration Cinacalcet 30 mg 01/08/20 10:00 01/10/20 10:34 Sensipar - PO 30 mg DAILY THIERRY Administration Epoetin Adeel-epbx 4,000 unit 01/09/20 15:47 Retacrit SQ 01/09/20 15:48 ONCE ONE Ergocalciferol 50,000 unit 01/14/20 10:00 Drisdol - PO Q7D@1000 THIERRY Ferrous Sulfate 325 mg 01/08/20 10:00 01/10/20 10:34 Feosol - PO 325 mg DAILY THIERRY Administration Folic Acid 1 mg 01/08/20 10:00 01/10/20 10:34 Folic Acid - PO 1 mg DAILY THIERRY Administration Furosemide 40 mg 01/08/20 10:00 01/10/20 10:33 Lasix - PO 40 mg DAILY THIERRY Administration Heparin Sodium (Porcine) 5,000 unit 01/08/20 10:00 01/10/20 10:36 Heparin - SQ Not Given BID THIERRY Hydralazine HCl 50 mg 01/08/20 19:13 01/10/20 05:18 Apresoline - PO 50 mg TID THIERRY Administration Sodium Chloride 250 mls @ 3,000 mls/hr 01/09/20 15:47 Normal Saline - IV 01/10/20 15:47 PRN PRN Hypotension during Dialysis Levetiracetam 500 mg 01/08/20 10:00 01/10/20 10:31 Keppra - PO 500 mg BID THIERRY Administration Metoprolol Tartrate 25 mg 01/08/20 10:00 01/10/20 10:31 Lopressor - PO 25 mg BID THIERRY Administration Multivitamins/Minerals/Vitamin C 1 tab 01/08/20 10:00 01/10/20 10:34 Tab-A-Vit - PO 1 tab DAILY THIERRY Administration Prednisone 5 mg 01/08/20 10:00 01/10/20 10:33 Deltasone - PO 5 mg DAILY THIERRY Administration Sertraline HCl 25 mg 01/08/20 10:00 01/10/20 10:33 Zoloft - PO 25 mg DAILY THIERRY Administration Tacrolimus 1 mg 01/08/20 10:00 01/10/20 10:35 Prograf PO 1 mg BID THIERRY Administration Tamsulosin HCl 0.4 mg 01/08/20 08:30 01/10/20 10:31 Flomax - PO 0.4 mg DAILY@0830 THIERRY Administration IMPRESSION esrd avf is relatively new. So not ready for use anemia PLAN would dialyze today after permcath insertion without heparin will give epogen would have vascular evaluate his avf MV
[2020-01-10] MEDS ORDERED: HEPARIN NA (PORCINE) 5,000 UNITS/ML 1ML VIAL ONE (11:31)
[2020-01-10] MEDS ORDERED: ceFAZolin 2 GRAM PREMIX BAG IVPB ONE (12:30)
[2020-01-10] MEDS ORDERED: PROPOFOL 20 ML ONE ×3 (12:34→13:46)
[2020-01-10 12:46] LABS: ANISOCYTOSIS 2+; MACROCYTOSIS 0; OVALOCYTE 1+; PLATELET ESTIMATE NORMAL
--- NOTE | 2020-01-10 13:33 | OP ---
Operative Note - Note: Operative Date: 01/10/20 Pre-Operative Diagnosis: ESRD Operation: Insertion of permacath Post-Operative Diagnosis: Same as Pre-op Surgeon: Reza Abebe Anesthesia: MAC Estimated Blood Loss (mls): 20 Operative Report Dictated: Yes
[2020-01-10] MEDS ORDERED: hydrALAZINE HCL 20 MG/ML VIAL ONE (13:58)
[2020-01-10] MEDS: hydrALAZINE HCL 20 MG/ML VIAL IVPUSH ONE ×3 (14:00→15:23)
[2020-01-10] MEDS ORDERED: ONDANSETRON 4 MG/2 ML VIAL IVPUSH PRN (14:15)
[2020-01-10] MEDS: SODIUM CHLORIDE 1,000 ML IV SCH (15:34)
--- NOTE | 2020-01-10 20:45 | PN ---
Progress Note, Physician History of Present Illness: No new complaints - Current Medication List Current Medications: Active Medications Allopurinol (Zyloprim -) 100 mg PO DAILY [facility] Aspirin (Asa -) 81 mg PO DAILY [facility] Atorvastatin Calcium (Lipitor -) 40 mg PO HS [facility] Cinacalcet (Sensipar -) 30 mg PO DAILY [facility] Epoetin Adeel-epbx (Retacrit) 4,000 unit SQ ONCE ONE Stop: 01/10/20 13:48 Ergocalciferol (Drisdol -) 50,000 unit PO Q7D@1000 [facility] Fentanyl (Sublimaze Injection -) 25 mcg IVPUSH [id number] PRN PRN Reason: PAIN-PACU ORDER X 4 DOSES ONLY Stop: 01/11/20 14:14 Ferrous Sulfate (Feosol -) 325 mg PO DAILY [facility] Folic Acid (Folic Acid -) 1 mg PO DAILY [facility] Furosemide (Lasix -) 40 mg PO DAILY [facility] Heparin Sodium (Porcine) (Heparin -) 5,000 unit SQ BID [facility] Hydralazine HCl (Apresoline -) 50 mg PO TID [facility] Last Admin: 01/10/20 17:02 Dose: 50 mg Documented by: Sodium Chloride (Normal Saline -) 250 mls @ 3,000 mls/hr IV PRN PRN PRN Reason: Hypotension during Dialysis Stop: 01/10/20 15:47 Sodium Chloride (Normal Saline -) 1,000 mls @ 42 mls/hr IV ASDIR [facility] Last Admin: 01/10/20 15:34 Dose: 42 mls/hr Documented by: Levetiracetam (Keppra -) 500 mg PO BID [facility] Metoprolol Tartrate (Lopressor -) 25 mg PO BID [facility] Multivitamins/Minerals/Vitamin C (Tab-A-Vit -) 1 tab PO DAILY [facility] Ondansetron HCl (Zofran Injection) 4 mg IVPUSH Q6H PRN PRN Reason: NAUSEA AND/OR VOMITING Stop: 01/11/20 14:14 Prednisone (Deltasone -) 5 mg PO DAILY [facility] Sertraline HCl (Zoloft -) 25 mg PO DAILY [facility] Tacrolimus (Prograf) 1 mg PO BID [facility] Tamsulosin HCl (Flomax -) 0.4 mg PO DAILY@0830 [facility] - Objective Vital Signs: Vital Signs Temperature 98.1 F 01/10/20 19:00 Pulse Rate 80 08/13/20 19:00 Respiratory Rate 18 01/10/20 19:00 Blood Pressure 131/61 01/10/20 19:00 O2 Sat by Pulse Oximetry (%) 96 01/10/20 19:00 Neck: Yes: WNL, Supple Cardiovascular: Yes: WNL, Regular Rate and Rhythm Respiratory: Yes: WNL, Regular, CTA Bilaterally Gastrointestinal: Yes: WNL, Normal Bowel Sounds, Soft Extremities: Yes: Other ((+) swelling LUE LUE (+)M AVF w/ thrill) Labs: CBC, BMP 01/10/20 07:05 01/10/20 07:05 INR, PTT INR 1.15 (0.83-1.09) H 01/07/20 20:00 Problem List - Problems (1) Complications, dialysis, catheter, mechanical Assessment/Plan: S/P perma cath placement today Pt tolerated procedure Code(s): T82.49XA - OTH COMPLICATION OF VASCULAR DIALYSIS CATHETER, INIT ENCNTR (2) ESRD (end stage renal disease) Assessment/Plan: Dialysis in am S/P LUE AVF placement few weeks ago Check doppler LUE to r/o DVT Code(s): N18.6 - END STAGE RENAL DISEASE (3) HTN (hypertension) Assessment/Plan: BP stable Code(s): I10 - ESSENTIAL (PRIMARY) HYPERTENSION (4) Congestive heart disease Code(s): I50.9 - HEART FAILURE, UNSPECIFIED (5) Seizures Assessment/Plan: Cont keppra Code(s): R56.9 - UNSPECIFIED CONVULSIONS (6) Renal transplant recipient Assessment/Plan: Cont prgraf/prednisone Code(s): Z94.0 - KIDNEY TRANSPLANT STATUS (7) Atrial fibrillation Assessment/Plan: Paroysmal Heart rate controlled Code(s): I48.91 - UNSPECIFIED ATRIAL FIBRILLATION (8) HLD (hyperlipidemia) Assessment/Plan: Cont lipitor Code(s): E78.5 - HYPERLIPIDEMIA, UNSPECIFIED (9) BPH (benign prostatic hyperplasia) Assessment/Plan: Cont flomax Code(s): N40.0 - BENIGN PROSTATIC HYPERPLASIA WITHOUT LOWER URINRY TRACT SYMP (10) Anemia Assessment/Plan: Due to CKD Pt given epogen Code(s): D64.9 - ANEMIA, UNSPECIFIED
[2020-01-10] MEDS ORDERED: PT OWN MED DRAWER 7, Y5N ONE (21:17)
[2020-01-10] MEDS ORDERED: ATORVASTATIN CA 40 MG TABLET (FP) PO SCH (22:00)
[2020-01-10] MEDS: ACETAMINOPHEN 325 MG TABLET (FP) PO PRN (23:45)
[2020-01-11] MEDS: hydrALAZINE HCL 50 MG TABLET (FP) PO SCH ×2 (05:26→14:26)
[2020-01-11] MEDS ORDERED: INSULIN (NOVOLOG) ASPART 100 UNITS/ML 10ML VIAL ONE (06:12)
[2020-01-11] MEDS: ACETAMINOPHEN 325 MG TABLET (FP) PO PRN (06:18)
--- NOTE | 2020-01-11 07:48 | PN ---
HC Provider Note Provider Note: Anesthesia Post Op Note Pt s/p sedation for permacath insertion Pt awake alert denies n/v, puritis VSS no apparent anesthesia complications Carmelo Orona.
[2020-01-11 08:06] LABS: ALBUMIN 2.6 g/dl (3.4-5.0); BILIRUBIN,TOTAL 0.2 mg/dL (0.2-1); BLOOD UREA NITROGEN 71.8 mg/dL (7-18); CALCIUM 8.2 mg/dL (8.5-10.1); CREATININE 3.9 mg/dL (0.55-1.3); TOT PROT 6.4 g/dl (6.4-8.2)
[2020-01-11] MEDS ORDERED: TAMSULOSIN HCL 0.4 MG CAP PO SCH (08:30)
[2020-01-11] MEDS ORDERED: SODIUM CHLORIDE 250 ML IV PRN (10:00)
[2020-01-11] MEDS ORDERED: ASPIRIN 81 MG CHEWABLE TABLETS PO SCH (10:00)
[2020-01-11] MEDS ORDERED: predniSONE 5 MG TABLET (UD) PO SCH (10:00)
[2020-01-11] MEDS ORDERED: FOLIC ACID 1 MG TABLET (FP) PO SCH (10:00)
[2020-01-11] MEDS ORDERED: MULTIVITAMINS (DAILY MVI) TABLET (FP) PO SCH (10:00)
[2020-01-11] MEDS ORDERED: CINACALCET HCL 30 MG TAB (FP) PO SCH (10:00)
[2020-01-11] MEDS ORDERED: ALLOPURINOL 100 MG TABLET (FP) PO SCH (10:00)
[2020-01-11] MEDS ORDERED: FERROUS SO4 325 MG TABLET (FP) PO SCH (10:00)
[2020-01-11] MEDS ORDERED: FUROSEMIDE 40 MG TABLET (FP) PO SCH (10:00)
[2020-01-11] MEDS ORDERED: SERTRALINE HCL 25 MG TABLET (FP) PO SCH (10:00)
[2020-01-11] MEDS ORDERED: EPOETIN ALFA-EPBX 4,000 UNIT/ML VIAL SQ ONE (10:00)
[2020-01-11 10:02] VITALS: TEMP 98.4
--- NOTE | 2020-01-11 10:03 | PN ---
Progress Note (short form) - Note Progress Note: POD 1, s/p PC placement Pt doing well this morning. No issues overnight Plan for HD early this AM PC in place, dressing c/d/i, no surrounding hematoma appreciated Pt should f/u with his Vascular surgeon upon discharge Reconsult prn d/w attending Dr Abebe
[2020-01-11 10:16] LABS: HEMATOCRIT 25.8 % (35.4-49); HEMOGLOBIN 8.1 GM/dL (11.7-16.9); MCH 25.8 pg (25.7-33.7); MCHC 31.3 g/dl (32.0-35.9); MEAN CELL VOLUME 82.6 fl (80-96); MEAN PLT VOLUME 9.8 fl (7.5-11.1); PLATELET COUNT 169 K/MM3 (134-434); RBC 3.13 M/mm3 (4.00-5.60); RDW 20.5 % (11.9-15.9)
[2020-01-11 10:42] LABS: BLOOD UREA NITROGEN 72.1 mg/dL (7-18); CALCIUM 8.6 mg/dL (8.5-10.1); CREATININE 3.8 mg/dL (0.55-1.3); MAGNESIUM 2.1 mg/dL (1.8-2.4); PHOSPHOROUS 3.6 mg/dL (2.5-4.9); POTASSIUM 3.8 mmol/L (3.5-5.1)
--- NOTE | 2020-01-11 11:49 | DS ---
Physical Exam: SUBJECTIVE: Patient seen and examined OBJECTIVE: Vital Signs Period Temp Pulse Resp BP Sys/Barcenas Pulse Ox Last 24 Hr 97.8 F-98.6 F 69-88 14-18 130-196/61-83 96-100 PHYSICAL EXAM GENERAL: The patient is awake, alert, and fully oriented, in no acute distress. HEAD: Normal with no signs of trauma. EYES: PERRL, extraocular movements intact, sclera anicteric, conjunctiva clear. ENT: Ears normal, nares patent, oropharynx clear without exudates, moist mucous membranes. NECK: Trachea midline, full range of motion, supple. LUNGS: Breath sounds equal, clear to auscultation bilaterally, no wheezes, no crackles, no accessory muscle use. HEART: Regular rate and rhythm, S1, S2 without murmur, rub or gallop. ABDOMEN: Soft, nontender, nondistended, normoactive bowel sounds, no guarding, no rebound, no hepatosplenomegaly, no masses. EXTREMITIES: 2+ pulses, warm, well-perfused, no edema. NEUROLOGICAL: Cranial nerves II through XII grossly intact. Normal speech, gait not observed. PSYCH: Normal mood, normal affect. SKIN: Warm, dry, normal turgor, no rashes or lesions noted. LABS Laboratory Results - last 24 hr 01/10/20 01/11/20 01/11/20 07:05 07:08 09:40 WBC 6.0 RBC 3.13 L Hgb 8.1 L Hct 25.8 L MCV 82.6 MCH 25.8 MCHC 31.3 L RDW 20.5 H Plt Count 169 MPV 9.8 Neutrophils % (Manual) 53.5 Band Neutrophils % 0.0 Lymphocytes % (Manual) 33.6 Monocytes % (Manual) 8 Eosinophils % (Manual) 1.0 Basophils % (Manual) 0.0 Myelocytes % (Man) 2 D Promyelocytes % (Man) 0 Blast Cells % (Manual) 0 Nucleated RBC % 0 Metamyelocytes 0 Hypochromia 0 Platelet Estimate Normal Polychromasia 0 Poikilocytosis 2+ Basophilic Stippling 1+ Anisocytosis 2+ Microcytosis 1+ Macrocytosis 0 Ovalocytes 1+ Sodium 141 Potassium 4.0 Chloride 107 Carbon Dioxide 22 Anion Gap 12 BUN 71.8 H Creatinine 3.9 H Est GFR (CKD-EPI)AfAm 18.08 Est GFR (CKD-EPI)NonAf 15.60 Random Glucose 139 H Calcium 8.2 L Phosphorus Magnesium Total Bilirubin 0.2 AST 58 H ALT 38 Alkaline Phosphatase 75 Total Protein 6.4 Albumin 2.6 L 01/11/20 09:40 WBC RBC Hgb Hct MCV MCH MCHC RDW Plt Count MPV Neutrophils % (Manual) Band Neutrophils % Lymphocytes % (Manual) Monocytes % (Manual) Eosinophils % (Manual) Basophils % (Manual) Myelocytes % (Man) Promyelocytes % (Man) Blast Cells % (Manual) Nucleated RBC % Metamyelocytes Hypochromia Platelet Estimate Polychromasia Poikilocytosis Basophilic Stippling Anisocytosis Microcytosis Macrocytosis Ovalocytes Sodium 141 Potassium 3.8 Chloride 106 Carbon Dioxide 24 Anion Gap 10 BUN 72.1 H Creatinine 3.8 H Est GFR (CKD-EPI)AfAm 18.66 Est GFR (CKD-EPI)NonAf 16.10 Random Glucose 189 H Calcium 8.6 Phosphorus 3.6 Magnesium 2.1 Total Bilirubin AST ALT Alkaline Phosphatase Total Protein Albumin HOSPITAL COURSE: Date of Admission:01/07/20 Date of Discharge: 01/11/20 Minutes to complete discharge: 60 Discharge Summary Problems reviewed: Yes Reason For Visit: COMPLICATIONS,MECHANICAL,CATHERTER,DIALYSIS Current Active Problems Anemia (Acute) BPH (benign prostatic hyperplasia) (Acute) Complications, dialysis, catheter, mechanical (Acute) ESRD (end stage renal disease) (Acute) HLD (hyperlipidemia) (Acute) Procedures: Principal: Duplex study 01/10/2020. . IMPRESSION: Patent left upper extremity AV fistula with no sonographic evidence of AV anastomosis or venous. outflow stenosis. Turbulent flow in the mid to distal feeding artery with doubling of velocities as compared to the. proximal feeding artery suggestive of near 50% stenosis in the feeding artery. Antegrade flow seen in the artery distal to the AV anastomosis. Central venous system was not evaluated. Reported By: Tristen Costa MD 01/11/20 1544 Other Procedures: CXR 01/10/2020. Impression: Catheter with tip in the RA. No pneumothorax. Weak inspiration with central crowding and sclerotic knob. Reported by Dr. Raul Shay MD Hospital Course: 59 yo male who presented to the ER after his permacath fell out during dialysis. He states that he had the catheter placed about 3 weeks ago at the same time he had a fistula placed in his left arm. These surgeries were completed at [facility]. He has not had a follow up appointment with him. The patient has noted swelling to his hand/arm for approximately 1.5 weeks. It feels tight no increase in pain w ith movement. At HD yesterday he said they gave him IV abx and changed the dressing. He denies any fevers/SOB. The permacath appears to be intact upon inspection, the catheter is at the bedside. CXR: no evidence of catheter. Hospital Course Pt requested transfer to [facility] which was denied by his insurance. He was evaluated by vascular surgery and had new permacath placed on 01/08. Procedure was well tolerated and he underwent HD on 01/10 without incident. Pt deemed stable for discharge home on 01/10 and he will be seen by vasc surg at [facility] and by his superintendent stations at [facility] [place]. Plan of Treatment: APPOINTMENTS: [facility] dialysis center/Dr. Tejada Saturday 01/13 @ 2:30pm Vascular surgery: January 22 @ 10:40am Dr. Star Baker [phone] Software Configuration [employer] [address] Condition: Good - Instructions Diet, Activity, Other Instructions: PERMACATH CARE WHAT YOU NEED TO KNOW: A perma-cath is a catheter placed through a vein into or near your right atrium. Your right atrium is the right upper chamber of your heart. A perma-cath is used for dialysis in an emergency or until a long-term device is ready to use. After your procedure, you will have some pain and swelling on your chest and neck. You may have some bruises on your chest and neck. You may also have 2 dressings, one on your chest and one on your neck. DISCHARGE INSTRUCTIONS: Call 911 for any of the following: You feel lightheaded, short of breath, and have chest pain. Your catheter comes out Seek care immediately if: Blood soaks through your bandage. You have new swelling in your arm, neck, face, or chest on your right side. Contact your healthcare provider if: Your catheter gets wet. Your bruises or pain get worse. You have a fever or chills. Your incision is red, swollen, or draining pus. You have questions or concerns about your condition or care. Self-care: Avoid lifting with your right arm. You could put a strain on your incision before it starts to heal. Ask your healthcare provider when you can return to your normal activities. Keep your dressings dry. Do not take a shower or swim. You may take a tub bath, but do not get your dressings wet. Water in your wound can cause bacteria to grow and cause an infection. If your dressing gets wet, dry it off and cover it with dry sterile gauze. Call your healthcare provider. Do not use soaps or ointments. Do not change your dressings. Your healthcare provider will change your dressings. Your dressings should stay in place until your healthcare provider removes them. The dressing on your chest will stay as long as you have the lady ter in place. The dressing prevents infection. Do not remove the red and blue caps from the end of your catheter. The caps prevent air from getting into your catheter. Referrals: Cristóbal Alvarado MD [Primary Care Provider] - Disposition: HOME - Home Medications Comprehensive Discharge Medication List: Ambulatory Orders Aspirin [ASA -] 81 mg PO DAILY 10/03/14 Metoprolol Tartrate [Lopressor] 25 mg PO BID 10/03/14 Multivitamins [Multivit ([facility] Formulary)] 1 tab PO DAILY 10/03/14 Tacrolimus Anhydrous [Prograf] 1 mg PO BID 10/03/14 Cinacalcet HCl [Sensipar] 30 mg PO DAILY 11/29/14 Prednisone 5 mg PO DAILY 04/03/17 Tamsulosin HCl [Flomax] 0.4 mg PO HS 04/03/17 Acetaminophen [Tylenol .Regular Strength -] 650 mg PO Q4H PRN tablet 04/07/17 Allopurinol [Zyloprim -] 100 mg PO DAILY 10/26/19 Atorvastatin Calcium 40 mg PO HS 10/26/19 Ergocalciferol [Vitamin D2] 50,000 unit PO Q7D@1000 10/26/19 Ferrous Sulfate [Feosol] 325 mg PO DAILY 10/26/19 Folic Acid - 1 mg PO DAILY 10/26/19 Furosemide [Lasix -] 40 mg PO DAILY 10/26/19 Sertraline HCl [Zoloft -] 25 mg PO DAILY 10/26/19 hydrALAZINE HCL [Apresoline -] 50 mg PO ASDIR 10/26/19 levETIRAcetam [Keppra -] 500 mg PO BID 10/26/19 Prescription Drug Monitoring Program (I-STOP) results: I-STOP not reviewed Problem List - Problems (1) Complications, dialysis, catheter, mechanical Code(s): T82.49XA - OTH COMPLICATION OF VASCULAR DIALYSIS CATHETER, INIT ENCNTR (2) ESRD (end stage renal disease) Code(s): N18.6 - END STAGE RENAL DISEASE (3) HLD (hyperlipidemia) Code(s): E78.5 - HYPERLIPIDEMIA, UNSPECIFIED (4) HTN (hypertension) Code(s): I10 - ESSENTIAL (PRIMARY) HYPERTENSION This patient is new to me today: Yes Date on this admission: 01/11/20 Emergency Visit: Yes ED Registration Date: 01/07/20 Care time: The patient presented to the Emergency Department on the above date and was hospitalized for further evaluation of their emergent condition. Critical Care patient: No - Discharge Referral Referred to [facility] Med P.C.: No
--- NOTE | 2020-01-11 11:55 | PN ---
Progress Note (short form) - Note Progress Note: RENAL Pt is awake and alert denies complaints doing well seen during hd Last Vital Signs Temp Pulse Resp BP Pulse Ox 98.4 F 80 18 158/72 99 01/11/20 09:35 01/11/20 09:40 01/11/20 09:40 01/11/20 09:40 01/11/20 05:54 lungs clear cvs s1s2 rr abd soft ext no edema, left upper ext has edema, +thrill, bruit neuro a+ox3 CBC, BMP 01/11/20 09:40 01/11/20 09:40 Current Medications Generic Name Dose Route Start Last Admin Trade Name Freq PRN Reason Stop Dose Admin Acetaminophen 650 mg 01/10/20 23:13 01/11/20 06:18 Tylenol - PO 650 mg Q6H PRN Administration PAIN LEVEL 1-6 Allopurinol 100 mg 01/11/20 10:00 Zyloprim - PO DAILY [facility] Aspirin 81 mg 01/11/20 10:00 Asa - PO DAILY [facility] Atorvastatin Calcium 40 mg 01/10/20 22:00 01/10/20 21:59 Lipitor - PO 40 mg HS THIERRY Administration Cinacalcet 30 mg 01/11/20 10:00 Sensipar - PO DAILY [facility] Ergocalciferol 50,000 unit 01/14/20 10:00 Drisdol - PO Q7D@1000 [facility] Fentanyl 25 mcg 01/10/20 14:15 Sublimaze Injection - IVPUSH 01/11/20 14:14 [id number] PRN PAIN-PACU ORDER X 4 DOSES ONLY Ferrous Sulfate 325 mg 01/11/20 10:00 Feosol - PO DAILY [facility] Folic Acid 1 mg 01/11/20 10:00 Folic Acid - PO DAILY [facility] Furosemide 40 mg 01/11/20 10:00 Lasix - PO DAILY [facility] Heparin Sodium (Porcine) 5,000 unit 01/10/20 22:00 01/10/20 21:59 Heparin - SQ 5,000 unit BID THIERRY Administration Hydralazine HCl 50 mg 01/10/20 14:00 01/11/20 05:26 Apresoline - PO 50 mg TID THIERRY Administration Sodium Chloride 1,000 mls @ 42 mls/hr 01/10/20 14:15 01/10/20 15:34 Normal Saline - IV 42 mls/hr ASDIR THIERRY Administration Levetiracetam 500 mg 01/10/20 22:00 01/10/20 21:59 Keppra - PO 500 mg BID THIERRY Administration Metoprolol Tartrate 25 mg 01/10/20 22:00 01/10/20 21:59 Lopressor - PO 25 mg BID THIERRY Administration Multivitamins/Minerals/Vitamin C 1 tab 01/11/20 10:00 Tab-A-Vit - PO DAILY THIERRY Ondansetron HCl 4 mg 01/10/20 14:15 Zofran Injection IVPUSH 01/11/20 14:14 Q6H PRN NAUSEA AND/OR VOMITING Prednisone 5 mg 01/11/20 10:00 Deltasone - PO DAILY THIERRY Sertraline HCl 25 mg 01/11/20 10:00 Zoloft - PO DAILY THIERRY Tacrolimus 1 mg 01/10/20 22:00 01/10/20 21:59 Prograf PO 1 mg BID THIERRY Administration Tamsulosin HCl 0.4 mg 01/11/20 08:30 Flomax - PO DAILY@0830 [facility] IMPRESSION esrd avf is relatively new. So not ready for use anemia PLAN due to scheduling issues, pt was dialyzed today and not yesterday no objection to dc MV
[2020-01-11 13:18] VITALS: BP 178/82; PULSE 80
[2020-01-11] MEDS: METOPROLOL TARTRATE 50 MG TABLET (FP) PO SCH (14:16)
[2020-01-11] MEDS: SODIUM CHLORIDE 1,000 ML IV SCH (14:16)
[2020-01-11] MEDS: levETIRAcetam 500 MG TABLET (FP) PO SCH (14:29)
[2020-01-11] MEDS: HEPARIN NA (PORCINE) 5,000 UNITS/ML 1ML VIAL SQ SCH (14:29)
[2020-01-11] MEDS ORDERED: PT OWN MED DRAWER 7, Y5N ONE (14:34)
[2020-01-11] MEDS: TACROLIMUS ANHYDROUS 1 MG CAPSULE PO SCH (14:35)
[2020-01-14] MEDS ORDERED: ERGOCALCIFEROL (VIT D2) 50,000 UNIT (1.25 MG) CAPSULE PO SCH ×2 (10:00)
--- NOTE | 2020-01-22 11:13 | OP ---
DATE OF OPERATION: 01/10/2020 PREOPERATIVE DIAGNOSIS: End-stage renal disease. POSTOPERATIVE DIAGNOSIS: End-stage renal disease. PROCEDURE: Insertion of PermCath. SURGEON: Reza Regalado DO ANESTHESIA: Fractional. BLOOD LOSS: 20 mL INDICATIONS: Patient is a 59-year-old male that needs a PermCath placement. Patient was consented for the procedure understanding all risks, benefits and alternatives, then taken to the operating room. DESCRIPTION OF PROCEDURE: Once in the operating room he was laid on the operating table in supine manner. The area of the right neck and chest was prepped and draped in a sterile surgical manner. Under ultrasound guidance, we were able to visualize the right internal jugular vein and 10 mL of lidocaine 1% were injected above and below the clavicle. We then went ahead and used a micropuncture needle, punctured the right internal jugular vein under ultrasound guidance. Micropuncture wire was inserted. Micropuncture sheath was inserted. A 0.035 floppy guidewire was inserted under fluoroscopy. We then made a 1 cm incision using an 11-blade at the puncture site. We then used a 15-blade and made a 1 cm incision below the clavicle. We then tunneled the PermCath up to the puncture site. We then went ahead and placed our breakaway sheath over the guidewire into the vein under fluoroscopy. Inner cannula and guidewire were removed. Catheter was placed inside the sheath. Sheath was broken away as the catheter was placed inside the vein. Neck of the catheter was nice and smooth. Tip of the catheter was located outside the right atrium. We then noelle back on each port of the catheter and there was good flow. Heparinized saline was injected. IV heparin 2000 units were injected into each port. A 4-0 Biosyn was used and 2 simple sutures were placed at the puncture site. Nylon 3-0 was used and the catheter was attached to the skin. BIOPATCH, Steri-Strips, 4 x 4, Tegaderms were placed. Patient tolerated the procedure with no complications. Patient transferred to PACU in stable condition where a chest x-ray will be ordered. REZA REGALADO DO AQUACULTURE WORKER/[id number]
== END 2020-01-11 19:50 | disposition home or self-care (01) | DRG 466 ==
LOC: JER 19:10 → JERBED 21:56 → J7W 01-08 14:09
PROVIDERS: ADMIT Internal Medicine; ATTEND Nurse Practitioner Family
PROC: 0JH63XZ Insertion of Tunneled Vascular Access Device into Chest Subcutaneous Tissue and Fascia, Percutaneous Approach (ICD-10-PCS; 2020-01-10)
PROC: 02H633Z Insertion of Infusion Device into Right Atrium, Percutaneous Approach (ICD-10-PCS; 2020-01-10)
PROC: B518ZZA Fluoroscopy of Superior Vena Cava, Guidance (ICD-10-PCS; 2020-01-10)
PROC: 5A1D70Z Performance of Urinary Filtration, Intermittent, Less than 6 Hours Per Day (ICD-10-PCS; principal; 2020-01-11)
DX: T82.42XA Displacement of vascular dialysis catheter, initial encounter (principal); D63.1 Anemia in chronic kidney disease; I13.2 Hypertensive heart and chronic kidney disease with heart failure and with stage 5 chronic kidney disease, or end stage renal disease; I50.9 Heart failure, unspecified; N18.6 End stage renal disease; I48.0 Paroxysmal atrial fibrillation; E78.5 Hyperlipidemia, unspecified; N40.0 Benign prostatic hyperplasia without lower urinary tract symptoms; G40.909 Epilepsy, unspecified, not intractable, without status epilepticus; Z94.0 Kidney transplant status
CPT/HCPCS: 36415; 71045-TC-FY; 76000-TC-FY; 80048; 80053; 83735; 84100; 85025; 85027; 85610; 86803; 86850; 86900; 86901; 87340; 93005; 93010; 93971; 94760; 99285-25; J1644; Q5106; U0003

== ENCOUNTER 2020-05-24 14:26 | Inpatient (IN) | payer OTHER ==
[2020-05-24] MEDS ORDERED: levETIRAcetam 500 MG/5 ML INJECTION VIAL IVPB ONE ×2 (17:52→18:15)
[2020-05-24 18:21] LABS: BASO % 0.3 % (0-2.0); HEMATOCRIT 38.4 % (35.4-49); HEMOGLOBIN 12.2 GM/dL (11.7-16.9); LYMPH % 21.4 % (8-40); MCH 27.8 pg (25.7-33.7); MCHC 31.7 g/dl (32.0-35.9); MEAN CELL VOLUME 87.9 fl (80-96); MEAN PLT VOLUME 11.6 fl (7.5-11.1); MONO % 9.9 % (3.8-10.2); NEUT % 68.4 % (42.8-82.8); PLATELET COUNT 100 K/MM3 (134-434); RBC 4.37 M/mm3 (4.00-5.60); WHITE BLOOD COUNT 5.1 K/mm3 (4.0-10.0)
[2020-05-24 18:28] LABS: INR 1.09 (0.83-1.09); PROTHROMBIN TIME (PATIENT) 13.2 SEC (9.7-13.0)
[2020-05-24 18:31] LABS: ACTIVATED PTT 41.6 SECONDS (25.2-36.5)
[2020-05-24 18:39] LABS: POTASSIUM 4.7 mmol/L (3.5-5.1)
[2020-05-24 18:43] LABS: ALBUMIN 3.7 g/dl (3.4-5.0); BLOOD UREA NITROGEN 88.8 mg/dL (7-18); CALCIUM 8.1 mg/dL (8.5-10.1)
[2020-05-24 18:47] LABS: BILIRUBIN,TOTAL 0.7 mg/dL (0.2-1); TOT PROT 7.5 g/dl (6.4-8.2)
[2020-05-24 18:51] LABS: N-TERMINAL BNP 3354.8 pg/ml (5-125)
[2020-05-24 19:13] LABS: CREATININE 12.4 mg/dL (0.55-1.3)
[2020-05-24] MEDS ORDERED: LIDOCAINE HCL 2% JELLY 10 ML CARTRIDGE PR ONE (20:00)
[2020-05-25] MEDS ORDERED: hydrALAZINE HCL 50 MG TABLET (FP) PO SCH (01:30)
[2020-05-25] MEDS ORDERED: ALBUTEROL SO4 HFA INHALER IH PRN (01:31)
[2020-05-25] MEDS ORDERED: AZITHROMYCIN IVPB 500 MG in DEXTROSE 5%-WATER - 250 ML IVPB ONE (01:31)
[2020-05-25] MEDS ORDERED: AZITHROMYCIN IVPB 500 MG/250 ML BAG IVPB ONE (01:36)
[2020-05-25 07:28] LABS: BASO % 0.2 % (0-2.0); HEMATOCRIT 37.8 % (35.4-49); HEMOGLOBIN 12.2 GM/dL (11.7-16.9); LYMPH % 36.1 % (8-40); MCH 28.1 pg (25.7-33.7); MCHC 32.2 g/dl (32.0-35.9); MEAN CELL VOLUME 87.1 fl (80-96); MEAN PLT VOLUME 11.1 fl (7.5-11.1); MONO % 12.4 % (3.8-10.2); NEUT % 51.3 % (42.8-82.8); PLATELET COUNT 105 K/MM3 (134-434); RBC 4.34 M/mm3 (4.00-5.60); RDW 19.6 % (11.9-15.9); WHITE BLOOD COUNT 4.4 K/mm3 (4.0-10.0)
[2020-05-25 07:45] LABS: POTASSIUM 4.7 mmol/L (3.5-5.1)
[2020-05-25 07:51] LABS: ALBUMIN 3.7 g/dl (3.4-5.0); CALCIUM 7.5 mg/dL (8.5-10.1)
[2020-05-25 07:55] LABS: BILIRUBIN,TOTAL 0.6 mg/dL (0.2-1); TOT PROT 7.5 g/dl (6.4-8.2)
[2020-05-25] MEDS: levETIRAcetam 500 MG TABLET (FP) PO SCH ×2 (09:09→22:13)
[2020-05-25] MEDS: FUROSEMIDE 40 MG TABLET (FP) PO SCH (09:09)
[2020-05-25] MEDS: FOLIC ACID 1 MG TABLET (FP) PO SCH (09:09)
[2020-05-25] MEDS: ASPIRIN 81 MG CHEWABLE TABLETS PO SCH (09:09)
[2020-05-25] MEDS: FERROUS SO4 325 MG TABLET (FP) PO SCH (09:09)
[2020-05-25] MEDS: DEXAMETHASONE SOD PHOSPHATE 4 MG/1 ML VIAL IVPUSH SCH (09:09)
[2020-05-25] MEDS: ASCORBIC ACID 500 MG TABLET (FP) PO SCH ×2 (09:10→22:12)
[2020-05-25] MEDS: SERTRALINE HCL 25 MG TABLET (FP) PO SCH (09:10)
[2020-05-25] MEDS: ZINC SULFATE 220 MG CAPSULE (FP) PO SCH ×2 (09:10→22:16)
[2020-05-25 09:42] LABS: ANISOCYTOSIS 1+; MACROCYTOSIS 1+; PLATELET ESTIMATE DECREASED
[2020-05-25] MEDS ORDERED: HEPARIN NA (PORCINE) 5,000 UNITS/ML 1ML VIAL SQ SCH (10:00)
[2020-05-25] MEDS ORDERED: ENOXAPARIN NA (PORCINE) 40 MG/0.4 ML DISP.SYRIN SQ SCH (10:00)
[2020-05-25] MEDS: ALLOPURINOL 100 MG TABLET (FP) PO SCH (10:13)
[2020-05-25] MEDS: SODIUM BICARBONATE 650 MG TABLET PO SCH ×2 (10:13→22:12)
[2020-05-25] MEDS: CINACALCET HCL 30 MG TAB (FP) PO SCH (10:13)
[2020-05-25] MEDS: TACROLIMUS ANHYDROUS 1 MG CAPSULE PO SCH ×2 (10:13→22:12)
[2020-05-25 10:17] LABS: CREATININE 14.2 mg/dL (0.55-1.3)
[2020-05-25] MEDS: hydrALAZINE HCL 50 MG TABLET (FP) PO SCH ×2 (11:15→22:14)
[2020-05-25] MEDS: METOPROLOL TARTRATE 50 MG TABLET (FP) PO SCH ×2 (11:15→22:15)
[2020-05-25] MEDS ORDERED: HEPARIN NA (PORCINE) 5,000 UNITS/ML 1ML VIAL IVPUSH ONE (12:40)
[2020-05-25] MEDS: ALBUMIN HUMAN 25% 12.5 GM/50 ML VIAL IVPB SCH ×4 (18:15→19:45)
[2020-05-25] MEDS ORDERED: SODIUM CHLORIDE 250 ML IV PRN (18:15)
[2020-05-25] MEDS: ATORVASTATIN CA 40 MG TABLET (FP) PO SCH (22:13)
[2020-05-25] MEDS: TAMSULOSIN HCL 0.4 MG CAP PO SCH (22:13)
[2020-05-25] MEDS: ENOXAPARIN NA (PORCINE) 40 MG/0.4 ML DISP.SYRIN SQ SCH (23:35)
[2020-05-26 08:45] LABS: BASO % 0.1 % (0-2.0); HEMATOCRIT 35.2 % (35.4-49); HEMOGLOBIN 11.4 GM/dL (11.7-16.9); LYMPH % 21.8 % (8-40); MCH 27.9 pg (25.7-33.7); MCHC 32.3 g/dl (32.0-35.9); MEAN CELL VOLUME 86.4 fl (80-96); MEAN PLT VOLUME 11.7 fl (7.5-11.1); MONO % 12.1 % (3.8-10.2); PLATELET COUNT 112 K/MM3 (134-434); RBC 4.07 M/mm3 (4.00-5.60); RDW 19.2 % (11.9-15.9); WHITE BLOOD COUNT 4.3 K/mm3 (4.0-10.0)
[2020-05-26 09:57] LABS: ALBUMIN 3.5 g/dl (3.4-5.0); ALK PHOS 105 U/L (45-117); ANION GAP 14 MMOL/L (8-16); BILIRUBIN,TOTAL 0.5 mg/dL (0.2-1); BLOOD UREA NITROGEN 67.3 mg/dL (7-18); CALCIUM 7.6 mg/dL (8.5-10.1); CHLORIDE 97 mmol/L (98-107); CO2 26 mmol/L (21-32); GLUCOSE,RANDOM 287 mg/dL (74-106); POTASSIUM 4.1 mmol/L (3.5-5.1); SGOT/AST 93 U/L (15-37); SGPT/ALT 63 U/L (13-61); SODIUM 137 mmol/L (136-145); TOT PROT 7.1 g/dl (6.4-8.2)
[2020-05-26 10:00] LABS: CREATININE 10.1 mg/dL (0.55-1.3)
[2020-05-26] MEDS: CINACALCET HCL 30 MG TAB (FP) PO SCH (11:55)
[2020-05-26] MEDS: ZINC SULFATE 220 MG CAPSULE (FP) PO SCH ×2 (12:12→22:07)
[2020-05-26] MEDS: DEXAMETHASONE SOD PHOSPHATE 4 MG/1 ML VIAL IVPUSH SCH (12:12)
[2020-05-26] MEDS: SODIUM BICARBONATE 650 MG TABLET PO SCH ×2 (12:12→22:07)
[2020-05-26] MEDS: ALLOPURINOL 100 MG TABLET (FP) PO SCH (12:13)
[2020-05-26] MEDS: hydrALAZINE HCL 50 MG TABLET (FP) PO SCH ×2 (12:13→22:07)
[2020-05-26] MEDS: ASCORBIC ACID 500 MG TABLET (FP) PO SCH ×2 (12:13→22:07)
[2020-05-26] MEDS: FAMOTIDINE 10 MG TABLET PO SCH (12:13)
[2020-05-26] MEDS: FERROUS SO4 325 MG TABLET (FP) PO SCH (12:13)
[2020-05-26] MEDS: SERTRALINE HCL 25 MG TABLET (FP) PO SCH (12:13)
[2020-05-26] MEDS: levETIRAcetam 500 MG TABLET (FP) PO SCH ×2 (12:13→22:07)
[2020-05-26] MEDS: ASPIRIN 81 MG CHEWABLE TABLETS PO SCH (12:13)
[2020-05-26] MEDS: FOLIC ACID 1 MG TABLET (FP) PO SCH (12:13)
[2020-05-26] MEDS: FUROSEMIDE 40 MG TABLET (FP) PO SCH (12:13)
[2020-05-26] MEDS: METOPROLOL TARTRATE 50 MG TABLET (FP) PO SCH ×2 (12:14→22:09)
[2020-05-26] MEDS: ENOXAPARIN NA (PORCINE) 40 MG/0.4 ML DISP.SYRIN SQ SCH ×2 (12:14→22:09)
[2020-05-26] MEDS: TACROLIMUS ANHYDROUS 1 MG CAPSULE PO SCH (12:31)
[2020-05-26] MEDS ORDERED: PT OWN MED DRAWER 7, Y5N ONE ×2 (12:34→22:04)
[2020-05-26] MEDS: TACROLIMUS 0.5 MG CAPSULE PO SCH ×2 (12:37→22:10)
[2020-05-26] MEDS: ATORVASTATIN CA 40 MG TABLET (FP) PO SCH (22:07)
[2020-05-26] MEDS: TAMSULOSIN HCL 0.4 MG CAP PO SCH (22:07)
[2020-05-27 08:24] LABS: BASO % 0.1 % (0-2.0); HEMATOCRIT 35.2 % (35.4-49); HEMOGLOBIN 11.3 GM/dL (11.7-16.9); LYMPH % 12.7 % (8-40); MCHC 32.1 g/dl (32.0-35.9); MEAN CELL VOLUME 87.2 fl (80-96); MONO % 6.5 % (3.8-10.2); NEUT % 80.7 % (42.8-82.8); PLATELET COUNT 107 K/MM3 (134-434); RBC 4.04 M/mm3 (4.00-5.60); RDW 19.5 % (11.9-15.9); WHITE BLOOD COUNT 5.4 K/mm3 (4.0-10.0)
[2020-05-27 08:51] LABS: POTASSIUM 4.1 mmol/L (3.5-5.1)
[2020-05-27 08:54] LABS: ALBUMIN 3.4 g/dl (3.4-5.0); BLOOD UREA NITROGEN 91.5 mg/dL (7-18); CALCIUM 7.4 mg/dL (8.5-10.1)
[2020-05-27 08:58] LABS: BILIRUBIN,TOTAL 0.6 mg/dL (0.2-1)
[2020-05-27] MEDS: ENOXAPARIN NA (PORCINE) 40 MG/0.4 ML DISP.SYRIN SQ SCH ×2 (10:08→22:22)
[2020-05-27] MEDS: ALLOPURINOL 100 MG TABLET (FP) PO SCH (10:09)
[2020-05-27] MEDS: FOLIC ACID 1 MG TABLET (FP) PO SCH (10:09)
[2020-05-27] MEDS: FERROUS SO4 325 MG TABLET (FP) PO SCH (10:09)
[2020-05-27] MEDS: CINACALCET HCL 30 MG TAB (FP) PO SCH (10:09)
[2020-05-27] MEDS: ZINC SULFATE 220 MG CAPSULE (FP) PO SCH ×2 (10:09→21:46)
[2020-05-27] MEDS: SERTRALINE HCL 25 MG TABLET (FP) PO SCH (10:10)
[2020-05-27] MEDS: ASCORBIC ACID 500 MG TABLET (FP) PO SCH ×2 (10:10→21:47)
[2020-05-27] MEDS: FUROSEMIDE 40 MG TABLET (FP) PO SCH (10:10)
[2020-05-27] MEDS: ASPIRIN 81 MG CHEWABLE TABLETS PO SCH (10:10)
[2020-05-27] MEDS: levETIRAcetam 500 MG TABLET (FP) PO SCH ×2 (10:10→21:46)
[2020-05-27] MEDS: SODIUM BICARBONATE 650 MG TABLET PO SCH ×2 (10:10→21:47)
[2020-05-27] MEDS: TACROLIMUS 0.5 MG CAPSULE PO SCH ×2 (10:11→21:47)
[2020-05-27] MEDS: DEXAMETHASONE SOD PHOSPHATE 4 MG/1 ML VIAL IVPUSH SCH (10:11)
[2020-05-27] MEDS: FAMOTIDINE 10 MG TABLET PO SCH (10:12)
[2020-05-27] MEDS: hydrALAZINE HCL 50 MG TABLET (FP) PO SCH ×2 (10:31→21:47)
[2020-05-27] MEDS: METOPROLOL TARTRATE 50 MG TABLET (FP) PO SCH ×2 (10:31→21:46)
[2020-05-27 10:32] LABS: CREATININE 10.7 mg/dL (0.55-1.3)
[2020-05-27] MEDS ORDERED: SODIUM CHLORIDE 250 ML IV PRN (13:12)
[2020-05-27] MEDS ORDERED: PT OWN MED DRAWER 7, Y5N ONE (20:56)
[2020-05-27] MEDS: ATORVASTATIN CA 40 MG TABLET (FP) PO SCH (21:46)
[2020-05-27] MEDS: TAMSULOSIN HCL 0.4 MG CAP PO SCH (21:47)
[2020-05-27] MEDS: INSULIN SLIDING SCALE (NOVOLOG) 1 VIAL SQ SCH (22:57)
[2020-05-28 00:18] LABS: POTASSIUM 3.4 mmol/L (3.5-5.1)
[2020-05-28 00:20] LABS: ALBUMIN 3.2 g/dl (3.4-5.0)
[2020-05-28 00:23] LABS: CREATININE 6.9 mg/dL (0.55-1.3)
[2020-05-28 00:25] LABS: BILIRUBIN,TOTAL 0.6 mg/dL (0.2-1)
[2020-05-28 01:07] LABS: BLOOD UREA NITROGEN 55.3 mg/dL (7-18)
[2020-05-28] MEDS: INSULIN SLIDING SCALE (NOVOLOG) 1 VIAL SQ SCH ×4 (06:29→22:56)
[2020-05-28] MEDS: DEXAMETHASONE SOD PHOSPHATE 4 MG/1 ML VIAL IVPUSH SCH (10:22)
[2020-05-28] MEDS: METOPROLOL TARTRATE 50 MG TABLET (FP) PO SCH ×4 (10:23→22:58)
[2020-05-28] MEDS: ALLOPURINOL 100 MG TABLET (FP) PO SCH ×2 (10:23→13:30)
[2020-05-28] MEDS: FERROUS SO4 325 MG TABLET (FP) PO SCH ×2 (10:23→13:29)
[2020-05-28] MEDS: ASCORBIC ACID 500 MG TABLET (FP) PO SCH ×5 (10:25→22:58)
[2020-05-28] MEDS: SERTRALINE HCL 25 MG TABLET (FP) PO SCH ×2 (10:25→13:22)
[2020-05-28] MEDS: levETIRAcetam 500 MG TABLET (FP) PO SCH ×4 (10:25→22:58)
[2020-05-28] MEDS: FAMOTIDINE 10 MG TABLET PO SCH ×2 (10:25→13:28)
[2020-05-28] MEDS: CINACALCET HCL 30 MG TAB (FP) PO SCH ×2 (10:25→13:21)
[2020-05-28] MEDS: FOLIC ACID 1 MG TABLET (FP) PO SCH ×2 (10:25→13:24)
[2020-05-28] MEDS: FUROSEMIDE 40 MG TABLET (FP) PO SCH ×2 (10:25→13:21)
[2020-05-28] MEDS: ZINC SULFATE 220 MG CAPSULE (FP) PO SCH ×4 (10:25→22:58)
[2020-05-28] MEDS: hydrALAZINE HCL 50 MG TABLET (FP) PO SCH ×5 (10:25→22:58)
[2020-05-28] MEDS: SODIUM BICARBONATE 650 MG TABLET PO SCH ×5 (10:26→22:58)
[2020-05-28] MEDS: TACROLIMUS 0.5 MG CAPSULE PO SCH ×3 (13:17→22:58)
[2020-05-28] MEDS ORDERED: SODIUM CHLORIDE 250 ML IV PRN (15:00)
[2020-05-28] MEDS ORDERED: EPOETIN ALFA-EPBX 3,000 UNIT/ML VIAL IVPUSH ONE (15:00)
[2020-05-28] MEDS ORDERED: INSULIN (NOVOLOG) ASPART 100 UNITS/ML 10ML VIAL ONE ×2 (17:43→21:23)
[2020-05-28 20:04] LABS: IRON SERUM 40 ug/dL (50-175); TOTAL IRON BINDING CAPACITY 178 ug/dL (250-450)
[2020-05-28] MEDS ORDERED: PT OWN MED DRAWER 7, Y5N ONE (21:08)
[2020-05-28] MEDS: TAMSULOSIN HCL 0.4 MG CAP PO SCH ×2 (21:15→22:58)
[2020-05-28] MEDS: ATORVASTATIN CA 40 MG TABLET (FP) PO SCH ×2 (21:15→22:58)
[2020-05-28] MEDS ORDERED: INSULIN (LEVEMIR) 100 UNITS/ML UNITS SQ ONE (21:22)
[2020-05-28] MEDS ORDERED: INSULIN SLIDING SCALE (NOVOLOG) 1 VIAL SQ SCH (22:00)
[2020-05-29] MEDS: INSULIN SLIDING SCALE (NOVOLOG) 1 VIAL SQ SCH ×3 (06:21→17:07)
[2020-05-29] MEDS: FERROUS SO4 325 MG TABLET (FP) PO SCH (09:41)
[2020-05-29] MEDS: levETIRAcetam 500 MG TABLET (FP) PO SCH (09:41)
[2020-05-29] MEDS: ASCORBIC ACID 500 MG TABLET (FP) PO SCH (09:42)
[2020-05-29] MEDS: SODIUM BICARBONATE 650 MG TABLET PO SCH (09:42)
[2020-05-29] MEDS: SERTRALINE HCL 25 MG TABLET (FP) PO SCH (09:42)
[2020-05-29] MEDS: FUROSEMIDE 40 MG TABLET (FP) PO SCH (09:42)
[2020-05-29] MEDS: FOLIC ACID 1 MG TABLET (FP) PO SCH (09:42)
[2020-05-29] MEDS: CINACALCET HCL 30 MG TAB (FP) PO SCH (09:42)
[2020-05-29] MEDS: ZINC SULFATE 220 MG CAPSULE (FP) PO SCH (09:44)
[2020-05-29] MEDS: DEXAMETHASONE SOD PHOSPHATE 4 MG/1 ML VIAL IVPUSH SCH (09:45)
[2020-05-29] MEDS: ALLOPURINOL 100 MG TABLET (FP) PO SCH (09:45)
[2020-05-29] MEDS: FAMOTIDINE 10 MG TABLET PO SCH (09:46)
[2020-05-29] MEDS: TACROLIMUS 0.5 MG CAPSULE PO SCH (09:52)
[2020-05-29] MEDS: hydrALAZINE HCL 50 MG TABLET (FP) PO SCH (13:36)
[2020-05-29] MEDS: METOPROLOL TARTRATE 50 MG TABLET (FP) PO SCH (13:36)
[2020-05-29 19:41] LABS: HEMATOCRIT 34.5 % (35.4-49); HEMOGLOBIN 10.9 GM/dL (11.7-16.9); LYMPH % 8.3 % (8-40); MCH 27.7 pg (25.7-33.7); MCHC 31.7 g/dl (32.0-35.9); MEAN CELL VOLUME 87.3 fl (80-96); MEAN PLT VOLUME 11.5 fl (7.5-11.1); MONO % 5.2 % (3.8-10.2); NEUT % 86.5 % (42.8-82.8); PLATELET COUNT 132 K/MM3 (134-434); RBC 3.96 M/mm3 (4.00-5.60); RDW 19.4 % (11.9-15.9)
[2020-05-29 19:58] LABS: POTASSIUM 3.9 mmol/L (3.5-5.1)
[2020-05-29 19:59] LABS: CALCIUM 8.4 mg/dL (8.5-10.1)
[2020-05-29 20:00] LABS: ALBUMIN 3.2 g/dl (3.4-5.0)
[2020-05-29 20:05] LABS: BILIRUBIN,TOTAL 0.5 mg/dL (0.2-1); TOT PROT 6.8 g/dl (6.4-8.2)
[2020-05-29 20:12] LABS: BLOOD UREA NITROGEN 103.8 mg/dL (7-18)
[2020-05-29 20:18] LABS: CREATININE 9.9 mg/dL (0.55-1.3)
[2020-05-30] MEDS: ATORVASTATIN CA 40 MG TABLET (FP) PO SCH (01:37)
[2020-05-30] MEDS: ZINC SULFATE 220 MG CAPSULE (FP) PO SCH ×2 (01:37→09:25)
[2020-05-30] MEDS: levETIRAcetam 500 MG TABLET (FP) PO SCH ×2 (01:37→09:25)
[2020-05-30] MEDS: INSULIN SLIDING SCALE (NOVOLOG) 1 VIAL SQ SCH ×6 (01:37→17:26)
[2020-05-30] MEDS: hydrALAZINE HCL 50 MG TABLET (FP) PO SCH ×2 (01:37→09:25)
[2020-05-30] MEDS: METOPROLOL TARTRATE 50 MG TABLET (FP) PO SCH ×2 (01:37→09:25)
[2020-05-30] MEDS: TAMSULOSIN HCL 0.4 MG CAP PO SCH (01:37)
[2020-05-30] MEDS: SODIUM BICARBONATE 650 MG TABLET PO SCH ×2 (01:38→09:24)
[2020-05-30] MEDS: TACROLIMUS 0.5 MG CAPSULE PO SCH ×2 (01:38→09:26)
[2020-05-30] MEDS: ASCORBIC ACID 500 MG TABLET (FP) PO SCH ×2 (01:38→09:26)
[2020-05-30] MEDS: FERROUS SO4 325 MG TABLET (FP) PO SCH (09:25)
[2020-05-30] MEDS: FUROSEMIDE 40 MG TABLET (FP) PO SCH (09:25)
[2020-05-30] MEDS: DEXAMETHASONE SOD PHOSPHATE 4 MG/1 ML VIAL IVPUSH SCH (09:26)
[2020-05-30] MEDS: CINACALCET HCL 30 MG TAB (FP) PO SCH (09:26)
[2020-05-30] MEDS: SERTRALINE HCL 25 MG TABLET (FP) PO SCH (09:26)
[2020-05-30] MEDS: ALLOPURINOL 100 MG TABLET (FP) PO SCH (09:26)
[2020-05-30] MEDS: FOLIC ACID 1 MG TABLET (FP) PO SCH (09:26)
[2020-05-30] MEDS: FAMOTIDINE 10 MG TABLET PO SCH (09:27)
[2020-05-30] MEDS ORDERED: PT OWN MED DRAWER 7, Y5N ONE (09:52)
[2020-05-30] MEDS ORDERED: INSULIN (LEVEMIR) 100 UNITS/ML UNITS SQ ONE (18:12)
[2020-05-31] MEDS ORDERED: PT OWN MED DRAWER 7, Y5N ONE ×2 (00:03→20:32)
[2020-05-31] MEDS: ZINC SULFATE 220 MG CAPSULE (FP) PO SCH ×3 (00:07→21:03)
[2020-05-31] MEDS: levETIRAcetam 500 MG TABLET (FP) PO SCH ×3 (00:08→21:03)
[2020-05-31] MEDS: ASCORBIC ACID 500 MG TABLET (FP) PO SCH ×3 (00:08→21:03)
[2020-05-31] MEDS: TAMSULOSIN HCL 0.4 MG CAP PO SCH ×2 (00:08→21:03)
[2020-05-31] MEDS: hydrALAZINE HCL 50 MG TABLET (FP) PO SCH ×3 (00:08→21:03)
[2020-05-31] MEDS: ATORVASTATIN CA 40 MG TABLET (FP) PO SCH ×2 (00:08→21:03)
[2020-05-31] MEDS: METOPROLOL TARTRATE 50 MG TABLET (FP) PO SCH ×3 (00:09→21:04)
[2020-05-31] MEDS: INSULIN SLIDING SCALE (NOVOLOG) 1 VIAL SQ SCH ×5 (00:10→22:16)
[2020-05-31] MEDS: TACROLIMUS 0.5 MG CAPSULE PO SCH ×3 (00:10→21:04)
[2020-05-31] MEDS: SODIUM BICARBONATE 650 MG TABLET PO SCH ×3 (00:10→21:03)
[2020-05-31 09:52] LABS: BASO % 0.1 % (0-2.0); EOS % 0.1 % (0-4.5); HEMATOCRIT 34.3 % (35.4-49); HEMOGLOBIN 10.8 GM/dL (11.7-16.9); LYMPH % 20.1 % (8-40); MCH 27.8 pg (25.7-33.7); MCHC 31.3 g/dl (32.0-35.9); MEAN CELL VOLUME 88.5 fl (80-96); MEAN PLT VOLUME 10.8 fl (7.5-11.1); MONO % 9.9 % (3.8-10.2); NEUT % 69.8 % (42.8-82.8); PLATELET COUNT 142 K/MM3 (134-434); RBC 3.88 M/mm3 (4.00-5.60); RDW 19.3 % (11.9-15.9); WHITE BLOOD COUNT 5.4 K/mm3 (4.0-10.0)
[2020-05-31] MEDS: FOLIC ACID 1 MG TABLET (FP) PO SCH (10:10)
[2020-05-31 10:11] LABS: POTASSIUM 3.9 mmol/L (3.5-5.1)
[2020-05-31] MEDS: ALLOPURINOL 100 MG TABLET (FP) PO SCH (10:11)
[2020-05-31] MEDS: SERTRALINE HCL 25 MG TABLET (FP) PO SCH (10:11)
[2020-05-31] MEDS: FERROUS SO4 325 MG TABLET (FP) PO SCH (10:11)
[2020-05-31] MEDS: DEXAMETHASONE SOD PHOSPHATE 4 MG/1 ML VIAL IVPUSH SCH (10:11)
[2020-05-31] MEDS: FUROSEMIDE 40 MG TABLET (FP) PO SCH (10:11)
[2020-05-31] MEDS: CINACALCET HCL 30 MG TAB (FP) PO SCH (10:11)
[2020-05-31 10:13] LABS: ALBUMIN 3.1 g/dl (3.4-5.0); CALCIUM 8.4 mg/dL (8.5-10.1)
[2020-05-31 10:14] LABS: BLOOD UREA NITROGEN 96.2 mg/dL (7-18)
[2020-05-31 10:18] LABS: BILIRUBIN,TOTAL 1.1 mg/dL (0.2-1); TOT PROT 6.8 g/dl (6.4-8.2)
[2020-05-31] MEDS: FAMOTIDINE 10 MG TABLET PO SCH (10:37)
[2020-05-31 11:17] LABS: CREATININE 9.4 mg/dL (0.55-1.3)
[2020-05-31] MEDS ORDERED: INSULIN (NOVOLOG) ASPART 100 UNITS/ML 10ML VIAL ONE (11:57)
[2020-05-31] MEDS ORDERED: INSULIN (NOVOLOG) ASPART 100 UNITS/ML 10ML VIAL SQ ONE (12:45)
[2020-06-01] MEDS: INSULIN SLIDING SCALE (NOVOLOG) 1 VIAL SQ SCH ×4 (06:21→22:31)
[2020-06-01] MEDS: ZINC SULFATE 220 MG CAPSULE (FP) PO SCH ×2 (10:01→22:10)
[2020-06-01] MEDS: ASCORBIC ACID 500 MG TABLET (FP) PO SCH ×2 (10:01→22:10)
[2020-06-01] MEDS: SODIUM BICARBONATE 650 MG TABLET PO SCH ×2 (10:01→22:10)
[2020-06-01] MEDS: FUROSEMIDE 40 MG TABLET (FP) PO SCH (10:02)
[2020-06-01] MEDS: ALLOPURINOL 100 MG TABLET (FP) PO SCH (10:02)
[2020-06-01] MEDS: SERTRALINE HCL 25 MG TABLET (FP) PO SCH (10:03)
[2020-06-01] MEDS: FOLIC ACID 1 MG TABLET (FP) PO SCH (10:03)
[2020-06-01] MEDS: FERROUS SO4 325 MG TABLET (FP) PO SCH (10:03)
[2020-06-01] MEDS: CINACALCET HCL 30 MG TAB (FP) PO SCH (10:03)
[2020-06-01] MEDS: levETIRAcetam 500 MG TABLET (FP) PO SCH ×2 (10:03→22:10)
[2020-06-01] MEDS: DEXAMETHASONE SOD PHOSPHATE 4 MG/1 ML VIAL IVPUSH SCH (10:04)
[2020-06-01] MEDS: FAMOTIDINE 10 MG TABLET PO SCH (10:14)
[2020-06-01] MEDS: TACROLIMUS 0.5 MG CAPSULE PO SCH ×2 (10:15→22:12)
[2020-06-01] MEDS: hydrALAZINE HCL 50 MG TABLET (FP) PO SCH ×2 (10:51→22:10)
[2020-06-01] MEDS: METOPROLOL TARTRATE 50 MG TABLET (FP) PO SCH ×2 (10:52→22:10)
[2020-06-01] MEDS ORDERED: SODIUM CHLORIDE 250 ML IV PRN (11:55)
[2020-06-01] MEDS ORDERED: EPOETIN ALFA-EPBX 4,000 UNIT/ML VIAL IVPUSH ONE (12:00)
[2020-06-01] MEDS: ATORVASTATIN CA 40 MG TABLET (FP) PO SCH (22:10)
[2020-06-01] MEDS: TAMSULOSIN HCL 0.4 MG CAP PO SCH (22:10)
[2020-06-02] MEDS: INSULIN SLIDING SCALE (NOVOLOG) 1 VIAL SQ SCH ×4 (06:03→21:32)
[2020-06-02] MEDS ORDERED: SODIUM CHLORIDE 250 ML IV PRN (10:35)
[2020-06-02] MEDS ORDERED: PT OWN MED DRAWER 7, Y5N ONE ×3 (10:48→22:18)
[2020-06-02] MEDS: SERTRALINE HCL 25 MG TABLET (FP) PO SCH (11:12)
[2020-06-02] MEDS: FOLIC ACID 1 MG TABLET (FP) PO SCH (11:12)
[2020-06-02] MEDS: FAMOTIDINE 10 MG TABLET PO SCH (11:13)
[2020-06-02] MEDS: DEXAMETHASONE SOD PHOSPHATE 4 MG/1 ML VIAL IVPUSH SCH (11:14)
[2020-06-02] MEDS: hydrALAZINE HCL 50 MG TABLET (FP) PO SCH ×2 (11:14→21:24)
[2020-06-02] MEDS: FERROUS SO4 325 MG TABLET (FP) PO SCH (11:16)
[2020-06-02] MEDS: METOPROLOL TARTRATE 50 MG TABLET (FP) PO SCH ×2 (11:16→21:24)
[2020-06-02] MEDS: levETIRAcetam 500 MG TABLET (FP) PO SCH ×2 (11:16→21:24)
[2020-06-02] MEDS: ZINC SULFATE 220 MG CAPSULE (FP) PO SCH ×2 (11:17→21:23)
[2020-06-02] MEDS: TACROLIMUS 0.5 MG CAPSULE PO SCH ×2 (11:18→21:24)
[2020-06-02] MEDS: SODIUM BICARBONATE 650 MG TABLET PO SCH ×2 (11:18→21:23)
[2020-06-02] MEDS: CINACALCET HCL 30 MG TAB (FP) PO SCH (11:18)
[2020-06-02] MEDS: ALLOPURINOL 100 MG TABLET (FP) PO SCH (11:19)
[2020-06-02] MEDS: ASCORBIC ACID 500 MG TABLET (FP) PO SCH ×2 (11:19→21:24)
[2020-06-02] MEDS: FUROSEMIDE 40 MG TABLET (FP) PO SCH (14:42)
[2020-06-02] MEDS: TAMSULOSIN HCL 0.4 MG CAP PO SCH (21:24)
[2020-06-02] MEDS: ATORVASTATIN CA 40 MG TABLET (FP) PO SCH (21:24)
[2020-06-03] MEDS: INSULIN SLIDING SCALE (NOVOLOG) 1 VIAL SQ SCH ×4 (07:00→23:20)
[2020-06-03] MEDS: FAMOTIDINE 10 MG TABLET PO SCH ×2 (10:00→15:19)
[2020-06-03] MEDS: FUROSEMIDE 40 MG TABLET (FP) PO SCH ×2 (10:46→15:19)
[2020-06-03] MEDS: levETIRAcetam 500 MG TABLET (FP) PO SCH ×3 (10:46→23:11)
[2020-06-03] MEDS: hydrALAZINE HCL 50 MG TABLET (FP) PO SCH ×2 (10:46→23:11)
[2020-06-03] MEDS: DEXAMETHASONE SOD PHOSPHATE 4 MG/1 ML VIAL IVPUSH SCH ×2 (10:46→15:08)
[2020-06-03] MEDS: FOLIC ACID 1 MG TABLET (FP) PO SCH ×2 (10:46→15:22)
[2020-06-03] MEDS: FERROUS SO4 325 MG TABLET (FP) PO SCH ×2 (10:46→15:21)
[2020-06-03] MEDS: ASCORBIC ACID 500 MG TABLET (FP) PO SCH ×2 (10:47→23:11)
[2020-06-03] MEDS: SERTRALINE HCL 25 MG TABLET (FP) PO SCH ×2 (10:47→15:20)
[2020-06-03] MEDS: METOPROLOL TARTRATE 50 MG TABLET (FP) PO SCH ×2 (10:47→23:12)
[2020-06-03] MEDS: TACROLIMUS 0.5 MG CAPSULE PO SCH ×2 (10:47→23:36)
[2020-06-03] MEDS: ZINC SULFATE 220 MG CAPSULE (FP) PO SCH ×2 (10:47→23:11)
[2020-06-03] MEDS: ALLOPURINOL 100 MG TABLET (FP) PO SCH ×2 (10:47→15:20)
[2020-06-03] MEDS: CINACALCET HCL 30 MG TAB (FP) PO SCH ×2 (10:47→15:21)
[2020-06-03] MEDS: SODIUM BICARBONATE 650 MG TABLET PO SCH ×2 (10:47→23:13)
[2020-06-03] MEDS ORDERED: PT OWN MED DRAWER 7, Y5N ONE (14:55)
[2020-06-03] MEDS ORDERED: INSULIN (NOVOLOG) ASPART 100 UNITS/ML 10ML VIAL SQ ONE (23:00)
[2020-06-03] MEDS: TAMSULOSIN HCL 0.4 MG CAP PO SCH (23:11)
[2020-06-03] MEDS: ATORVASTATIN CA 40 MG TABLET (FP) PO SCH (23:13)
[2020-06-04] MEDS ORDERED: INSULIN (NOVOLOG) ASPART 100 UNITS/ML 10ML VIAL ONE ×3 (07:03→21:19)
[2020-06-04] MEDS: INSULIN SLIDING SCALE (NOVOLOG) 1 VIAL SQ SCH ×4 (07:05→22:02)
[2020-06-04 08:58] LABS: BASO % 0.1 % (0-2.0); EOS % 0.1 % (0-4.5); HEMATOCRIT 33.1 % (35.4-49); HEMOGLOBIN 10.6 GM/dL (11.7-16.9); LYMPH % 10.1 % (8-40); MCH 28.5 pg (25.7-33.7); MCHC 32.1 g/dl (32.0-35.9); MEAN CELL VOLUME 88.8 fl (80-96); MEAN PLT VOLUME 12.4 fl (7.5-11.1); MONO % 6.9 % (3.8-10.2); NEUT % 82.8 % (42.8-82.8); PLATELET COUNT 148 K/MM3 (134-434); RBC 3.73 M/mm3 (4.00-5.60); RDW 18.8 % (11.9-15.9); WHITE BLOOD COUNT 6.8 K/mm3 (4.0-10.0)
[2020-06-04 09:19] LABS: POTASSIUM 3.5 mmol/L (3.5-5.1)
[2020-06-04 09:35] LABS: ALBUMIN 2.9 g/dl (3.4-5.0); CALCIUM 8.1 mg/dL (8.5-10.1)
[2020-06-04 09:39] LABS: BILIRUBIN,TOTAL 0.8 mg/dL (0.2-1); CREATININE 6.1 mg/dL (0.55-1.3)
[2020-06-04 09:40] LABS: BLOOD UREA NITROGEN 53.8 mg/dL (7-18); TOT PROT 6.8 g/dl (6.4-8.2)
[2020-06-04] MEDS: DEXAMETHASONE SOD PHOSPHATE 4 MG/1 ML VIAL IVPUSH SCH (10:37)
[2020-06-04] MEDS: SERTRALINE HCL 25 MG TABLET (FP) PO SCH (10:38)
[2020-06-04] MEDS: FERROUS SO4 325 MG TABLET (FP) PO SCH (10:38)
[2020-06-04] MEDS: ZINC SULFATE 220 MG CAPSULE (FP) PO SCH ×2 (10:38→22:01)
[2020-06-04] MEDS: CINACALCET HCL 30 MG TAB (FP) PO SCH (10:38)
[2020-06-04] MEDS: ALLOPURINOL 100 MG TABLET (FP) PO SCH (10:38)
[2020-06-04] MEDS: levETIRAcetam 500 MG TABLET (FP) PO SCH ×2 (10:38→22:01)
[2020-06-04] MEDS: ASCORBIC ACID 500 MG TABLET (FP) PO SCH ×2 (10:38→22:00)
[2020-06-04] MEDS: METOPROLOL TARTRATE 50 MG TABLET (FP) PO SCH ×2 (10:39→21:57)
[2020-06-04] MEDS: FUROSEMIDE 40 MG TABLET (FP) PO SCH (10:39)
[2020-06-04] MEDS: hydrALAZINE HCL 50 MG TABLET (FP) PO SCH ×2 (10:39→21:59)
[2020-06-04] MEDS: FOLIC ACID 1 MG TABLET (FP) PO SCH (10:40)
[2020-06-04] MEDS: SODIUM BICARBONATE 650 MG TABLET PO SCH ×2 (10:40→22:01)
[2020-06-04] MEDS ORDERED: PT OWN MED DRAWER 7, Y5N ONE ×3 (11:00→21:19)
[2020-06-04] MEDS: FAMOTIDINE 10 MG TABLET PO SCH (11:08)
[2020-06-04] MEDS: TACROLIMUS 0.5 MG CAPSULE PO SCH ×2 (11:09→22:02)
[2020-06-04] MEDS ORDERED: INSULIN (NOVOLOG) ASPART 100 UNITS/ML 10ML VIAL SQ ONE (17:45)
[2020-06-04] MEDS: TAMSULOSIN HCL 0.4 MG CAP PO SCH (22:00)
[2020-06-04] MEDS: ATORVASTATIN CA 40 MG TABLET (FP) PO SCH (22:01)
[2020-06-05] MEDS: INSULIN SLIDING SCALE (NOVOLOG) 1 VIAL SQ SCH ×4 (06:56→22:39)
[2020-06-05 09:37] LABS: BASO % 0.2 % (0-2.0); EOS % 0.3 % (0-4.5); HEMATOCRIT 31.8 % (35.4-49); HEMOGLOBIN 10.3 GM/dL (11.7-16.9); LYMPH % 12.5 % (8-40); MCH 28.4 pg (25.7-33.7); MCHC 32.3 g/dl (32.0-35.9); MEAN PLT VOLUME 11.1 fl (7.5-11.1); MONO % 5.7 % (3.8-10.2); NEUT % 81.3 % (42.8-82.8); PLATELET COUNT 142 K/MM3 (134-434); RBC 3.61 M/mm3 (4.00-5.60); RDW 19.3 % (11.9-15.9); WHITE BLOOD COUNT 7.4 K/mm3 (4.0-10.0)
[2020-06-05 10:02] LABS: POTASSIUM 3.4 mmol/L (3.5-5.1)
[2020-06-05 10:13] LABS: ALBUMIN 2.8 g/dl (3.4-5.0); CALCIUM 8.1 mg/dL (8.5-10.1)
[2020-06-05 10:18] LABS: TOT PROT 6.7 g/dl (6.4-8.2)
[2020-06-05 11:02] LABS: BILIRUBIN,TOTAL 0.7 mg/dL (0.2-1); BLOOD UREA NITROGEN 79.8 mg/dL (7-18)
[2020-06-05] MEDS ORDERED: SODIUM CHLORIDE 250 ML IV PRN (11:19)
[2020-06-05 11:25] LABS: CREATININE 7.5 mg/dL (0.55-1.3)
[2020-06-05] MEDS ORDERED: PT OWN MED DRAWER 7, Y5N ONE (12:12)
[2020-06-05] MEDS: AMINO ACIDS/PROTEIN HYDROLYS 30 ML LIQUID.PKT PO SCH ×2 (12:17→17:15)
[2020-06-05] MEDS: FUROSEMIDE 40 MG TABLET (FP) PO SCH (12:24)
[2020-06-05] MEDS: ZINC SULFATE 220 MG CAPSULE (FP) PO SCH ×2 (12:24→22:31)
[2020-06-05] MEDS: ASCORBIC ACID 500 MG TABLET (FP) PO SCH ×2 (12:24→22:31)
[2020-06-05] MEDS: FERROUS SO4 325 MG TABLET (FP) PO SCH (12:24)
[2020-06-05] MEDS: DEXAMETHASONE SOD PHOSPHATE 4 MG/1 ML VIAL IVPUSH SCH (12:24)
[2020-06-05] MEDS: FOLIC ACID 1 MG TABLET (FP) PO SCH (12:25)
[2020-06-05] MEDS: levETIRAcetam 500 MG TABLET (FP) PO SCH ×2 (12:25→22:31)
[2020-06-05] MEDS: hydrALAZINE HCL 50 MG TABLET (FP) PO SCH ×2 (12:25→22:31)
[2020-06-05] MEDS: SODIUM BICARBONATE 650 MG TABLET PO SCH ×2 (12:25→22:31)
[2020-06-05] MEDS: CINACALCET HCL 30 MG TAB (FP) PO SCH (12:25)
[2020-06-05] MEDS: SERTRALINE HCL 25 MG TABLET (FP) PO SCH (12:25)
[2020-06-05] MEDS: METOPROLOL TARTRATE 50 MG TABLET (FP) PO SCH ×2 (12:25→22:32)
[2020-06-05] MEDS: FAMOTIDINE 10 MG TABLET PO SCH (12:26)
[2020-06-05] MEDS: TACROLIMUS 0.5 MG CAPSULE PO SCH ×2 (12:27→22:31)
[2020-06-05] MEDS: ALLOPURINOL 100 MG TABLET (FP) PO SCH (12:27)
[2020-06-05] MEDS: TAMSULOSIN HCL 0.4 MG CAP PO SCH (22:31)
[2020-06-05] MEDS: ATORVASTATIN CA 40 MG TABLET (FP) PO SCH (22:31)
[2020-06-05] MEDS ORDERED: INSULIN (NOVOLOG) ASPART 100 UNITS/ML 10ML VIAL SQ ONE (22:45)
[2020-06-06] MEDS: INSULIN SLIDING SCALE (NOVOLOG) 1 VIAL SQ SCH ×4 (06:45→21:15)
[2020-06-06] MEDS: hydrALAZINE HCL 50 MG TABLET (FP) PO SCH ×2 (09:17→21:07)
[2020-06-06] MEDS: AMINO ACIDS/PROTEIN HYDROLYS 30 ML LIQUID.PKT PO SCH ×2 (09:17→17:37)
[2020-06-06] MEDS: FERROUS SO4 325 MG TABLET (FP) PO SCH (09:17)
[2020-06-06] MEDS: SERTRALINE HCL 25 MG TABLET (FP) PO SCH (09:17)
[2020-06-06] MEDS: METOPROLOL TARTRATE 50 MG TABLET (FP) PO SCH ×2 (09:17→21:03)
[2020-06-06] MEDS: FUROSEMIDE 40 MG TABLET (FP) PO SCH (09:17)
[2020-06-06] MEDS: SODIUM BICARBONATE 650 MG TABLET PO SCH ×2 (09:18→21:04)
[2020-06-06] MEDS: ZINC SULFATE 220 MG CAPSULE (FP) PO SCH ×2 (09:19→21:04)
[2020-06-06] MEDS: ASCORBIC ACID 500 MG TABLET (FP) PO SCH ×2 (09:19→21:03)
[2020-06-06] MEDS: levETIRAcetam 500 MG TABLET (FP) PO SCH ×2 (09:19→21:04)
[2020-06-06] MEDS: FOLIC ACID 1 MG TABLET (FP) PO SCH (09:20)
[2020-06-06] MEDS: CINACALCET HCL 30 MG TAB (FP) PO SCH (09:20)
[2020-06-06] MEDS: DEXAMETHASONE SOD PHOSPHATE 4 MG/1 ML VIAL IVPUSH SCH (09:21)
[2020-06-06] MEDS: ALLOPURINOL 100 MG TABLET (FP) PO SCH (09:21)
[2020-06-06] MEDS: FAMOTIDINE 10 MG TABLET PO SCH (09:21)
[2020-06-06] MEDS: ENOXAPARIN NA (PORCINE) 30 MG/0.3 ML DISP.SYRIN SQ SCH (09:22)
[2020-06-06] MEDS: INSULIN (LEVEMIR) 100 UNITS/ML UNITS SQ SCH ×2 (09:22→21:16)
[2020-06-06] MEDS ORDERED: PT OWN MED DRAWER 7, Y5N ONE ×2 (09:24→20:54)
[2020-06-06] MEDS: TACROLIMUS 0.5 MG CAPSULE PO SCH ×2 (09:25→21:05)
[2020-06-06] MEDS ORDERED: SODIUM CHLORIDE 250 ML IV PRN (17:27)
[2020-06-06] MEDS ORDERED: HEPARIN NA (PORCINE) 5,000 UNITS/ML 1ML VIAL IVPUSH ONE (17:27)
[2020-06-06] MEDS ORDERED: INSULIN (NOVOLOG) ASPART 100 UNITS/ML 10ML VIAL ONE (18:15)
[2020-06-06] MEDS: TAMSULOSIN HCL 0.4 MG CAP PO SCH (21:03)
[2020-06-06] MEDS: ATORVASTATIN CA 40 MG TABLET (FP) PO SCH (21:03)
[2020-06-07] MEDS: INSULIN SLIDING SCALE (NOVOLOG) 1 VIAL SQ SCH ×4 (06:44→21:28)
[2020-06-07 09:26] LABS: CHLORIDE 91 mmol/L (98-107); POTASSIUM 3.1 mmol/L (3.5-5.1); SODIUM 133 mmol/L (136-145)
[2020-06-07 09:28] LABS: BASO % 0.2 % (0-2.0); EOS % 0.2 % (0-4.5); HEMATOCRIT 29.8 % (35.4-49); HEMOGLOBIN 9.7 GM/dL (11.7-16.9); LYMPH % 11.7 % (8-40); MCH 28.2 pg (25.7-33.7); MCHC 32.4 g/dl (32.0-35.9); MEAN CELL VOLUME 86.8 fl (80-96); MONO % 4.4 % (3.8-10.2); NEUT % 83.5 % (42.8-82.8); PLATELET COUNT 121 K/MM3 (134-434); RBC 3.43 M/mm3 (4.00-5.60); RDW 18.5 % (11.9-15.9); WHITE BLOOD COUNT 7.2 K/mm3 (4.0-10.0)
[2020-06-07 09:30] LABS: ALBUMIN 2.6 g/dl (3.4-5.0); ANION GAP 16 MMOL/L (8-16); BLOOD UREA NITROGEN 86.3 mg/dL (7-18); CO2 26 mmol/L (21-32); GLUCOSE,RANDOM 333 mg/dL (74-106)
[2020-06-07 09:33] LABS: SGOT/AST 16 U/L (15-37); SGPT/ALT 10 U/L (13-61)
[2020-06-07 09:35] LABS: BILIRUBIN,TOTAL 0.8 mg/dL (0.2-1); TOT PROT 6.3 g/dl (6.4-8.2)
[2020-06-07 09:36] LABS: ALK PHOS 97 U/L (45-117)
[2020-06-07] MEDS ORDERED: PT OWN MED DRAWER 7, Y5N ONE ×3 (09:39→21:41)
[2020-06-07] MEDS: ENOXAPARIN NA (PORCINE) 30 MG/0.3 ML DISP.SYRIN SQ SCH (09:43)
[2020-06-07] MEDS: METOPROLOL TARTRATE 50 MG TABLET (FP) PO SCH ×2 (09:46→21:26)
[2020-06-07] MEDS: ASCORBIC ACID 500 MG TABLET (FP) PO SCH ×2 (09:47→21:26)
[2020-06-07] MEDS: AMINO ACIDS/PROTEIN HYDROLYS 30 ML LIQUID.PKT PO SCH ×2 (09:47→17:34)
[2020-06-07] MEDS: INSULIN (LEVEMIR) 100 UNITS/ML UNITS SQ SCH ×2 (09:47→21:26)
[2020-06-07] MEDS: FUROSEMIDE 40 MG TABLET (FP) PO SCH (09:47)
[2020-06-07] MEDS: FOLIC ACID 1 MG TABLET (FP) PO SCH (09:47)
[2020-06-07] MEDS: SODIUM BICARBONATE 650 MG TABLET PO SCH (09:48)
[2020-06-07] MEDS: levETIRAcetam 500 MG TABLET (FP) PO SCH ×2 (09:48→21:25)
[2020-06-07] MEDS: hydrALAZINE HCL 50 MG TABLET (FP) PO SCH ×2 (09:48→21:26)
[2020-06-07] MEDS: FAMOTIDINE 10 MG TABLET PO SCH (09:59)
[2020-06-07] MEDS: DEXAMETHASONE SOD PHOSPHATE 4 MG/1 ML VIAL IVPUSH SCH (09:59)
[2020-06-07] MEDS: ZINC SULFATE 220 MG CAPSULE (FP) PO SCH ×2 (10:00→21:25)
[2020-06-07] MEDS: CINACALCET HCL 30 MG TAB (FP) PO SCH (10:00)
[2020-06-07] MEDS: TACROLIMUS 0.5 MG CAPSULE PO SCH ×2 (10:00→23:45)
[2020-06-07] MEDS: FERROUS SO4 325 MG TABLET (FP) PO SCH (10:01)
[2020-06-07] MEDS: ALLOPURINOL 100 MG TABLET (FP) PO SCH (10:01)
[2020-06-07] MEDS: SERTRALINE HCL 25 MG TABLET (FP) PO SCH (10:01)
[2020-06-07 11:07] LABS: CREATININE 7.4 mg/dL (0.55-1.3)
[2020-06-07] MEDS ORDERED: POTASSIUM CHLORIDE TABS 20 MEQ TABLET.ER (FP) PO ONE (12:07)
[2020-06-07] MEDS ORDERED: EPOETIN ALFA-EPBX 3,000 UNIT/ML VIAL SQ ONE (14:15)
[2020-06-07] MEDS ORDERED: ENOXAPARIN NA (PORCINE) 30 MG/0.3 ML DISP.SYRIN SQ SCH ×2 (15:03→15:22)
[2020-06-07] MEDS ORDERED: HEPARIN NA (PORCINE) 5,000 UNITS/ML 1ML VIAL IVPUSH ONE (15:15)
[2020-06-07] MEDS: TAMSULOSIN HCL 0.4 MG CAP PO SCH (21:25)
[2020-06-07] MEDS: ATORVASTATIN CA 40 MG TABLET (FP) PO SCH (21:26)
[2020-06-08] MEDS: INSULIN (LEVEMIR) 100 UNITS/ML UNITS SQ SCH ×2 (06:03→21:43)
[2020-06-08] MEDS: INSULIN SLIDING SCALE (NOVOLOG) 1 VIAL SQ SCH ×4 (06:04→21:44)
[2020-06-08 09:00] LABS: POTASSIUM 3.1 mmol/L (3.5-5.1)
[2020-06-08 09:02] LABS: CALCIUM 8.5 mg/dL (8.5-10.1)
[2020-06-08 09:03] LABS: BLOOD UREA NITROGEN 63.8 mg/dL (7-18)
[2020-06-08 09:06] LABS: CREATININE 6.1 mg/dL (0.55-1.3)
[2020-06-08] MEDS ORDERED: INSULIN (NOVOLOG) ASPART 100 UNITS/ML 10ML VIAL ONE (09:56)
[2020-06-08] MEDS ORDERED: PT OWN MED DRAWER 7, Y5N ONE ×3 (09:56→21:02)
[2020-06-08] MEDS: AMINO ACIDS/PROTEIN HYDROLYS 30 ML LIQUID.PKT PO SCH ×2 (10:32→16:42)
[2020-06-08] MEDS: levETIRAcetam 500 MG TABLET (FP) PO SCH ×2 (11:14→21:43)
[2020-06-08] MEDS: DEXAMETHASONE SOD PHOSPHATE 4 MG/1 ML VIAL IVPUSH SCH (11:15)
[2020-06-08] MEDS: hydrALAZINE HCL 50 MG TABLET (FP) PO SCH ×2 (11:15→21:42)
[2020-06-08] MEDS: FUROSEMIDE 40 MG TABLET (FP) PO SCH (11:15)
[2020-06-08] MEDS: FOLIC ACID 1 MG TABLET (FP) PO SCH (11:15)
[2020-06-08] MEDS: METOPROLOL TARTRATE 50 MG TABLET (FP) PO SCH ×2 (11:16→21:42)
[2020-06-08] MEDS: FAMOTIDINE 10 MG TABLET PO SCH (11:16)
[2020-06-08] MEDS: TACROLIMUS 0.5 MG CAPSULE PO SCH ×2 (11:18→21:45)
[2020-06-08] MEDS: CINACALCET HCL 30 MG TAB (FP) PO SCH (11:19)
[2020-06-08] MEDS: ALLOPURINOL 100 MG TABLET (FP) PO SCH (11:20)
[2020-06-08] MEDS: ZINC SULFATE 220 MG CAPSULE (FP) PO SCH ×2 (11:54→21:42)
[2020-06-08] MEDS: SERTRALINE HCL 25 MG TABLET (FP) PO SCH (11:54)
[2020-06-08] MEDS ORDERED: POTASSIUM CHLORIDE TABS 20 MEQ TABLET.ER (FP) PO ONE (12:56)
[2020-06-08] MEDS ORDERED: ENOXAPARIN NA (PORCINE) 30 MG/0.3 ML DISP.SYRIN SQ SCH (20:15)
[2020-06-08] MEDS: TAMSULOSIN HCL 0.4 MG CAP PO SCH (21:42)
[2020-06-08] MEDS: ATORVASTATIN CA 40 MG TABLET (FP) PO SCH (21:43)
[2020-06-09] MEDS: INSULIN SLIDING SCALE (NOVOLOG) 1 VIAL SQ SCH ×4 (06:17→21:54)
[2020-06-09] MEDS: INSULIN (LEVEMIR) 100 UNITS/ML UNITS SQ SCH ×2 (06:20→21:53)
[2020-06-09 09:19] LABS: BASO % 0.2 % (0-2.0); EOS % 0.3 % (0-4.5); HEMATOCRIT 32.7 % (35.4-49); HEMOGLOBIN 10.5 GM/dL (11.7-16.9); LYMPH % 11.2 % (8-40); MCH 28.4 pg (25.7-33.7); MEAN CELL VOLUME 88.6 fl (80-96); MEAN PLT VOLUME 11.3 fl (7.5-11.1); MONO % 6.3 % (3.8-10.2); PLATELET COUNT 116 K/MM3 (134-434); RBC 3.69 M/mm3 (4.00-5.60); RDW 19.7 % (11.9-15.9); WHITE BLOOD COUNT 8.4 K/mm3 (4.0-10.0)
[2020-06-09 09:44] LABS: CHLORIDE 98 mmol/L (98-107); POTASSIUM 3.6 mmol/L (3.5-5.1); SODIUM 138 mmol/L (136-145)
[2020-06-09] MEDS: AMINO ACIDS/PROTEIN HYDROLYS 30 ML LIQUID.PKT PO SCH ×2 (09:56→19:51)
[2020-06-09] MEDS: FAMOTIDINE 10 MG TABLET PO SCH (09:56)
[2020-06-09] MEDS: hydrALAZINE HCL 50 MG TABLET (FP) PO SCH ×2 (09:57→21:52)
[2020-06-09] MEDS: DEXAMETHASONE SOD PHOSPHATE 4 MG/1 ML VIAL IVPUSH SCH (09:57)
[2020-06-09] MEDS: FOLIC ACID 1 MG TABLET (FP) PO SCH (09:58)
[2020-06-09] MEDS ORDERED: HEPARIN NA (PORCINE) 5,000 UNITS/ML 1ML VIAL SQ SCH (10:00)
[2020-06-09 10:01] LABS: ALBUMIN 2.5 g/dl (3.4-5.0); CALCIUM 8.2 mg/dL (8.5-10.1); GLUCOSE,RANDOM 113 mg/dL (74-106)
[2020-06-09 10:02] LABS: ANION GAP 17 MMOL/L (8-16); CO2 23 mmol/L (21-32)
[2020-06-09] MEDS: CINACALCET HCL 30 MG TAB (FP) PO SCH (10:02)
[2020-06-09] MEDS: FUROSEMIDE 40 MG TABLET (FP) PO SCH (10:02)
[2020-06-09 10:03] LABS: CREATININE 7.3 mg/dL (0.55-1.3)
[2020-06-09] MEDS: ALLOPURINOL 100 MG TABLET (FP) PO SCH (10:03)
[2020-06-09 10:04] LABS: BILIRUBIN,TOTAL 0.6 mg/dL (0.2-1); SGOT/AST 14 U/L (15-37); SGPT/ALT 8 U/L (13-61); TOT PROT 6.4 g/dl (6.4-8.2)
[2020-06-09 10:05] LABS: ALK PHOS 87 U/L (45-117)
[2020-06-09] MEDS: METOPROLOL TARTRATE 50 MG TABLET (FP) PO SCH ×2 (10:06→21:52)
[2020-06-09] MEDS: levETIRAcetam 500 MG TABLET (FP) PO SCH ×2 (10:06→21:51)
[2020-06-09] MEDS: ZINC SULFATE 220 MG CAPSULE (FP) PO SCH ×2 (10:09→21:52)
[2020-06-09] MEDS: SERTRALINE HCL 25 MG TABLET (FP) PO SCH (10:09)
[2020-06-09] MEDS ORDERED: PT OWN MED DRAWER 7, Y5N ONE ×2 (10:11→21:49)
[2020-06-09] MEDS: TACROLIMUS 0.5 MG CAPSULE PO SCH ×2 (10:11→21:55)
[2020-06-09 10:13] LABS: BLOOD UREA NITROGEN 94.1 mg/dL (7-18)
[2020-06-09] MEDS ORDERED: SODIUM CHLORIDE 250 ML IV PRN (10:45)
[2020-06-09] MEDS ORDERED: INSULIN (NOVOLOG) ASPART 100 UNITS/ML 10ML VIAL SQ ONE (19:29)
[2020-06-09] MEDS: ATORVASTATIN CA 40 MG TABLET (FP) PO SCH (21:52)
[2020-06-09] MEDS: TAMSULOSIN HCL 0.4 MG CAP PO SCH (21:52)
[2020-06-10] MEDS: INSULIN SLIDING SCALE (NOVOLOG) 1 VIAL SQ SCH ×4 (06:49→21:32)
[2020-06-10] MEDS: INSULIN (LEVEMIR) 100 UNITS/ML UNITS SQ SCH ×2 (06:50→21:30)
[2020-06-10] MEDS: AMINO ACIDS/PROTEIN HYDROLYS 30 ML LIQUID.PKT PO SCH ×2 (07:38→17:15)
[2020-06-10] MEDS: FAMOTIDINE 10 MG TABLET PO SCH (09:59)
[2020-06-10] MEDS: hydrALAZINE HCL 50 MG TABLET (FP) PO SCH ×2 (09:59→21:28)
[2020-06-10] MEDS: ZINC SULFATE 220 MG CAPSULE (FP) PO SCH ×2 (10:00→21:29)
[2020-06-10] MEDS: FOLIC ACID 1 MG TABLET (FP) PO SCH (10:00)
[2020-06-10] MEDS: levETIRAcetam 500 MG TABLET (FP) PO SCH ×2 (10:00→21:29)
[2020-06-10] MEDS: DEXAMETHASONE SOD PHOSPHATE 4 MG/1 ML VIAL IVPUSH SCH (10:00)
[2020-06-10] MEDS: FUROSEMIDE 40 MG TABLET (FP) PO SCH (10:01)
[2020-06-10] MEDS: SERTRALINE HCL 25 MG TABLET (FP) PO SCH (10:01)
[2020-06-10] MEDS: METOPROLOL TARTRATE 50 MG TABLET (FP) PO SCH ×2 (10:01→21:29)
[2020-06-10] MEDS: CINACALCET HCL 30 MG TAB (FP) PO SCH (10:01)
[2020-06-10] MEDS: ALLOPURINOL 100 MG TABLET (FP) PO SCH (10:02)
[2020-06-10] MEDS ORDERED: PT OWN MED DRAWER 7, Y5N ONE ×2 (10:03→21:24)
[2020-06-10] MEDS: TACROLIMUS 0.5 MG CAPSULE PO SCH ×2 (10:04→21:30)
[2020-06-10] MEDS: TAMSULOSIN HCL 0.4 MG CAP PO SCH (21:29)
[2020-06-10] MEDS: ATORVASTATIN CA 40 MG TABLET (FP) PO SCH (21:29)
[2020-06-10 22:09] LABS: BASO % 0.3 % (0-2.0); EOS % 0.3 % (0-4.5); HEMATOCRIT 30.8 % (35.4-49); HEMOGLOBIN 9.9 GM/dL (11.7-16.9); MCH 28.3 pg (25.7-33.7); MCHC 32.3 g/dl (32.0-35.9); MEAN CELL VOLUME 87.8 fl (80-96); MEAN PLT VOLUME 11.4 fl (7.5-11.1); MONO % 4.2 % (3.8-10.2); NEUT % 89.2 % (42.8-82.8); PLATELET COUNT 123 K/MM3 (134-434); RDW 19.7 % (11.9-15.9); WHITE BLOOD COUNT 6.3 K/mm3 (4.0-10.0)
[2020-06-10 22:26] LABS: POTASSIUM 3.9 mmol/L (3.5-5.1)
[2020-06-10 22:28] LABS: CALCIUM 8.3 mg/dL (8.5-10.1)
[2020-06-10 22:29] LABS: ALBUMIN 2.6 g/dl (3.4-5.0)
[2020-06-10 22:34] LABS: BILIRUBIN,TOTAL 0.6 mg/dL (0.2-1); TOT PROT 6.5 g/dl (6.4-8.2)
[2020-06-10 22:36] LABS: BLOOD UREA NITROGEN 55.8 mg/dL (7-18)
[2020-06-11] MEDS: INSULIN (LEVEMIR) 100 UNITS/ML UNITS SQ SCH (06:49)
[2020-06-11] MEDS: INSULIN SLIDING SCALE (NOVOLOG) 1 VIAL SQ SCH ×4 (06:50→23:28)
[2020-06-11] MEDS: AMINO ACIDS/PROTEIN HYDROLYS 30 ML LIQUID.PKT PO SCH ×2 (08:49→17:11)
[2020-06-11] MEDS: ZINC SULFATE 220 MG CAPSULE (FP) PO SCH ×2 (09:02→23:27)
[2020-06-11] MEDS: FUROSEMIDE 40 MG TABLET (FP) PO SCH (09:02)
[2020-06-11] MEDS: ALLOPURINOL 100 MG TABLET (FP) PO SCH (09:03)
[2020-06-11] MEDS: SERTRALINE HCL 25 MG TABLET (FP) PO SCH (09:03)
[2020-06-11] MEDS: CINACALCET HCL 30 MG TAB (FP) PO SCH (09:03)
[2020-06-11] MEDS: FOLIC ACID 1 MG TABLET (FP) PO SCH (09:04)
[2020-06-11] MEDS: FAMOTIDINE 10 MG TABLET PO SCH (09:04)
[2020-06-11] MEDS: hydrALAZINE HCL 50 MG TABLET (FP) PO SCH ×2 (09:04→23:27)
[2020-06-11] MEDS: levETIRAcetam 500 MG TABLET (FP) PO SCH ×2 (09:04→23:27)
[2020-06-11] MEDS: TACROLIMUS 0.5 MG CAPSULE PO SCH ×2 (10:04→23:27)
[2020-06-11] MEDS: DEXAMETHASONE SOD PHOSPHATE 4 MG/1 ML VIAL IVPUSH SCH (10:05)
[2020-06-11 11:37] LABS: BASO % 0.2 % (0-2.0); EOS % 0.8 % (0-4.5); HEMATOCRIT 31.4 % (35.4-49); LYMPH % 9.7 % (8-40); MCH 28.3 pg (25.7-33.7); MCHC 31.7 g/dl (32.0-35.9); MEAN CELL VOLUME 89.1 fl (80-96); MEAN PLT VOLUME 11.4 fl (7.5-11.1); NEUT % 85.3 % (42.8-82.8); PLATELET COUNT 101 K/MM3 (134-434); RBC 3.52 M/mm3 (4.00-5.60); RDW 19.7 % (11.9-15.9); WHITE BLOOD COUNT 7.9 K/mm3 (4.0-10.0)
[2020-06-11 12:05] LABS: POTASSIUM 3.1 mmol/L (3.5-5.1)
[2020-06-11 12:14] LABS: CALCIUM 8.2 mg/dL (8.5-10.1)
[2020-06-11 12:15] LABS: ALBUMIN 2.5 g/dl (3.4-5.0); BLOOD UREA NITROGEN 71.1 mg/dL (7-18)
[2020-06-11 12:18] LABS: BILIRUBIN,TOTAL 0.5 mg/dL (0.2-1); CREATININE 6.2 mg/dL (0.55-1.3)
[2020-06-11 12:19] LABS: TOT PROT 6.4 g/dl (6.4-8.2)
[2020-06-11 13:57] LABS: MAGNESIUM 1.9 mg/dL (1.8-2.4)
[2020-06-11] MEDS ORDERED: POTASSIUM CHLORIDE TABS 20 MEQ TABLET.ER (FP) PO ONE (14:00)
[2020-06-11 14:01] LABS: PHOSPHOROUS 6.9 mg/dL (2.5-4.9)
[2020-06-11] MEDS ORDERED: SODIUM CHLORIDE 250 ML IV PRN (15:01)
[2020-06-11] MEDS ORDERED: EPOETIN ALFA-EPBX 3,000 UNIT/ML VIAL IVPUSH ONE (15:01)
[2020-06-11] MEDS: KCL 10 MEQ IVPB 10 MEQ/100 ML INFUS.BAG IVPB SCH ×3 (17:11→21:23)
[2020-06-11 17:22] VITALS: BMI 20.7
[2020-06-11] MEDS ORDERED: PT OWN MED DRAWER 7, Y5N ONE (22:22)
[2020-06-11] MEDS: ATORVASTATIN CA 40 MG TABLET (FP) PO SCH (23:27)
[2020-06-11] MEDS: TAMSULOSIN HCL 0.4 MG CAP PO SCH (23:27)
[2020-06-12] MEDS ORDERED: INSULIN (LEVEMIR) 100 UNITS/ML UNITS SQ ONE (00:40)
[2020-06-12] MEDS: INSULIN (LEVEMIR) 100 UNITS/ML UNITS SQ SCH ×3 (01:18→22:19)
[2020-06-12] MEDS ORDERED: ACETAMINOPHEN 325 MG TABLET (FP) PO PRN (03:59)
[2020-06-12 06:02] LABS: BASO % 0.2 % (0-2.0); HEMATOCRIT 35.1 % (35.4-49); HEMOGLOBIN 11.3 GM/dL (11.7-16.9); LYMPH % 6.3 % (8-40); MCH 28.5 pg (25.7-33.7); MCHC 32.1 g/dl (32.0-35.9); MEAN CELL VOLUME 88.9 fl (80-96); MEAN PLT VOLUME 11.8 fl (7.5-11.1); MONO % 5.6 % (3.8-10.2); NEUT % 86.9 % (42.8-82.8); PLATELET COUNT 117 K/MM3 (134-434); RBC 3.95 M/mm3 (4.00-5.60); RDW 19.9 % (11.9-15.9)
[2020-06-12] MEDS: INSULIN SLIDING SCALE (NOVOLOG) 1 VIAL SQ SCH ×4 (06:39→22:20)
[2020-06-12] MEDS ORDERED: INSULIN (NOVOLOG) ASPART 100 UNITS/ML 10ML VIAL ONE (07:38)
[2020-06-12] MEDS: AMINO ACIDS/PROTEIN HYDROLYS 30 ML LIQUID.PKT PO SCH ×2 (08:42→18:29)
[2020-06-12] MEDS: DEXAMETHASONE SOD PHOSPHATE 4 MG/1 ML VIAL IVPUSH SCH (10:43)
[2020-06-12] MEDS: hydrALAZINE HCL 50 MG TABLET (FP) PO SCH ×2 (10:47→22:17)
[2020-06-12] MEDS: levETIRAcetam 500 MG TABLET (FP) PO SCH ×2 (10:47→22:18)
[2020-06-12] MEDS: ZINC SULFATE 220 MG CAPSULE (FP) PO SCH ×2 (10:47→22:17)
[2020-06-12] MEDS: FAMOTIDINE 10 MG TABLET PO SCH (10:47)
[2020-06-12] MEDS: FOLIC ACID 1 MG TABLET (FP) PO SCH (10:47)
[2020-06-12] MEDS: CINACALCET HCL 30 MG TAB (FP) PO SCH (10:47)
[2020-06-12] MEDS: SERTRALINE HCL 25 MG TABLET (FP) PO SCH (10:47)
[2020-06-12] MEDS: TACROLIMUS 0.5 MG CAPSULE PO SCH ×2 (10:47→22:18)
[2020-06-12] MEDS: FUROSEMIDE 40 MG TABLET (FP) PO SCH (10:47)
[2020-06-12] MEDS: ALLOPURINOL 100 MG TABLET (FP) PO SCH (10:48)
[2020-06-12] MEDS ORDERED: EPOETIN ALFA-EPBX 3,000 UNIT/ML VIAL IVPUSH ONE (15:00)
[2020-06-12] MEDS ORDERED: PT OWN MED DRAWER 7, Y5N ONE (21:23)
[2020-06-12] MEDS: TAMSULOSIN HCL 0.4 MG CAP PO SCH (22:17)
[2020-06-12] MEDS: ATORVASTATIN CA 40 MG TABLET (FP) PO SCH (22:18)
[2020-06-13] MEDS: INSULIN SLIDING SCALE (NOVOLOG) 1 VIAL SQ SCH ×4 (06:14→21:57)
[2020-06-13] MEDS: INSULIN (LEVEMIR) 100 UNITS/ML UNITS SQ SCH (06:16)
[2020-06-13] MEDS: AMINO ACIDS/PROTEIN HYDROLYS 30 ML LIQUID.PKT PO SCH ×2 (08:35→16:35)
[2020-06-13] MEDS ORDERED: PT OWN MED DRAWER 7, Y5N ONE ×2 (09:40→21:34)
[2020-06-13] MEDS: FAMOTIDINE 10 MG TABLET PO SCH (09:54)
[2020-06-13] MEDS: levETIRAcetam 500 MG TABLET (FP) PO SCH ×2 (09:55→21:52)
[2020-06-13] MEDS: FOLIC ACID 1 MG TABLET (FP) PO SCH (09:55)
[2020-06-13] MEDS: hydrALAZINE HCL 50 MG TABLET (FP) PO SCH ×2 (09:55→21:52)
[2020-06-13] MEDS: FUROSEMIDE 40 MG TABLET (FP) PO SCH (09:55)
[2020-06-13] MEDS: ALLOPURINOL 100 MG TABLET (FP) PO SCH (09:55)
[2020-06-13] MEDS: SERTRALINE HCL 25 MG TABLET (FP) PO SCH (09:56)
[2020-06-13] MEDS: TACROLIMUS 0.5 MG CAPSULE PO SCH ×2 (09:56→21:52)
[2020-06-13] MEDS: CINACALCET HCL 30 MG TAB (FP) PO SCH (09:56)
[2020-06-13] MEDS: ZINC SULFATE 220 MG CAPSULE (FP) PO SCH ×2 (09:56→21:52)
[2020-06-13] MEDS: DEXAMETHASONE SOD PHOSPHATE 4 MG/1 ML VIAL IVPUSH SCH (10:00)
[2020-06-13 12:25] LABS: BASO % 0.4 % (0-2.0); EOS % 0.8 % (0-4.5); HEMATOCRIT 31.9 % (35.4-49); HEMOGLOBIN 10.1 GM/dL (11.7-16.9); LYMPH % 1.4 % (8-40); MCH 28.2 pg (25.7-33.7); MCHC 31.8 g/dl (32.0-35.9); MEAN CELL VOLUME 88.7 fl (80-96); MEAN PLT VOLUME 11.7 fl (7.5-11.1); MONO % 3.6 % (3.8-10.2); NEUT % 93.8 % (42.8-82.8); PLATELET COUNT 111 K/MM3 (134-434); RBC 3.59 M/mm3 (4.00-5.60); RDW 19.9 % (11.9-15.9)
[2020-06-13 12:43] LABS: POTASSIUM 3.5 mmol/L (3.5-5.1)
[2020-06-13 12:45] LABS: CALCIUM 8.7 mg/dL (8.5-10.1)
[2020-06-13 12:47] LABS: ALBUMIN 2.4 g/dl (3.4-5.0); BLOOD UREA NITROGEN 63.4 mg/dL (7-18)
[2020-06-13 12:50] LABS: BILIRUBIN,TOTAL 0.6 mg/dL (0.2-1); CREATININE 5.9 mg/dL (0.55-1.3)
[2020-06-13 12:51] LABS: TOT PROT 6.4 g/dl (6.4-8.2)
[2020-06-13 14:43] LABS: ANISOCYTOSIS 1+; MACROCYTOSIS 0; OVALOCYTE 1+; PLATELET ESTIMATE DECREASED
[2020-06-13] MEDS: TAMSULOSIN HCL 0.4 MG CAP PO SCH (21:52)
[2020-06-13] MEDS: ATORVASTATIN CA 40 MG TABLET (FP) PO SCH (21:52)
[2020-06-14] MEDS: INSULIN SLIDING SCALE (NOVOLOG) 1 VIAL SQ SCH ×3 (06:41→21:15)
[2020-06-14] MEDS ORDERED: INSULIN (LEVEMIR) 100 UNITS/ML UNITS SQ SCH (07:00)
[2020-06-14] MEDS ORDERED: EPOETIN ALFA-EPBX 3,000 UNIT/ML VIAL IVPUSH ONE (07:00)
[2020-06-14] MEDS ORDERED: SODIUM CHLORIDE 250 ML IV PRN (07:00)
[2020-06-14 09:45] LABS: ARTERIAL BLD GAS O2 SATURATION 83.8 mmHg (95-98); ARTERIAL BLOOD GAS BASE EXCESS 2.7 mmol/L (-2-2); ARTERIAL BLOOD GAS PO2 46.6 mmHg (80-100); ARTERIAL BLOOD GAS pH 7.433 (7.350-7.450)
[2020-06-14 09:47] LABS: ALLENS TEST POSITIVE; VENT MODE ST
[2020-06-14 09:48] LABS: VENT RATE 14
[2020-06-14] MEDS: DEXAMETHASONE SOD PHOSPHATE 4 MG/1 ML VIAL IVPUSH SCH (10:59)
[2020-06-14] MEDS: FUROSEMIDE 40 MG TABLET (FP) PO SCH (11:00)
[2020-06-14] MEDS: levETIRAcetam 500 MG TABLET (FP) PO SCH ×2 (11:00→21:50)
[2020-06-14] MEDS: hydrALAZINE HCL 50 MG TABLET (FP) PO SCH ×2 (11:00→21:50)
[2020-06-14] MEDS: SERTRALINE HCL 25 MG TABLET (FP) PO SCH (11:01)
[2020-06-14] MEDS: FOLIC ACID 1 MG TABLET (FP) PO SCH (11:01)
[2020-06-14] MEDS: AMINO ACIDS/PROTEIN HYDROLYS 30 ML LIQUID.PKT PO SCH (11:03)
[2020-06-14] MEDS: FAMOTIDINE 10 MG TABLET PO SCH (11:03)
[2020-06-14] MEDS: ALLOPURINOL 100 MG TABLET (FP) PO SCH (11:05)
[2020-06-14] MEDS ORDERED: PT OWN MED DRAWER 7, Y5N ONE ×2 (11:10→22:38)
[2020-06-14] MEDS: ZINC SULFATE 220 MG CAPSULE (FP) PO SCH ×2 (11:14→21:50)
[2020-06-14] MEDS: TACROLIMUS 0.5 MG CAPSULE PO SCH ×2 (18:04→22:05)
[2020-06-14] MEDS: CINACALCET HCL 30 MG TAB (FP) PO SCH (18:05)
[2020-06-14 19:28] VITALS: TEMP 98
[2020-06-14] MEDS: TAMSULOSIN HCL 0.4 MG CAP PO SCH (21:50)
[2020-06-14] MEDS: ATORVASTATIN CA 40 MG TABLET (FP) PO SCH (21:50)
[2020-06-14] MEDS ORDERED: SODIUM CHLORIDE FOR INHALATION 3 ML VIAL.NEB IH PRN ×2 (23:29→23:33)
[2020-06-15] MEDS ORDERED: DEXTROSE 50%-WATER - 25 GM/50 ML VIAL IVPUSH ONE (03:03)
[2020-06-15] MEDS ORDERED: DEXTROSE 50%-WATER 25 GM/50 ML DISP.SYRIN ONE (03:04)
[2020-06-15] MEDS ORDERED: RAPID SEQUENCE INTUBATION KIT NR ONE (05:06)
[2020-06-15] MEDS ORDERED: PROPOFOL 1,000,000 MCG/100 ML VIAL IVPB SCH (05:15)
[2020-06-15] MEDS ORDERED: NOREPINEPHRINE BITARTRATE 8,000 MCG/500 ML BAG IVPB SCH (05:45)
[2020-06-15] MEDS ORDERED: VASOPRESSIN 40 UNITS in SODIUM CHLORIDE 98 ML IVPB SCH (05:45)
[2020-06-15 05:48] LABS: ARTERIAL BLD GAS O2 SATURATION 80.7 mmHg (95-98); ARTERIAL BLOOD GAS BASE EXCESS -0.1 mmol/L (-2-2); ARTERIAL BLOOD GAS PO2 42.5 mmHg (80-100); ARTERIAL BLOOD GAS pH 7.445 (7.350-7.450)
[2020-06-15 05:49] LABS: ALLENS TEST POSITIVE; VENT MODE S/T; VENT RATE 14
[2020-06-15] MEDS ORDERED: SODIUM BICARBONATE 8.4% - 50 ML ONE (06:14)
[2020-06-15 08:46] VITALS: BP 74/46; PULSE 46
== END 2020-06-15 06:09 | disposition expired | DRG 137 ==
LOC: JER 14:26 → JERBED 17:56 → UNDOADMIN 17:56 → J5S 05-25 21:55 → J6S 06-03 00:38 → JICU 06-14 09:53
PROVIDERS: ADMIT Internal Medicine; ATTEND Internal Medicine
PROC: 0CQ1XZZ Repair Lower Lip, External Approach (ICD-10-PCS; 2020-05-24)
PROC: 5A1D70Z Performance of Urinary Filtration, Intermittent, Less than 6 Hours Per Day (ICD-10-PCS; 2020-05-25)
PROC: XW13325 Transfusion of Convalescent Plasma (Nonautologous) into Peripheral Vein, Percutaneous Approach, New Technology Group 5 (ICD-10-PCS; principal; 2020-05-29)
PROC: 0BH17EZ Insertion of Endotracheal Airway into Trachea, Via Natural or Artificial Opening (ICD-10-PCS; 2020-06-15)
PROC: 5A19054 Respiratory Ventilation, Single, Nonmechanical (ICD-10-PCS; 2020-06-15)
PROC: 5A12012 Performance of Cardiac Output, Single, Manual (ICD-10-PCS; 2020-06-15)
DX: U07.1 COVID-19 (principal); J96.01 Acute respiratory failure with hypoxia; I13.2 Hypertensive heart and chronic kidney disease with heart failure and with stage 5 chronic kidney disease, or end stage renal disease; J12.82 Pneumonia due to coronavirus disease 2019; I69.351 Hemiplegia and hemiparesis following cerebral infarction affecting right dominant side; E11.22 Type 2 diabetes mellitus with diabetic chronic kidney disease; N18.6 End stage renal disease; I24.8 Other forms of acute ischemic heart disease; I50.32 Chronic diastolic (congestive) heart failure; I48.0 Paroxysmal atrial fibrillation; Z94.0 Kidney transplant status; I42.9 Cardiomyopathy, unspecified; E11.65 Type 2 diabetes mellitus with hyperglycemia; E11.649 Type 2 diabetes mellitus with hypoglycemia without coma; G20 Parkinson's disease; G40.909 Epilepsy, unspecified, not intractable, without status epilepticus; S01.511A Laceration without foreign body of lip, initial encounter; W19.XXXA Unspecified fall, initial encounter; Y93.89 Activity, other specified; Y92.89 Other specified places as the place of occurrence of the external cause; Y99.8 Other external cause status; R55 Syncope and collapse; D64.9 Anemia, unspecified; N40.0 Benign prostatic hyperplasia without lower urinary tract symptoms; E87.6 Hypokalemia
CPT/HCPCS: 36415; 36430; 36600; 70450-TC; 71045-TC-FY; 80048; 80053; 80061; 80177; 82310; 82550; 82607; 82728; 82803; 82962; 83540; 83550; 83721; 83735; 83880; 83970; 84100; 84443; 84484; 85025; 85379; 85610; 85730; 86140; 86803; 86850; 86900; 86901; 87340; 93005; 93010; 93306-TC; 93880-TC; 94660; 97116-GP; 97162-GP; 99285-25; C9803; J1644; P9017; Q5106; U0003